=== PATIENT | male | born 1940 | race Caucasian/White ===

== ENCOUNTER 2023-03-06 08:10 | Outpatient (RCR) | payer MEDICARE, OTHER, SELFPAY | END 2023-03-28 14:00 | disposition home or self-care (01) | LOC: PT 08:10 | PROVIDERS: PCP Family Medicine; Visit Provider Family Medicine | DX: R26.89 Other abnormalities of gait and mobility (principal); R29.3 Abnormal posture; R26.9 Unspecified abnormalities of gait and mobility | CPT/HCPCS: 97110; 97530 ==

== ENCOUNTER 2023-03-11 07:36 | Outpatient (OUT) | payer MEDICARE, OTHER, SELFPAY ==
--- NOTE | 2023-03-11 07:43 | CA_ITS ---
Patient: ANMOL VELÁZQUEZ Exam Date: 03/11/2023 : 1940 Gender:M Ordering : DR Mikael Stephens . Admission #: [id number] Family : DR TESSY SIMMS M.D. Order #: [id number] CLICK HERE TO VIEW EXAM ECHOCARDIOGRAM REPORT PROCEDURE: CA ECHO DOPPLER COMPLETE INDICATIONS: AFIB, MURMUR COMPARISON: None. DESCRIPTION: COMPLETE ECHOCARDIOGRAM Real-time transthoracic echocardiography with 2D, M-mode, spectral and color flow Doppler performed. QUALITY: Technical quality was good. LEFT VENTRICLE: Normal chamber size. Mild concentric left ventricular hypertrophy. Global left ventricular systolic function is normal. LV EF: Estimated left ventricular ejection fraction is 60% DIASTOLIC: Normal diastolic function. ATRIAL SEPTUM: LEFT ATRIUM: Mild dilatation. RIGHT ATRIUM: Mild dilatation. RIGHT VENTRICLE: Normal chamber size. Normal right ventricular systolic function. TRICUSPID VALVE: Normal mobility and thickness. No stenosis with mild regurgitation. No evidence of pulmonary hypertension. RVSP 30 mmHg MITRAL VALVE: Normal mobility and thickness. No evidence of mitral valve stenosis. Mild mitral annular calcification. Mild mitral regurgitation. AORTIC VALVE: Moderately calcified aortic valve. Moderately diminished mobility. Doppler velocity suggests moderate aortic valve stenosis. DVI 0.35, OKSAAN 1.2 cm2, Velocity max 2.6 m/s, Mean gradient 16 mmHg. No aortic regurgitation. AORTIC ROOT: Normal diameter and appearance. Normal size ascending aorta measuring 3.5 cm. PULMONIC VALVE: Normal thickness and mobility. No stenosis. No regurgitation. PERICARDIUM: No evidence of pericardial effusion. IVC: Collapses with inspirations. Normal size. PLEURA: CONCLUSION: 1. Mild concentric left ventricular hypertrophy, normal ventricular systolic function. LVEF is 60%. 2. Mild biatrial dilatation. 3. Normal diastolic function. 4. Moderate aortic valve stenosis. 5. Normal right-sided pressures. Adult Echocardiography Procedure Report Left Ventricle LVEDD (3.7 - 5.6 cm): 3.93 cm LVESD (2.2 - 4.0 cm): 2.81 cm LVIVS thickness (0.6 - 1.2 cm): 1.09 cm LVPW thickness (0.5 - 1.0 cm): 1.07 cm e': 0.15 m/s E - e': 4.22 LVOT Max Gradient: 3.32 mm[Hg] LVOT Area (cm2): 0.91 m/s Peak Velocity (LVOT): 0.91 m/s Mean Velocity (LVOT): 0.63 m/s LVOT Diameter 2.11 cm Left Ventricular Ejection Fraction: 60% Left Atrium LA Volume Index (2D A2C): 30.26 ml/m2 Left Atrium Systolic Dimension: 4.08 cm Mitral Valve MV E to A Ratio: 0.86 Mitral Valve A-Wave Peak Velocity: 0.71 m/s Mitral Valve E-Wave Peak Velocity: 0.61 m/s Right Ventricle RV Internal Diastolic Dimension: 3.38 cm Aorta AO Root Diam: 3.33 cm Ascending Ao Diam: 3.52 cm Aortic Valve AoV Area (Peak Arnav): 1.29 cm2, 1.38 cm2 AoV Area (VTI): 1.28 cm2, 1.45 cm2 Peak Velocity(Antegrade Flow): 2.30 m/s, 2.48 m/s, 2.59 m/s Peak Gradient(Antegrade Flow): 21.09 mm[Hg], 24.58 mm[Hg], 26.90 mm[Hg] Mean Velocity(Antegrade Flow): 1.57 m/s, 1.68 m/s, 1.90 m/s Mean Gradient(Antegrade Flow): 11.48 mm[Hg], 13.13 mm[Hg], 15.53 mm[Hg] Velocity Time Integral: 47.29 cm, 56.14 cm, 57.48 cm Tricuspid Valve Peak Velocity (Regurgitant Flow): 2.31 m/s, 2.59 m/s, 2.37 m/s Pulmonic Valve Mean Gradient: 3.44 mm[Hg], 3.30 mm[Hg] Mean Velocity: 0.88 m/s, 0.85 m/s Peak Velocity: 1.29 m/s, 1.43 m/s Peak Gradient: 8.14 mm[Hg], 6.65 mm[Hg], 6.65 mm[Hg] Right Atrium Right Atrium Systolic Pressure: 39.78 ml, 39.78 ml Dictated by: Jimmie Freire M.D. on 03/12/2023 at 11:17 Approved by: Jimmie Freire M.D. on 03/12/2023 at 11:23
[2023-03-11 08:06] LABS: Basophils Percent Auto 0.3 % (0.2-2.0); Eosinophils Absolute Auto 0.1 10^3/uL (0.0-0.7); Eosinophils Percent Auto 1.8 % (0.9-7.0); Hematocrit 38.6 % (42.0-54.0); Hemoglobin 12.9 g/dL (14.0-18.0); Immature Granulocytes Abs Auto 0.03 10^3/uL (0.00-0.03); Immature Granulocytes Pct Auto 0.4 % (0.0-0.5); Lymphocytes Absolute Auto 1.4 10^3/uL (1.2-3.8); Lymphocytes Percent Auto 20.5 % (20.5-60.0); Mean Corpuscular HGB Conc 33.4 g/dL (29.9-35.2); Mean Corpuscular Hemoglobin 31.6 pg (25.9-34.0); Mean Corpuscular Volume 94.6 fL (80.0-94.0); Mean Platelet Volume 9.2 fL (9.5-13.5); Monocytes Percent Auto 14.5 % (1.7-12.0); Neutrophils Absolute Auto 4.2 10^3/uL (1.4-6.5); Neutrophils Percent Auto 62.5 % (43.0-75.0); Platelet Count 206 10^3/uL (150-450); Red Blood Count 4.08 10^6/uL (4.70-6.10); Red Cell Distribution Width 13.2 % (11.0-15.0); White Blood Count 6.7 10^3/uL (4.0-11.0)
[2023-03-11 08:21] LABS: Estimated Average Glucose 131 mg/dL; Glycohemoglobin A1C 6.2 % (4.5-6.2)
[2023-03-11 08:23] LABS: Alanine Aminotransferase 20 U/L (16-63); Albumin Globulin Ratio 0.9; Albumin Level 3.5 g/dL (3.4-5.0); Alkaline Phosphatase 93 U/L (46-116); Anion Gap 12.3; Aspartate Amino Transferase 12 U/L (15-37); BUN Creatinine Ratio 23.5; Bilirubin Total 0.5 mg/dL (0.2-1.0); Calcium 9.5 mg/dL (8.5-10.1); Carbon Dioxide 29.1 mmol/L (21.0-32.0); Chloride 101 mmol/L (98-107); Estimated GFR (African America >60 (>=60); Estimated GFR (Non-African Ame >60 (>=60); Globulin 3.8 g/dL; Glucose 110 mg/dL (74-106); Potassium 4.4 mmol/L (3.5-5.1); Sodium 138 mmol/L (136-145); Total Protein 7.3 g/dL (6.4-8.2)
[2023-03-11 08:36] LABS: Chol HDL Ratio 2.1; Cholesterol 177 mg/dL (<=200); Free T3 2.35 pg/mL (2.18-3.98); HDL Cholesterol 84 mg/dL (40-60); Thyroid Stimulating Hormone 2.607 uIU/mL (0.358-3.740); Triglycerides 63 mg/dL (<=150); VLDL CHOLESTEROL 12.6 mg/dL
== END 2023-03-11 07:37 ==
LOC: LAB 07:36
PROVIDERS: PCP Family Medicine; Visit Provider Family Medicine
DX: E78.5 Hyperlipidemia, unspecified (principal); Z12.5 Encounter for screening for malignant neoplasm of prostate; R41.3 Other amnesia; M48.062 Spinal stenosis, lumbar region with neurogenic claudication; I10 Essential (primary) hypertension; I48.91 Unspecified atrial fibrillation; R01.1 Cardiac murmur, unspecified; R73.09 Other abnormal glucose; D64.9 Anemia, unspecified; E55.9 Vitamin D deficiency, unspecified
CPT/HCPCS: 36415; 80053; 80061; 82306; 83036; 83540; 84436; 84443; 84481; 85025; 93306; G0103

== ENCOUNTER 2023-05-12 10:25 | Outpatient (OUT) | payer MEDICARE, OTHER, SELFPAY ==
[2023-05-12 11:17] LABS: Bilirubin Urine NEGATIVE (NEGATIVE); Blood Urine TRACE-I (NEGATIVE); Clarity Urine CLEAR (CLEAR); Color Urine YELLOW (YELLOW); Glucose Urine UA NEGATIVE (NEGATIVE); Ketones Urine NEGATIVE (NEGATIVE); Leukocyte Esterase Urine NEGATIVE (NEGATIVE); Nitrite Urine NEGATIVE (NEGATIVE); Protein Urine NEGATIVE (NEG/TRACE); Urobilinogen Urine 0.2 EU/dL (0.2-1.0); pH Urine 5.5 (5.0-9.0)
[2023-05-12 11:45] LABS: Bacteria Urine NONE SEEN #/HPF (NONE SEEN); RBC Urine 0-2 #/HPF (0-2); WBC Urine NONE SEEN #/HPF (NONE SEEN)
[2023-05-12 11:46] LABS: Mucus Urine NONE SEEN (NONE SEEN); Squamous Epithelial Cell Urine RARE #/LPF (NONE/RARE)
== END 2023-05-12 10:26 | disposition home or self-care (01) ==
LOC: LAB 10:28
PROVIDERS: PCP Family Medicine; Visit Provider Urology
DX: R31.9 Hematuria, unspecified (principal)
CPT/HCPCS: 81001

== ENCOUNTER 2023-07-28 08:58 | Outpatient (OUT) | payer MEDICARE, OTHER, SELFPAY ==
[2023-07-28 09:19] LABS: Basophils Percent Auto 0.5 % (0.2-2.0); Eosinophils Absolute Auto 0.3 10^3/uL (0.0-0.7); Eosinophils Percent Auto 4.7 % (0.9-7.0); Hematocrit 39.9 % (42.0-54.0); Hemoglobin 13.5 g/dL (14.0-18.0); Immature Granulocytes Abs Auto 0.01 10^3/uL (0.00-0.03); Immature Granulocytes Pct Auto 0.2 % (0.0-0.5); Lymphocytes Absolute Auto 1.4 10^3/uL (1.2-3.8); Lymphocytes Percent Auto 26.2 % (20.5-60.0); Mean Corpuscular HGB Conc 33.8 g/dL (29.9-35.2); Mean Corpuscular Hemoglobin 32.8 pg (25.9-34.0); Mean Corpuscular Volume 96.8 fL (80.0-94.0); Mean Platelet Volume 9.2 fL (9.5-13.5); Monocytes Absolute Auto 0.8 10^3/uL (0.3-0.8); Monocytes Percent Auto 13.8 % (1.7-12.0); Neutrophils Percent Auto 54.6 % (43.0-75.0); Platelet Count 215 10^3/uL (150-450); Red Blood Count 4.12 10^6/uL (4.70-6.10); White Blood Count 5.5 10^3/uL (4.0-11.0)
--- NOTE | 2023-07-28 09:26 | MR_ITS ---
[address] [address] Patient Name: ANMOL VELÁZQUEZ MRN: [id number] date: 1940 Sex: M Assigned Patient Location: MRI Current Patient Location: MRI Accession/Order Number: [id number] Exam Date: 07/28/2023 09:45 Report Date: 07/28/2023 15:59 At the request of: ROSALIA NAQVI Procedure: MR head/brain wo con MRI BRAIN WITHOUT CONTRAST, 07/28/2023. HISTORY: Memory loss. COMPARISON: MRI brain, 05/25/2021. TECHNIQUE: Multiplanar, multisequence MRI imaging of the brain without contrast. FINDINGS: There is moderate mucosal thickening left maxillary sinus. Prior cataract surgery. Nasopharynx is normal. Utility [employer] Work[employer] spaces are normal. Moderate brain atrophy. No hydrocephalus. No extra-axial fluid collections. Mild chronic microvascular ischemic changes in the cerebral white matter. No diffusion restriction. No evidence of acute ischemic infarction. T2 gradient images show no hemorrhagic lesions. No masses. MR/MR head/brain wo con IMPRESSION: 1. Stable MRI of the brain. 2. Moderate brain atrophy stable. No hydrocephalus. 3. No acute infarction. No masses. Electronically authenticated by: MARELY MONTERROSO Date: 07/28/2023 15:59
[2023-07-28 09:33] LABS: Estimated Average Glucose 134 mg/dL; Glycohemoglobin A1C 6.3 % (4.5-6.2)
[2023-07-28 10:01] LABS: Alanine Aminotransferase 21 U/L (16-63); Albumin Globulin Ratio 1.1; Albumin Level 3.7 g/dL (3.4-5.0); Alkaline Phosphatase 90 U/L (46-116); Aspartate Amino Transferase 10 U/L (15-37); BUN Creatinine Ratio 24.5; Bilirubin Total 0.6 mg/dL (0.2-1.0); Calcium 9.5 mg/dL (8.5-10.1); Carbon Dioxide 28.4 mmol/L (21.0-32.0); Chloride 101 mmol/L (98-107); Chol HDL Ratio 2.5; Cholesterol 194 mg/dL (<=200); Estimated GFR (African America >60 (>=60); Estimated GFR (Non-African Ame >60 (>=60); Free T3 2.41 pg/mL (2.18-3.98); Globulin 3.3 g/dL; Glucose 99 mg/dL (74-106); HDL Cholesterol 79 mg/dL (40-60); Potassium 4.4 mmol/L (3.5-5.1); Sodium 137 mmol/L (136-145); Thyroid Stimulating Hormone 2.433 uIU/mL (0.358-3.740); Triglycerides 72 mg/dL (<=150); VLDL CHOLESTEROL 14.4 mg/dL
[2023-07-29 10:13] LABS: Insulin 6.9 uIU/mL (2.6-24.9)
== END 2023-07-28 08:59 | disposition home or self-care (01) ==
PROVIDERS: PCP Family Medicine; Visit Provider Family Medicine
DX: I48.91 Unspecified atrial fibrillation (principal); R41.3 Other amnesia; I10 Essential (primary) hypertension; E78.5 Hyperlipidemia, unspecified; R73.09 Other abnormal glucose; Z12.5 Encounter for screening for malignant neoplasm of prostate; Z12.12 Encounter for screening for malignant neoplasm of rectum
CPT/HCPCS: 36415; 70551; 80053; 80061; 83036; 83525; 84436; 84443; 84481; 85025; G0103

== ENCOUNTER 2023-07-30 09:06 | Outpatient (REF) | payer MEDICARE, OTHER, SELFPAY ==
[2023-07-31 12:03] LABS: Occult Blood Negative
== END 2023-07-30 09:07 | disposition home or self-care (01) ==
LOC: LAB 09:06
PROVIDERS: PCP Family Medicine; Visit Provider Family Medicine
DX: I48.91 Unspecified atrial fibrillation (principal); I10 Essential (primary) hypertension; R41.3 Other amnesia
CPT/HCPCS: G0328

== ENCOUNTER 2024-05-10 07:30 | Outpatient (OUT) | payer MEDICARE, OTHER, SELFPAY ==
--- NOTE | 2024-05-10 07:30 | CA_ITS ---
Patient Name: ANMOL VELÁZQUEZ MR#: [id number] : 1940 Exam Date: 05/10/2024 Ordering Doctor: DR Dante Williamson M.D. ECHOCARDIOGRAM REPORT PROCEDURE: CA ECHO DOPPLER COMPLETE INDICATIONS: Aortic valve stenosis COMPARISON: None. DESCRIPTION: COMPLETE ECHOCARDIOGRAM Real-time transthoracic echocardiography with 2D, M-mode, spectral and color flow Doppler performed. QUALITY: Technical quality was good. LEFT VENTRICLE: Normal chamber size. Moderate concentric left ventricular hypertrophy. Global left ventricular systolic function is normal. LV EF: Estimated left ventricular ejection fraction is 65-70 %. DIASTOLIC: Diastolic function is indeterminate. ATRIAL SEPTUM: LEFT ATRIUM: Mild dilatation. RIGHT ATRIUM: Normal chamber size. RIGHT VENTRICLE: Mild chamber dilatation. Normal right ventricular systolic function. TRICUSPID VALVE: Normal mobility and thickness. No stenosis with mild regurgitation. No evidence of pulmonary hypertension. RVSP 33 mmHg MITRAL VALVE: Normal mobility and thickness. No evidence of mitral valve stenosis. Mitral annular calcification. Mild mitral regurgitation. AORTIC VALVE: Cannot rule out bicuspid valve. Moderately calcified aortic valve. Moderately diminished mobility. Doppler velocity suggest moderate aortic valve stenosis. DVI 0.32, OKSANA 1.2 cm2, Vmax 2.65 m/s, mean gradient 17 mmHg. No aortic regurgitation. AORTIC ROOT: Normal diameter and appearance. Mild dilatation of the ascending aorta measuring 3.7 cm. PULMONIC VALVE: Normal thickness and mobility. No stenosis. Trivial regurgitation. PERICARDIUM: No evidence of pericardial effusion. IVC: Collapses with inspirations. Dilated measuring 2.5 cm. PLEURA: CONCLUSION: 1. Moderate concentric left ventricular hypertrophy with normal systolic function. LVEF is 65 to 70%. 2. Mildly dilated right ventricle with normal systolic function. 3. Bicuspid aortic valve appearance with moderate stenosis and no regurgitation. 4. Mild mitral and tricuspid regurgitation. 5. Normal right-sided pressures. 6. Mildly dilated ascending aorta. Adult Echocardiography Procedure Report Left Ventricle LVEDD (3.7 - 5.6 cm): 3.42 cm LVESD (2.2 - 4.0 cm): 2.26 cm LVIVS thickness (0.6 - 1.2 cm): 1.38 cm LVPW thickness (0.5 - 1.0 cm): 1.26 cm e': 0.10 m/s E - e': 5.23 LVOT Max Gradient: 2.95 mm[Hg] LVOT Area (cm2): 0.86 m/s Peak Velocity (LVOT): 0.86 m/s Mean Velocity (LVOT): 0.59 m/s LVOT Diameter 2.22 cm Left Ventricular Ejection Fraction: 65-70 % Left Atrium LA Volume Index (2D A2C): 30.45 ml/m2 Left Atrium Systolic Dimension: 3.63 cm Mitral Valve MV E to A Ratio: 0.86 Mitral Valve A-Wave Peak Velocity: 0.60 m/s Mitral Valve E-Wave Peak Velocity: 0.52 m/s Right Ventricle RV Internal Diastolic Dimension: 3.16 cm Aorta AO Root Diam: 2.87 cm Ascending Ao Diam: 3.66 cm Aortic Valve AoV Area (Peak Arnav): 1.21 cm2, 1.40 cm2 AoV Area (VTI): 1.50 cm2, 1.94 cm2 Peak Velocity(Antegrade Flow): 2.37 m/s, 2.65 m/s, 3.09 m/s, 2.92 m/s Peak Gradient(Antegrade Flow): 22.56 mm[Hg], 28.06 mm[Hg], 38.13 mm[Hg], 34.00 mm[Hg] Mean Velocity(Antegrade Flow): 1.63 m/s, 1.98 m/s, 1.61 m/s, 1.43 m/s Mean Gradient(Antegrade Flow): 12.08 mm[Hg], 17.21 mm[Hg], 13.63 mm[Hg], 11.14 mm[Hg] Velocity Time Integral: 44.64 cm, 58.66 cm, 68.61 cm, 59.06 cm Tricuspid Valve Peak Velocity (Regurgitant Flow): 2.34 m/s, 2.49 m/s, 2.35 m/s Pulmonic Valve Mean Gradient: 3.33 mm[Hg], 3.52 mm[Hg] Mean Velocity: 0.83 m/s, 0.84 m/s Peak Velocity: 1.41 m/s Peak Gradient: 7.50 mm[Hg], 8.50 mm[Hg] Right Atrium Right Atrium Systolic Pressure: 28.32 ml, 28.32 ml Dictated by: Jimmie Freire M.D. on 05/10/2024 at 19:21 Approved by: Jimmie Freire M.D. on 05/10/2024 at 19:28
--- OUTSIDE RECORDS SUMMARY | 2024-05-10 07:33 | XMS_ITS | CCD ---
Author Organization [facility] Care Team Providers Care Vice President Global Advertising Sales Name Role Phone PHYSICIAN, DEFAULT Unavailable Unavailable PHYSICIAN, DEFAULT Unavailable Unavailable ELTAHAWY, EHAB A Unavailable Unavailable ELTAHAWY, EHAB A Unavailable Unavailable SELF, REFERRED Unavailable Unavailable SELF, REFERRED Unavailable Unavailable Rosalia Stephens Primary Care Physician ALEXISY ., DR LINDSEY Primary Care Unavailable HOY ., DR LINDSEY Attending Unavailable HOY ., DR LINDSEY Admitting Unavailable HOY ., DR LINDSEY Primary Care Unavailable HOY ., DR LINDSEY Consulting Unavailable HOY ., DR LINDSEY Attending Unavailable HOY ., DR LINDSEY Admitting Unavailable HOY ., DR LINDSEY Primary Care Unavailable HOY ., DR LINDSEY Attending Unavailable HOY ., DR LINDSEY Admitting Unavailable Alfa SAUCEDO Attending Unavailable Alfa SAUCEDO Attending Unavailable Unavailable Primary Care Provider Unavailabl e ELTAHAWY, EHAB Attending Unavailable ELTAHAWY, EHAB Attending Unavailable WALKER TO Attending Unavailable WALKER TO Attending Unavailable WALKER TO Attending Unavailable Allergies Allergy Classification Reported Allergen(s) Allergy Type Date of Onset Reaction(s) Facility (5 sources) Morphine; Translations: [morphine] Drug Allergy 7 Unknown [facility] (3 sources) Penicillin; Translations: [penicillin] Drug Allergy Unknown (qualifier value) [facility] (2 sources) Morphine Drug Allergy 7 [facility] (2 sources) Penicillins; Translations: [PENICILLINS] Drug allergy (disorder) 6 [facility] (1 source) Penicillins Drug Allergy 3 [facility] Medications Current Medications Medication Drug Class(es) Dates Sig (Normalized) Sig (Original) apixaban 5 mg oral tablet (2 sources) Factor Xa Inhibitor Start: 02-27-2023 Eliquis 5 mg oral tablet Refills(s) 0 Start Date: 05/12/23 Status: Ordered ascorbic acid 1000 mg oral tablet (1 source) Vitamin C Ascorbic Acid (vitamin C) 1000 MG tablet 1 (one) time each day at the same time. 0 Active aspirin 81 mg oral tablet (3 sources) Platelet Aggregation Inhibitor, Nonsteroidal Anti-inflammatory Drug Start: 11-01-2019 take 1 tablet by mouth once daily aspirin 81 mg oral tablet 81 mg = 1 tab(s), Oral, Daily, Prophylaxis Start Date: 11/01/19 Status: Ordered aspirin 81 MG ch ewable tablet 1 (one) time each day at the same time. 0 Active Calcium (2 sources) Phosphate Binder, Calcium Start: 11-01-2019 Calcium 500+D 1 tab(s), Chewed, Daily, Prophylaxis Start Date: 11/01/19 Status: Ordered cholecalciferol 0.05 mg oral tablet (1 source) Vitamin D cholecalciferol (Vitamin D-3) 50 MCG (2000 UT) tablet 1 (one) time each day at the same time. 0 Active cinnamon bark 500 mg oral capsule (1 source) cinnamon 500 MG capsule 1 (one) time each day at the same time. 0 Active Cinnamon Preparation (2 sources) Non-Standardized Food Allergenic Extract Start: 05-14-2019 take 1 mg by mouth twice daily Cinnamon mg, Oral, BID, Prophylaxis Start Date: 05/14/19 Status: Ordered docosahexaenoic acid 120 mg / eicosapentaenoic acid 180 mg oral capsule (1 source) omega-3 (Fish Oi l) 1000 MG capsule 1 capsule 1 (one) time each day at the same time. 0 Active donepezil hydrochloride 10 mg oral tablet (3 sources) Start: 08-13-2021 donepezil 10 mg Tab Refills(s) 0 Start Date: 08/13/21 Status: Ordered donepezil (Arice pt) 10 MG tablet every 12 (twelve) hours. 0 Active FeroSul 325 mg oral tablet (1 source) Start: 05-12-2023 FeroSul 325 mg oral tablet Refills(s) 0 Start Date: 05/12/23 Status: Ordered ferrous sulfate 325 mg oral tablet (1 source) Start: 10-07-2022 take 1 tablet by mouth once daily ferrous sulfate 325 (65 Fe) MG tablet TAKE ONE TABLET BY MOUTH DAILY for 30 0 10/07/2022 Active finasteride 5 mg oral tablet (3 sources) 5-alpha Reductase Inhibitor Start: 03-11-2023 End: 03-05-2024 take 1 tablet by mouth once daily finasteride 5 mg Tab 5 mg = 1 tab(s), Oral, Daily, X 90 day(s), # 90 tab(s), Refills(s) 3, Pharmacy: [facility] [id number], 178, cm, 08/13/21 10:37:00 EST, Height/Length Dosing, 77, kg, 08/13/21 10:37:00 EST, Weight Dosing Start Date: 03/11/23 Stop Date: 03/05/24 Status: Ordered Start: 09-03-2021 take 1 tablet by [facility] once daily finasteride 5 mg Tab 5 mg = 1 tab(s), Oral, Daily, # 90 tab(s), Refills(s) 3, Pharmacy: [facility] 641, 178, cm, 08/13/21 10:37:00 EST, Height/Length Dosing, 77, kg, 08/13/21 10:37:00 EST, Weight Dosing Start Date: 09/03/21 Status: Ordered Fish Oils (2 sources) Start: 11-04-2019 take 3 capsules by mouth once daily Fish Oil 3 cap(s), Oral, Daily, Refill(s) 0 Start Date: 11/04/19 Status: Ordered lisinopril 20 mg oral tablet (3 sources) Angiotensin Converting Enzyme Inhibitor Start: 05-14-2019 take 1 tablet by mouth once daily lisinopril 20 mg Tab 20 mg = 1 tab(s), Oral, Daily, High blood pressure Start Date: 05/14/19 Status: Ordered lovastatin 40 mg oral tablet (3 sources) HMG-CoA Reductase Inhibitor Start: 05-14-2019 take 1 tablet by mouth once daily lovastatin 40 mg Tab 40 mg = 1 tab(s), Oral, Daily, High cholesterol Start Date: 05/14/19 Status: Ordered memantine hydrochloride 5 mg oral tablet (1 source) N-mzvldf-B-aspart ate Receptor Antagonist Start: 08-27-2023 take 1 tablet by mouth in the morning memantine (Namenda) 5 MG tablet Indications: Mild cognitive impairment with memory loss Take 1 tablet (5 mg) by mouth in the morning and 1 tablet (5 mg) before bedtime. 60 tablet 11 08/27/2023 Active methylcellulose 500 mg oral tablet (1 source) Methylcellulose, Laxative, (Fiber Therapy) 500 MG tablet every 4 (four) hours. 0 Active 24 hr mirabegron 50 mg extended release oral tablet (1 source) beta3-Adrenergic Agonist Start: 09-24-2021 take 1 tablet by mouth once daily Myrbetriq 50 mg oral tablet, extended release 50 mg = 1 tab(s), Oral, Daily, # 30 tab(s), Refills(s) 6, [facility]acy: [facility], 178, cm, 08/13/21 10:37:00 EST, Height/Length Dosing, 77, kg, 08/13/21 10:37:00 EST, Weight Dosing Start Date: 09/24/21 Status: Ordered Multiple Vitamins-Minerals (Multivitamin Men) tablet (1 source) Multiple Vitamins-Minerals (Multivitamin Men) tablet Orally 0 Active pantoprazole 40 mg extended release oral tablet (3 sources) Proton Pump Inhibitor Start: 05-14-2019 take 1 tablet by mouth once daily pantoprazole 40 mg Oral EC Tab 40 mg = 1 tab(s), Oral, Daily, Control of stomach acid Start Date: 05/14/19 Status: Ordered Start: 05-14-2019 take 1 tablet by [facility] once daily pantoprazole 40 mg Oral EC Tab 40 mg = 1 tab(s), Oral, Daily, Control of stomach acid Start Date: 05/14/19 Status: Ordered tamsulosin hydrochloride 0.4 mg oral capsule (3 sources) alpha-Adrenergic Ana Laura Start: 01-22-2023 End: 01-17-2024 take 1 capsule by mouth once daily tamsulosin 0.4 mg Cap 0.4 mg = 1 cap(s), Oral, Daily, X 90 day(s), # 90 cap(s), Refills(s) 3, Pharmacy: [facility] [id number], 178, cm, 08/13/21 10:37:00 EST, Height/Length Dosing, 77, kg, 08/13/21 10:37:00 EST, Weight Dosing Start Date: 01/22/23 Stop Date: 01/17/24 Status: Ordered Start: 10-28-2021 take 1 capsule by [facility] once daily tamsulosin 0.4 mg Cap 0.4 mg = 1 cap(s), Oral, Daily, # 90 cap(s), Refills(s) 3, Pharmacy: [facility], 178, cm, 08/13/21 10:37:00 EST, Height/Length Dosing, 77, kg, 08/13/21 10:37:00 EST, Weight Dosing Start Date: 10/28/21 Status: Ordered 24 hr tolterodine tartrate 4 mg extended release oral capsule (2 sources) Cholinergic Muscarinic Antagonist Start: 03-06-2023 tolterodine LA (Detrol LA) 4 MG 24 hr capsule 1 capsule 1 (one) time each day at the same time. 0 03/06/2023 Active Start: 09-26-2021 take 1 capsule by [facility] once daily tolterodine 4 mg Cap-ER 4 mg = 1 cap(s), Oral, Daily, # 30 cap(s), Refills(s) 11, Pharmacy: [facility], 178, cm, 08/13/21 10:37:00 EST, Height/Length Dosing, 77, kg, 08/13/21 10:37:00 EST, Weight Dosing Start Date: 09/26/21 Status: Ordered vitamin b12 0.5 mg oral tablet (1 source) Vitamin B12 cyanocobalamin ( Vitamin B-12) 500 MCG tablet 1 (one) time each day at the same time. 0 Active Vitamin C 250 mg oral tablet (2 sources) Start: 11-01-2019 take 1 tablet by mouth once daily Vitamin C 250 mg oral tablet 250 mg = 1 tab(s), Oral, Daily, Prophylaxis Start Date: 11/01/19 Status: Ordered Completed/Discontinued Medications Medication Drug Class(es) Dates Sig (Normalized) Sig (Original) tadalafil 20 mg oral tablet (2 sources) Phosphodiesterase 5 Inhibitor Start: 12-04-2022 take 1 tablet by mouth every twenty-four hours tadalafil 20 mg Tab 20 mg = 1 tab(s), Oral, Daily, Take 1 tab by mouth 1 hour prior to sexual activity. Don't exceed 1 tab in a 24 hr period., # 30 tab(s), Refills(s) 2, [facility]: [facility] [id number], 178, cm, 08/13/21 10:37:00 EST, Height/Length Dosing, 77, kg, 11... Start Date: 12/04/22 Status: Ordered Start: 01-02-2021 take 1 tablet by ubaldo th every hour tadalafil 20 mg Tab 20 mg = 1 tab(s), Oral, Daily, take 1 tab 1 hour prior to sexual activity, # 30 tab(s), Refills(s) 6, Pharmacy: [facility] [facility] [id number] Start Date: 01/02/21 Status: Ordered Vitamin B12 500 mcg oral tablet (2 sources) Start: 11-04-2019 take 1 tablet by mouth once daily Vitamin B12 500 mcg oral tablet 500 microgram = 1 tab(s), Oral, Daily, Refills(s) 0, Prophylaxis Start Date: 11/04/19 Status: Ordered Problems Active Problems Problem Classification Problem Date Documented Date Episodic/Chronic Anxiety disorders (1 source) Anxiety; Translations: [Anxiety disorder, unspecified] Onset: 09-08-2023 09-08-2023 Chronic Blindness and vision defects (1 source) Visual alteration; Translations: [Unspecified visual loss] Onset: 09-08-2023 09-08-2023 Chronic Cardiac dysrhythmias (2 sources) Paroxysmal atrial fibrillation; Translations: [Paroxysmal atrial fibrillation] Onset: 03-31-2023 Chronic Delirium, dementia, and amnestic and other cognitive disorders (4 sources) 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; Translations: [AGE-RELATED COGNITIVE DECLINE] Onset: 07-01-2022 Chronic Disorders of lipid metabolism (5 sources) Hyperlipidemia; Translations: [Pure hypercholesterolemia , unspecified] Onset: 07-04-2022 04-12-2019 Chronic Essential hypertension (6 sources) Hypertensive disorder; Translations: [Essential (primary) hypertension] Onset: 07-04-2022 04-12-2019 Chronic Fracture of upper limb (2 sources) Fracture of metacarpal bone 11-04-2019 Episodic Comment on above: RIGHT Heart valve disorders (1 source) Nonrheumatic mitral (valve) insufficiency; Translations: [NONRHEUMATIC MITRAL (VALVE) INSUFFICIENCY] Onset: 06-24-2017 Chronic Hyperplasia of prostate (6 sources) Benign prostatic hypertrophy with outflow obstruction; Translations: [Nocturia due to benign prostatic hypertrophy] Onset: 03-31-2023 04-12-2019 Chronic Osteoarthritis (3 sources) Arthritis; Translations: [Osteoarthritis of right hip joint] Onset: 08-25-2023 04-12-2019 Chronic Other aftercare (1 source) Long-term current use of anticoagulant; Translations: [termite treater (current) use of anticoagulants] Onset: 05-12-2023 Episodic Other connective tissue disease (1 source) History of total replacement of left hip joint; Translations: [Presence of left artificial hip joint] Onset: 08-25-2023 08-25-2023 Chronic Other connective tissue disease (1 source) History of total replacement of right hip joint; Translations: [Presence of right artificial hip joint] Onset: 08-25-2023 08-25-2023 Chronic Other connective tissue disease (1 source) Pain in right hand; Translations: [Pain in right hand] Onset: 08-25-2023 08-25-2023 Episodic Other hereditary and degenerative nervous system conditions (1 source) Mild cognitive impairment, so stated; Translations: [Mild cognitive impairment, so stated] Onset: 08-25-2023 08-25-2023 Chronic Other male genital disorders (2 sources) 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 Other male genital disorders (1 source) Male erectile dysfunction, unspecified; Translations: [Erectile dysfunction] Onset: 05-12-2023 Chronic Other nervous system disorders (1 source) Chronic pain; Translations: [Other chronic pain] Onset: 08-25-2023 08-25-2023 Chronic Other nervous system disorders (4 sources) Other abnormalities of gait and mobility; Translations: [OTHER ABNORMALITIES GAIT AND MOBILITY] Onset: 03-05-2023 Episodic Other non-traumatic joint disorders (1 source) Pain in left shoulder; Translations: [Pain in joint, shoulder region] Onset: 08-25-2023 08-25-2023 Episodic Other non-traumatic joint disorders (1 source) Arthralgia of the pelvic region and thigh; Translations: [Pain in unspecified hip] Onset: 08-25-2023 08-25-2023 Episodic Other non-traumatic joint disorders (1 source) Pain in right hip joint; Translations: [Pain in right hip] Onset: 08-25-2023 08-25-2023 Episodic Skull and face fractures (2 sources) Closed fracture of nasal bones 11-04-2019 Episodic Spondylosis; intervertebral disc disorders; other back problems (5 sources) Disorder of lumbar disc; 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] Onset: 03-31-2023 04-12-2019 Chronic Superficial injury; contusion (1 source) Contusion of right hand; Translations: [Contusion of right hand, initial encounter] Onset: 08-25-2023 08-25-2023 Episodic Unclassified (2 sources) Unknown / UNK(Unknown) Onset: 06-24-2017 Unclassified (2 sources) Drug therapy finding 05-12-2020 Unclassified (1 source) Asymptomatic microscopic hematuria 05-12-2023 Past or Other Problems Problem Classification Problem Date Documented Date Episodic/Chronic Diabetes mellitus without complication (1 source) Other abnormal glucose; Translations: [OTHER ABNORMAL GLUCOSE] Onset: 07-04-2022 Episodic Genitourinary symptoms and ill-defined conditions (6 sources) Increased frequency of urination; Translations: [Nocturia] Onset: 03-31-2023 05-14-2019 Episodic Heart valve disorders (1 source) Cardiac murmur, unspecified; Translations: [CARDIAC MURMUR, UNSPECIFIED] Onset: 06-24-2017 Episodic Unclassified (6 sources) Abnormal electrocardiogram [ECG] [EKG]; Translations: [Encounter for screening for malignant neoplasm of prostate] Onset: 06-24-2017 08-25-2023 Episodic Results Test Name Value Interpretation Reference Range Facility Office Visiton 12-31-2023 Follow-up visit [id number] Matt Burroughs 1940 M Date Provider Department Center 12/31/2023 [facility] Family History Problem Relation Age of Onset No Known Problems Mother No Known Problems Father Heart failure Sister Family Status - Relation Status Age at Mother Father Sister Level of Service:38281 [place] OFFICE/OUTPATIENT ESTABLISHED LOW MDM 20 MIN Normal [facility] Orders Onlyon 12-31-2023 Orders Only [id number] Matt Burroughs 1940 M Date Provider Department Center 12/31/2023 KAVON CALDERÓN SAVI Guerra Family History Problem Relation Age of Onset No Known Problems Mother No Known Problems Father Heart failure Sister Family Status - Relation Status Age at Mother Father Sister Normal [facility] Lab Reportson 05-19-2023 Lab Reports [id number] Normal [facility] Ambulatory Visit Summaryon 0 05-12-2023 Ambulatory Visit Summary MATT BURROUGHS :1940 Visit Date:05/12/2023 Ambulatory Visit Instructions Your Diagnosis BPH associated with nocturia Organic impotence Asymptomatic microscopic hematuria Anticoagulated Tests Performed Urnls Dip Stick Auto w/o Microscopy POC 78283 Your Care Team Attending Physician - PHOEBE HARTMAN, Alfa Stroud Primary Care Physician - Rosalia Stephens MD This Is Your Medications List tolterodine (tolterodine 4 mg Cap-ER) Contact prescribing physician if questions or concerns apixaban (Eliquis 5 mg oral tablet) ascorbic acid (Vitamin C 250 mg oral tablet) aspirin (aspirin 81 mg oral tablet) calcium-vitamin D (Calcium 500+D) cinnamon (Cinnamon) cyanocobalamin (Vitamin B12 500 mcg oral tablet) donepezil (donepezil 10 mg Tab) ferrous sulfate (FeroSul 325 mg oral tablet) finasteride (finasteride 5 mg Tab) lisinopril (lisinopril 20 mg Tab) lovastatin (lovastatin 40 mg Tab) omega-3 polyunsaturated fatty acids (Fish Oil) pantoprazole (pantoprazole 40 mg Oral EC Tab) tadalafil (tadalafil 20 mg Tab) tamsulosin (tamsulosin 0.4 mg Cap) Procedures Performed Closed reduction of nasal fracture (11/04/2019), Cystoscopy (10/28/2005), Back, Hip replacement. Discharge Vitals Heart Rate (Peripheral) 79 Respiratory Rate 16 Blood Pressure 131/82 Height 178 cm Height 70 in Weight 76.1 kg Weight 167.42 lb BMI 24.02 What to do next You Need to Schedule the Following Appointments Follow Up with PHOEBE HARTMAN, TYRONE Quevedo When: Where: [facility] [address] , [place] [address] [phone] Medications What How Much When Instructions Unchanged tolterodine (tolterodine 4 mg Cap-ER) 1 Capsules By Mouth Every day Unchanged apixaban (Eliquis 5 mg oral tablet) Contact prescribing physician if questions or concerns Unchanged ascorbic acid (Vitamin C 250 mg oral tablet) 1 Tablets By Mouth Every day Contact prescribing physician if questions or concerns Unchanged aspirin (aspirin 81 mg oral tablet) 1 Tablets By Mouth Every day Contact prescribing physician if questions or concerns Unchanged calcium-vitamin D (Calcium 500+D) 1 Tablets Chewed Every day Contact prescribing physician if questions or concerns Unchanged cinnamon (Cinnamon) By Mouth 2 times a day Contact prescribing physician if questions or concerns Unchanged cyanocobalamin (Vitamin B12 500 mcg oral tablet) 1 Tablets By Mouth Every day Contact prescribing physician if questions or concerns Unchanged donepezil (donepezil 10 mg Tab) Contact prescribing physician if questions or concerns Unchanged ferrous sulfate (FeroSul 325 mg oral tablet) Contact prescribing physician if questions or concerns Unchanged finasteride (finasteride 5 mg Tab) 1 Tablets By Mouth Every day Duration: 90 Days Contact prescribing physician if questions or concerns Unchanged lisinopril (lisinopril 20 mg Tab) 1 Tablets By Mouth Every day Contact prescribing physician if questions or concerns Unchanged lovastatin (lovastatin 40 mg Tab) 1 Tablets By Mouth Every day Contact prescribing physician if questions or concerns Unchanged omega-3 polyunsaturated fatty acids (Fish Oil) 3 Capsules By Mouth Every day Contact prescribing physician if questions or concerns Unchanged pantoprazole (pantoprazole 40 mg Oral EC Tab) 1 Tablets By Mouth Every day Contact prescribing physician if questions or concerns Unchanged tadalafil (tadalafil 20 mg Tab) 1 Tablets By Mouth Every day Take 1 tab by mouth 1 hour prior to sexual activity. Don't exceed 1 tab in a 24 hr period. Contact prescribing physician if questions or concerns Unchanged tamsulosin (tamsulosin 0.4 mg Cap) 1 Capsules By Mouth Every day Duration: 90 Days Contact prescribing physician if questions or concerns Test Results Urnls Dip Stick Auto w/o Microscopy POC 40849 (05/12/2023) Bilirubin Urine Dipstick - Negative Blood Urine Dipstick - 1+ Small Glucose Urine Dipstick - Negative Ketones Urine Dipstick - Negative Leukocytes Urine Dipstick - Negative Nitrite Urine Dipstick - Negative Protein Urine Dipstick - Negative Specific [place] Urine Dipstick - 1.025 Urine Appearance Urine Dipstick - Clear Urine Color Urine Dipstick - Yellow Urobilinogen Urine Dipstick - Normal 0.2-1 EU/dl pH Urine Dipstick - 5.5 Allergies morphine (Unknown) penicillin (Unknown) Problems Ongoing - Any problem that you are currently receiving treatment for. Anticoagulated Arthritis Asymptomatic microscopic hematuria BPH associated with nocturia BPH with urinary obstruction Hyperlipidemia Hypertension Lumbar disc disease Nocturia Organic impotence Urinary frequency Education Materials Hematuria, Adult Hematuria is blood in the urine. Blood may be visible in the urine, or it may be identified with a test. This condition can be caused by infections of the bladder, urethra, kidney, or prostate. Other possible causes inclu (more content not included)... Normal [facility] Patient Educationon 05-12-20 23 Patient Education Urology Hematuria, Adult Hematuria is blood in the urine. Blood may be visible in the urine, or it may be identified with a test. This condition can be caused by infections of the bladder, urethra, kidney, or prostate. Other possible causes include: ? Kidney stones. ? Cancer of the urinary tract. ? Too much calcium in the urine. ? Conditions that are passed from parent to child (inherited conditions). ? Exercise that requires a lot of energy. Infections can usually be treated with medicine, and a kidney stone usually will pass through your urine. If neither of these is the cause of your hematuria, more tests may be needed to identify the cause of your symptoms. It is very important to tell your health care provider about any blood in your urine, even if it is painless or the blood stops without treatment. Blood in the urine, when it happens and then stops and then happens again, can be a symptom of a very serious condition, including cancer. There is no pain in the initial stages of many urinary cancers. Follow these instructions at home: Medicines ? Take riva-rnq-ohvdsvt and prescription medicines only as told by your health care provider. ? If you were prescribed an antibiotic medicine, take it as told by your health care provider. Do not stop taking the antibiotic even if you start to feel better. Eating and drinking ? Drink enough fluid to keep your urine pale yellow. It is recommended that you drink 3?4 quarts (2.8?3.8 L) a day. If you have been diagnosed with an infection, drinking cranberry juice in addition to large amounts of water is recommended. ? Avoid caffeine, tea, and carbonated beverages. These tend to irritate the bladder. ? Avoid alcohol because it may irritate the prostate (in males). General instructions ? If you have been diagnosed with a kidney stone, follow your health care provider's instructions about straining your urine to catch the stone. ? Empty your bladder often. Avoid holding urine for long periods of time. ? If you are female: ? After a bowel movement, wipe from front to back and use each piece of toilet paper only once. ? Empty your bladder before and after sex. ? Pay attention to any changes in your symptoms. Tell your health care provider about any changes or any new symptoms. ? It is up to you to get the results of any tests. Ask your health care provider, or the department that is doing the test, when your results will be ready. ? Keep all follow-up visits. This is important. Contact a health care provider if: ? You develop back pain. ? You have a fever or chills. ? You have nausea or vomiting. ? Your symptoms do not improve after 3 days. ? Your symptoms get worse. Get help right away if: ? You develop severe vomiting and are unable to take medicine without vomiting. ? You develop severe pain in your back or abdomen even though you are taking medicine. ? You pass a large amount of blood in your urine. ? You pass blood clots in your urine. ? You feel very weak or like you might faint. ? You faint. Summary ? Hematuria is blood in the urine. It has many possible causes. ? It is very important that you tell your health care provider about any blood in your urine, even if it is painless or the blood stops without treatment. ? Take bxgs-bdw-gddjooa and prescription medicines only as told by your health care provider. ? Drink enough fluid to keep your urine pale yellow. This information is not intended to replace advice given to you by your health care provider. Make sure you discuss any questions you have with your health care provider. Document Revised: 05/23/2021 Document Reviewed: 05/23/2021 [employer] Patient Education ? 2022 [employer] Normal [facility] Urology Office/Clinic Noteon 05-12-2023 Urology Office/Clinic Note Chief Complaint 1 year f/u HPI Staff Pt last seen in our office 08/13/21 due to BPH & Organic Impotence. Here today for follow up and for med refill. *Tamsulosin 0.4mg QD, Finasteride 5mg QD & Tadalafil 20mg therapy Per EMR message from 09/24/21, PRW wanted pt to start Myrbetriq 50mg QD therapy, however medication was too expensive, pt started on Tolterodine 4mg QD therapy Dysuria: no Incomplete bladder emptying: no Hematuria: no Frequency: once in a while Urgency: once in a while Nocturia: 2-3x Stream: good steady Leaking: no Post void dripping: no Wearing pads/ Depends: no Urge incontinence: no Stress incontinence: no Incontinence without Sensory Awareness: no Abdominal pain: no Flank pain: no History of Present Illness Tests reviewed: reviewed UA I have reviewed the previous health record information and history for this patient from Dr. Saucedo. I have reviewed and verified the staff HPI to be accurate for this encounter. There have been no associated fever, chills, flank pain, or blood in the urine. Denies any urinary infections since last encounter. Review of Systems PHQ Score Initial Depression Screen Score: 0 ROS - Provider Constitutional: denies weight loss, denies hot flashes. Eyes: denies eye problems. Gastrointestinal: denies nausea, denies vomiting. Cardiovascular: denies chest pain or angina. Integumentary: no dryness Musculoskeletal: denies musculoskeletal symptoms. ENMT: denies otolaryngeal symptoms. Respiratory: no shortness of breath. Heme/Lymph: denies easy bleeding tendency, denies easy bruising tendency. Psychiatric: no confusion, no anxiety. Genitourinary: See HPI. Physical Exam Vitals & Measurements HR: 79(Peripheral) RR: 16 BP: 131/82 HT: 70 in HT: 178 cm WT: 76.1 kg WT: 167.42 lb BMI: 24.02 General Appearance: alert, no distress, well nourished, well developed male. Genitourinary: normal scrotum, normal testes, normal urethra, normal epididymis, normal vas deferens/spermatic cord. Flank Pain: none. Bladder: nonpalpable. Assessment/Plan 1. BPH associated with nocturia (N40.1: Benign prostatic hyperplasia with lower urinary tract symptoms) Pt is currently taking Tamsulosin 0.4mg QD and Finasteride 5mg QD. Denies any SEs at this time. Pt was prescribed Myrbetriq in the past but never started due to expense. Pt is now taking Tolterodine 4mg ER QD. Reports this has not improved nocturia significantly. Discussed pt is likely getting up at night due to pain or other complications unrelated to urination. Pt to stop taking Tolterodine and to monitor sxs. 2. 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 3. Asymptomatic microscopic hematuria (R31.21: Asymptomatic microscopic hematuria) UA today shows small blood. Denies any visible blood in his urine. Pt does not have a hx of hematuria. Pt to get a micro UA done. Will evaluate further options pending results. All questions/concerns were discussed. Pt to call the office if he encounters any issues prior. Pt acknowledges understanding. 4. Anticoagulated (Z79.01: FPC (current) use of anticoagulants) On Eliquis. Follow-up With When Contact Information PHOEBE HARTMAN, Alfa Stroud, [facility] [address], [place] [phone] Additional Instructions: 1 yr Patient Education Hematuria, Adult I, Mei Vega, personally scribed for Dr. Saucedo on 05/12/2023 10:04:34. . Documentation recorded by the scribe, Mei Vega, accurately reflects the services(s) I performed and decisions made by me. Authenticated by Dr. Saucedo on 05/12/2023 10:06:58. Problem List/Past Medical History Ongoing Anticoagulated Arthritis Asymptomatic microscopic hematuria BPH associated with nocturia BPH with urinary obstruction Hyperlipidemia Hypertension Lumbar disc disease Nocturia Organic impotence Urinary frequency Historical No qualifying data Procedure/Surgical History Closed reduction of nasal fracture (11/04/2019), Cystoscopy (10/28/2005), Back, Hip replacement. Medications aspirin 81 mg oral tablet, 81 mg= 1 tab(s), Oral, Daily Calcium 500+D, 1 tab(s), Chewed, Daily Cinnamon, Oral, BID donepezil 10 mg Tab Eliquis 5 mg oral tablet FeroSul 325 mg oral tablet finasteride 5 mg Tab, 5 mg= 1 tab(s), Oral, Daily, 3 refills Fish Oil, 3 cap(s), Oral, Daily lisinopril 20 mg Tab, 20 mg= 1 tab(s), Oral, Daily lovastatin 40 mg Tab, 40 mg= 1 tab(s), Oral, Daily pantoprazole 40 mg Oral EC Tab, 40 mg= 1 tab(s), Oral, Daily tadalafil 20 mg Tab, 20 mg= 1 tab(s), Oral, Daily, 2 refills tamsulosin 0.4 mg Cap, 0.4 mg= 1 cap(s), Oral, Daily, 3 refills tolterodine 4 mg Cap-ER, 4 mg= 1 cap(s), Oral, Daily, 11 refills Vitamin B12 500 mcg oral tablet, 500 mcg= 1 tab(s), Oral, Daily Vitamin C 250 mg oral tablet, 250 mg= 1 tab(s), Oral, Daily Allergies (more content not included)... Normal [facility] Comment on above: Result Comment: Elec tronically Signed By: Alfa SAUCEDO MD\.br\Date and Time Signed: 05/12/23 10:07 EDT\.br\Electronically Co-Signed By: Mei Vega\.br\Date and Time Co-Signed: 05/12/23 10:05 EDT Office Visiton 03-31-2023 Follow-up visit [id number] Matt Burroughs 1940 M Date Provider Department Center 03/31/2023 Jesus-DANTE WILLIAMSON [facility] Family History Problem Relation Age of Onset No Known Problems Mother No Known Problems Father Heart failure Sister Family Status - Relation Status Age at Mother Father Sister Level of Service:12237 [place] OFFICE/OUTPATIENT NEW LOW MDM 30-44 MINUTES Normal [facility] INSULINon 07-02-2022 Insulin 6.3 uIU/mL Normal 2.6-24.9 [facility] Comment on above: Performed By: #### I NSULIN #### [facility] [address] [place] [address] Dr. Robyn Espinal T4, T3U, FTI LABCORPon 07-02 Free Thyroxine Index 1.6 Normal 1.2-4.9 [facility] Comment on above: Performed By: #### T HYLC #### [facility] [address] [place] [address] Dr. Robyn Espinal T3 Uptake 27 % Normal 24-39 [facility] Comment on above: Performed By: #### T HYLC #### [facility] [address] [place] [address] Dr. Robyn Espinal T4 [Mass/Vol] 5.8 ug/dL Normal 4.5-12.0 [facility] Comment on above: Performed By: #### T HYLC #### [facility] [address] [place] [address] Dr. Robyn Espinal CBC AUTO DIFFon 07-01-2022 BASO # 0.0 103/ul Normal 0.0-0.1 [facility] Comment on above: Performed By: #### C BC #### [facility] [address] [place] [address] Dr. Robyn Espinal Basophils/100 WBC (Bld) 0.6 % Normal 0.2-2.0 [facility] Comment on above: Performed By: #### C BC #### [facility] [address] [place] [address] Dr. Robyn Espinal EO # 0.1 103/ul Normal 0.0-0.7 [facility] Comment on above: Performed By: #### C BC #### [facility] [address] [place] [address] Dr. Robyn Espinal Eosinophils/100 WBC (Bld) 1.9 % Normal 0.9-7.0 [facility] Comment on above: Performed By: #### C BC #### [facility] [address] [place] [address] Dr. Robyn Espinal Erythrocyte distribution width (RBC) [Ratio] 13.1 % Normal 11.0-15.0 [facility] Comment on above: Performed By: #### C BC #### [facility] [address] [place] [address] Dr. Robyn Espinal Hematocrit (Bld) [Volume fraction] 39.5 % Critically low 42.0-54.0 [facility] Comment on above: Performed By: #### C BC #### [facility] [address] [place] [address] Dr. Robyn Espinal Hemoglobin (Bld) [Mass/Vol] 12.9 g/dL Critically low 14.0-18.0 [facility] Comment on above: Performed By: #### C BC #### [facility] [address] [place] [address] Dr. Robyn Espinal IG # 0.01 10e3/ul Normal 0.00-0.03 [facility] Comment on above: Performed By: #### C BC #### [facility] [address] [place] [address] Dr. Robyn Espinal IG % 0.2 % Normal 0.0-0.5 [facility] Comment on above: Performed By: #### C BC #### [facility] [address] [place] [address] Dr. Robyn Espinal LYMPH # 1.3 103/ul Normal 1.2-3.8 [facility] Comment on above: Performed By: #### C BC #### [facility] [address] [place] [address] Dr. Robyn Espinal Lymphocytes/100 WBC (Bld) 27.2 % Normal 20.5-60.0 [facility] Comment on above: Performed By: #### C BC #### [facility] [address] [place] [address] Dr. Robyn Espinal MANUAL DIFF REQ NO Normal [facility] Comment on above: Performed By: #### C BC #### [facility] [address] [place] [address] Dr. Robyn Espinal MCH (RBC) [Entitic mass] 31.8 pg Normal 25.9-34.0 [facility] Comment on above: Performed By: #### C BC #### [facility] [address] [place] [address] Dr. Robyn Espinal MCHC (RBC) [Mass/Vol] 32.7 g/dL Normal 29.9-35.2 [facility] Comment on above: Performed By: #### C BC #### [facility] [address] [address] [address] Robyn Espinal MCV (RBC) [Entitic vol] 97.3 fL Critically high 80.0-94.0 [facility] Comment on above: Performed By: #### C BC #### [facility] [address] [address] [address] Robyn Espinal MONO # 0.7 103/ul Normal 0.3-0.8 [facility] Comment on above: Performed By: #### C BC #### [facility] [address] [address] [address] Robyn Espinal Monocytes/100 WBC (Bld) 14.7 % Critically high 1.7-12.0 [facility] Comment on above: Performed By: #### C BC #### [facility] [address] [place] [address] Dr. Robyn Espinal NEUT # 2.6 103/ul Normal 1.4-6.5 [facility] Comment on above: Performed By: #### C BC #### [facility] [address] [place] [address] Dr. Robyn Espinal Neutrophils/100 WBC (Bld) 55.4 % Normal 43.0-75.0 [facility] Comment on above: Performed By: #### C BC #### [facility] [address] [address] [address] Robyn Espinal Platelet mean volume (Bld) [Entitic vol] 9.7 fL Normal 9.5-13.5 [facility] Comment on above: Performed By: #### C BC #### [facility] [address] [address] [address] Robyn Espinal PLT 205 103/ul Normal 150-450 [facility] Comment on above: Performed By: #### C BC #### [facility] [address] [place] [address] Dr. Robyn Espinal RBC 4.06 106/ul Critically low 4.70-6.10 [facility] Comment on above: Performed By: #### C BC #### [facility] [address] [address] [address] Robyn Espinal WBC 4.7 103/ul Normal 4.0-11.0 [facility] Comment on above: Performed By: #### C BC #### [facility] [address] [address] [address] Robyn Espinal GLYCOHEMOGLOBIN A1Con 2021 ADA RECOMMENDATION SEE BELOW Normal [facility] Comment on above: Result Comment: ADA RECOMMENDED LIMIT 4.0 - 6.0 ADA THERAPEUTIC TARGET < 7.0 ACTION SUGGESTED > 7.0 Performed By: #### A 1C #### [facility] [address] [place] [address] Dr. Robyn Espinal Glucose [Mass/Vol] 128 mg/dL Normal [facility] Comment on above: Performed By: #### A 1C #### [facility] [address] [place] [address] Dr. Robyn Espinal HbA1c (Bld) [Mass fraction] 6.1 % Normal 4.5-6.2 [facility] Comment on above: Performed By: #### A 1C #### [facility] [address] [place] [address] Dr. Robyn Espinal LIPID PROFILEon 07-01-2022 CHOL-HDL RATIO NORM SEE BELOW Normal [facility] Comment on above: Result Comment: 3.3 - 4.4 LOW RISK 4.4 - 7.1 AVERAGE RISK 7.1 - 11.0 MODERATE RISK >11.0 HIGH RISK Performed By: #### T SH, LIPID, CMP, URIC #### [facility] [address] [place] [address] Dr. Robyn Espinal Cholesterol [Mass/Vol] 201 mg/dL Critically high <=200 [facility] Comment on above: Performed By: #### T SH, LIPID, CMP, URIC #### [facility] [address] [place] [address] Dr. Robyn Espinal Cholesterol in HDL [Mass/Vol] 82 mg/dL Critically high 40-60 [facility] Comment on above: Performed By: #### T SH, LIPID, CMP, URIC #### [facility] [address] [address] [address] Robyn Espinal Cholesterol in LDL [Mass/Vol] 102.4 mg/dL Normal [facility] Comment on above: Performed By: #### T SH, LIPID, CMP, URIC #### [facility] [address] [address] [address] Robyn Espinal Cholesterol.total/Ch olesterol in HDL [Mass ratio] 2.5 {ratio} Normal [facility] Comment on above: Performed By: #### T SH, LIPID, CMP, URIC #### [facility] [address] [address] [address] Robyn Espinal HDL NORMAL > or = 60 mg/dl - LOW CARDIOVASCULAR RISK <40 mg/dl - HIGH CARDIOVASCULAR RISK Normal [facility] Comment on above: Performed By: #### T SH, LIPID, CMP, URIC #### [facility] [address] [address] [address] Robyn Espinal LDL CALC NORMAL SEE BELOW Normal [facility] Comment on above: Result Comment: <100 mg/dl OPTIMAL 100 - 129 mg/dl NEAR OR ABOVE OPTIMAL 130 - 159 mg/dl BORDERLINE HIGH 160 - 189 mg/dl HIGH >190 mg/dl VERY HIGH Performed By: #### T SH, LIPID, CMP, URIC #### [facility] [address] [address] [address] Robyn Espinal Triglyceride [Mass/Vol] 83 mg/dL Normal <=150 [facility] Comment on above: Performed By: #### T SH, LIPID, CMP, URIC #### [facility] [address] [address] [address] Robyn Espinal VLDL CALC 16.6 mg/dL Normal [facility] Comment on above: Performed By: #### T SH, LIPID, CMP, URIC #### [facility] [address] [place] [address] Dr. Robyn Espinal PROF 14(COMP METB)on 022 Albumin [Mass/Vol] 3.7 g/dL Normal 3.4-5.0 [facility] Comment on above: Performed By: #### T SH, LIPID, CMP, URIC #### [facility] [address] [address] [address] Robyn Espinal Albumin/Globulin [Mass ratio] 1.2 {ratio} Normal [facility] Comment on above: Performed By: #### T SH, LIPID, CMP, URIC #### [facility] [address] [address] [address] Robyn Espinal ALP [Catalytic activity/Vol] 68 U/L Normal 46-116 [facility] Comment on above: Performed By: #### T SH, LIPID, CMP, URIC #### [facility] [address] [place] [address] Dr. Robyn Espinal ALT [Catalytic activity/Vol] 21 U/L Normal 16-63 [facility] Comment on above: Performed By: #### T SH, LIPID, CMP, URIC #### [facility] [address] [place] [address] Dr. Robyn Espinal Anion gap [Moles/Vol] 7.7 mmol/L Normal [facility] Comment on above: Performed By: #### T SH, LIPID, CMP, URIC #### [facility] [address] [place] [address] Dr. Robyn Espinal AST [Catalytic activity/Vol] 14 U/L Critically low 15-37 [facility] Comment on above: Performed By: #### T SH, LIPID, CMP, URIC #### [facility] [address] [place] [address] Dr. Robyn Espinal Bilirubin [Mass/Vol] 0.8 mg/dL Normal 0.2-1.0 [facility] Comment on above: Performed By: #### T SH, LIPID, CMP, URIC #### [facility] [address] [place] [address] Dr. Robyn Espinal Calcium [Mass/Vol] 9.3 mg/dL Normal 8.5-10.1 [facility] Comment on above: Performed By: #### T SH, LIPID, CMP, URIC #### [facility] [address] [place] [address] Dr. Robyn Espinal Chloride [Moles/Vol] 105 mmol/L Normal 98-107 [facility] Comment on above: Performed By: #### T SH, LIPID, CMP, URIC #### [facility] [address] [address] [address] Robyn Espinal CO2 [Moles/Vol] 30.7 mmol/L Normal 21.0-32.0 [facility] Comment on above: Performed By: #### T SH, LIPID, CMP, URIC #### [facility] [address] [place] [address] Dr. Robyn Espinal Creatinine [Mass/Vol] 1.03 mg/dL Normal 0.70-1.30 [facility] Comment on above: Performed By: #### T SH, LIPID, CMP, URIC #### [facility] [address] [place] [address] Dr. Robyn Espinal EGFR-AF SURINAMESE >60 Normal >=60 [facility] Comment on above: Performed By: #### T SH, LIPID, CMP, URIC #### [facility] [address] [place] [address] Dr. Robyn Espinal EGFR-NON AF SURINAMESE >60 Normal >=60 [facility] Comment on above: Performed By: #### T SH, LIPID, CMP, URIC #### [facility] [address] [place] [address] Dr. Robyn Espinal Globulin (S) [Mass/Vol] 3.0 g/dL Normal [facility] Comment on above: Performed By: #### T SH, LIPID, CMP, URIC #### [facility] [address] [place] [address] Dr. Robyn Espinal Glucose [Mass/Vol] 110 mg/dL Critically high 74-106 [facility] Comment on above: Performed By: #### T SH, LIPID, CMP, URIC #### [facility] [address] [place] [address] Dr. Robyn Espinal Potassium [Moles/Vol] 4.4 mmol/L Normal 3.5-5.1 [facility] Comment on above: Performed By: #### T SH, LIPID, CMP, URIC #### [facility] [address] [address] [address] Robyn Espinal Protein [Mass/Vol] 6.7 g/dL Normal 6.4-8.2 [facility] Comment on above: Performed By: #### T SH, LIPID, CMP, URIC #### [facility] [address] [address] [address] Robyn Espinal Sodium [Moles/Vol] 139 mmol/L Normal 136-145 [facility] Comment on above: Performed By: #### T SH, LIPID, CMP, URIC #### [facility] [address] [address] [address] Robyn Espinal Urea nitrogen [Mass/Vol] 24.0 mg/dL Critically high 7.0-18.0 [facility] Comment on above: Performed By: #### T SH, LIPID, CMP, URIC #### [facility] [address] [address] [address] Robyn Espinal Urea nitrogen/Creatinine [Mass ratio] 23.3 mg/mg Normal [facility] Comment on above: Performed By: #### T SH, LIPID, CMP, URIC #### [facility] [address] [address] [address] Robyn Espinal TSHon 07-01-2022 TSH 2.293 uIU/mL Normal 0.358-3.740 [facility] Comment on above: Performed By: #### T SH, LIPID, CMP, URIC #### [facility] [address] [place] [address] Dr. Robyn Espinal URIC ACID SERUMon 07-01-2022 Urate [Mass/Vol] 5.5 mg/dL Normal 3.5-7.2 [facility] Comment on above: Performed By: #### T SH, LIPID, CMP, URIC #### [facility] [address] [place] [address] Dr. Robyn Espinal Vital Signs Date Time Vital Sign Value Performing Clinician Justin guy 05-12-2023 09:11-0400 Blood Pressure Location Alfa SAUCEDO [facility] 05-12-2023 09:11-0400 Diastolic blood pressure 82 mm[Hg] Alfa SAUCEDO [facility] 05-12-2023 09:11-0400 Heart rate 79 /min Alfa SAUCEDO [facility] 05-12-2023 09:11-0400 Respiratory rate 16 /min Alfa SAUCEDO [facility] 05-12-2023 09:11-0400 Systolic blood pressure 131 mm[Hg] Alfa SAUCEDO [facility] Encounters Encounter Date Encounter Type Care Provider Facility Start: 05-17-2024 ambulatory [facility]fa [facility] Start: 02-11-2024 End: 02-11-2024 ambulatory WALKER TO Not Available Start: 12-31-2023 End: 12-31-2023 ambulatory [facility] Start: 11-13-2023 End: 11-13-2023 ambulatory WALKER TO Not Available Start: 11-12-2023 Chart abstracting Walker castillo MD Work Phone: [facility] Start: 09-08-2023 End: 09-08-2023 ambulatory WALKER TO Not Available Start: 08-25-2023 End: 08-26-2023 ambulatory WALKER TO Not Available Start: 05-12-2023 End: 05-13-2023 ambulatory Alfa SAUCEDO Facility:[facility] Start: 05-12-2023 End: 05-12-2023 Patient encounter procedure Alfa SAUCEDO [facility] Start: 03-31-2023 End: 03-31-2023 ambulatory [facility] Start: 03-11-[address] ROSALIA STEPHENS . Facili ty:[facility] Start: 03-05-[address] ROSALIA STEPHENS . Facili ty:[facility] Start: 07-01-2022 End: 07-02-[address] ROSALIA STEPHENS . Facility: Start: 05-17-2022 End: 05-17-2022 Patient encounter procedure Alfa SAUCEDO [facility] Start: 06-24-2017 End: 06-25-2017 Ambulatory EHAB Vick ACUÑAYENGERRY Facility:[facility] Start: 06-24-2017 End: 06-25-2017 Ambulatory DEFAULT PHYSICIAN Facility:[facility] Procedures Date Procedure Procedure Detail Performing Clinician Start: 07-01-[address] MINDY STEPHENS . Comment on above: Performed By: #### P [facility] #### [facility] [address] [place] [address] Dr. Robyn Espinal Start: 11-04-2019 Closed reduction of nasal fracture Alfa SAUCEDO Start: 10-28-2005 Cystoscopy Alfa GALVIN Back structure, excl uding neck (body structure) Alfa SAUCEDO Prosthetic arthropla sty of the hip Alfa SAUCEDO Comment on above: bilateral Plan of Treatment Date Care Activity Detail Author Start: 11-13-2023 End: 11-13-2023 Patient encounter procedure 11/13/2023 11:20 AM EST Office Visit [facility] [address] [facility] [address] [place] [address] [place] [address] [facility] [address] [place] [address] [place] [id number] [facility] Immunizations Immunization Date Immunization Notes Care Provider Fa cility 07-23-2022 influenza virus vacc ine, unspecified formulation Alfa SAUCEDO [facility] 07-23-2022 SARS-CoV-2 (COVID-19 ) [id number] Alfa SAUCEDO [facility] 03-28-2022 SARS-CoV-2 mRNA (qzlbyqhwvuk-yqxy-cuywgb e) vaccine Alfa SAUCEDO [facility] 07-05-2021 SARS-CoV-2 (COVID-19 ) mRNA BNT-162b2 vax Alfa SAUCEDO [facility] 07-04-2021 influenza, unspecifi ed formulation Alfa SAUCEDO [facility] 11-23-2020 SARS-CoV-2 (COVID-19 ) mRNA BNT-162b2 vax Alfa SAUCEDO [facility] 11-06-2020 SARS-CoV-2 (COVID-19 ) mRNA BNT-162b2 vax Alfa SAUCEDO [facility] 11-02-2020 SARS-CoV-2 (COVID-19 ) mRNA BNT-162b2 vax Alfa SAUCEDO [facility] 10-06-2020 SARS-CoV-2 (COVID-19 ) mRNA BNT-162b2 vax Alfa SAUCEDO [facility] 07-07-2020 influenza virus vacc ine, unspecified formulation Alfa SAUCEDO [facility] 06-06-2020 pneumococcal polysaccharide vaccine, 23 valent Alfa SAUCEDO [facility] 07-28-2019 influenza, unspecifi ed formulation Alfa SAUCEDO [facility] 07-27-2019 zoster vaccine recombinant Alfa SAUCEDO [facility] 05-19-2019 pneumococcal conjuga te vaccine, 13 valent Alfakristin SAUCEDO [facility] 05-19-2019 zoster vaccine recombinant Alfa SAUCEDO [facility] 08-06-2015 pneumococcal polysaccharide vaccine, 23 valent Alfa SAUCEDO [facility] Payers Date Payer Category Payer Unknown 2020 Unknown [id number] 2019 Unknown [id number] 2008 Medicare MEDICARE MEDICAR E PART B [id number] 2008-[place] [address] Medicare [id number] 1959 Medicare [id number] 1959 Unknown [id number] 1942 Unknown [id number] 1942 Unknown [id number] 1942 Unknown [id number] 1942 Unknown [id number] 1942 Unknown [id number] 1942 Unknown [id number]..[id number] 1942 Unknown [id number] 1942 Unknown [id number] 1942 Unknown [id number] Medicare [id number] Social History Date Type Detail Facility Start: 05-11-2021 End: 08-25-2023 Tobacco smoking status Ex-smoker (finding) [facility] Comment on above: pt. quit when he was 24 Tobacco smoking status Never [facility] Comment on above: pt. quit when he was 24 Start: 09-08-2023 Sex Assigned At Male [facility] History of tobacco use [facility] History of tobacco use [facility]arette [facility] Start: 09-08-2023 Alcohol intake Current drinke r of alcohol (finding) [facility] Start: 09-08-2023 History of Social function [facility] Start: 08-25-2023 Alcohol Comment Points: 8, Interpretation: Positive; Caffeine Intake: 1-2 cups per day tea [facility] Start: 1940 Sex Assigned At Not on file N [facility] Functional Status Date Assessment Result Facility 05-12-2023 Functional Status N/A [facility] Progress note 12-31-2023 Note Date & Type Note Facility 12-31-2023 Note [facility] Cardiology Clinic Note Chief Complaint: Patient here c/o bradycardia as low as 37 during sleep. states it's happened several times, but always during sleep. Had routine labs in Jul 2023. Denies chest pain, SOB, palpitations, and lightheadedness/syncope. HPI: Matt Burroughs is a 83 y.o. male With a history of moderate aortic stenosis pulm hypertension here in routine follow-up. He wears a heart monitor and watch while asleep. His was concerned that his heart rate drops into the 30s to 50s. This has never happened while he is awake. He is entirely asymptomatic. Cardiology ROS: Review of Systems All other systems reviewed and are negative. Past Medical History He has a past medical history of Abnormal ECG, Arrhythmia, and Atrial fibrillation (CMS/HCC). Surgical History He has no past surgical history on file. Social History He reports that he quit smoking about 60 years ago. His smoking use included cigarettes. He has never used smokeless tobacco. No history on file for alcohol use and drug use. Family History Family History Problem Relation Name Age of Onset No Known Problems Mother No Known Problems Father Heart failure Sister Allergies Morphine and Penicillins Medications Current Outpatient Medications: aspirin 81 mg EC tablet, Take 1 tablet every day by oral route., Disp: , Rfl: donepezil (Aricept) 10 mg tablet, Refills(s) 0, Disp: , Rfl: Eliquis 5 mg tablet, Take 5 mg by mouth in the morning and at bedtime., Disp: , Rfl: FeroSuL 325 mg (65 mg iron) tablet, , Disp: , Rfl: finasteride (Proscar) 5 mg tablet, Take 1 tablet every day by oral route., Disp: , Rfl: lisinopril 20 mg tablet, Take 1 tablet every day by oral route., Disp: , Rfl: lovastatin (Mevacor) 40 mg tablet, Take 1 tablet every day by oral route., Disp: , Rfl: pantoprazole (ProtoNix) 40 mg EC tablet, Take 40 mg by mouth., Disp: , Rfl: tamsulosin (Flomax) 0.4 mg 24 hr capsule, Take 1 capsule every day by oral route., Disp: , Rfl: tolterodine LA (Detrol LA) 4 mg 24 hr capsule, , Disp: , Rfl: Last Recorded Vitals BP 136/86 (BP Location: Left arm, Patient Position: Sitting) Pulse 61 Ht 1.778 m (5' 10 ) Wt 75.3 kg (166 lb) SpO2 95% BMI 23.82 kg/m??? Physical Examination: GENERAL: alert and oriented x3, well developed, in no acute distress. HEAD: atraumatic, normocephalic. EYES: KEM, EOMI. NECK: trachea midline, no JVD present, no carotid bruits present. CARDIAC: S1, S2 present. RRR. No murmur, rubs, or gallops. RESPIRATORY: CTAB, no increased effort of breathing, no rales, rhonchi, or wheezing. ABDOMEN: soft, nontender, nondistended. EXTREMITIES: no lower extremity edema, peripheral pulses are 2+ bilaterally. No rash/skin discoloration present. NEURO: strength/sensation equal and symmetric in bilateral upper and lower extremities. PSYCH: appropriate mood, affect, and judgement. INVESTIGATIONS: Echocardiogram 03/11/2023: Global left ventricular systolic function is normal; EF 60 to. Mild concentric left ventricular hypertrophy. Mild biatrial dilatation. Normal diastolic function. Moderate aortic valve stenosis. Normal right-sided pressures. Assessment: Nocturnal bradycardia - Essential hypertension Moderate aortic stenosis Dyslipidemia Plan: Reassurance; I explained increased vagal tone while asleep can lead to significant bradycardia arrhythmias and even AV blocks. This is nothing to be concerned about. Is to let me know of any significant bradycardia, lightheadedness or dizziness during waking hours. We will repeat an echocardiogram in March of this year to serially monitor his aortic valve stenosis. I like to see him in follow-up in a year or sooner should problems arise Dante Williamson MD, MPH, FACC, [facility], [facility] Interventional Cardiology Pager Email: [email or web address] Hospital Discharge instructions 05-12-2023 Note Date & Type Note Facility 05-12-2023 Hospital Discharg e instructions Patient Education 05/12/2023 10:04:18 Hematuria, Adult Hematuria, Adult Hematuria is blood in the urine. Blood may be visible in the urine, or it may be identified with a test. This condition can be caused by infections of the bladder, urethra, kidney, or prostate. Other possible causes include: Kidney stones. Cancer of the urinary tract. Too much calcium in the urine. Conditions that are passed from parent to child (inherited conditions). Exercise that requires a lot of energy. Infections can usually be treated with medicine, and a kidney stone usually will pass through your urine. If neither of these is the cause of your hematuria, more tests may be needed to identify the cause of your symptoms. It is very important to tell your health care provider about any blood in your urine, even if it is painless or the blood stops without treatment. Blood in the urine, when it happens and then stops and then happens again, can be a symptom of a very serious condition, including cancer. There is no pain in the initial stages of many urinary cancers. Follow these instructions at home: Medicines Take wvkf-iot-xvulqwt and prescription medicines only as told by your health care provider. If you were prescribed an antibiotic medicine, take it as told by your health care provider. Do not stop taking the antibiotic even if you start to feel better. Eating and drinking Drink enough fluid to keep your urine pale yellow. It is recommended that you drink 3 4 quarts (2.8 3.8 L) a day. If you have been diagnosed with an infection, drinking cranberry juice in addition to large amounts of water is recommended. Avoid caffeine, tea, and carbonated beverages. These tend to irritate the bladder. Avoid alcohol because it may irritate the prostate (in males). General instructions If you have been diagnosed with a kidney stone, follow your health care provider's instructions about straining your urine to catch the stone. Empty your bladder often. Avoid holding urine for long periods of time. If you are female: ?After a bowel movement, wipe from front to back and use each piece of toilet paper only once. ?Empty your bladder before and after sex. Pay attention to any changes in your symptoms. Tell your health care provider about any changes or any new symptoms. It is up to you to get the results of any tests. Ask your health care provider, or the department that is doing the test, when your results will be ready. Keep all follow-up visits. This is important. Contact a health care provider if: You develop back pain. You have a fever or chills. You have nausea or vomiting. Your symptoms do not improve after 3 days. Your symptoms get worse. Get help right away if: You develop severe vomiting and are unable to take medicine without vomiting. You develop severe pain in your back or abdomen even though you are taking medicine. You pass a large amount of blood in your urine. You pass blood clots in your urine. You feel very weak or like you might faint. You faint. Summary Hematuria is blood in the urine. It has many possible causes. It is very important that you tell your health care provider about any blood in your urine, even if it is painless or the blood stops without treatment. Take qmun-eub-njhhnjv and prescription medicines only as told by your health care provider. Drink enough fluid to keep your urine pale yellow. This information is not intended to replace advice given to you by your health care provider. Make sure you discuss any questions you have with your health care provider. Document Revised: 05/23/2021 Document Reviewed: 05/23/2021 [employer] Patient Education 2022 [employer]. Follow Up Care 09/10/2022 11:05:03 With:PHOEBE HARTMAN, Alfa Stroud, URL Address: [facility] [address], [place] [address] [phone] When: Unknown [facility] Progress note 03-31-2023 Note Date & Type Note Facility 03-31-2023 Note [facility] Cardiology Clinic Note Chief Complaint: New patient here to establish care. Ref from Dr. Stephens for afib. Had echo and labs 03/11/2023. Denies chest pain, SOB, palpitations, and bleeding on Eliquis. HPI: Matt Burroughs is a 82 y.o. male With history of longstanding hypertension who presents to establish cardiovascular care. He was in his primary care physician's office, a routine 12-lead EKG revealed atrial fibrillation. He was started on Eliquis. Pertinently, he is asymptomatic; he has no palpitations, he denies lightheadedness, dizziness, or syncope. He walks 2 to 3 miles a day. He has no exertional symptoms. He denies orthopnea or paroxysmal external dyspnea. He has no lower extremity edema. 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 Past Medical History He has no past medical history on file. Surgical History He has no past surgical history on file. Social History He has no history on file for tobacco use, alcohol use, and drug use. Family History No family history on file. Allergies Patient has no allergy information on record. Medications No current outpatient medications on file. Last Recorded Vitals BP 148/84 (BP Location: Left arm, Patient Position: Sitting) Pulse 66 Ht 1.778 m (5' 10 ) Wt 75.8 kg (167 lb) SpO2 95% BMI 23.96 kg/m??? Physical Examination: GENERAL: alert and oriented x3, well developed, in no acute distress. HEAD: atraumatic, normocephalic. EYES: KEM, EOMI. NECK: trachea midline, no JVD present, no carotid bruits present. CARDIAC: S1, S2 present. RRR. No murmur, rubs, or gallops. RESPIRATORY: CTAB, no increased effort of breathing, no rales, rhonchi, or wheezing. ABDOMEN: soft, nontender, nondistended. EXTREMITIES: no lower extremity edema, peripheral pulses are 2+ bilaterally. No rash/skin discoloration present. NEURO: strength/sensation equal and symmetric in bilateral upper and lower extremities. PSYCH: appropriate mood, affect, and judgement. Investigations: Carotid ultrasonography 05/25/2021 Impression: 0 to 49% flow stenosis within the right and left carotid arteries Echocardiogram 03/12/2023: Mild concentric left ventricular hypertrophy, normal ventricular systolic function. LVEF is 60%. Mild biatrial dilatation. Normal diastolic function. Moderate aortic valve stenosis. DVI 0.35, mean gradient 16 mmHg Normal right-sided pressures. 12 lead EKG 03/31/2023 Normal sinus rhythm, normal EKG Assessment: Paroxysmal atrial fibrillation: CHADS2 vascular score is 3 Essential hypertension Moderate aortic stenosis Dyslipidemia Plan: We will obtain the 12-lead EKG performed in his PCPs office; he is currently in sinus rhythm Continue current medical therapy for now; if there is concern about the actual presence of atrial fibrillation, a 30-day event monitor may be warranted He does not need to be on both aspirin and Eliquis; will discontinue aspirin to reduce the risk of bleeding He will need serial monitoring for his aortic valve stenosis. We talked about potential aortic valve surgery versus LIZZIE for symptomatic severe aortic stenosis Return to clinic in 1 year or sooner should problems arise Dante Williamson MD, MPH, [facility], [facility], [facility] Interventional Cardiology Pager Email: [email or web address] Hospital Discharge instructions 05-11-2021 Note Date & Type Note Facility 05-11-2021 Hospital Discharg e instructions Follow Up Care 05/11/2021 08:41:41 With:PHOEBE HARTMAN, Alfa Stroud, URL Address: [address] [place] [id number] When: Unknown [facility] Evaluation + Plan note Note Date & Type Note Facility Evaluation + Plan note No data available for this section [facility] Evaluation + Plan note Note Date & Type Note Facility Evaluation + Plan note Future Appointments Appointment Date:05/17/2024 08:45:00 AM Scheduled Provider:Alfa SAUCEDO MD Location:[facility] Appointment Type:URO Office Visit [facility] Progress note Note Date & Type Note Facility Progress note No data available for this section [facility] Summary Purpose Family History No Family History Records FoundNo Family History Records FoundNo Family History Records FoundNo Family History Records FoundNo Family History Records Found Advance Directives No Advanced Directives Records FoundNo Advanced Directives Records FoundNo Advanced Directives Records FoundNo Advanced Directives Records FoundNo Advanced Directives Records Found Additional Source Comments (unrecognized sect ion and content) No Status Records FoundNo Status Records FoundNo Status Records FoundNo Status Records FoundNo Status Records Found INFORMATION SOURCE (unrecogn ized section and content) DATE CREATED AUTHOR 04/01/2018 [facility] DATE CREATED AUTHOR AUTHOR'S ORGANIZ ATION 03/14/2023 [facility] DATE CREATED AUTHOR AUTHOR'S ORGANIZ ATION 05/18/2023 [facility] DATE CREATED AUTHOR AUTHOR'S ORGANIZ ATION 01/05/2024 [facility] DATE CREATED AUTHOR AUTHOR'S ORGANIZ ATION 02/12/2024 [facility] Care Team (unrecognized sect ion and content) Personnel Name: Rosalia Stephens MD Address: [address] [place] [address] Personnel Name: Rosalia Stephens MD Address: Address: [address] [place] [address] FOR RECORDS PERTAINING TO PATIENTS WHO ARE OR HAVE BEEN ENROLLED IN A CHEMICAL DEPENDENCY/SUBSTANCEABUSE PROGRAM, SOME INFORMATION MAY BE OMITTED. This clinical summary was aggregated from multiple sources. Caution should be exercised in using it in the provision of clinical care. This summary normalizes information from multiple sources, and as a consequence, information in this document may materially change the coding, format and clinical context of patient data. In addition, data may be omitted in some cases. CLINICAL DECISIONS SHOULD BE BASED ON THE PRIMARY CLINICAL RECORDS. [facility] [employer] provides no warranty or guarantee of the accuracy or completeness of information in this document.
== END 2024-05-10 07:31 | disposition home or self-care (01) ==
LOC: CARD 07:30
PROVIDERS: PCP Family Medicine; Visit Provider Internal Medicine Interventional Cardiology
DX: I35.0 Nonrheumatic aortic (valve) stenosis (principal)
CPT/HCPCS: 93306

== ENCOUNTER 2024-08-25 06:29 | Outpatient (OUT) | payer MEDICARE, OTHER, SELFPAY ==
--- OUTSIDE RECORDS SUMMARY | 2024-08-25 06:33 | XMS_ITS | CCD ---
Author Organization [facility] Care Team Providers Care Realty Loan Specialist Name Role Phone PHYSICIAN, DEFAULT Unavailable Unavailable [...] DR LINDSEY Consulting Unavailable HOY ., DR LINDESY Attending Unavailable HOY ., DR LINDSEY Admitting Unavailable HOY ., DR LINDSEY Primary Care Unavailable HOY ., DR LINDSEY Attending Unavailable HOY ., DR LINDSEY Admitting Unavailable Unavailable Primary Care Provider Unavailabl e [place], [facility] Attending Unavailable WALKER TO Attending Unavailable WALKER TO Attending Unavailable WALKER TO Attending Unavailable WALKER TO Attending Unavailable Alfa SANDHU Attending Unavailable Allergies Allergy Classification Reported Allergen(s) Allergy Type Date of Onset Reaction(s) Facility (6 sources) Morphine; Translations: [morphine] Drug Allergy 7 Unknown [facility] (4 sources) Penicillin; Translations: [penicillin] Drug Allergy Unknown (qualifier value) [facility] (2 sources) Morphine Drug Allergy 7 [facility] (2 sources) Penicillins; Translations: [PENICILLINS] Drug allergy (disorder) 6 [facility] (1 source) Penicillins Drug Allergy 3 [facility] Medications Current Medications Medication Drug Class(es) Dates Sig (Normalized) Sig (Original) apixaban 5 mg oral tablet (3 sources) Factor Xa Inhibitor Start: 02-27-2023 Eliquis 5 mg oral tablet Refills(s) 0 Start Date: 05/12/23 Status: Ordered ascorbic acid 1000 mg oral tablet (1 source) Vitamin C Ascorbic Acid (vitamin C) 1000 MG tablet 1 (one) time each day at the same time. 0 Active aspirin 81 mg oral tablet (4 sources) Platelet Aggregation Inhibitor, Nonsteroidal Anti-inflammatory Drug Start: 11-01-2019 take 1 tablet by mouth once daily aspirin 81 mg oral tablet 81 mg = 1 tab(s), Oral, Daily, Prophylaxis Start Date: 11/01/19 Status: Ordered aspirin 81 MG ch ewable tablet 1 (one) time each day at the same time. 0 Active Calcium (3 sources) Phosphate Binder, Calcium Start: 11-01-2019 Calcium [...] the same time. 0 Active Cinnamon Preparation (3 sources) Non-Standardized Food Allergenic Extract Start: 05-14-2019 take 1 mg by mouth twice daily Cinnamon mg, Oral, BID, Prophylaxis Start Date: 05/14/19 Status: Ordered docosahexaenoic acid 120 mg / eicosapentaenoic acid 180 mg oral capsule (1 source) omega-3 (Fish Oi l) 1000 MG capsule 1 capsule 1 (one) time each day at the same time. 0 Active donepezil hydrochloride 10 mg oral tablet (4 sources) Start: 08-13-2021 donepezil 10 mg Tab Refills(s) 0 Start Date: 08/13/21 Status: Ordered donepezil (Arice pt) 10 MG tablet every 12 (twelve) hours. 0 Active FeroSul 325 mg oral tablet (2 sources) Start: 05-12-2023 FeroSul 325 mg oral tablet Refills(s) 0 Start Date: 05/12/23 Status: Ordered ferrous sulfate 325 mg oral tablet (1 source) Start: 10-07-2022 take 1 tablet by mouth once daily ferrous sulfate 325 (65 Fe) MG tablet TAKE ONE TABLET BY MOUTH DAILY for 30 0 10/07/2022 Active finasteride 5 mg oral tablet (4 sources) 5-alpha Reductase Inhibitor Start: 09-03-2021 End: 02-26-2025 take 1 tablet by mouth once daily finasteride 5 mg Tab 5 mg = 1 tab(s), Oral, Daily, X 90 day(s), # 90 tab(s), Refills(s) 3, Pharmacy: [facility] [id number], 178, cm, 05/12/23 9:20:00 EDT, Height/Length Dosing, 76.1, kg, 05/12/23 9:20:00 EDT, Weight Dosing Start Date: 03/03/24 Stop Date: 02/26/25 Status: Ordered Fish Oils (3 sources) Start: 11-04-2019 take 3 capsules by mouth once daily Fish Oil 3 cap(s), Oral, Daily, Refill(s) 0 Start Date: 11/04/19 Status: Ordered lisinopril 20 mg oral tablet (4 sources) Angiotensin Converting Enzyme Inhibitor Start: 05-14-2019 take 1 tablet by mouth once daily lisinopril 20 mg Tab 20 mg = 1 tab(s), Oral, Daily, High blood pressure Start Date: 05/14/19 Status: Ordered lovastatin 40 mg oral tablet (4 sources) HMG-CoA Reductase Inhibitor Start: 05-14-2019 take 1 tablet by mouth once daily lovastatin 40 mg Tab 40 mg = 1 tab(s), Oral, Daily, High cholesterol Start Date: 05/14/19 Status: Ordered memantine hydrochloride 5 mg oral tablet (1 source) W-owvite-V-aspart ate Receptor Antagonist Start: 08-27-2023 take 1 [...] Daily, # 30 tab(s), Refills(s) 6, [facility] [place] [id number], 178, cm, 08/13/21 10:37:00 EST, Height/Length Dosing, 77, kg, 08/13/21 10:37:00 EST, Weight Dosing Start Date: 09/24/21 Status: Ordered Multiple Vitamins-Minerals (Multivitamin Men) tablet (1 source) Multiple Vitamins-Minerals (Multivitamin Men) tablet Orally 0 Active pantoprazole 40 mg extended release oral tablet (4 sources) Proton Pump Inhibitor Start: 05-14-2019 take 1 tablet by mouth once daily pantoprazole 40 mg Oral EC Tab 40 mg = 1 tab(s), Oral, Daily, Control of stomach acid Start Date: 05/14/19 Status: Ordered Start: 05-14-2019 take 1 tablet by ubaldo once daily pantoprazole 40 mg Oral EC Tab 40 mg = 1 tab(s), Oral, Daily, Control of stomach acid Start Date: 05/14/19 Status: Ordered tamsulosin hydrochloride 0.4 mg oral capsule (4 sources) alpha-Adrenergic Ana Laura Start: 02-04-2024 End: 01-29-2025 take 1 capsule by mouth once daily tamsulosin 0.4 mg Cap 0.4 mg = 1 cap(s), Oral, Daily, X 30 day(s), # 30 cap(s), Refills(s) 11, Pharmacy: [facility] [id number], 178, cm, 05/12/23 9:20:00 EDT, Height/Length Dosing, 76.1, kg, 05/12/23 9:20:00 EDT, Weight Dosing Start Date: 02/04/24 Stop Date: 01/29/25 Status: Ordered Start: 10-28-2021 End: 01-17-2024 take 1 capsule by mouth once daily tamsulosin 0.4 mg Cap 0.4 mg = 1 cap(s), Oral, Daily, X 90 day(s), # 90 cap(s), Refills(s) 3, Pharmacy: [facility] [id number], 178, cm, 08/13/21 10:37:00 EST, Height/Length Dosing, 77, kg, 08/13/21 10:37:00 EST, Weight Dosing Start Date: 01/22/23 Stop Date: 01/17/24 Status: Ordered 24 hr tolterodine tartrate 4 mg extended release oral capsule (2 sources) Cholinergic Muscarinic Antagonist Start: 03-06-2023 tolterodine LA (Detrol LA) 4 MG 24 hr capsule 1 capsule 1 (one) time each day at the same time. 0 03/06/2023 Active Start: 09-26-2021 take 1 capsule by [facility] once daily tolterodine 4 mg Cap-ER 4 mg = 1 cap(s), Oral, Daily, # 30 cap(s), Refills(s) 11, Pharmacy: [place] [id number], 178, cm, 08/13/21 10:37:00 EST, Height/Length Dosing, 77, kg, 08/13/21 10:37:00 EST, Weight Dosing Start Date: 09/26/21 Status: Ordered vitamin b12 0.5 mg oral tablet (1 source) Vitamin B12 cyanocobalamin ( Vitamin B-12) 500 MCG tablet 1 (one) time each day at the same time. 0 Active Vitamin C 250 mg oral tablet (3 sources) Start: 11-01-2019 take 1 tablet by mouth once daily Vitamin C 250 mg oral tablet 250 mg = 1 tab(s), Oral, Daily, Prophylaxis Start Date: 11/01/19 Status: Ordered Completed/Discontinued Medications Medication Drug Class(es) Dates Sig (Normalized) Sig (Original) tadalafil 20 mg oral tablet (3 sources) Phosphodiesterase 5 Inhibitor Start: 12-04-2022 take 1 tablet by mouth every twenty-four hours tadalafil 20 mg Tab 20 mg = 1 tab(s), Oral, Daily, Take 1 tab by mouth 1 hour prior to sexual activity. Don't exceed 1 tab in a 24 hr period., # 30 tab(s), Refills(s) 2, Pharmacy: [facility] [id number], 178, cm, 08/13/21 10:37:00 EST, Height/Length Dosing, 77, kg, 08/13/21 10:37:00 EST, Weight Dosing Start Date: 12/04/22 Status: Ordered Start: 01-02-2021 take 1 tablet by ubaldo th every hour tadalafil 20 mg Tab 20 mg = 1 tab(s), Oral, Daily, take 1 tab 1 hour prior to sexual activity, # 30 tab(s), Refills(s) 6, Pharmacy: [place] [id number] Start Date: 01/02/21 Status: Ordered Vitamin B12 500 mcg oral tablet (3 sources) Start: 11-04-2019 take 1 tablet by [...] [Unspecified visual loss] Onset: 09-08-2023 09-08-2023 Chronic Delirium, dementia, and amnestic and other cognitive disorders (4 sources) 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; Translations: [AGE-RELATED COGNITIVE DECLINE] Onset: 07-01-2022 Chronic Disorders of lipid metabolism (6 sources) Hyperlipidemia; Translations: [Pure hypercholesterolemia , unspecified] Onset: 07-04-2022 04-12-2019 Chronic Essential hypertension (7 sources) Hypertensive disorder; Translations: [Essential (primary) hypertension] Onset: 07-04-2022 04-12-2019 Chronic Fracture of upper limb (3 sources) Fracture of metacarpal bone 11-04-2019 Episodic Comment on above: RIGHT Genitourinary symptoms and ill-defined conditions (8 sources) Increased frequency of urination; Translations: [Nocturia] Onset: 03-31-2023 05-14-2019 Episodic Heart valve disorders (1 source) Nonrheumatic mitral (valve) insufficiency; Translations: [NONRHEUMATIC MITRAL (VALVE) INSUFFICIENCY] Onset: 06-24-2017 Chronic Hyperplasia of prostate (8 sources) Benign prostatic hypertrophy with outflow obstruction; Translations: [Nocturia due to benign prostatic hypertrophy] Onset: 03-31-2023 04-12-2019 Chronic Osteoarthritis (4 sources) Arthritis; Translations: [Osteoarthritis of right hip joint] Onset: 08-25-2023 04-12-2019 Chronic Other aftercare (1 source) Long-term current use of anticoagulant; Translations: [longterm (current) use of anticoagulants] Onset: 05-12-2023 Episodic [...] 08-25-2023 08-25-2023 Chronic Other male genital disorders (3 sources) 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 [...] 08-25-2023 08-25-2023 Episodic Skull and face fractures (3 sources) Closed fracture of nasal bones 11-04-2019 Episodic Spondylosis; intervertebral disc disorders; other back problems (6 sources) Disorder of lumbar disc; 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] Onset: 03-31-2023 04-12-2019 Chronic Superficial injury; contusion (1 source) Contusion of right hand; Translations: [Contusion of right hand, initial encounter] Onset: 08-25-2023 08-25-2023 Episodic Unclassified (2 sources) Unknown / UNK(Unknown) Onset: 06-24-2017 Unclassified (3 sources) Drug therapy finding 05-12-2020 Unclassified (2 sources) Asymptomatic microscopic hematuria 05-12-2023 Past or Other Problems Problem Classification Problem Date Documented Date Episodic/Chronic Diabetes mellitus without complication (1 source) Other abnormal glucose; Translations: [OTHER ABNORMAL GLUCOSE] Onset: 07-04-2022 Episodic Heart valve disorders (1 source) Cardiac murmur, unspecified; Translations: [CARDIAC MURMUR, UNSPECIFIED] Onset: 06-24-2017 Episodic Unclassified (6 sources) Abnormal electrocardiogram [ECG] [EKG]; Translations: [Encounter for screening for malignant neoplasm of prostate] Onset: 06-24-2017 08-25-2023 Episodic Results Test Name Value Interpretation Reference Range Facility 36on 05-11-2024 36 Regarding echo result from 05/10/2024: MD Mehnaz Desir MA Please reassure Mr. Burroughs that his ejection fraction is normal, his aortic valve stenosis is mild to moderate. We can repeat this echocardiogram in a year or sooner should he have any new symptoms. Thank you. Patient informed. Normal [facility] Office Visiton 12-31-2023 Follow-up visit [id number] Darcie Burroughszach [place] 1940 M [facility] Provider Department Center 12/31/2023 [address] Family History Problem Relation Age of Onset No Known Problems Mother No Known Problems Father Heart failure Sister Family Status - Relation Status Age at Mother Father Sister Level of Service:74920 [place] OFFICE/OUTPATIENT ESTABLISHED LOW MDM 20 MIN [facility] Orders Onlyon 12-31-2023 Orders Only [id number] Darcie Burroughszach [place] 1940 M Date Provider Department Center 12/31/2023 [facility] Family History Problem Relation Age of Onset No Known Problems Mother No Known Problems Father Heart failure Sister Family Status - Relation Status Age at Mother Father Sister Normal [facility] INSULINon 07-02-2022 Insulin 6.3 uIU/mL Normal 2.6-24.9 [facility] Comment on above: Performed By: #### I NSULIN #### [facility] [address] [place] [address] Dr. Robyn Espinal T4, T3U, FTI LABCORPon 07-02 Free Thyroxine Index 1.6 Normal 1.2-4.9 [facility] Comment on above: Performed By: #### T HYLC #### [facility] [address] [place] [address] Dr. Robyn Espinal T3 Uptake 27 % Normal 24-39 [facility] Comment on above: Performed By: #### T HYLC #### [facility] [address] [place] [address] Dr. Robyn Espinal T4 [Mass/Vol] 5.8 ug/dL Normal 4.5-12.0 [facility] Comment on above: Performed By: #### T HYLC #### [facility] [address] [place] [address] Dr. Robyn Espinal CBC AUTO DIFFon 07-01-2022 BASO # 0.0 103/ul Normal 0.0-0.1 [facility] Comment on above: Performed By: #### C BC #### [facility] [address] [place] [address] Dr. Robyn Espinal Basophils/100 WBC (Bld) 0.6 % Normal 0.2-2.0 [facility] Comment on above: Performed By: #### C BC #### [facility] [address] [place] [address] Dr. Robyn Espinal EO # 0.1 103/ul Normal 0.0-0.7 [facility] Comment on above: Performed By: #### C BC #### [facility] [address] [place] [address] Dr. Robyn Espinal Eosinophils/100 WBC (Bld) 1.9 % Normal 0.9-7.0 [facility] Comment on above: Performed By: #### C BC #### [facility] [address] [place] [address] Dr. Robyn Espinal Erythrocyte distribution width (RBC) [Ratio] 13.1 % Normal 11.0-15.0 [facility] Comment on above: Performed By: #### C BC #### [facility] [address] [place] [address] Dr. Robyn Espinal Hematocrit (Bld) [Volume fraction] 39.5 % Critically low 42.0-54.0 [facility] Comment on above: Performed By: #### C BC #### [facility] [address] [place] [address] Dr. Robyn Espinal Hemoglobin (Bld) [Mass/Vol] 12.9 g/dL Critically low 14.0-18.0 [facility] Comment on above: Performed By: #### C BC #### [facility] [address] [place] [address] Dr. Robyn Espinal IG # 0.01 10e3/ul Normal 0.00-0.03 [facility] Comment on above: Performed By: #### C BC #### [facility] [address] [place] [address] Dr. Robyn Espinal IG % 0.2 % Normal 0.0-0.5 [facility] Comment on above: Performed By: #### C BC #### [facility] [address] [place] [address] Dr. Robyn Espinal LYMPH # 1.3 103/ul Normal 1.2-3.8 [facility] Comment on above: Performed By: #### C BC #### [facility] [address] [place] [address] Dr. Robyn Espinal Lymphocytes/100 WBC (Bld) 27.2 % Normal 20.5-60.0 [facility] Comment on above: Performed By: #### C BC #### [facility] [address] [place] [address] Dr. Robyn Epsinal MANUAL DIFF REQ NO Normal [facility] Comment on above: Performed By: #### C BC #### [facility] [address] [place] [address] Dr. Robyn Espinal MCH (RBC) [Entitic mass] 31.8 pg Normal 25.9-34.0 [facility] Comment on above: Performed By: #### C BC #### [facility] [address] [place] [address] Dr. Robyn Espinal MCHC (RBC) [Mass/Vol] 32.7 g/dL Normal 29.9-35.2 [facility] Comment on above: Performed By: #### C BC #### [facility] [address] [place] [address] Dr. Robyn Espinal MCV (RBC) [Entitic vol] 97.3 fL Critically high 80.0-94.0 [facility] Comment on above: Performed By: #### C BC #### [facility] [address] [place] [address] Dr. Robyn Espinal MONO # 0.7 103/ul Normal 0.3-0.8 [facility] Comment on above: Performed By: #### C BC #### [facility] [address] [place] [address] Dr. Robyn Espinal Monocytes/100 WBC (Bld) 14.7 % Critically high 1.7-12.0 [facility] Comment on above: Performed By: #### C BC #### [facility] [address] [place] [address] Dr. Robyn Espinal NEUT # 2.6 103/ul Normal 1.4-6.5 [facility] Comment on above: Performed By: #### C BC #### [facility] [address] [place] [address] Dr. Robyn Espinal Neutrophils/100 WBC (Bld) 55.4 % Normal 43.0-75.0 [facility] Comment on above: Performed By: #### C BC #### [facility] [address] [place] [address] Dr. Robyn Espinal Platelet mean volume (Bld) [Entitic vol] 9.7 fL Normal 9.5-13.5 [facility] Comment on above: Performed By: #### C BC #### [facility] [address] [place] [address] Dr. Robyn Espinal PLT 205 103/ul Normal 150-450 [facility] Comment on above: Performed By: #### C BC #### [facility] [address] [address] [address] Robyn Espinal RBC 4.06 106/ul Critically low 4.70-6.10 [facility] Comment on above: Performed By: #### C BC #### [facility] [address] [place] [address] Dr. Robyn Espinal WBC 4.7 103/ul Normal 4.0-11.0 [facility] Comment on above: Performed By: #### C BC #### [facility] [address] [place] [address] Dr. Robyn Espinal GLYCOHEMOGLOBIN A1Con 2021 ADA RECOMMENDATION SEE BELOW Normal [facility] Comment on above: Result Comment: ADA RECOMMENDED LIMIT 4.0 - 6.0 ADA THERAPEUTIC TARGET < 7.0 ACTION SUGGESTED > 7.0 Performed By: #### A 1C #### [facility] [address] [place] [address] Dr. Robyn Espinal Glucose [Mass/Vol] 128 mg/dL Normal [facility] Comment on above: Performed By: #### A 1C #### [facility] [address] [place] [address] Dr. Robyn Espinal HbA1c (Bld) [Mass fraction] 6.1 % Normal 4.5-6.2 [facility] Comment on above: Performed By: #### A 1C #### [facility] [address] [place] [address] Dr. Robyn Espinal LIPID PROFILEon 07-01-2022 CHOL-HDL RATIO NORM SEE BELOW Normal [facility] Comment on above: Result Comment: 3.3 - 4.4 LOW RISK 4.4 - 7.1 AVERAGE RISK 7.1 - 11.0 MODERATE RISK >11.0 HIGH RISK Performed By: #### T SH, LIPID, CMP, URIC #### [facility] [address] [address] [address] Robyn Espinal Cholesterol [Mass/Vol] 201 mg/dL Critically high <=200 [facility] Comment on above: Performed By: #### T SH, LIPID, CMP, URIC #### [facility] [address] [address] [address] Robyn Espinal Cholesterol in HDL [Mass/Vol] 82 mg/dL Critically high 40-60 [facility] Comment on above: Performed By: #### T SH, LIPID, CMP, URIC #### [facility] [address] [address] [address] Robyn Espinal Cholesterol in LDL [Mass/Vol] 102.4 mg/dL Normal [facility] Comment on above: Performed By: #### T SH, LIPID, CMP, URIC #### [facility] [address] [address] [address] Robyn Espinal Cholesterol.total/Cho lesterol in HDL [Mass ratio] 2.5 {ratio} Normal [facility] Comment on above: Performed By: #### T SH, LIPID, CMP, URIC #### [facility] [address] [address] [address] Robyn Espinal HDL NORMAL > or = 60 mg/dl - LOW CARDIOVASCULAR RISK <40 mg/dl - HIGH CARDIOVASCULAR RISK Normal [facility] Comment on above: Performed By: #### T SH, LIPID, CMP, URIC #### [facility] [address] [address] [address] Robyn Espinal LDL CALC NORMAL SEE BELOW Normal [facility] Comment on above: Result Comment: <100 mg/dl OPTIMAL 100 - 129 mg/dl NEAR OR ABOVE OPTIMAL 130 - 159 mg/dl BORDERLINE HIGH 160 - 189 mg/dl HIGH >190 mg/dl VERY HIGH Performed By: #### T SH, LIPID, CMP, URIC #### [facility] [address] [address] [address] Robyn Espinal Triglyceride [Mass/Vol] 83 mg/dL Normal <=150 [facility] Comment on above: Performed By: #### T SH, LIPID, CMP, URIC #### [facility] [address] [address] [address] Robyn Espinal VLDL CALC 16.6 mg/dL Normal [facility] Comment on above: Performed By: #### T SH, LIPID, CMP, URIC #### [facility] [address] [address] [address] Robyn Espinal PROF 14(COMP METB)on 022 Albumin [Mass/Vol] 3.7 g/dL Normal 3.4-5.0 [facility] Comment on above: Performed By: #### T SH, LIPID, CMP, URIC #### [facility] [address] [address] [address] Robyn Espinal Albumin/Globulin [Mass ratio] 1.2 {ratio} Normal [facility] Comment on above: Performed By: #### T SH, LIPID, CMP, URIC #### [facility] [address] [address] [address] Robyn Espinal ALP [Catalytic activity/Vol] 68 U/L Normal 46-116 [facility] Comment on above: Performed By: #### T SH, LIPID, CMP, URIC #### [facility] [address] [address] [address] Robyn Espinal ALT [Catalytic activity/Vol] 21 U/L Normal 16-63 [facility] Comment on above: Performed By: #### T SH, LIPID, CMP, URIC #### [facility] [address] [address] [address] Robyn Espinal Anion gap [Moles/Vol] 7.7 mmol/L Normal [facility] Comment on above: Performed By: #### T SH, LIPID, CMP, URIC #### [facility] [address] [address] [address] Robyn Espinal AST [Catalytic activity/Vol] 14 U/L Critically low 15-37 [facility] Comment on above: Performed By: #### T SH, LIPID, CMP, URIC #### [facility] [address] [address] [address] Robyn Espinal Bilirubin [Mass/Vol] 0.8 mg/dL Normal 0.2-1.0 [facility] Comment on above: Performed By: #### T SH, LIPID, CMP, URIC #### [facility] [address] [place] [address] Dr. Robyn Espinal Calcium [Mass/Vol] 9.3 mg/dL Normal 8.5-10.1 [facility] Comment on above: Performed By: #### T SH, LIPID, CMP, URIC #### [facility] [address] [place] [address] Dr. Robyn Espinal Chloride [Moles/Vol] 105 mmol/L Normal 98-107 [facility] Comment on above: Performed By: #### T SH, LIPID, CMP, URIC #### [facility] [address] [place] [address] Dr. Robyn Espinal CO2 [Moles/Vol] 30.7 mmol/L Normal 21.0-32.0 [facility] Comment on above: Performed By: #### T SH, LIPID, CMP, URIC #### [facility] [address] [place] [address] Dr. Robyn Espinal Creatinine [Mass/Vol] 1.03 mg/dL Normal 0.70-1.30 [facility] Comment on above: Performed By: #### T SH, LIPID, CMP, URIC #### [facility] [address] [place] [address] Dr. Robyn Espinal EGFR-AF GEORGIAN >60 Normal >=60 [facility] Comment on above: Performed By: #### T SH, LIPID, CMP, URIC #### [facility] [address] [place] [address] Dr. Robyn Espinal EGFR-NON AF GEORGIAN >60 Normal >=60 [facility] Comment on above: Performed By: #### T SH, LIPID, CMP, URIC #### [facility] [address] [place] [address] Dr. Robyn Espinal Globulin (S) [Mass/Vol] 3.0 g/dL Normal [facility] Comment on above: Performed By: #### T SH, LIPID, CMP, URIC #### [facility] [address] [address] [address] Robyn Espinal Glucose [Mass/Vol] 110 mg/dL Critically high 74-106 [facility] Comment on above: Performed By: #### T SH, LIPID, CMP, URIC #### [facility] [address] [place] [address] Dr. Robyn Espinal Potassium [Moles/Vol] 4.4 mmol/L Normal 3.5-5.1 [facility] Comment on above: Performed By: #### T SH, LIPID, CMP, URIC #### [facility] [address] [address] [address] Robyn Espinal Protein [Mass/Vol] 6.7 g/dL Normal 6.4-8.2 [facility] Comment on above: Performed By: #### T SH, LIPID, CMP, URIC #### [facility] [address] [place] [address] Dr. Robyn Espinal Sodium [Moles/Vol] 139 mmol/L Normal 136-145 [facility] Comment on above: Performed By: #### T SH, LIPID, CMP, URIC #### [facility] [address] [address] [address] Robyn Espinal Urea nitrogen [Mass/Vol] 24.0 mg/dL Critically high 7.0-18.0 [facility] Comment on above: Performed By: #### T SH, LIPID, CMP, URIC #### [facility] [address] [address] [address] Robyn Espinal Urea nitrogen/Creatinine [Mass ratio] 23.3 mg/mg Normal [facility] Comment on above: Performed By: #### T SH, LIPID, CMP, URIC #### [facility] [address] [address] [address] Robyn Espinal TSHon 07-01-2022 TSH 2.293 uIU/mL Normal 0.358-3.740 [facility] Comment on above: Performed By: #### T SH, LIPID, CMP, URIC #### [facility] [address] [place] [address] Dr. Robyn Espinal URIC ACID SERUMon 07-01-2022 Urate [Mass/Vol] 5.5 mg/dL Normal 3.5-7.2 [facility] Comment on above: Performed By: #### T SH, LIPID, CMP, URIC #### [facility] [address] [address] [address] Robyn Espinal Vital Signs Date Time Vital Sign Value Performing Clinician Justin guy 05-12-2023 09:11-0400 Blood Pressure Location Alfa SANDHU [facility] 05-12-2023 09:11-0400 Diastolic blood pressure 82 mm[Hg] Alfa SANDHU [facility] 05-12-2023 09:11-0400 Heart rate 79 /min Alfa SANDHU [facility] 05-12-2023 09:11-0400 Respiratory rate 16 /min Alfa SANDHU [facility] 05-12-2023 09:11-0400 Systolic blood pressure 131 mm[Hg] Alfa SANDHU [facility] Encounters Encounter Date Encounter Type Care Provider Facility Start: 05-17-2024 End: 05-17-2024 ambulatory Alfa SANDHU Facility:[facility] Start: 05-17-2024 End: 05-17-2024 Patient encounter procedure Alfa SANDHU [facility] Start: 05-14-2024 End: 05-14-2024 ambulatory WALKER TO Not Available Start: 02-11-2024 End: 02-11-2024 ambulatory WALKER TO Not Available Start: 12-31-2023 End: 12-31-2023 ambulatory E[facility] Start: 11-13-2023 End: 11-13-2023 ambulatory WALKER TO Not Available Start: 11-12-2023 Chart abstracting Walker castillo MD Work Phone: [facility] Start: 09-08-2023 End: 09-08-2023 ambulatory WALKER TO Not Available Start: 08-25-2023 End: 08-25-2023 ambulatory WALKER TO Not Available Start: 05-12-2023 End: 05-12-2023 Patient encounter procedure Alfa SANDHU [facility] Start: 03-11-[address] ROSALIA STEPHENS . Facili ty:[facility]1 Start: 03-05-[address] ROSALIA STEPHENS . Facili ty:[facility] Start: 07-01-2022 End: 07-02-[address] ROSALIA STEPHENS . Facility: Start: 05-17-2022 End: 05-17-2022 Patient encounter procedure Alfa SANDHU [facility] Start: 06-24-2017 End: 06-25-2017 Ambulatory DANTE WILLIAMSON Facility:[facility] Start: 06-24-2017 End: 06-25-2017 Ambulatory DEFAULT PHYSICIAN Facility:[facility] Procedures Date Procedure Procedure Detail Performing Clinician Start: 07-01-[address] MINDY STEPHENS . Comment on above: Performed By: #### P [facility] #### [facility] [address] [place] [address] Dr. 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 Plan of Treatment Date Care Activity Detail Author Start: 11-13-2023 End: 11-13-2023 Patient encounter procedure 11/13/2023 11:20 AM EST Office Visit [facility] [address] [place] [address] Walker To MD [address] [place] [address] [facility] Immunizations Immunization Date Immunization Notes Care Provider Fa cility 07-23-2022 influenza virus vacc ine, unspecified formulation Alfa SANDHU [facility] 07-23-2022 SARS-CoV-2 (COVID-19 ) [id number] Alfa SANDHU [facility] 03-28-2022 SARS-CoV-2 mRNA (ebdekgbsxpg-guof-wtvomj e) vaccine Alfa SANDHU [facility] 07-05-2021 SARS-CoV-2 (COVID-19 ) mRNA BNT-162b2 vax Alfa SANDHU [facility] 07-04-2021 influenza, unspecifi ed formulation Alfa SANDHU [facility] 11-23-2020 SARS-CoV-2 (COVID-19 ) mRNA BNT-162b2 vax Alfa SANDHU [facility] 11-06-2020 SARS-CoV-2 (COVID-19 ) mRNA BNT-162b2 vax Alfa SANDHU [facility] 11-02-2020 SARS-CoV-2 (COVID-19 ) mRNA BNT-162b2 vax Alfa SANDHU [facility] 10-06-2020 SARS-CoV-2 (COVID-19 ) mRNA BNT-162b2 vax Alfa SANDHU [facility] 07-07-2020 influenza virus vacc ine, unspecified formulation Alfa SANDHU [facility] 06-06-2020 pneumococcal polysaccharide vaccine, 23 valent Alfa SANDHU [facility] 07-28-2019 influenza, unspecifi ed formulation Alfa SANDHU [facility] 07-27-2019 zoster vaccine recombinant Alfa SANDHU [facility] 05-19-2019 pneumococcal conjuga te vaccine, 13 valent Alfakristin SANDHU [facility] 05-19-2019 zoster vaccine recombinant Alfa [employer]trite[employer] [facility] 08-06-2015 pneumococcal polysaccharide vaccine, 23 valent Alfa SANDHU [facility] Payers Date Payer Category Payer Unknown 2020 Unknown [id number] 2008 Medicare MEDICARE MEDICAR E PART B [id number] 2008-[place] [address] Medicare [id number] 1959 Medicare [id number] 1959 Unknown [id number] 1940 Unknown [id number] 1942 Unknown [id number] 1942 Unknown [id number] 1942 Unknown [id number] 9 1942 Unknown [id number] 9 1942 Unknown [id number] 9 1942 Unknown [id number] 9 1942 Unknown [id number] 9 1942 Unknown [id number] Medicare [id number] Social History Date Type Detail Facility Start: 05-11-2021 End: 08-25-2023 Tobacco smoking status Ex-smoker (finding) [facility] Comment on above: pt. quit when he was 24 Tobacco smoking status Never [facility] Comment on above: pt. quit when he was 24 Start: 09-08-2023 Sex Assigned At Male [facility] History of tobacco use [facility] History of tobacco use Cigarette Smoker [facility] Start: 09-08-2023 Alcohol intake Current drinke r of alcohol (finding) [facility] Start: 09-08-2023 History of Social function [facility] Start: 08-25-2023 Alcohol Comment Points: 8, Interpretation: Positive; Caffeine Intake: 1-2 cups per day tea [facility] Start: 1940 Sex Assigned At Not on file N [facility] Functional Status Date Assessment Result Facility 05-12-2023 Functional Status N/A [facility] Progress note 12-31-2023 Note Date & Type Note Facility 12-31-2023 Note [facility] Cardiology Clinic Note Chief Complaint: Patient here [...] of Abnormal ECG, Arrhythmia, and Atrial fibrillation (CMS/FORMERLY [facility]). Surgical History He has no past surgical [...] problems arise Dante Williamson MD, MPH, FACC, [facility], [facility] Interventional Cardiology Pager Email: [email or web address] Hospital Discharge instructions 05-12-2023 Note Date [...] Follow these instructions at home: Medicines Take oxcy-xsh-lvtxhpd and prescription medicines only as told by [...] or the blood stops without treatment. Take jxzn-oqg-klnhccr and prescription medicines only as told by your health care provider. Drink enough fluid to keep your urine pale yellow. This information is not intended to replace advice given to you by your health care provider. Make sure you discuss any questions you have with your health care provider. Document Revised: 05/23/2021 Document Reviewed: 05/23/2021 Boxed Patient Education 2022 [employer]. Follow Up Care 09/10/2022 11:05:03 With:Alfa SANDHU MD, URL Address: [facility] [address] [place] [address] [phone] When: Unknown [facility] Hospital Discharge instructions 05-11-2021 Note Date & Type Note Facility 05-11-2021 Hospital Discharg e instructions Follow Up Care 05/11/2021 08:41:41 With:Alfa SANDHU MD, URL Address: [facility] [place] [address]- When: Unknown [facility] Evaluation + Plan note Note Date & Type Note Facility Evaluation + Plan note No data available for this section [facility] Evaluation + Plan note Note Date & Type Note Facility Evaluation + Plan note Future Appointments Appointment Date:05/17/2024 08:45:00 AM Scheduled Provider:Alfa SANDHU MD Location:[facility] Appointment Type:URO Office Visit [facility] Hospital Discharge instructions Note Date & Type Note Facility Hospital Discharge instructions No data available for this section [facility] Progress note Note Date & Type Note Facility Progress note No data available for this section [facility] Summary Purpose Family History No Family History Records FoundNo Family History Records FoundNo Family History Records FoundNo Family History Records Found No data available for this section No Family History Records Found Advance Directives No Advanced Directives Records FoundNo Advanced Directives Records FoundNo Advanced Directives Records FoundNo Advanced Directives Records FoundNo Advanced Directives Records Found Additional Source Comments (unrecognized sect ion and content) No Status Records FoundNo Status Records FoundNo Status Records FoundNo Status Records FoundNo Status Records Found INFORMATION SOURCE (unrecogn ized section and content) DATE CREATED AUTHOR 04/01/2018 [facility] DATE CREATED AUTHOR AUTHOR'S ORGANIZ ATION 03/14/2023 [facility] DATE CREATED AUTHOR AUTHOR'S ORGANIZ ATION 05/13/2024 [facility] DATE CREATED AUTHOR AUTHOR'S ORGANIZ ATION 05/16/[address] [facility] EPIC DATE CREATED AUTHOR AUTHOR'S ORGANIZ ATION 05/18/2024 [facility] Care Team (unrecognized sect ion and content) Personnel Name: Rosalia Stephens MD Address: [address] [place] [address] Personnel Name: Rosalia Stephens MD Address: Address: [address] [place] [address] Personnel Name: Rosalia Stephens MD Address: Address: [address] [place] [address] FOR RECORDS PERTAINING TO PATIENTS WHO ARE [...] BE BASED ON THE PRIMARY CLINICAL RECORDS. [employer] [facility]. provides no warranty or guarantee of the accuracy or completeness of information in this document.
[2024-08-25 06:53] LABS: Basophils Percent Auto 0.6 % (0.2-2.0); Eosinophils Absolute Auto 0.1 10^3/uL (0.0-0.7); Eosinophils Percent Auto 2.1 % (0.9-7.0); Hematocrit 41.9 % (42.0-54.0); Immature Granulocytes Abs Auto 0.02 10^3/uL (0.00-0.03); Immature Granulocytes Pct Auto 0.4 % (0.0-0.5); Lymphocytes Absolute Auto 1.5 10^3/uL (1.2-3.8); Lymphocytes Percent Auto 28.6 % (20.5-60.0); Mean Corpuscular HGB Conc 33.4 g/dL (29.9-35.2); Mean Corpuscular Hemoglobin 32.6 pg (25.9-34.0); Mean Corpuscular Volume 97.7 fL (80.0-94.0); Mean Platelet Volume 9.5 fL (9.5-13.5); Monocytes Absolute Auto 0.7 10^3/uL (0.3-0.8); Monocytes Percent Auto 12.6 % (1.7-12.0); Neutrophils Absolute Auto 2.9 10^3/uL (1.4-6.5); Neutrophils Percent Auto 55.7 % (43.0-75.0); Platelet Count 189 10^3/uL (150-450); Red Blood Count 4.29 10^6/uL (4.70-6.10); White Blood Count 5.3 10^3/uL (4.0-11.0)
[2024-08-25 07:23] LABS: Estimated Average Glucose 126 mg/dL
[2024-08-25 07:43] LABS: Alanine Aminotransferase 21 U/L (16-63); Albumin Globulin Ratio 1.2; Albumin Level 3.8 g/dL (3.4-5.0); Alkaline Phosphatase 83 U/L (46-116); Anion Gap 14.6; Aspartate Amino Transferase 14 U/L (15-37); BUN Creatinine Ratio 23.3; Calcium 9.5 mg/dL (8.5-10.1); Carbon Dioxide 27.5 mmol/L (21.0-32.0); Chloride 104 mmol/L (98-107); Chol HDL Ratio 2.2; Cholesterol 191 mg/dL (<=200); Estimated GFR (African America >60 (>=60 mL/min/1.73m^2); Estimated GFR (Non-African Ame >60 (>=60 mL/min/1.73m^2); Free T3 2.46 pg/mL (2.18-3.98); Globulin 3.3 g/dL; Glucose 102 mg/dL (74-106); HDL Cholesterol 87 mg/dL (40-60); Potassium 4.1 mmol/L (3.5-5.1); Sodium 142 mmol/L (136-145); Thyroid Stimulating Hormone 3.381 uIU/mL (0.358-3.740); Total Protein 7.1 g/dL (6.4-8.2); Triglycerides 91 mg/dL (<=150); VLDL CHOLESTEROL 18.2 mg/dL
[2024-08-25 08:19] LABS: Prostate Specific Antigen Scrn 0.52 ng/mL (<=4.00)
== END 2024-08-25 06:30 | disposition home or self-care (01) ==
LOC: LAB 06:31
PROVIDERS: PCP Family Medicine; Visit Provider Family Medicine
DX: R41.81 Age-related cognitive decline (principal); M48.062 Spinal stenosis, lumbar region with neurogenic claudication; E78.00 Pure hypercholesterolemia, unspecified; I10 Essential (primary) hypertension; R53.83 Other fatigue; R73.09 Other abnormal glucose; E03.9 Hypothyroidism, unspecified; Z12.5 Encounter for screening for malignant neoplasm of prostate
CPT/HCPCS: 36415; 80053; 80061; 83036; 84436; 84443; 84481; 85025; G0103

== ENCOUNTER 2025-05-17 06:50 | Outpatient (OUT) | payer MEDICARE, OTHER, SELFPAY ==
--- OUTSIDE RECORDS SUMMARY | 2024-08-25 03:55 | XMS_ITS ---
Author Organization [facility] [place] Address [address] [place] [address] Care Team Providers Care Group Sales Manager Name Role Phone Pepe Stephens Primary Care Provider REASON FOR VISIT Lab Results Encounters Encounter Location Date Provider Diagnosis [facility] [address] [place] [address] 08/25/2024 Pepe Stephens Plan Of Treatment No Information Progress Notes * Matt BURROUGHS WDOB:[birth year] (84 yo M)Acc No.[id number]:08/25/2024 Patient: Luanne HAMMMatt ATKINSON :1940 A ge:84 Y S ex:Male Address:[address], [address], [place], [address] * true * Date: Generated for Hadleyi ng/Famisaelg/eTransmitting on: 0 05/17/2025 06:52 AM EDT
--- OUTSIDE RECORDS SUMMARY | 2024-11-03 04:29 | XMS_ITS ---
Author Organization [facility] in [place] Address [address] [place] [address] Care Team Providers Care Crop Or Grain Farmworker Name Role Phone Pepe Stephens Primary Care Provider REASON FOR VISIT Sick Medications Medication SIG (Take, Route, Fr equency, Duration) Notes Start Date End Date Status levoFLOXacin 500 MG 1 tablet Orally Once a day for 10 day(s) 11/03/2024 Active Encounters Encounter Location Date Provider Diagnosis [facility] [address] [place] [address] 11/03/2024 Pepe Jdfelicitas Plan Of Treatment Medication Medication Name Sig Start Date Stop Date Notes levoFLOXacin 500 MG 1 tablet Orally Once a day for 10 day(s) 11/03/2024 Progress Notes * Matt BURROUGHS WDOB:[birth year] (84 yo M)Acc No.[id number]:11/03/2024 Patient: Matt PENG :1940 A ge:84 Y S ex:Male Address:[address], [place], [address] * Refills Start levoFLOXacin Tablet, 500 MG, Orally, 10, 1 tablet, Once a day, 10 day(s) * true * Date: Generated for Hadleyi ng/Famisaelg/eTransmitting on: 0 05/17/2025 06:52 AM EDT
--- OUTSIDE RECORDS SUMMARY | 2024-11-29 11:56 | XMS_ITS ---
Author Organization [facility] in [place] Address [address] [place] [address] Care Team Providers Care Lithographic Photographer Apprentice Name Role Phone Kat Pepe Primary Care Provider REASON FOR VISIT rf Lisinopril Medications Medication SIG (Take, Route, Fr equency, Duration) Notes Start Date End Date Status Lisinopril 20 MG TAKE ONE TABLET BY M OUTH DAILY for 90 Active Encounters Encounter Location Date Provider Diagnosis [facility] [address] [place] [address] 11/29/2024 Pepe Jdfelicitas Plan Of Treatment Medication Medication Name Sig Start Date Stop Date Notes Lisinopril 20 MG TAKE ONE TABLET BY MOUTH DAILY for 90 Progress Notes * Matt BURROUGHS WDOB:[birth year] (84 yo M)Acc No.[id number]:11/29/2024 Patient: Luanne Matt GIBSON :1940 A ge:84 Y S ex:Male Address:[address], [place], [address] * Refills Refill Lisinopril Tablet, 20 MG, 90 Tablet, TAKE ONE TABLET BY MOUTH DAILY, 90, Refills=3 * true * Date: Generated for Monique valdez/Zakiag/eTransmitting on: 0 05/17/2025 06:53 AM EDT
--- NOTE | 2025-05-17 06:50 | CA_ITS ---
Patient Name: ANMOL VELÁZQUEZ MR#: [id number] : 1940 Exam Date: 05/17/2025 Ordering Doctor: DR TESSY SIMMS M.D. ECHOCARDIOGRAM REPORT PROCEDURE: CA ECHO DOPPLER COMPLETE INDICATIONS: Aortic valve stenosis COMPARISON: None. DESCRIPTION: COMPLETE ECHOCARDIOGRAM Real-time transthoracic echocardiography with 2D, M-mode, spectral and color flow Doppler performed. QUALITY: Technical quality was good. LEFT VENTRICLE: Normal chamber size. Thickened posterior wall. Systolic function is normal. Estimated ejection fraction is 60%. LV EF: Normal left ventricular ejection fraction, (>55%). DIASTOLIC: Diastolic function is indeterminate. ATRIAL SEPTUM: LEFT ATRIUM: Normal chamber size. RIGHT ATRIUM: Mild dilatation. RIGHT VENTRICLE: Normal chamber size. Normal right ventricular systolic function. TRICUSPID VALVE: Normal mobility and thickness. No stenosis with mild regurgitation. No evidence of pulmonary hypertension. RVSP 22 mmHg. MITRAL VALVE: Mildly thickened with normal mobility. No evidence of mitral valve stenosis. There is no mitral annular calcification. Mild mitral regurgitation. AORTIC VALVE: The aortic valve is likely bicuspid, Mathew type I with fusion of the left and right coronary cusps. Moderately calcified aortic valve. Moderately diminished mobility. Doppler velocity suggest moderate to severe aortic valve stenosis. DVI 0.26, OKSANA 1.1 cm?, Vmax 2.53 m/s, peak/mean gradients 26/15 mmHg. No aortic regurgitation. AORTIC ROOT: Normal diameter and appearance, measuring 3.6 cm. The ascending aorta is mildly dilated measuring 3.7 cm which is unchanged from previous study. PULMONIC VALVE: Normal thickness and mobility. No stenosis. No regurgitation. PERICARDIUM: No evidence of pericardial effusion. IVC: Collapses with inspiration. Normal size. PLEURA: CONCLUSION: 1. The left ventricle is normal in size and exhibits normal systolic function. Estimated LVEF is 60%. 2. Normal right ventricular size and systolic function. 3. Likely bicuspid aortic valve with moderate stenosis and no regurgitation. 4. Mild mitral and tricuspid regurgitation. 5. Normal right-sided pressures. 6. Mildly dilated ascending aorta measuring 3.7 cm. Normal size aortic root. Adult Echocardiography Procedure Report Left Ventricle LVEDD (3.7 - 5.6 cm): 3.23 cm LVESD (2.2 - 4.0 cm): 2.30 cm LVIVS thickness (0.6 - 1.2 cm): 1.17 cm LVPW thickness (0.5 - 1.0 cm): 1.67 cm e': 0.06 m/s E - e': 8.20 LVOT Max Gradient: 1.81 mm[Hg] LVOT Area (cm2): 0.67 m/s Peak Velocity (LVOT): 0.67 m/s Mean Velocity (LVOT): 0.42 m/s LVOT Diameter 2.3 cm Left Ventricular Ejection Fraction: 60 % Left Atrium LA Volume Index (2D A2C): 27.00 ml/m2 Left Atrium Systolic Dimension: 3.02 cm Mitral Valve MV E to A Ratio: 1.04 Mitral Valve A-Wave Peak Velocity: 0.46 m/s Mitral Valve E-Wave Peak Velocity: 0.48 m/s Right Ventricle RV Internal Diastolic Dimension: 3.85 cm Aorta AO Root Diam: 3.60 cm Ascending Ao Diam: 3.74 cm Aortic Valve AoV Area (Peak Arnav): 0.90 cm2, 0.90 cm2, 1.07 cm2, 1.08 cm2 AoV Area (VTI): 0.85 cm2, 0.85 cm2 Peak Velocity(Antegrade Flow): 2.53 m/s, 2.10 m/s, 2.15 m/s Peak Gradient(Antegrade Flow): 25.57 mm[Hg], 17.70 mm[Hg], 18.43 mm[Hg] Mean Velocity(Antegrade Flow): 1.82 m/s Mean Gradient(Antegrade Flow): 15.23 mm[Hg] Velocity Time Integral: 56.07 cm Tricuspid Valve Peak Velocity (Regurgitant Flow): 2.20 m/s, 2.01 m/s, 2.08 m/s, 2.08 m/s Pulmonic Valve Mean Gradient: 3.04 mm[Hg], 3.20 mm[Hg] Mean Velocity: 0.79 m/s, 0.80 m/s Peak Velocity: 1.32 m/s Peak Gradient: 6.41 mm[Hg], 7.51 mm[Hg] Right Atrium Right Atrium Systolic Pressure: 49.04 ml, 49.04 ml Dictated by: Jimmie Freire M.D. on 05/17/2025 at 12:25 Approved by: Jimmie Freire M.D. on 05/17/2025 at 12:33
--- OUTSIDE RECORDS SUMMARY | 2025-05-17 06:52 | XMS_ITS | CCD ---
Author Organization [facility] Care Team Providers Care Director Of Home Care [facility] Name Role Phone PHYSICIAN, DEFAULT Unavailable Unavailable PHYSICIAN, DEFAULT Unavailable Unavailable [place], EHAB A Unavailable Unavailable [place], EHAB A Unavailable Unavailable SELF, REFERRED Unavailable Unavailable SELF, REFERRED Unavailable Unavailable Rosalia Stephens Primary Care Physician [phone] LINDSEY Primary Care Unavailable HOY [...] LINDSEY Admitting Unavailable Unavailable Primary Care Provider UnavailAlfa Amin Attending Unavailable [place]WY, EHAB Attending Unavailable [place], EHAB Attending Unavailable Generic Provider MD, No Assigned Pcp Primary Car e Provider Unavailable WALKER TO Referring Unavailable WALKER TO Attending Unavailable WALKER TO Attending Unavailable WALKER TO Attending Unavailable WALKER TO Attending Unavailable Allergies Allergy Classification Reported Allergen(s) Allergy Type Date of Onset Reaction(s) Facility (16 sources) Morphine; Translations: [morphine] Drug Allergy 7 Unknown [facility] (4 sources) Penicillin; Translations: [penicillin] Drug Allergy Unknown (qualifier value) [facility] (2 sources) Morphine Drug Allergy 7 [facility] (2 sources) Penicillins; Translations: [PENICILLINS] Drug allergy (disorder) 6 [facility] (11 sources) Penicillins Drug Allergy 3 [facility] Medications Current Medications Medication Drug Class(es) Dates Sig (Normalized) Sig (Original) apixaban 5 mg oral tablet (13 sources) Factor Xa Inhibitor Start: 02-27-2023 take 1 tablet by mouth in the morning Eliquis 5 MG tablet Take 5 mg by mouth in the morning and 5 mg in the evening. 02/27/2023 Active ascorbic acid 1000 mg oral tablet (11 sources) Vitamin C Ascorbic Acid (vitamin C) 1000 MG tablet 1 (one) time each day at the same time. Active aspirin 81 mg oral tablet (14 sources) Platelet Aggregation Inhibitor, Nonsteroidal Anti-inflammatory Drug Start: 11-01-2019 take 1 tablet by mouth once daily aspirin 81 mg oral tablet 81 mg = 1 tab(s), Oral, Daily, Prophylaxis Start Date: 11/01/19 Status: Ordered aspirin 81 MG ch ewable tablet 1 (one) time each day at the same time. Active Calcium (3 sources) Phosphate Binder, Calcium Start: 11-01-2019 Calcium 500+D 1 tab(s), Chewed, Daily, Prophylaxis Start Date: 11/01/19 Status: Ordered cholecalciferol 0.05 mg oral tablet (11 sources) Vitamin D cholecalciferol (Vitamin D-3) 50 MCG (2000 UT) tablet 1 (one) time each day at the same time. Active cinnamon bark 500 mg oral capsule (11 sources) cinnamon 500 MG capsule 1 (one) time each day at the same time. Active Cinnamon Preparation (3 sources) Non-Standardized Food Allergenic Extract Start: 05-14-2019 take 1 mg by mouth twice daily Cinnamon mg, Oral, BID, Prophylaxis Start Date: 05/14/19 Status: Ordered docosahexaenoic acid 120 mg / eicosapentaenoic acid 180 mg oral capsule (11 sources) omega-3 (Fish Oi l) 1000 MG capsule 1 capsule 1 (one) time each day at the same time. Active donepezil hydrochloride 23 mg oral tablet (18 sources) Start: 04-04-2025 End: 05-04-2025 take 1 tablet by mouth in the morning donepezil (Aricept) 23 MG tablet Indications: Mild cognitive impairment with memory loss Take 1 tablet (23 mg) by mouth in the morning. 30 tablet 3 04/04/2025 05/04/2025 Active Start: 10-11-2024 End: 10-06-2025 take 1 tablet by mouth in the morning donepezil (Aricept) 10 MG tablet Indications: Mild cognitive impairment with memory loss Take 1 tablet (10 mg) by mouth in the morning and 1 tablet (10 mg) before bedtime. 180 tablet 3 10/11/2024 10/06/2025 Active Start: 08-13-2021 donepezil 10 m g Tab Refills(s) 0 Start Date: 08/13/21 Status: Ordered End: 10-11-2024 donepezil (Aricept) 10 MG ta blet every 12 (twelve) hours. 10/11/2024 Discontinued (Reorder) FeroSul 325 mg oral tablet (2 sources) Start: 05-12-2023 FeroSul 325 mg oral tablet Refills(s) 0 Start Date: 05/12/23 Status: Ordered ferrous sulfate 325 mg oral tablet (11 sources) Start: 10-07-2022 take 1 tablet by mouth once daily ferrous sulfate 325 (65 Fe) MG tablet TAKE ONE TABLET BY MOUTH DAILY for 30 10/07/2022 Active finasteride 5 mg oral tablet (14 sources) 5-alpha Reductase Inhibitor Start: 09-03-2021 End: 02-26-2025 take 1 tablet by mouth once daily finasteride 5 mg Tab 5 mg = 1 tab(s), Oral, Daily, X 90 day(s), # 90 tab(s), Refills(s) 3, Pharmacy: [facility] [id number], 178, cm, 05/12/23 9:20:00 EDT, Height/Length Dosing, 76.1, kg, 05/12/23 9:20:00 EDT, Weight Dosing Start Date: 03/03/24 Stop Date: 02/26/25 Status: Ordered Fish Oils (3 sources) Start: 11-04-2019 take 3 capsules by mouth once daily Fish Oil 3 cap(s), Oral, Daily, Refill(s) 0 Start Date: 11/04/19 Status: Ordered lisinopril 20 mg oral tablet (14 sources) Angiotensin Converting Enzyme Inhibitor Start: 05-14-2019 take 1 tablet by mouth once daily lisinopril 20 mg Tab 20 mg = 1 tab(s), Oral, Daily, High blood pressure Start Date: 05/14/19 Status: Ordered lovastatin 40 mg oral tablet (14 sources) HMG-CoA Reductase Inhibitor Start: 05-14-2019 take 1 tablet by mouth once daily lovastatin 40 mg Tab 40 mg = 1 tab(s), Oral, Daily, High cholesterol Start Date: 05/14/19 Status: Ordered 24 hr memantine hydrochloride 28 mg extended release oral capsule (11 sources) D-qrtoeh-F-asparta te Receptor Antagonist Start: 05-14-2024 End: 01-09-2025 take 1 capsule by mouth every twenty-four hours at bedtime Memantine HCl ER 28 MG capsule sustained-release 24 hr Indications: Mild cognitive impairment with memory loss Take 28 mg by mouth at bedtime 90 capsule 3 10/11/2024 Active Start: 08-27-2023 take 1 tablet by ubaldo th in the morning memantine (Namenda) 5 MG tablet Indications: Mild cognitive impairment with memory loss Take 1 tablet (5 mg) by mouth in the morning and 1 tablet (5 mg) before bedtime. 60 tablet 11 08/27/2023 Active methylcellulose 500 mg oral tablet (11 sources) Methylcellulose, Laxative, (Fiber Therapy) 500 MG tablet every 4 (four) hours. Active 24 hr mirabegron 50 mg extended release oral tablet (1 source) beta3-Adrenergi c Agonist Start: 09-24-20 21 take 1 tablet by mouth once daily Myrbetriq 50 mg oral tablet, extended release 50 mg = 1 tab(s), Oral, Daily, # 30 tab(s), Refills(s) 6, Pharmacy: [facility] [id number], 178, cm, 08/13/21 10:37:00 EST, Height/Length Dosing, 77, kg, 08/13/21 10:37:00 EST, Weight Dosing Start Date: 09/24/21 Status: Ordered Multiple Vitamins-Minerals (Multivitamin Men) tablet (11 sources) Multiple Vitamins-Minerals (Multivitamin Men) tablet Orally Active Multiple Vitamin s-Minerals (Multivitamin Men) tablet Orally 0 Active pantoprazole 40 mg extended release oral tablet (14 sources) Proton Pump Inhibitor Start: 05-14-2019 take 1 tablet by mouth once daily pantoprazole 40 mg Oral EC Tab 40 mg = 1 tab(s), Oral, Daily, Control of stomach acid Start Date: 05/14/19 Status: Ordered Start: 05-14-2019 [facility] 40 mg Oral EC Tab 40 mg = 1 tab(s), Oral, Daily, Control of stomach acid Start Date: 05/14/19 Status: Ordered tamsulosin hydrochloride 0.4 mg oral capsule (14 sources) alpha-Adrenergic Ana Laura Start: 02-04-2024 End: 01-29-2025 take 1 capsule by mouth once daily tamsulosin 0.4 mg Cap 0.4 mg = 1 cap(s), Oral, Daily, X 30 day(s), # 30 cap(s), Refills(s) 11, Pharmacy: [facility] [id number], 178, cm, 05/12/23 9:20:00 EDT, Height/Length Dosing, 76.1, kg, 05/12/23 9:20:00 EDT, Weight Dosing Start Date: 02/04/24 Stop Date: 01/29/25 Status: Ordered Start: 10-28-2021 End: 01-17-2024 take 1 capsule by mouth once daily tamsulosin 0.4 mg Cap 0.4 mg = 1 cap(s), Oral, Daily, X 90 day(s), # 90 cap(s), Refills(s) 3, Pharmacy: [facility] [id number], 178, cm, 08/13/21 10:37:00 EST, Height/Length Dosing, 77, kg, 08/13/21 10:37:00 EST, Weight Dosing Start Date: 01/22/23 Stop Date: 01/17/24 Status: Ordered 24 hr tolterodine tartrate 4 mg extended release oral capsule (12 sources) Cholinergic Muscarinic Antagonist Start: 03-06-2023 tolterodine LA (Detrol LA) 4 MG 24 hr capsule 1 capsule 1 (one) time each day at the same time. 03/06/2023 Active Start: 09-26-2021 take 1 capsule by [facility] once daily tolterodine 4 mg Cap-ER 4 mg = 1 cap(s), Oral, Daily, # 30 cap(s), Refills(s) 11, Pharmacy: [facility] [id number], 178, cm, 08/13/21 10:37:00 EST, Height/Length Dosing, 77, kg, 08/13/21 10:37:00 EST, Weight Dosing Start Date: 09/26/21 Status: Ordered vitamin b12 0.5 mg oral tablet (11 sources) Vitamin B12 cyanocobalamin ( Vitamin B-12) 500 MCG tablet 1 (one) time each day at the same time. Active Vitamin C 250 mg oral tablet (3 sources) Start: 11-01-2019 take 1 tablet by mouth once daily Vitamin C 250 mg oral tablet 250 mg = 1 tab(s), Oral, Daily, Prophylaxis Start Date: 11/01/19 Status: Ordered Completed/Discontinued Medications Medication Drug Class(es) Dates Sig (Normalized) Sig (Original) florbetapir F-18 (Amyvid) radio-isotope injection 11.1 millicurie (1 source) Start: 03-04-2025 End: 03-04-2025 11.1 millicurie, intravenous, Once in imaging, Starting on Fri03/04/25 at 1311, For 1 dose tadalafil 20 mg oral tablet (3 sources) Phosphodiesterase 5 Inhibitor Start: 12-04-2022 take 1 tablet by mouth every twenty-four hours tadalafil 20 mg Tab 20 mg = 1 tab(s), Oral, Daily, Take 1 tab by mouth 1 hour prior to sexual activity. Don't exceed 1 tab in a 24 hr period., # 30 tab(s), Refills(s) 2, Pharmacy: [facility] [id number], 178, cm, 08/13/21 10:37:00 EST, Height/Length Dosing, 77, kg, 08/13/21 10:37:00 EST, Weight Dosing Start Date: 12/04/22 Status: Ordered Start: 01-02-2021 take 1 tablet by ubaldo th every hour tadalafil 20 mg Tab 20 mg = 1 tab(s), Oral, Daily, take 1 tab 1 hour prior to sexual activity, # 30 tab(s), Refills(s) 6, Pharmacy: [place] [id number] Start Date: 01/02/21 Status: Ordered Vitamin B12 500 mcg oral tablet (3 sources) Start: 11-04-2019 take 1 tablet by mouth once daily Vitamin B12 500 mcg oral tablet 500 microgram = 1 tab(s), Oral, Daily, Refills(s) 0, Prophylaxis Start Date: 11/04/19 Status: Ordered Problems Active Problems Problem Classification Problem Date Documented Date Episodic/Chronic Anxiety disorders (11 sources) Anxiety; Translations: [Anxiety disorder, unspecified] Onset: 09-08-2023 09-08-2023 Chronic Blindness and vision defects (11 sources) Visual alteration; Translations: [Unspecified visual loss] Onset: 09-08-2023 09-08-2023 Chronic Delirium, dementia, and amnestic and other cognitive disorders (20 sources) 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; Translations: [Primary degenerative dementia of the Alzheimer type, presenile onset, uncomplicated] Onset: 07-01-2022 Chronic Disorders of lipid metabolism (16 sources) Hyperlipidemia; Translations: [Pure hypercholesterolemia , unspecified] Onset: 07-04-2022 04-12-2019 Chronic Essential hypertension (17 sources) Hypertensive disorder; Translations: [Essential (primary) hypertension] Onset: 07-04-2022 04-12-2019 Chronic Fracture of upper limb (3 sources) Fracture of metacarpal bone 11-04-2019 Episodic Comment on above: RIGHT Heart valve disorders (3 sources) Nonrheumatic mitral (valve) insufficiency; Translations: [Nonrheumatic aortic (valve) stenosis] Onset: 06-24-2017 Chronic Hyperplasia of prostate (20 sources) Benign prostatic hypertrophy with outflow obstruction; Translations: [Nocturia due to benign prostatic hypertrophy] Onset: 03-31-2023 04-12-2019 Chronic Osteoarthritis (16 sources) Arthritis; Translations: [Osteoarthritis of right hip joint] Onset: 08-25-2023 04-12-2019 Chronic Other aftercare (1 source) Long-term current use of anticoagulant; Translations: [penitentiary (current) use of anticoagulants] Onset: 05-12-2023 Episodic Other connective tissue disease (11 sources) History of total replacement of left hip joint; Translations: [Presence of left artificial hip joint] Onset: 08-25-2023 08-25-2023 Chronic Other connective tissue disease (11 sources) History of total replacement of right hip joint; Translations: [Presence of right artificial hip joint] Onset: 08-25-2023 08-25-2023 Chronic Other hereditary and degenerative nervous system conditions (17 sources) Mild cognitive impairment, so stated; Translations: [Mild cognitive impairment, so stated] Onset: 08-25-2023 08-25-2023 Chronic Other male genital disorders (3 sources) 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 Other male genital disorders (1 source) Male erectile dysfunction, unspecified; Translations: [Erectile dysfunction] Onset: 05-12-2023 Chronic Other nervous system disorders (11 sources) Chronic pain; Translations: [Other chronic pain] Onset: 08-25-2023 08-25-2023 Chronic Other nervous system disorders (4 sources) Other abnormalities of gait and mobility; Translations: [OTHER ABNORMALITIES GAIT AND MOBILITY] Onset: 03-05-2023 Episodic Other non-traumatic joint disorders (1 source) Pain in right hip joint; Translations: [Pain in right hip] Onset: 08-25-2023 08-25-2023 Episodic Spondylosis; intervertebral disc disorders; other back problems (20 sources) Disorder of lumbar disc; 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] Onset: 03-31-2023 04-12-2019 Chronic Unclassified (2 sources) Unknown / UNK(Unknown) Onset: 06-24-2017 Unclassified (3 sources) Drug therapy finding 05-12-2020 Unclassified (2 sources) Asymptomatic microscopic hematuria 05-12-2023 Past or Other Problems Problem Classification Problem Date Documented Date Episodic/Chronic Diabetes mellitus without complication (1 source) Other abnormal glucose; Translations: [OTHER ABNORMAL GLUCOSE] Onset: 07-04-2022 Episodic Genitourinary symptoms and ill-defined conditions (20 sources) Increased frequency of urination; Translations: [Nocturia] Onset: 03-31-2023 05-14-2019 Episodic Heart valve disorders (1 source) Cardiac murmur, unspecified; Translations: [CARDIAC MURMUR, UNSPECIFIED] Onset: 06-24-2017 Episodic Other aftercare (2 sources) Drug therapy finding; Translations: [penitentiary (current) use of anticoagulants] Onset: 12-23-2024 04-04-2025 Episodic Other connective tissue disease (11 sources) Pain in right hand; Translations: [Pain in right hand] Onset: 08-25-2023 08-25-2023 Episodic Other non-traumatic joint disorders (11 sources) Pain in left shoulder; Translations: [Pain in joint, shoulder region] Onset: 08-25-2023 08-25-2023 Episodic Other non-traumatic joint disorders (11 sources) Arthralgia of the pelvic region and thigh; Translations: [Pain in unspecified hip] Onset: 08-25-2023 08-25-2023 Episodic Other non-traumatic joint disorders (10 sources) Hip pain; Translations: [Pain in right hip] Onset: 08-25-2023 08-25-2023 Episodic Skull and face fractures (5 sources) Closed fracture of nasal bones; Translations: [Fracture of nasal bones, initial encounter for closed fracture] Onset: 12-23-2024 11-04-2019 Episodic Superficial injury; contusion (11 sources) Contusion of right hand; Translations: [Contusion of right hand, initial encounter] Onset: 08-25-2023 08-25-2023 Episodic Unclassified (16 sources) Abnormal electrocardiogram [ECG] [EKG]; Translations: [Encounter for screening for malignant neoplasm of prostate] Onset: 06-24-2017 08-25-2023 Episodic Results Test Name Value Interpretation Reference Range Facility NM PET CT AMYLOID BRAINon NM PET CT AMYLOID BRAIN Interpreted By: Ebony Ricardo and Kaur Arashdeep STUDY: NM PET CT AMYLOID BRAIN; 03/04/2025 2:26 pm INDICATION: Signs/Symptoms:DIANA IA. COMPARISON: None. ACCESSION NUMBER(S): [id number] ORDERING CLINICIAN: WALKER TO TECHNIQUE: DIVISION OF NUCLEAR MEDICINE POSITRON EMISSION TOMOGRAPHY (PET-CT) The patient received an intravenous dose of 11.1 mCi of F-18 florbetapir (Amyvid). Positron emission tomographic (PET) images as well as contemporaneous low dose non-contrast CT images of the brain were then acquired after approximately 60 minute delay. A combined PET-CT scanner unit was employed with attenuation-corrected PET and CT images digitally fused for display. CALIBRATION: Dose Lzziwwzlh-vz-Iqje Interval (mins): 53 min FINDINGS: There is no increased F-18 florbetapir uptake seen in the cortical cerebral batista matter. The cerebellum has no abnormal florbetapir uptake. The centiloid values -9.0 (normal value less than 24.4). IMPRESSION: 1. Negative brain amyloid imaging indicating sparse to no beta-amyloid neuritic plaques. 2. The centiloid values -9.0 (normal value less than 24.4). 3. Image saved to PACs for review. NOTE: F-18 florbetapir (Amyvid) is a diagnostic agent for PET imaging of the brain to estimate beta-amyloid neuritic plaque density in adult patients with cognitive impairment who are being evaluated for Alzheimer's Disease (AD) and other causes of cognitive decline. A negative Amyvid scan indicates sparse to no neuritic plaques and is inconsistent with a neuropathological diagnosis of AD at the time of image acquisition. A negative scan result reduces the likelihood that a patient's cognitive impairment is due to AD. A positive Amyvid scan indicates moderate to frequent amyloid neuritic plaques. Neuropathological examination has shown that this amount of amyloid neuritic plaque is present in patients with AD, but may also be present in patients with other types of neurologic conditions as well as in older people with normal cognition. Amyvid is an adjunct to other diagnostic evaluations. Limitations of use: A positive Amyvid scan does not establish a diagnosis of AD or other cognitive disorder. I personally reviewed the images/study and I agree with the findings as stated by Manuel Roberts MD. This study was interpreted at [facility], [place], [place]. MACRO: None Signed by: Ebony Ricardo 03/04/2025 3:20 PM Dictation workstation: [id number] Normal [facility] PET+CT Brain for amyloidosis on 03-04-2025 1. Negative brain amyloid imaging indicating sparse to no beta-amyloid neuritic plaques. 2. The centiloid values -9.0 (normal value less than 24.4). 3. Image saved to PACs for review. NOTE: F-18 florbetapir (Amyvid) is a diagnostic agent for PET imaging of the brain to estimate beta-amyloid neuritic plaque density in adult patients with cognitive impairment who are being evaluated for Alzheimer's Disease (AD) and other causes of cognitive decline. A negative Amyvid scan indicates sparse to no neuritic plaques and is inconsistent with a neuropathological diagnosis of AD at the time of image acquisition. A negative scan result reduces the likelihood that a patient's cognitive impairment is due to AD. A positive Amyvid scan indicates moderate to frequent amyloid neuritic plaques. Neuropathological examination has shown that this amount of amyloid neuritic plaque is present in patients with AD, but may also be present in patients with other types of neurologic conditions as well as in older people with normal cognition. Amyvid is an adjunct to other diagnostic evaluations. Limitations of use: A positive Amyvid scan does not establish a diagnosis of AD or other cognitive disorder. I personally reviewed the images/study and I agree with the findings as stated by Manuel Roberts MD. This study was interpreted at [facility], [place], [place]. MACRO: None Signed by: Ebony Ricardo 03/04/2025 3:20 PM Dictation workstation: [id number] [facility] Interpreted By: Ebony Ricardo and Kaur Arashdeep STUDY: NM PET CT AMYLOID BRAIN; 03/04/2025 2:26 pm INDICATION: Signs/Symptoms:DIANA IA. COMPARISON: None. ACCESSION NUMBER(S): [id number] ORDERING CLINICIAN: WALKER TO TECHNIQUE: DIVISION OF NUCLEAR MEDICINE POSITRON EMISSION TOMOGRAPHY (PET-CT) The patient received an intravenous dose of 11.1 mCi of F-18 florbetapir (Amyvid). Positron emission tomographic (PET) images as well as contemporaneous low dose non-contrast CT images of the brain were then acquired after approximately 60 minute delay. A combined PET-CT scanner unit was employed with attenuation-corrected PET and CT images digitally fused for display. CALIBRATION: Dose Wijkbxvir-qa-Jaab Interval (mins): 53 min FINDINGS: There is no increased F-18 florbetapir uptake seen in the cortical cerebral batista matter. The cerebellum has no abnormal florbetapir uptake. The centiloid values -9.0 (normal value less than 24.4). [facility] Ebony Ricardo MD - 03/04/2025 Interpreted By: Ebony Ricardo and Kaur Arashdeep STUDY: NM PET CT AMYLOID BRAIN; 03/04/2025 2:26 pm INDICATION: Signs/Symptoms:DIANA IA. COMPARISON: None. ACCESSION NUMBER(S): [id number] ORDERING CLINICIAN: WALKER TO TECHNIQUE: DIVISION OF NUCLEAR MEDICINE POSITRON EMISSION TOMOGRAPHY (PET-CT) The patient received an intravenous dose of 11.1 mCi of F-18 florbetapir (Amyvid). Positron emission tomographic (PET) images as well as contemporaneous low dose non-contrast CT images of the brain were then acquired after approximately 60 minute delay. A combined PET-CT scanner unit was employed with attenuation-corrected PET and CT images digitally fused for display. CALIBRATION: Dose Kpbonwxsh-nm-Zmao Interval (mins): 53 min FINDINGS: There is no increased F-18 florbetapir uptake seen in the cortical cerebral batista matter. The cerebellum has no abnormal florbetapir uptake. The centiloid values -9.0 (normal value less than 24.4). IMPRESSION: 1. Negative brain amyloid imaging indicating sparse to no beta-amyloid neuritic plaques. 2. The centiloid values -9.0 (normal value less than 24.4). 3. Image saved to PACs for review. NOTE: F-18 florbetapir (Amyvid) is a diagnostic agent for PET imaging of the brain to estimate beta-amyloid neuritic plaque density in adult patients with cognitive impairment who are being evaluated for Alzheimer's Disease (AD) and other causes of cognitive decline. A negative Amyvid scan indicates sparse to no neuritic plaques and is inconsistent with a neuropathological diagnosis of AD at the time of image acquisition. A negative scan result reduces the likelihood that a patient's cognitive impairment is due to AD. A positive Amyvid scan indicates moderate to frequent amyloid neuritic plaques. Neuropathological examination has shown that this amount of amyloid neuritic plaque is present in patients with AD, but may also be present in patients with other types of neurologic conditions as well as in older people with normal cognition. Amyvid is an adjunct to other diagnostic evaluations. Limitations of use: A positive Amyvid scan does not establish a diagnosis of AD or other cognitive disorder. I personally reviewed the images/study and I agree with the findings as stated by Manuel Roberts MD. This study was interpreted at [facility], [place], [place]. MACRO: None Signed by: Ebony Ricardo 03/04/2025 3:20 PM Dictation workstation: [id number] [facility] Work Phone: Radiology Study observation (narrative) [facility] Work Phone: PET+CT Brain for amyloidosis Ordered By: Ebony Ricardo on 03-04-2025 [facility] Work Phone: Office Visiton 12-23-2024 Follow-up visit [id number] Matt Burroughs 1940 M Date Provider Department Center 12/23/2024 [facility] Family History Problem Relation Age of Onset No Known Problems Mother No Known Problems Father Heart failure Sister Family Status - Relation Status Age at Mother Father Sister Level of Service:85097 SC OFFICE/OUTPATIENT ESTABLISHED LOW MDM 20 MIN Normal [facility] 36on 05-11-2024 36 Regarding echo resul t from 05/10/2024: MD Mehnaz Desir MA Please reassure Mr. Burroughs that his ejection fraction is normal, his aortic valve stenosis is mild to moderate. We can repeat this echocardiogram in a year or sooner should he have any new symptoms. Thank you. Patient informed. Normal [facility] Office Visiton 12-31-2023 Follow-up visit [id number] Matt Burroughs 1940 M [facility] Provider Department Center 12/31/2023 DANTE RICHARD Family History Problem Relation Age of Onset No Known Problems Mother No Known Problems Father Heart failure Sister Family Status - Relation Status Age at Mother Father Sister Level of Service:58752 [place] OFFICE/OUTPATIENT ESTABLISHED LOW MDM 20 MIN [facility] Orders Onlyon 12-31-2023 Orders Only [id number] Matt Burroughs 1940 M [facility] Provider Department Center 12/31/2023 KAVON CALDERÓN [facility] Family History Problem Relation Age of Onset No Known Problems Mother No Known Problems Father Heart failure Sister Family Status - Relation Status Age at Mother Father Sister [facility] INSULINon 07-02-2022 Insulin 6.3 uIU/mL Normal 2.6-24.9 [facility] Comment on above: Performed By: #### I NSULIN #### [facility] [address] [place] [address] Dr. Robyn Espinal T4, T3U, FTI LABCORPon 07-02 Free Thyroxine Index 1.6 Normal 1.2-4.9 [facility] Comment on above: Performed By: #### T HYLC #### [facility] [address] [place] [address] Dr. Robyn Espinal T3 Uptake 27 % Normal 24-39 [facility] Comment on above: Performed By: #### T HYLC #### [facility] [address] [place] [address] Dr. Robyn Espinal T4 [Mass/Vol] 5.8 ug/dL Normal 4.5-12.0 [facility] Comment on above: Performed By: #### T HYLC #### [facility] [address] [place] [address] Dr. Robyn Espinal CBC AUTO DIFFon 07-01-2022 BASO # 0.0 103/ul Normal 0.0-0.1 [facility] Comment on above: Performed By: #### C BC #### [facility] [address] [place] [address] Dr. Robyn Espinal Basophils/100 WBC (Bld) 0.6 % Normal 0.2-2.0 [facility] Comment on above: Performed By: #### C BC #### [facility] [address] [place] [address] Dr. Robyn Espinal EO # 0.1 103/ul Normal 0.0-0.7 [facility] Comment on above: Performed By: #### C BC #### [facility] [address] [place] [address] Dr. Robyn Espinal Eosinophils/100 WBC (Bld) 1.9 % Normal 0.9-7.0 [facility] Comment on above: Performed By: #### C BC #### [facility] [address] [place] [address] Dr. Robyn Espinal Erythrocyte distribution width (RBC) [Ratio] 13.1 % Normal 11.0-15.0 [facility] Comment on above: Performed By: #### C BC #### [facility] [address] [place] [address] Dr. Robyn Espinal Hematocrit (Bld) [Volume fraction] 39.5 % Critically low 42.0-54.0 [facility] Comment on above: Performed By: #### C BC #### [facility] [address] [place] [address] Dr. Robyn Espinal Hemoglobin (Bld) [Mass/Vol] 12.9 g/dL Critically low 14.0-18.0 [facility] Comment on above: Performed By: #### C BC #### [facility] [address] [place] [address] Dr. Robyn Espinal IG # 0.01 10e3/ul Normal 0.00-0.03 [facility] Comment on above: Performed By: #### C BC #### [facility] [address] [place] [address] Dr. Robyn Espinal IG % 0.2 % Normal 0.0-0.5 [facility] Comment on above: Performed By: #### C BC #### [facility] [address] [place] [address] Dr. Robyn Espinal LYMPH # 1.3 103/ul Normal 1.2-3.8 [facility] Comment on above: Performed By: #### C BC #### [facility] [address] [place] [address] Dr. Robyn Espinal Lymphocytes/100 WBC (Bld) 27.2 % Normal 20.5-60.0 [facility] Comment on above: Performed By: #### C BC #### [facility] [address] [place] [address] Dr. Robyn Espinal MANUAL DIFF REQ NO Normal [facility] Comment on above: Performed By: #### C BC #### [facility] [address] [place] [address] Dr. Robyn Espinal MCH (RBC) [Entitic mass] 31.8 pg Normal 25.9-34.0 [facility] Comment on above: Performed By: #### C BC #### [facility] [address] [place] [address] Dr. Robyn Espinal MCHC (RBC) [Mass/Vol] 32.7 g/dL Normal 29.9-35.2 [facility] Comment on above: Performed By: #### C BC #### [facility] [address] [place] [address] Dr. Robyn Espinal MCV (RBC) [Entitic vol] 97.3 fL Critically high 80.0-94.0 [facility] Comment on above: Performed By: #### C BC #### [facility] [address] [place] [address] Dr. Robyn Espinal MONO # 0.7 103/ul Normal 0.3-0.8 [facility] Comment on above: Performed By: #### C BC #### [facility] [address] [place] [address] Dr. Robyn Espinal Monocytes/100 WBC (Bld) 14.7 % Critically high 1.7-12.0 [facility] Comment on above: Performed By: #### C BC #### [facility] [address] [place] [address] Dr. Robyn Espinal NEUT # 2.6 103/ul Normal 1.4-6.5 [facility] Comment on above: Performed By: #### C BC #### [facility] [address] [place] [address] Dr. Robyn Espinal Neutrophils/100 WBC (Bld) 55.4 % Normal 43.0-75.0 [facility] Comment on above: Performed By: #### C BC #### [facility] [address] [place] [address] Dr. Robyn Espinal Platelet mean volume (Bld) [Entitic vol] 9.7 fL Normal 9.5-13.5 [facility] Comment on above: Performed By: #### C BC #### [facility] [address] [place] [address] Dr. Robyn Espinal PLT 205 103/ul Normal 150-450 [facility] Comment on above: Performed By: #### C BC #### [facility] [address] [place] [address] Dr. Robyn Espinal RBC 4.06 106/ul Critically low 4.70-6.10 [facility] Comment on above: Performed By: #### C BC #### [facility] [address] [address] [address] Robyn Espinal WBC 4.7 103/ul Normal 4.0-11.0 [facility] Comment on above: Performed By: #### C BC #### [facility] [address] [address] [address] Robyn Espinal GLYCOHEMOGLOBIN A1Con 2021 ADA RECOMMENDATION SEE BELOW Normal [facility] Comment on above: Result Comment: ADA RECOMMENDED LIMIT 4.0 - 6.0 ADA THERAPEUTIC TARGET < 7.0 ACTION SUGGESTED > 7.0 Performed By: #### A 1C #### [facility] [address] [place] [address] Dr. Robyn Espinal Glucose [Mass/Vol] 128 mg/dL Normal [facility] Comment on above: Performed By: #### A 1C #### [facility] [address] [place] [address] Dr. Robyn Espinal HbA1c (Bld) [Mass fraction] 6.1 % Normal 4.5-6.2 [facility] Comment on above: Performed By: #### A 1C #### [facility] [address] [place] [address] Dr. Robyn Espinal LIPID PROFILEon 07-01-2022 CHOL-HDL RATIO NORM SEE BELOW Normal [facility] Comment on above: Result Comment: 3.3 - 4.4 LOW RISK 4.4 - 7.1 AVERAGE RISK 7.1 - 11.0 MODERATE RISK >11.0 HIGH RISK Performed By: #### T SH, LIPID, CMP, URIC #### [facility] [address] [address] [address] Robyn Espinal Cholesterol [Mass/Vol] 201 mg/dL Critically high <=200 [facility] Comment on above: Performed By: #### T SH, LIPID, CMP, URIC #### [facility] [address] [address] [address] Robyn Espinal Cholesterol in HDL [Mass/Vol] 82 mg/dL Critically high 40-60 [facility] Comment on above: Performed By: #### T SH, LIPID, CMP, URIC #### [facility] [address] [address] [address] Robyn Espinal Cholesterol in LDL [Mass/Vol] 102.4 mg/dL Normal [facility] Comment on above: Performed By: #### T SH, LIPID, CMP, URIC #### [facility] [address] [address] [address] Robyn Espinal Cholesterol.total/Chol esterol in HDL [Mass ratio] 2.5 {ratio} Normal [facility] Comment on above: Performed By: #### T SH, LIPID, CMP, URIC #### [facility] [address] [address] [address] Robyn Espinal HDL NORMAL > or = 60 mg/dl - LO W CARDIOVASCULAR RISK <40 mg/dl - HIGH CARDIOVASCULAR RISK Normal [facility] Comment on above: Performed By: #### T SH, LIPID, CMP, URIC #### [facility] [address] [address] [address] Robyn Espinal LDL CALC NORMAL SEE BELOW Normal [facility] Comment on above: Result Comment: <100 mg/dl OPTIMAL 100 - 129 mg/dl NEAR OR ABOVE OPTIMAL 130 - 159 mg/dl BORDERLINE HIGH 160 - 189 mg/dl HIGH >190 mg/dl VERY HIGH Performed By: #### T SH, LIPID, CMP, URIC #### [facility] [address] [address] [address] Robyn Espinal Triglyceride [Mass/Vol] 83 mg/dL Normal <=150 [facility] Comment on above: Performed By: #### T SH, LIPID, CMP, URIC #### [facility] [address] [address] [address] Robyn Espinal VLDL CALC 16.6 mg/dL Normal [facility] Comment on above: Performed By: #### T SH, LIPID, CMP, URIC #### [facility] [address] [address] [address] Robyn Espinal PROF 14(COMP METB)on 022 Albumin [Mass/Vol] 3.7 g/dL Normal 3.4-5.0 [facility] Comment on above: Performed By: #### T SH, LIPID, CMP, URIC #### [facility] [address] [address] [address] Robyn Espinal Albumin/Globulin [Mass ratio] 1.2 {ratio} Normal [facility] Comment on above: Performed By: #### T SH, LIPID, CMP, URIC #### [facility] [address] [address] [address] Robyn Espinal ALP [Catalytic activity/Vol] 68 U/L Normal 46-116 [facility] Comment on above: Performed By: #### T SH, LIPID, CMP, URIC #### [facility] [address] [place] [address] Dr. Robyn Espinal ALT [Catalytic activity/Vol] 21 U/L Normal 16-63 [facility] Comment on above: Performed By: #### T SH, LIPID, CMP, URIC #### [facility] [address] [place] [address] Dr. Robyn Espinal Anion gap [Moles/Vol] 7.7 mmol/L Normal [facility] Comment on above: Performed By: #### T SH, LIPID, CMP, URIC #### [facility] [address] [place] [address] Dr. Robyn Espinal AST [Catalytic activity/Vol] 14 U/L Critically low 15-37 [facility] Comment on above: Performed By: #### T SH, LIPID, CMP, URIC #### [facility] [address] [place] [address] Dr. Robyn Espinal Bilirubin [Mass/Vol] 0.8 mg/dL Normal 0.2-1.0 [facility] Comment on above: Performed By: #### T SH, LIPID, CMP, URIC #### [facility] [address] [place] [address] Dr. Robyn Espinal Calcium [Mass/Vol] 9.3 mg/dL Normal 8.5-10.1 [facility] Comment on above: Performed By: #### T SH, LIPID, CMP, URIC #### [facility] [address] [place] [address] Dr. Robyn Espinal Chloride [Moles/Vol] 105 mmol/L Normal 98-107 [facility] Comment on above: Performed By: #### T SH, LIPID, CMP, URIC #### [facility] [address] [address] [address] Robyn Espinal CO2 [Moles/Vol] 30.7 mmol/L Normal 21.0-32.0 [facility] Comment on above: Performed By: #### T SH, LIPID, CMP, URIC #### [facility] [address] [address] [address] Robyn Espinal Creatinine [Mass/Vol] 1.03 mg/dL Normal 0.70-1.30 [facility] Comment on above: Performed By: #### T SH, LIPID, CMP, URIC #### [facility] [address] [place] [address] Dr. Robyn Espinal EGFR-AF ETHIOPIAN >60 Normal >=60 [facility] Comment on above: Performed By: #### T SH, LIPID, CMP, URIC #### [facility] [address] [place] [address] Dr. Robyn Espinal EGFR-NON AF ETHIOPIAN >60 Normal >=60 [facility] Comment on above: Performed By: #### T SH, LIPID, CMP, URIC #### [facility] [address] [place] [address] Dr. Robyn Espinal Globulin (S) [Mass/Vol] 3.0 g/dL Normal [facility] Comment on above: Performed By: #### T SH, LIPID, CMP, URIC #### [facility] [address] [place] [address] Dr. Robyn Espinal Glucose [Mass/Vol] 110 mg/dL Critically high 74-106 [facility] Comment on above: Performed By: #### T SH, LIPID, CMP, URIC #### [facility] [address] [place] [address] Dr. Robyn Espinal Potassium [Moles/Vol] 4.4 mmol/L Normal 3.5-5.1 [facility] Comment on above: Performed By: #### T SH, LIPID, CMP, URIC #### [facility] [address] [place] [address] Dr. Robyn Espinal Protein [Mass/Vol] 6.7 g/dL Normal 6.4-8.2 [facility] Comment on above: Performed By: #### T SH, LIPID, CMP, URIC #### [facility] [address] [place] [address] Dr. Robyn Espinal Sodium [Moles/Vol] 139 mmol/L Normal 136-145 [facility] Comment on above: Performed By: #### T SH, LIPID, CMP, URIC #### [facility] [address] [place] [address] Dr. Robyn Espinal Urea nitrogen [Mass/Vol] 24.0 mg/dL Critically high 7.0-18.0 [facility] Comment on above: Performed By: #### T SH, LIPID, CMP, URIC #### [facility] [address] [place] [address] Dr. Robyn Espinal Urea nitrogen/Creatinine [Mass ratio] 23.3 mg/mg Normal [facility] Comment on above: Performed By: #### T SH, LIPID, CMP, URIC #### [facility] [address] [place] [address] Dr. Robyn Espinal TSHon 07-01-2022 TSH 2.293 uIU/mL Normal 0.358-3.740 [facility] Comment on above: Performed By: #### T SH, LIPID, CMP, URIC #### [facility] [address] [place] [address] Dr. Robyn Espinal URIC ACID SERUMon 07-01-2022 Urate [Mass/Vol] 5.5 mg/dL Normal 3.5-7.2 [facility] Comment on above: Performed By: #### T SH, LIPID, CMP, URIC #### [facility] [address] [place] [address] Dr. Robyn Espinal Vital Signs Date Time Vital Sign Value Performing Clinician Facility 04-04-2025 08:53-0400 Body height 175.3 cm Walker To MD Work Phone: [facility] 04-04-2025 08:53-0400 Body mass index (BMI) [Ratio] 24.07 kg/m2 Walker To MD Work Phone: [facility] 04-04-2025 08:53-0400 Body weight 73.94 kg Walker To MD Work Phone: [facility] 04-04-2025 08:53-0400 Diastolic blood pressure 82 mm[Hg] Walker To MD Work Phone: [facility] 04-04-2025 08:53-0400 Systolic blood pressure 118 mm[Hg] Walker To MD Work Phone: [facility] 02-07-2025 08:19-0400 Body height 175.3 cm Walker To MD Work Phone: [facility] 02-07-2025 08:19-0400 Body mass index (BMI) [Ratio] 24.66 kg/m2 Walker To MD Work Phone: [facility] 02-07-2025 08:19-0400 Body weight 75.75 kg Walker To MD Work Phone: [facility] 02-07-2025 08:19-0400 Diastolic blood pressure 84 mm[Hg] Walker To MD Work Phone: [facility] 02-07-2025 08:19-0400 Systolic blood pressure 148 mm[Hg] Walker To MD Work Phone: [facility] 10-11-2024 08:18-0500 Body height 175.3 cm Walker To MD Work Phone: [facility] 10-11-2024 08:18-0500 Body mass index (BMI) [Ratio] 24.66 kg/m2 Walker To MD Work Phone: [facility] 10-11-2024 08:18-0500 Body weight 75.75 kg Walker To MD Work Phone: [facility] 10-11-2024 08:18-0500 Diastolic blood pressure 84 mm[Hg] Walker To MD Work Phone: [facility] 10-11-2024 08:18-0500 Systolic blood pressure 136 mm[Hg] Walker To MD Work Phone: [facility] 05-12-2023 09:11-0400 Blood Pressure Location Alfa SANDHU [facility] 05-12-2023 09:11-0400 Diastolic blood pressure 82 mm[Hg] Alfa SANDHU [facility] 05-12-2023 09:11-0400 Heart rate 79 /min Alfa SANDHU [facility] 05-12-2023 09:11-0400 Respiratory rate 16 /min Alfa SANDHU [facility] 05-12-2023 09:11-0400 Systolic blood pressure 131 mm[Hg] Alfa SANDHU [facility] Encounters Encounter Date Encounter Type Care Provider Facility Start: 04-04-2025 End: 04-04-2025 Bamboo flowsheet Walker To MD Work Phone: [facility] Start: 04-04-2025 End: 04-04-2025 Bamboo flowsheet Walker To MD Work Phone: [facility] Start: 04-04-2025 End: 04-04-2025 ambulatory WALKER TO Not Available Start: 04-04-2025 End: 04-04-2025 Office outpatient visit 25 minutes Walker To MD Work Phone: [facility] Comment on above: 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 Start: 03-04-2025 End: 03-04-2025 Subsequent hospital visit by physician Lindsey [id number] Admin Room [address] [facility] Comment on above: Alzheimer's disease with early onset (CODE); Dementia in other diseases classified elsewhere, unspecified severity, without behavioral disturbance, psychotic disturbance, mood disturbance, and anxiety (Multi) Arrived Start: 03-04-2025 End: 03-04-2025 ambulatory WALKER TO [facility] Start: 02-07-2025 End: 02-07-2025 Prem To MD Work Phone: [facility] Start: 02-07-2025 End: 02-07-2025 Prem To MD Work Phone: [facility] Start: 02-07-2025 End: 02-07-2025 Office outpatient visit 25 minutes Walker To MD Work Phone: [facility] Comment on above: Dementia of the Alzh eimer's type, with early onset, uncomplicated (CMS/HCC) (Primary Dx) Start: 02-07-2025 End: 02-07-2025 ambulatory WALKER TO Not Available Start: 01-31-2025 End: 01-31-2025 Office outpatient visit 15 minutes Walker To MD Work Phone: [facility] Comment on above: 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 (Primary Dx) Start: 12-23-2024 End: 12-23-2024 ambulatory [facility] Start: 10-11-2024 End: 10-11-2024 Office outpatient visit 25 minutes Walker To MD Work Phone: [facility] Comment on above: 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 (Primary Dx) Start: 10-11-2024 End: 10-11-2024 ambulatory WALKER TO Not Available Start: 05-17-2024 End: 05-17-2024 ambulatory Alfa SANDHU Facility:[facility] Start: 05-17-2024 End: 05-17-2024 Patient encounter procedure Alfa SANDHU [facility] Start: 05-14-2024 End: 05-14-2024 ambulatory WALKER TO Not Available Start: 12-31-2023 End: 12-31-2023 ambulatory AB [facility] Start: 11-12-2023 Chart abstracting Walkre castillo MD Work Phone: [facility] Start: 05-12-2023 End: 05-12-2023 Patient encounter procedure Alfa SANDHU [facility] Start: 03-11-[address] ROSALIA STEPHENS . Facili ty:[facility] Start: 03-05-[address] ROSALIA STEPHENS . Facili ty:[facility] Start: 07-01-2022 End: 07-02-[address] ROSALIA STEPHENS . Facility: Start: 05-17-2022 End: 05-17-2022 Patient encounter procedure Alfa SANDHU [facility] Start: 06-24-2017 End: 06-25-2017 Ambulatory AB [facility] Facility:[facility] Start: 06-24-2017 End: 06-25-2017 Ambulatory DEFAULT PHYSICIAN Facility:[facility] Procedures Date Procedure Procedure Detail Performing Clinician Start: 03-04-[address] for attenuation limited area Walker To MD Work Phone: Start: 07-01-[address] MINDY STEPHENS . Comment on above: Performed By: #### P [facility] #### [facility] [address] [place] [address] Dr. 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 Plan of Treatment Date Care Activity Detail Author Start: 07-06-2025 End: 07-06-2025 Patient encounter procedure 07/06/2025 8:20 AM EDT Office Visit [facility] [address] [facility] [address] [place] [address] Walker To MD [address] [facility] [address] [id number] [facility] Start: 06-06-2025 Influenza vaccination Influenz a Vaccine (Season Ended) [facility] Start: 04-04-2025 End: 04-04-2025 Patient encounter procedure 04/04/2025 8:40 AM EDT Office Visit [facility] [address] [facility] [address] [place] [address] Walker To MD [address] [facility] [address] [address] [facility] Start: 02-07-2025 End: 02-07-2026 PET+CT Brain for amyloidosis AMYLOID PET/CT BRAIN SCAN Imaging Routine Dementia of the Alzheimer's type, with early onset, uncomplicated ([facility]) Expected: 02/07/2025, Expires: 02/07/2026 [facility] Work Phone: Comment on above: Expected: 02/07/2025 , Expires: 02/07/2026 Start: 02-07-2025 End: 02-07-2025 Patient encounter procedure [facility] Comment on above: Arrived Start: 12-12-2024 COVID-19 Vaccine ( season) COVID-19 Vaccine () [facility] Start: 06-06-2024 Influenza vaccination Influenza Vacc ine (#1) [facility] Start: 11-13-2023 End: 11-13-2023 Patient encounter procedure 11/13/2023 11:20 AM EST Office Visit [facility] [address] [place] [address] [place] [address] Walker To MD [address] [facility] [address] [address] [facility] Start: 1962 DTaP/Tdap/Td Vaccine s (1 - Tdap) DTaP/Tdap/Td Vaccines (1 - Tdap) [facility] Start: 1940 Lipid panel Lipid Panel [facility] Start: 1940 Medicare Annual Wellness Visit Medicare Annual Wellness Visit (AWV) [facility] Immunizations Immunization Date Immunization Notes Care Provider Fa cility 07-09-2023 influenza virus vacc ine, unspecified formulation Walker To MD Work Phone: [facility] 07-23-2022 influenza virus vacc ine, unspecified formulation Alfa SANDHU [facility] 07-23-2022 SARS-CoV-2 (COVID-19 ) [id number] Alfa SANDHU [facility] 03-28-2022 SARS-CoV-2 mRNA (kndqmzexqkp-zzfa-rnrzuc e) vaccine Alfa SANDHU [facility] 07-05-2021 SARS-CoV-2 (COVID-19 ) mRNA BNT-162b2 vax Alfa SANDHU [facility] 07-04-2021 influenza, unspecifi ed formulation Alfa SANDHU [facility] 11-23-2020 SARS-CoV-2 (COVID-19 ) mRNA BNT-162b2 vax Alfa SANDHU [facility] 11-06-2020 SARS-CoV-2 (COVID-19 ) mRNA BNT-162b2 vax Alfa SANDHU [facility] 11-02-2020 SARS-CoV-2 (COVID-19 ) mRNA BNT-162b2 vax Alfa SANDHU [facility] 10-06-2020 SARS-CoV-2 (COVID-19 ) mRNA BNT-162b2 vax Alfa SANDHU [facility] 07-07-2020 influenza virus vacc ine, unspecified formulation Alfa SANDHU [facility] 06-06-2020 pneumococcal polysaccharide vaccine, 23 valent Alfa SANDHU [facility] 07-28-2019 influenza, unspecifi ed formulation Alfa SANDHU [facility] 07-27-2019 zoster vaccine recombinant Alfa SANDHU [facility] 05-19-2019 pneumococcal conjuga te vaccine, 13 valent Alfa SANDHU [facility] 05-19-2019 zoster vaccine recombinant iOmando [facility] 08-06-2015 pneumococcal polysaccharide vaccine, 23 valent Alfa SANDHU [facility] Payers Date Payer Category Payer Unknown 2020 Miscellaneous or Other [facility] [id number] 2020 Private Health Insurance [id number] 2020 Unknown [id number] 2008 Medicare [id number] 1959 Medicare [id number] 1959 Unknown [id number] 1942 Unknown [id number] [id number] 1942 Unknown [id number] [id number] 1942 Unknown [id number] [id number] 1942 Unknown [id number] [id number] 1942 Unknown [id number] [id number] 1942 Unknown [id number] [id number] 1942 Unknown [id number] 1940 Unknown [id number] 1940 Unknown [id number] 1940 Unknown [id number] Medicare [id number] Social History Date Type Detail Facility Start: 05-11-2021 End: 08-25-2023 Tobacco smoking status Ex-smoker (finding) [facility] Comment on above: pt. quit when he was 24 Tobacco smoking status Never [facility] Comment on above: pt. quit when he was 24 Start: 09-08-2023 End: 04-04-2025 Sex Assigned At Male [facility] History of tobacco use Current smoker [facility] History of tobacco use Cigarette Smoker [facility] Start: 09-08-2023 End: 04-04-2025 Alcohol intake Current drinker of alcohol (finding) [facility] Start: 09-08-2023 End: 04-04-2025 History of Social function [facility] Start: 08-25-2023 Alcohol Comment Points: 8, Interpretation: Positive; Caffeine Intake: 1-2 cups per day tea [facility] Start: 1940 Sex Assigned At Not on file [facility] Tobacco smoking status NHIS Tobacco smoking consumption unknown [facility] Work Phone: Start: 02-22-2025 End: 03-04-2025 Exposure to SARS-CoV-2 (event) Not sure [facility] Functional Status Date Assessment Result Facility 05-12-2023 Functional Status N/A [facility] Clinical Notes 05-11-2021 to 04-04-2025 Walker To MD - 04/04/2025 8:40 AM Zuleyka To MD - 02/07/2025 8:20 AM Zuleyka To MD - 01/31/2025 4:20 PM Zuleyka To MD - 10/11/2024 8:20 AM EST Note Date & Type Note Facility 04-04-2025 History of Present illness Narrative Images from the original note were not included. CHIEF COMPLAINT REASON FOR VISIT : Alex Burroughs is a 84 y.o. male who presents for No chief complaint on file. History of Present Illness The patient presents for evaluation of mild cognitive impairment. He has been experiencing difficulties with memory, particularly in relation to locations. An incident was reported where he was unable to locate a restaurant he had frequented within the past 6 months. However, he has no issues navigating to his appointments using GPS. During a recent 4-day family trip to [place], he managed well overall, although there were instances of uncertainty about directions. He continues to engage in daily walking and exercise, including swimming, without any observed slowing or shuffling of his feet. He reports no falls. He does not report any significant hip or back discomfort. He occasionally struggles with conversation when fatigued. He has been on Aricept, initially at half the dose due to nightmares, but a recent accidental increase to a full dose resulted in improved sociability. However, this was followed by a return of nightmares, prompting a reduction back to the original dose. He also experiences fatigue, often feeling the need to sleep. His sleep pattern is generally good, with no reported snoring. He took a 2-hour nap yesterday. He has been observed to have a tremor in his leg and hand, which he can control and is more pronounced when he is upset. The tremor is not fine but rather rough, with his leg moving back and forth. He experiences anxiety and spends a significant amount of time watching television. SOCIAL HISTORY: Sleep: He took a 2-hour nap yesterday. His sleep pattern is generally good, with no reported snoring. Screen Time: He spends a significant amount of time watching television. PAST SURGICAL HISTORY: He underwent hip replacement surgery approximately 17 to 18 years ago. MEDICATIONS CURRENT MEDS: Aricept Oral Memantine Oral Once daily PREVIOUS MEDS: Aricept Half tablet, Full tablet Oral At bedtime Reason for Discontinuation: Nightmares Review of Systems Objective Blood pressure 118/82, height 5' 9 , weight 163 lb. Physical Exam Motor Examination Strength: Hand strength is normal. Gait and Station Gait: Normal gait. Vital Signs: Blood pressure is 118/82 mmHg, weight is 163 pounds. Results Imaging - PET scan: Low plaque count Assessment & Plan 1. Mild cognitive impairment. His brain health is satisfactory with a low plaque count, as confirmed by the PET scan. There are no indications of Alzheimer's disease at this time. He has been experiencing memory issues, particularly with location and short-term memory. He has been taking Aricept at a higher dose, which initially helped but led to nightmares. A prescription for Aricept 23 mg, to be taken once daily in the morning, will be provided. This is a time-released version that may help manage his symptoms better without causing nightmares. He will continue taking memantine at night. PET scan of brain reviewed and he did have a low centaloid count and thus his memory complaints are not related to Alzheimer's disease. 2. Fatigue. He reports significant fatigue, often needing to take naps during the day. This may be related to his current medication regimen. The adjustment to Aricept 23 mg in the morning aims to improve his energy levels. 3. Tremor. He experiences a tremor in his leg and occasionally in his hand, which seems to worsen when he is anxious or upset. The tremor is not fine and can be controlled by him. No changes in his walking or exercise routine have been noted. No signs of Parkinson's disease but consider I will order a Shai scan, or Dopamine Transporter Scan, which is a specialized imaging test used to help diagnose Parkinson's disease and other conditions that affect dopamine function in the brain. It involves the use of a radioactive tracer that binds to dopamine transporters in the brain, allowing us to visualize and assess dopamine activity. The patient receives an injection of a small amount of a radioactive tracer, commonly [id number] (DaTscan), which binds to dopamine transporters in the brain. The images are analyzed to determine whether there is a reduction in dopamine transporter levels, which is a hallmark of Parkinson's disease and other parkinsonian syndromes. In a healthy brain, the images typically show a symmetrical, comma-shaped appearance of dopamine activity. In Parkinson's disease, the dopamine activity is reduced, often asymmetrically, leading to a characteristic change in the shape and intensity of the signal. The Shai scan is primarily used to differentiate Parkinson's disease from other conditions that cause similar symptoms, such as essential tremor or drug-induced parkinsonism. It can help confirm a diagnosis when clinical symptoms are unclear or atypical. 4. Anxiety. He experiences anxiety, which may be exacerbated by watching negative news on TV. Reducing exposure to negative news and engaging in relaxing activities are recommended. 5. Increase his Aricept to 23 mg instead of 10 mg po BID This clinical note was created utilizing Player X documentation system. All information has been thoroughly reviewed, corrected as necessary, and authenticated by the provider to ensure accuracy and completeness. On occasion, Player X documentation system erroneously drops words or replaces a spoken word with a similar sounding word. Please notify with any questions or concerns regarding this clinical note. documented in this encounter [facility] 02-07-2025 History of Present illness Narrative Images from the original note were not included. CHIEF COMPLAINT REASON FOR VISIT: Memory HPI: Matt Burroughs is a 84 y.o. male who presents for a follow up. Patient is present with spouse. He states he does have issues with short-term memory. Spouse states he will remember when he is giving cues. Such as when he is driving he will forget where a place is at and if she gives him a cue and he is fine. He does get more tired easily. States that memory does get worse when he is tired. States he does have some difficulty with smell. States he does take a lot of naps. But he states he is still active and does a lot. Denies any other concerns. CURRENT MEDICATIONS: ALLERGIES/DISCONTINUE MEDICATIONS Current Outpatient Medications Medication Instructions Ascorbic Acid (vitamin C) 1000 MG tablet Every 24 hours aspirin 81 MG chewable tablet Every 24 hours cholecalciferol (Vitamin D-3) 50 MCG (2000 UT) tablet Every 24 hours cinnamon 500 MG capsule Every 24 hours cyanocobalamin (Vitamin B-12) 500 MCG tablet Every 24 hours donepezil (ARICEPT) 10 mg, Oral, 2 times daily Eliquis 5 mg, Oral, 2 times daily ferrous sulfate 325 (65 Fe) MG tablet TAKE ONE TABLET BY MOUTH DAILY for 30 lisinopril 20 MG tablet Every 24 hours lovastatin (Mevacor) 40 MG tablet TAKE ONE TABLET BY MOUTH DAILY for 90 Memantine HCl ER 28 mg, Oral, Nightly Methylcellulose, Laxative, (Fiber Therapy) 500 MG tablet Every 4 hours Multiple Vitamins-Minerals (Multivitamin Men) tablet Orally omega-3 (Fish Oil) 1000 MG capsule 1 capsule, Every 24 hours pantoprazole (ProtoNix) 40 MG EC tablet Every 24 hours Proscar 5 MG tablet Every 24 hours tamsulosin (Flomax) 0.4 MG 24 hr capsule 1 capsule, Every 24 hours tolterodine LA (Detrol LA) 4 MG 24 hr capsule 1 capsule, Every 24 hours Allergies Allergen Reactions Morphine Other Reaction(s): Hallucination, Unknown Penicillins Other Reaction(s): Unknown There are no discontinued medications. PAST MEDICAL HISTORY: SURGICAL/SOCIAL/FAMILY HISTORY DEPRESSION SCREEN: Past Medical History: Diagnosis Date Arthritis Hyperlipidemia (CMS/HCC) Hypertension (CMS/HCC) Shoulder separation Laterality: Right Past Surgical History: Procedure Laterality Date BACK SURGERY 2010 OTHER SURGICAL HISTORY Left Arthrocentesis of the shoulder subacromial space OTHER SURGICAL HISTORY 03/10/2017 Posterior lumbar interbody fusion Dr. Dang SHOULDER SURGERY Right Shoulder pinning TONSILLECTOMY TOTAL HIP ARTHROPLASTY Left 2004 Dr. Coronel TOTAL HIP ARTHROPLASTY Right 07/04/2017 Dr. Ellison Social History Tobacco Use Smoking status: Former Types: Cigarettes Vaping Use Vaping status: Never Used Substance Use Topics Alcohol use: Yes Comment: Points: 8, Interpretation: Positive; Caffeine Intake: 1-2 cups per day tea Drug use: Never Family History Problem Relation Name Age of Onset Hypertension Mother Heart disease Mother Melanoma Neg Hx Depression: Not on file REVIEW OF SYMPTOMS: Review of Systems Constitutional: Negative for chills, diaphoresis, fatigue and fever. HENT: Negative for ear pain, tinnitus and trouble swallowing. Eyes: Negative for photophobia and visual disturbance. Respiratory: Negative for cough and shortness of breath. Cardiovascular: Negative for palpitations and leg swelling. Gastrointestinal: Negative for abdominal pain and nausea. Genitourinary: Negative for difficulty urinating and urgency. Musculoskeletal: Negative for arthralgias, back pain, myalgias, neck pain and neck stiffness. Neurological: Negative for tremors, weakness, light-headedness and numbness. Psychiatric/Behavioral: Negative for agitation, confusion and suicidal ideas. OBJECTIVE: 10/11/2024 8:18 AM 05/14/2024 8:25 AM 02/11/2024 8:18 AM Vitals BMI 24.66 kg/m2 24.66 kg/m2 24.81 kg/m2 BSA (m2) 1.92 m2 1.92 m2 1.93 m2 Systolic 136 122 138 Diastolic 84 78 84 Height (in) 5' 9 5' 9 5' 9 Weight (lb) 167 167 168 Visit Report Report Report Report EXAM: Neurological Exam Mental Status Awake, alert and oriented to person, place and time. Oriented to person, place and time. Recent and remote memory are intact. Speech is normal. Language is fluent with no aphasia. Attention and concentration are normal. Cranial Nerves CN II: Visual acuity is normal. Visual jimenez full to confrontation. CN III, IV, : Extraocular movements intact bilaterally. Normal lids and orbits bilaterally. Pupils equal round and reactive to light bilaterally. CN V: Facial sensation is normal. CN VII: Full and symmetric facial movement. CN VIII: Hearing is normal. CN XII: Tongue midline without atrophy or fasciculations. Motor Normal muscle bulk throughout. Normal muscle tone. Right Left Wrist flexion 5 5 Wrist extension 5 5 Right Left Deltoid 5 5 Biceps 5 5 Triceps 5 5 Wrist flexor 5 5 Wrist extensor 5 5 Glutei 5 5 Iliopsoas 5 5 Quadriceps 5 5 Gastrocnemius 5 5 Anterior tibialis 5 5 Posterior tibialis 5 5 Sensory Light touch is normal in upper and lower extremities. Pinprick is normal in upper and lower extremities. Vibration is normal in upper and lower extremities. Reflexes Right Left Brachioradialis 2+ 2+ Biceps 2+ 2+ Patellar 2+ 2+ Achilles 2+ 2+ Right Plantar: downgoing Left Plantar: downgoing Right pathological reflexes: Florentino's absent. Ankle clonus absent. Left pathological reflexes: Florentino's absent. Ankle clonus absent. Coordination Kvmsfb-[id number], rapid alternating movements and zmam-nz-wlvz normal bilaterally without dysmetria. Gait Normal casual, toe, heel and tandem gait. Romberg is absent. PROCEDURE: NONE ASSESSMENT AND PLAN: Matt Burroughs is a 84 year old male who presents with cognitive difficulty possibly due to a neurodegenerative process such as early mild cognitive impairment and without signs at this time of any Alzheimer's disease or vascular dementia. Other considerations would be pseudodementia secondary to depression or an underlying sleep disorder. MOCA (08/25/23)- & Recall 0/5. Diagnoses and all orders for this visit: Dementia of the Alzheimer's type, with early onset, uncomplicated (CMS/HCC) - AMYLOID PET/CT BRAIN SCAN; Future Continue Memantine 28 mg daily. Continue donepezil 10 mg BID I will order Amyloid PET Scan-[facility] [place]. Considering [place]. Gave patient handout to read up on. I counseled the patient on the possible side effects and interactions of medications. Follow up 8 weeks. This note was scribed by ROBSON Zarco acting under the direction of Walker To MD. The content has been reviewed and confirmed for accuracy by Walker To MD documented in this encounter [facility] 01-31-2025 History of Present illness Narrative Images from the original note were not included. CHIEF COMPLAINT REASON FOR VISIT: Follow up HPI: Matt Burroughs is a 84 y.o. male who present via audio visit. He is at home and consents to visit. CURRENT MEDICATIONS: ALLERGIES/DISCONTINUE MEDICATIONS Current Outpatient Medications Medication Instructions Ascorbic Acid (vitamin C) 1000 MG tablet Every 24 hours aspirin 81 MG chewable tablet Every 24 hours cholecalciferol (Vitamin D-3) 50 MCG (2000 UT) tablet Every 24 hours cinnamon 500 MG capsule Every 24 hours cyanocobalamin (Vitamin B-12) 500 MCG tablet Every 24 hours donepezil (ARICEPT) 10 mg, Oral, 2 times daily Eliquis 5 mg, Oral, 2 times daily ferrous sulfate 325 (65 Fe) MG tablet TAKE ONE TABLET BY MOUTH DAILY for 30 lisinopril 20 MG tablet Every 24 hours lovastatin (Mevacor) 40 MG tablet TAKE ONE TABLET BY MOUTH DAILY for 90 Memantine HCl ER 28 mg, Oral, Nightly Methylcellulose, Laxative, (Fiber Therapy) 500 MG tablet Every 4 hours Multiple Vitamins-Minerals (Multivitamin Men) tablet Orally omega-3 (Fish Oil) 1000 MG capsule 1 capsule, Every 24 hours pantoprazole (ProtoNix) 40 MG EC tablet Every 24 hours Proscar 5 MG tablet Every 24 hours tamsulosin (Flomax) 0.4 MG 24 hr capsule 1 capsule, Every 24 hours tolterodine LA (Detrol LA) 4 MG 24 hr capsule 1 capsule, Every 24 hours Allergies Allergen Reactions Morphine Other Reaction(s): Hallucination, Unknown Penicillins Other Reaction(s): Unknown There are no discontinued medications. PAST MEDICAL HISTORY: SURGICAL/SOCIAL/FAMILY HISTORY DEPRESSION SCREEN: Past Medical History: Diagnosis Date Arthritis Hyperlipidemia (CMS/HCC) Hypertension (CMS/HCC) Shoulder separation Laterality: Right Past Surgical History: Procedure Laterality Date BACK SURGERY 2010 OTHER SURGICAL HISTORY Left Arthrocentesis of the shoulder subacromial space OTHER SURGICAL HISTORY 03/10/2017 Posterior lumbar interbody fusion Dr. Dang SHOULDER SURGERY Right Shoulder pinning TONSILLECTOMY TOTAL HIP ARTHROPLASTY Left 2004 Dr. Coronel TOTAL HIP ARTHROPLASTY Right 07/04/2017 Dr. Ellison Social History Tobacco Use Smoking status: Former Types: Cigarettes Vaping Use Vaping status: Never Used Substance Use Topics Alcohol use: Yes Comment: Points: 8, Interpretation: Positive; Caffeine Intake: 1-2 cups per day tea Drug use: Never Family History Problem Relation Name Age of Onset Hypertension Mother Heart disease Mother Melanoma Neg Hx Depression: Not on file REVIEW OF SYMPTOMS: Review of Systems Constitutional: Negative for chills, diaphoresis, fatigue and fever. HENT: Negative for ear pain, tinnitus and trouble swallowing. Eyes: Negative for photophobia and visual disturbance. Respiratory: Negative for cough and shortness of breath. Cardiovascular: Negative for palpitations and leg swelling. Gastrointestinal: Negative for abdominal pain and nausea. Genitourinary: Negative for difficulty urinating and urgency. Musculoskeletal: Negative for arthralgias, back pain, myalgias, neck pain and neck stiffness. Neurological: Negative for tremors, weakness, light-headedness and numbness. Psychiatric/Behavioral: Negative for agitation, confusion and suicidal ideas. OBJECTIVE: 10/11/2024 8:18 AM 05/14/2024 8:25 AM 02/11/2024 8:18 AM Vitals BMI 24.66 kg/m2 24.66 kg/m2 24.81 kg/m2 BSA (m2) 1.92 m2 1.92 m2 1.93 m2 Systolic 136 122 138 Diastolic 84 78 84 Height (in) 5' 9 5' 9 5' 9 Weight (lb) 167 167 168 Visit Report Report Report Report EXAM: Neurological Exam Mental Status Awake, alert and oriented to person, place and time. Oriented to person, place and time. Recent and remote memory are intact. Speech is normal. Language is fluent with no aphasia. Attention and concentration are normal. Cranial Nerves CN II: Visual acuity is normal. Visual jimenez full to confrontation. CN III, IV, : Extraocular movements intact bilaterally. Normal lids and orbits bilaterally. Pupils equal round and reactive to light bilaterally. CN V: Facial sensation is normal. CN VII: Full and symmetric facial movement. CN VIII: Hearing is normal. CN XII: Tongue midline without atrophy or fasciculations. Motor Normal muscle bulk throughout. Normal muscle tone. Right Left Wrist flexion 5 5 Wrist extension 5 5 Right Left Deltoid 5 5 Biceps 5 5 Triceps 5 5 Wrist flexor 5 5 Wrist extensor 5 5 Glutei 5 5 Iliopsoas 5 5 Quadriceps 5 5 Gastrocnemius 5 5 Anterior tibialis 5 5 Posterior tibialis 5 5 Sensory Light touch is normal in upper and lower extremities. Pinprick is normal in upper and lower extremities. Vibration is normal in upper and lower extremities. Reflexes Right Left Brachioradialis 2+ 2+ Biceps 2+ 2+ Patellar 2+ 2+ Achilles 2+ 2+ Right Plantar: downgoing Left Plantar: downgoing Right pathological reflexes: Florentino's absent. Ankle clonus absent. Left pathological reflexes: Florentino's absent. Ankle clonus absent. Coordination [id number], rapid alternating movements and vkuq-vi-oqwz normal bilaterally without dysmetria. Gait Normal casual, toe, heel and tandem gait. Romberg is absent. PROCEDURE: NONE ASSESSMENT AND PLAN: Matt Burroughs is a 84 year old male who presents with cognitive difficulty possibly due to a neurodegenerative process such as early mild cognitive impairment and without signs at this time of any Alzheimer's disease or vascular dementia. Other considerations would be pseudodementia secondary to depression or an underlying sleep disorder. MOCA (08/25/23)- & Recall 0/5. There are no diagnoses linked to this encounter. Continue Memantine 28 mg daily. Continue donepezil 10 mg BID. I counseled the patient on the possible side effects and interactions of medications. Follow up 3 months I will order a Shai scan, or Dopamine Transporter Scan, which is a specialized imaging test used to help diagnose Parkinson's disease and other conditions that affect dopamine function in the brain. It involves the use of a radioactive tracer that binds to dopamine transporters in the brain, allowing us to visualize and assess dopamine activity. The patient receives an injection of a small amount of a radioactive tracer, commonly [id number] (DaTscan), which binds to dopamine transporters in the brain. The images are analyzed to determine whether there is a reduction in dopamine transporter levels, which is a hallmark of Parkinson's disease and other parkinsonian syndromes. In a healthy brain, the images typically show a symmetrical, comma-shaped appearance of dopamine activity. In Parkinson's disease, the dopamine activity is reduced, often asymmetrically, leading to a characteristic change in the shape and intensity of the signal. The Shai scan is primarily used to differentiate Parkinson's disease from other conditions that cause similar symptoms, such as essential tremor or drug-induced parkinsonism. It can help confirm a diagnosis when clinical symptoms are unclear or atypical. This note was scribed by ROBSON Zarco acting under the direction of Walker To MD. The content has been reviewed and confirmed for accuracy by Walker To MD documented in this encounter [facility] 12-23-2024 Note [facility] Note Chief Complaint: Patient here for 1 year follow up hypertension, hyperlipidemia, and aortic valve stenosis. Had echo in May 2024, and routine labs with lipid panel in Aug 2024. Denies chest pain, SOB, palpitations, and lightheadedness/syncope. HPI: Matt Burroughs is a 84 y.o. male With a history of moderate [...] He reports that he quit smoking about 61 years ago. His smoking use included cigarettes. [...] day by oral route., Disp: , Rfl: cholecalciferol (Vitamin D-3) 50 MCG (1999 UT) tablet, 1 (one) time each day at the same time., Disp: , Rfl: donepezil (Aricept) 10 mg [...] day by oral route., Disp: , Rfl: memantine (Namenda) 10 mg tablet, Take 10 mg by mouth twice a day., Disp: , Rfl: pantoprazole (ProtoNix) 40 mg EC tablet, Take 40 mg by mouth., Disp: , Rfl: tamsulosin (Flomax) 0.4 mg 24 hr capsule, Take 1 capsule every day by oral route., Disp: , Rfl: tolterodine LA (Detrol LA) 4 mg 24 hr capsule, , Disp: , Rfl: Last Recorded Vitals BP 132/86 (BP Location: Right arm, Patient Position: Sitting) Pulse 62 Ht 1.778 m (5' 10 ) Wt 75.8 kg (167 lb) SpO2 97% BMI 23.96 kg/m??? Physical Examination: GENERAL: alert [...] Moderate aortic valve stenosis. Normal right-sided pressures. Echocardiogram 05/11/2024: Global left ventricular systolic function is normal; EF is 65 to 70% Moderate left ventricular hypertrophy Mildly dilated right ventricle with normal systolic function Bicuspid aortic valve appearance with moderate stenosis and no regurgitation Mild mitral and tricuspid regurgitation Normal right-sided pressures Mildly dilated ascending aorta measuring 3.7 cm Labs 08/25/2024: Triglycerides 91, cholesterol 191, LDL 86, HDL 87 Assessment: Nocturnal bradycardia - Essential hypertension Moderate aortic stenosis Dyslipidemia Plan: He is to let me know of any significant bradycardia, lightheadedness or dizziness during waking hours. We will repeat an echocardiogram in May of this year to serially monitor his aortic valve stenosis. I like to see him in follow-up in a year or sooner should problems arise Dante Williamson MD, MPH, [facility], [facility], [facility] Interventional Cardiology Pager Email: [email or web address] 10-11-2024 History of Present illness Narrative Images from the original note were not included. CHIEF COMPLAINT REASON FOR VISIT: Memory HPI: Matt Burroughs is a 84 y.o. male who presents for a follow up. He is present with spouse. He states he has been doing well with the memantine. He feels like it is helping his memory. He does still drive. No issues. No issues with sleeping. No changes in taste or smell. Spouse states she notices that he has trouble with travel as far as where places are. States he will have to ask but once he is told he is fine. He takes care of the bills no issues. He states that no one really brings up any memory issues that they notice around him. He states he did his exercises this morning. He states he normally uses a pool right by his house. States it is closed now until January. But he works out every day for an hour. Will need refill of the Memantine in a 90 day supply. Denies any other concerns. CURRENT MEDICATIONS: ALLERGIES/DISCONTINUE MEDICATIONS Current Outpatient Medications Medication Instructions Ascorbic Acid (vitamin C) 1000 MG tablet Every 24 hours aspirin 81 MG chewable tablet Every 24 hours cholecalciferol (Vitamin D-3) 50 MCG (2000 UT) tablet Every 24 hours cinnamon 500 MG capsule Every 24 hours cyanocobalamin (Vitamin B-12) 500 MCG tablet Every 24 hours donepezil (Aricept) 10 MG tablet Every 12 hours Eliquis 5 mg, Oral, 2 times daily ferrous sulfate 325 (65 Fe) MG tablet TAKE ONE TABLET BY MOUTH DAILY for 30 lisinopril 20 MG tablet Every 24 hours lovastatin (Mevacor) 40 MG tablet TAKE ONE TABLET BY MOUTH DAILY for 90 Memantine HCl ER 28 mg, Oral, Nightly Methylcellulose, Laxative, (Fiber Therapy) 500 MG tablet Every 4 hours Multiple Vitamins-Minerals (Multivitamin Men) tablet Orally omega-3 (Fish Oil) 1000 MG capsule 1 capsule, Every 24 hours pantoprazole (ProtoNix) 40 MG EC tablet Every 24 hours Proscar 5 MG tablet Every 24 hours tamsulosin (Flomax) 0.4 MG 24 hr capsule 1 capsule, Every 24 hours tolterodine LA (Detrol LA) 4 MG 24 hr capsule 1 capsule, Every 24 hours Allergies Allergen Reactions Morphine Other Reaction(s): Hallucination, Unknown Penicillins Other Reaction(s): Unknown There are no discontinued medications. PAST MEDICAL HISTORY: SURGICAL/SOCIAL/FAMILY HISTORY DEPRESSION SCREEN: Past Medical History: Diagnosis Date Arthritis Hyperlipidemia (CMS/HCC) Hypertension (CMS/HCC) Shoulder separation Laterality: Right Past Surgical History: Procedure Laterality Date BACK SURGERY 2010 OTHER SURGICAL HISTORY Left Arthrocentesis of the shoulder subacromial space OTHER SURGICAL HISTORY 03/10/2017 Posterior lumbar interbody fusion Dr. Dang SHOULDER SURGERY Right Shoulder pinning TONSILLECTOMY TOTAL HIP ARTHROPLASTY Left 2004 Dr. Coronel TOTAL HIP ARTHROPLASTY Right 07/04/2017 Dr. Ellison Social History Tobacco Use Smoking status: Former Types: Cigarettes Vaping Use Vaping status: Never Used Substance Use Topics Alcohol use: Yes Comment: Points: 8, Interpretation: Positive; Caffeine Intake: 1-2 cups per day tea Drug use: Never Family History Problem Relation Name Age of Onset Hypertension Mother Heart disease Mother Melanoma Neg Hx Depression: Not on file REVIEW OF SYMPTOMS: Review of Systems Constitutional: Negative for chills, diaphoresis, fatigue and fever. HENT: Negative for ear pain, tinnitus and trouble swallowing. Eyes: Negative for photophobia and visual disturbance. Respiratory: Negative for cough and shortness of breath. Cardiovascular: Negative for palpitations and leg swelling. Gastrointestinal: Negative for abdominal pain and nausea. Genitourinary: Negative for difficulty urinating and urgency. Musculoskeletal: Negative for arthralgias, back pain, myalgias, neck pain and neck stiffness. Neurological: Negative for tremors, weakness, light-headedness and numbness. Psychiatric/Behavioral: Negative for agitation, confusion and suicidal ideas. OBJECTIVE: 10/11/2024 8:18 AM 05/14/2024 8:25 AM 02/11/2024 8:18 AM Vitals BMI 24.66 kg/m2 24.66 kg/m2 24.81 kg/m2 BSA (m2) 1.92 m2 1.92 m2 1.93 m2 Systolic 136 122 138 Diastolic 84 78 84 Height (in) 5' 9 5' 9 5' 9 Weight (lb) 167 167 168 Visit Report Report Report Report EXAM: Neurological Exam Mental Status Awake, alert and oriented to person, place and time. Oriented to person, place and time. Recent and remote memory are intact. Speech is normal. Language is fluent with no aphasia. Attention and concentration are normal. Cranial Nerves CN II: Visual acuity is normal. Visual jimenez full to confrontation. CN III, IV, : Extraocular movements intact bilaterally. Normal lids and orbits bilaterally. Pupils equal round and reactive to light bilaterally. CN V: Facial sensation is normal. CN VII: Full and symmetric facial movement. CN VIII: Hearing is normal. CN XII: Tongue midline without atrophy or fasciculations. Motor Normal muscle bulk throughout. Normal muscle tone. Right Left Wrist flexion 5 5 Wrist extension 5 5 Right Left Deltoid 5 5 Biceps 5 5 Triceps 5 5 Wrist flexor 5 5 Wrist extensor 5 5 Glutei 5 5 Iliopsoas 5 5 Quadriceps 5 5 Gastrocnemius 5 5 Anterior tibialis 5 5 Posterior tibialis 5 5 Sensory Light touch is normal in upper and lower extremities. Pinprick is normal in upper and lower extremities. Vibration is normal in upper and lower extremities. Reflexes Right Left Brachioradialis 2+ 2+ Biceps 2+ 2+ Patellar 2+ 2+ Achilles 2+ 2+ Right Plantar: downgoing Left Plantar: downgoing Right pathological reflexes: Florentino's absent. Ankle clonus absent. Left pathological reflexes: Florentino's absent. Ankle clonus absent. Coordination Csacek-yg-yyhs, rapid alternating movements and xekf-kn-bgit normal bilaterally without dysmetria. Gait Normal casual, toe, heel and tandem gait. Romberg is absent. PROCEDURE: NONE ASSESSMENT AND PLAN: Matt Burroughs is a 84 year old male who presents with cognitive difficulty possibly due to a neurodegenerative process such as early mild cognitive impairment and without signs at this time of any Alzheimer's disease or vascular dementia. Other considerations would be pseudodementia secondary to depression or an underlying sleep disorder. MOCA (08/25/23)- & Recall 0/5. Diagnoses and all orders for this visit: Mild cognitive impairment with memory loss Continue Memantine 28 mg daily. Continue donepezil 10 mg BID. I counseled the patient on the possible side effects and interactions of medications. Follow up 3 months documented in this encounter [facility] 12-31-2023 Note [facility] Note Chief Complaint: Patient here [...] should problems arise Dante Williamson MD, MPH, [facility], [facility], [facility] Interventional Cardiology Pager Email: [email or web address] 05-12-2023 Hospital Discharge instructions Patient Education 05/12/2023 10:04:18 Hematuria, Adult [...] Follow these instructions at home: Medicines Take eqrm-iir-nohnuht and prescription medicines only as told by [...] or the blood stops without treatment. Take jvnf-cqf-fotjuut and prescription medicines only as told by your health care provider. Drink enough fluid to keep your urine pale yellow. This information is not intended to replace advice given to you by your health care provider. Make sure you discuss any questions you have with your health care provider. Document Revised: 05/23/2021 Document Reviewed: 05/23/2021 [employer] Patient Education 2022 [employer]. Follow Up Care 09/10/2022 11:05:03 With:PHOEBE HARTMAN, Alfa Stroud, URL Address: [facility] [address] , [place] [address]- [phone] When: Unknown [facility] 05-11-2021 Hospital Discharge instructions Follow Up Care 05/11/2021 08:41:41 With:PHOEBE HARTMAN, Alfa Stroud, URL Address: [address] [place] [address] [place] [address]- When: Unknown [facility] Evaluation + Plan note No data available for this section [facility] Evaluation + Plan note Future Appointments Appointment Date:05/17/2024 08:45:00 AM Scheduled Provider:Alfa SANDHU MD Location:[facility] Appointment Type:URO Office Visit [facility] Evaluation note Diagnosis Mild cognitive impairment with memory loss- Primary Mild cognitive impairment, so stated [facility] Diagnosis Mild cognitive impairment with memory loss- Primary Mild cognitive impairment, so stated [facility] Diagnosis Dementia of the Alzheimer's type, with early onset, uncomplicated (CMS/HCC)- Primary Alzheimer's disease [facility] Diagnosis Alzheimer's disease with early onset (CODE) Dementia in other diseases classified elsewhere, unspecified severity, without behavioral disturbance, psychotic disturbance, mood disturbance, and anxiety (Multi) documented in this encounter [facility] Work Phone: Evaluation note* Diagnosis Mild cognitive impairment with memory loss Mild cognitive impairment, so stated [facility] No data available for this section [facility] progress note No data available for this section [facility] reason for visit Narrative* Imaging (Routine) - Authorized Specialty Diagnoses / Procedures Referred By Contac t Referred To Contact Radiology Diagnoses Alzheimer's disease with early onset (CODE) Dementia in other diseases classified elsewhere, unspecified severity, without behavioral disturbance, psychotic disturbance, mood disturbance, and anxiety (Multi) Procedures NM PET CT amyloid brain Walker To MD [address] [place] [address] Phone: tel: fax: Referral ID Status Reason Start Date Expiration Date Visits Requested Visits Authorized [id number] Authorized Perform Procedure 02/08/2025 02/08/2026 3 3 [facility] Work Phone: Reason for visit Narrative* Imaging (Routine) - Authorized Specialty Diagnoses / Procedures Referred By Contchaka t Referred To Contact Radiology Diagnoses Alzheimer's disease with early onset (CODE) Dementia in other diseases classified elsewhere, unspecified severity, without behavioral disturbance, psychotic disturbance, mood disturbance, and anxiety (Multi) Procedures NM PET CT amyloid brain Walker To MD [address] [place] [address] Phone: tel: fax: Referral ID Status Reason Start Date Expiration Date Visits Requested Visits Authorized [id number] Authorized Perform Procedure 02/08/2025 02/08/2026 3 3 [facility] Work Phone: Summary Purpose Family History No Family History Records FoundNo Family History Records Found No data available for this section No Family History Records FoundNo Family History [...] section and content) DATE CREATED AUTHOR 04/01/2018 [facility] DATE CREATED AUTHOR AUTHOR'S ORGANIZ ATION 03/14/2023 [facility] DATE CREATED AUTHOR AUTHOR'S ORGANIZ ATION 05/18/2024 [facility] DATE CREATED AUTHOR AUTHOR'S ORGANIZ ATION 12/25/2024 [facility] DATE CREATED AUTHOR AUTHOR'S ORGANIZ ATION 03/10/2025 [facility] DATE CREATED AUTHOR AUTHOR'S ORGANIZ ATION 04/04/2025 [facility] Care Team (unrecognized sect ion and content) Director Of Home Care Hospice Relationship Specialty Start Date End Date Generic Provider, No Assigned P[place], [place] [address] PCP - General Slope Runner 03/03/25 Director Of Home Care Hospice Relationship Specialty Start Date End Date Generic Provider, No Assigned Pcp, [place] [address] PCP - General Slope Runner 03/03/25 FOR RECORDS PERTAINING TO PATIENTS WHO ARE [...] BE BASED ON THE PRIMARY CLINICAL RECORDS. [employer] provides no warranty or guarantee of the accuracy or completeness of information in this document.
--- OUTSIDE RECORDS SUMMARY | 2025-05-17 06:53 | XMS_ITS | Patient Health Record ---
Author Organization [facility] in [place] Address [address] [place] [address] Care Team Providers Care Sound Engineering Technician Name Role Phone Pepe Stephens Primary Care Provider Allergies Allergen (clinical drug ingredient) Drug/Non Drug Allergy documented on EMR Reaction Allergy Type Onset Date Status morphine Morphine Unknown Drug Allergy Active Penicillin Unknown Drug Allergy Active Results Component Value Reference Range Notes PROF 14(COMP METB) Reviewed date:08/25/2024 07:55:35 AM Interpretation: Performing Lab: Notes/Report: [facility] , Sodium 142 136-145 mmol/L Potassium 4.1 3.5-5.1 mmol/L Chloride 104 98-107 mmol/L Carbon Dioxide 27.5 21.0-32.0 mmol/L Anion Gap 14.6 Glucose 102 74-106 mg/dL Blood Urea Nitrogen 27.0 7.0-18.0 mg/dL Creatinine 1.16 0.70-1.30 mg/dL Estimated GFR ( Lizbeth >60 >=60 mL/min/1.73m 2 Estimated GFR (Non- Kimberly >60 >=60 mL/min/1.73m 2 BUN Creatinine Ratio 23.3 Calcium 9.5 8.5-10.1 mg/dL Bilirubin Total 1.0 0.2-1.0 mg/dL Aspartate Amino Transferase 14 15-37 U/L Alanine Aminotransferase 21 16-63 U/L Alkaline Phosphatase 83 46-116 U/L Total Protein 7.1 6.4-8.2 g/dL Albumin Level 3.8 3.4-5.0 g/dL Globulin 3.3 Albumin Globulin Ratio 1.2 Performing Lab: see note ML - [facility] LB PSA SCREENING Reviewed date:08/25/2024 12:33:39 PM Interpretation: Performing Lab: Notes/Report: [facility] , Prostate Specific Antigen Scrn 0.52 <=4.00 ng/mL Performing Lab: see note ML - [facility] LB T4 Reviewed date:08/25/2024 07:55:35 AM Interpretation: Performing Lab: Notes/Report: [facility] , T4 Thyroxine 8.00 4.50-12.10 ug/dL Performing Lab: see note ML - [facility] LB TSH Reviewed date:08/25/2024 07:55:35 AM Interpretation: Performing Lab: Notes/Report: [facility] , Thyroid Stimulating Hormone 3.381 0.358-3.740 u IU/mL Performing Lab: see note ML - [facility] LB LIPID PROFILE Reviewed date:08/25/2024 07:55:35 AM Interpretation: Performing Lab: Notes/Report: [facility] , Triglycerides 91 <=150 mg/dL Cholesterol 191 <=200 mg/dL HDL Cholesterol 87 40-60 mg/dL > or =60 mg/dl - LOW CARDIOVASCULAR RISK <40 mg/dl - HIGH CARDIOVASCULAR RISK LDL Cholesterol Calculated 86.0 <100 mg/dl OPTIMAL 100-129 mg/dl NEAR OR ABOVE OPTIMAL 130-159 mg/dl BORDERLINE HIGH 160-189 mg/dl HIGH >190 mg/dl VERY HIGH VLDL CHOLESTEROL 18.2 Chol HDL Ratio 2.2 3.3 - 4.4 LOW RISK 4.4 - 7.1 AVERAGE RISK 7.1 - 11.0 MODERATE RISK >11.0 HIGH RISK Performing Lab: see note ML - [facility] LB GLYCOHEMOGLOBIN A1C Reviewed date:08/25/2024 07:55:35 AM Interpretation: Performing Lab: Notes/Report: [facility] , Glycohemoglobin A1C 6.0 4.5-6.2 % ADA RECOMMENDED LIMIT 4.0 - 6.0 ADA THERAPEUTIC TARGET < 7.0 ACTION SUGGESTED > 7.0 Estimated Average Glucose 126 Performing Lab: see note ML - [facility] LB FREE T3 Reviewed date:08/25/2024 07:55:35 AM Interpretation: Performing Lab: Notes/Report: [facility] , Free T3 2.46 2.18-3.98 pg/mL Performing Lab: see note ML - [facility] LB CBC AUTO DIFF Reviewed date:08/25/2024 07:55:35 AM Interpretation: Performing Lab: Notes/Report: [facility] , White Blood Count 5.3 4.0-11.0 10 3/uL Red Blood Count 4.29 4.70-6.10 10 6/uL Hemoglobin 14.0 14.0-18.0 g/dL Hematocrit 41.9 42.0-54.0 % Mean Corpuscular Volume 97.7 80.0-94.0 fL Mean Corpuscular Hemoglobin 32.6 25.9-34.0 pg Mean Corpuscular HGB Conc 33.4 29.9-35.2 g/dL Red Cell Distribution Width 13.0 11.0-15.0 % Platelet Count 189 150-450 10 3/uL Mean Platelet Volume 9.5 9.5-13.5 fL Neutrophils Percent Auto 55.7 43.0-75.0 % Lymphocytes Percent Auto 28.6 20.5-60.0 % Monocytes Percent Auto 12.6 1.7-12.0 % Eosinophils Percent Auto 2.1 0.9-7.0 % Basophils Percent Auto 0.6 0.2-2.0 % Immature Granulocytes Pct Auto 0.4 0.0-0.5 % Neutrophils Absolute Auto 2.9 1.4-6.5 10 3/uL Lymphocytes Absolute Auto 1.5 1.2-3.8 10 3/uL Monocytes Absolute Auto 0.7 0.3-0.8 10 3/uL Eosinophils Absolute Auto 0.1 0.0-0.7 10 3/uL Basophils Absolute Auto 0.0 0.0-0.1 10 3/uL Immature Granulocytes Abs Auto 0.02 0.00-0.03 10 3/uL Performing Lab: see note ML - [facility] LB Reason For Referral No Information Medications Medication SIG (Take, Route, Frequency, Duration) Notes Start Date End Date Status Donepezil HCl 10 MG 1 tablet Orally once a day and 1/2 tab at bedtime for 30 days Active levoFLOXacin 500 MG 1 tablet Orally Once a day for 10 day(s) 11/03/2024 Active FeroSul 325 (65 Fe) MG TAKE ONE TABLET B Y MOUTH DAILY for 30 Active Cerefolin 6-1-50-5 MG 1 tablet Orally On ce a day 06/03/2024 Active Cinnamon 500 MG 2 capsules Orally Daily Active Proscar 5 MG 1 tablet Orally Once a day for 30 day(s) Active Aspirin 81 MG 1 tablet Orally Once a day for 30 day(s) Active Fiber Therapy 500 MG 2 tablets with a fu ll glass of water as needed Orally Six times a day Active [place] 3 340 MG 1 capsule Orally Onc e a day for 30 day(s) Active Lovastatin 40 MG TAKE ONE TABLET BY M OUTH DAILY for 90 Active Acetaminophen 325 MG 1 tablet as needed Orally every 4 hrs Active Multivitamin - 1 tablet Orally Once a day for 30 day(s) Active Vitamin D 50 MCG (2000 UT) 1 tablet Oral ly Once a day for 30 day(s) Active Namenda XR 28 MG 1 capsule Orally Onc e a day 06/03/2024 Active Vitamin C 1000 MG 1 tablet Orally Once a day for 30 day(s) Active Vitamin B-12 500 MCG 1 tablet Orally Onc e a day for 30 day(s) Active Pantoprazole Sodium 40 MG TAKE ONE TABLE T BY MOUTH TWICE A DAY for 90 days Active Tamsulosin HCl 0.4 MG 1 capsule Orally O nce a day for 30 day(s) Active Lisinopril 20 MG TAKE ONE TABLET BY M OUTH DAILY for 90 Active Social History Tobacco Use: Social History Observation Description Date Details (start date - stop date) Never Smoker NA - NA Tobacco Use/Smoking Question Answer Notes Patient is a nonsmoker Alcohol Screen (Audit-C) Question Answer Notes Did you have a drink containing alcohol in the p ast year? No Points 0 Interpretation Negative AUDIT-C (Standard) Question Answer Notes Did you have a drink containing alcohol in the p ast year? 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) Active confirmed Problem 870621357 Paroxysmal atria l fibrillation (I48.0) Active confirmed Problem Lumbosacral spondylosis without myelopathy (58603508) Other spondylosis with radiculopathy, lumbar region (M47.26) Active confirmed Problem 06634513 Bradycardia, unspecified (R00.1) Active confirmed Problem 385605900 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 (R41.81) Active confirmed Problem Atrial fibrillation (53791933) Atrial fibrillation (I48.91) Active confirmed Problem Hypertension (64781306) HTN (hypertension) (I10) Active confirmed Problem Hip pain (63942740) Hip pain (M25.559) Active c onfirmed Problem Impacted cerumen (33981706) Cerumen impaction (H61.20) Active confirmed Problem Disorder of lumbar disc (902858876) Lumbar disc disease (M51.9) Active confirmed Problem Acute bronchitis (62345019) Acute bronchitis (J20.9) Active confirmed Problem Gastritis (1453712) Gastritis (K29.70) Active c onfirmed Problem Well adult (327041564) Well adult (Z00.00) Activ e confirmed Problem Acquired spondylolisthesis (527082599) Spondylolisthesis of lumbar region (M43.16) Active confirmed Problem Displacement of lumb ar intervertebral disc without myelopathy (43676911) Lumbar disc displacement without myelopathy (M51.26) Active confirmed Problem Acute bronchiolitis (2189026) Acute bronchiolitis (J21.9) Active confirmed Problem Heart murmur (39313775) Cardiac murmur (R01.1) Active confirmed Problem Poor balance (723739707) Poor balance (R26.89) Active confirmed Problem Poor long-term memor y (456127793) Poor long-term memory (R41.3) Active confirmed Problem Pure hypercholesterolemia (615428514) Pure hypercholesterolemi a, unspecified (E78.00) Active confirmed Problem Neurogenic claudication (821765155) Spinal stenosis of lumbar region with neurogenic claudication (M48.062) Active confirmed Vital Signs Blood pressure diastolic 82 mm Hg 06/03/2024 Height 70 in 06/03/2024 Blood pressure systolic 140 mm Hg 06/03/2024 Weight 163.2 lbs 06/03/2024 BMI 23.41 kg/m2 06/03/2024 Encounters Encounter Location Date Provider Diagnosis [facility] ([place], [place]) [address] [place] [address] 06/03/2024 Pepe Stephens Age-related cognitiv e decline R41.81 ; Spinal stenosis of lumbar region with neurogenic claudication M48.062 ; Pure hypercholesterolemia, unspecified E78.00 and HTN (hypertension) I10 [facility] ([place], [place]) [address] [facility] [place] [address] 08/02/[address] [facility] ([place], [place]) [address] [place] [address] 08/25/[address] [facility] ([place], [place]) [address] [place] [address] 11/03/[address] [facility] ([place], [place] [address] [place] [address] 11/29/2024 Pepe Stephens Assessments Encounter Date Diagnosis (ICD Code) Assessment Notes Treatment Notes Treatment Clinical Notes Section Notes 06/03/2024 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 (ICD-10 - R41.81) On namenda - that has hwelped 06/03/2024 Spinal stenosis of lumbar region with neurogenic claudication (ICD-10 - M48.062) stable twihexercises 06/03/2024 Pure hypercholesterol emia, unspecified (ICD-10 - E78.00) reveiwed last labs 06/03/2024 HTN (hypertension) (ICD-10 - I10) stable Plan Of Treatment Pending Test Test Name Order Date CMP (COMPLETE METABOLIC PANEL) 3 CMP (COMPLETE METABOLIC PANEL) 3 CMP (COMPLETE METABOLIC PANEL) 4 HEMOGLOBIN A1C (GLYCO) 06/03/2024 HEMOGLOBIN A1C (GLYCO) 07/21/2023 HEMOGLOBIN A1C (GLYCO) 02/27/2023 INSULIN, TOTAL 07/21/2023 IRON, TOTAL 02/27/2023 LIPID PANEL (CHOL/TRIG/HDL/LDL) 02/28/20 23 LIPID PANEL (CHOL/TRIG/HDL/LDL) 07/21/20 23 LIPID PANEL (CHOL/TRIG/HDL/LDL) 06/03/20 24 CBC WITH DIFF 06/03/2024 CBC WITH DIFF 07/21/2023 CBC WITH DIFF 02/27/2023 PSA, PROSTATE-SPECIFIC ANTIGEN 3 PSA, PROSTATE-SPECIFIC ANTIGEN 3 VITAMIN D, 25 LEVEL (TOTAL) 02/27/2023 MRI Brain w/o contrast 07/21/2023 PSA, TOTAL 06/03/2024 STOOL OCCULT BLOOD 07/21/2023 THYROID PANEL (T4/TSH/FREE T3) 3 THYROID PANEL (T4/TSH/FREE T3) 3 THYROID PANEL (T4/TSH/FREE T3) 4 ECHOCARDIO M/2D COMPLETE 02/27/2023 Insurance Providers Payer Name Payer Address Payer Phone Subscriber Number Group Number Insured Name Patient Relationship to Insured Coverage Start Date Coverage End Date [place] [address] [place] [address] [id number] Matt Burroughs Self - patient is the insured 8 [employer] [place] [id number] [place] [address] MEDICARE SUPP [place] DEPT [place] [phone] [id number] Matt Burroughs Self - patient is the insured 0 Medical (General) History Medical History History ICD Code 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 R41.81 Cerumen impaction H61.20 Gastritis K29.70 Poor long-term memory R41.3 Acute bronchitis J20.9 Spinal stenosis of lumbar region with ne urogenic claudication M48.062 Lumbar disc displacement without myelopa thy M51.26 Spondylolisthesis of lumbar region M43.1 6 Well adult Z00.00 Hip pain M25.559 Other spondylosis with radiculopathy, jay mbar region M47.26 Lumbar disc disease M51.9 Pure hypercholesterolemia, unspecified E 78.00 HTN (hypertension) I10 Surgical History Surgery Date(Month/Year) left total Hip 2004 right hip replacemnt lumbar fusion 2017 tonsillectomy hemilaminotomy lumbar disectomy
--- OUTSIDE RECORDS SUMMARY | 2025-05-17 06:53 | XMS_ITS | Clinical Summary ---
Author Organization [facility] Address [address] [place] [address] Phone Care Team Providers Care Head Waiter/Waitress Name Role Phone Generic Provider, No Assigned Pcp MD Primary Car e Provider Unavailable Allergies No known active allergies Encounters Date Type Department Care Team Description 03/04/2025 11:46 AM EDT - 03/04/2025 11:59 PM EDT Hospital Encounter [facility] [address] [address] Discharge Disposition: Home 03/04/2025 11:46 AM EDT - 03/04/2025 11:59 PM EDT Hospital Encounter [facility] [address] [address] Alzheimer's disease with early onset (CODE); Dementia in other diseases classified elsewhere, unspecified severity, without behavioral disturbance, psychotic disturbance, mood disturbance, and anxiety (Multi) Discharge Disposition: Home 03/04/2025 Travel from Last 3 Months Social History Tobacco Use Types Packs/Day Years Used Date Smoking Tobacco: Never Assessed Sex and Gender Information Value Date Recorded Sex Assigned at Not on file Legal Sex Male 11:38 AM EDT Gender Identity Not on file Sexual Orientation Not on file Plan of Treatment Health Maintenance Due Date Last Done Comments Lipid Panel 1940 Medicare Annual Wellness Visit (AWV) 1940 DTaP/Tdap/Td Vaccines (1 - Tdap) 1962 COVID-19 Vaccine ( season) 2024 06/14/2024, 07/09/2023, 07/23/2022, Additional history exists Influenza Vaccine (#1) 2025 4, 07/09/2023, 07/23/2022, Additional history exists Zoster Vaccines Completed 07/27/2019, 05/19/2019 Pneumococcal Vaccine Completed 06/06/2020, 05/19/2019, 08/06/2015 RSV High Risk: (Elderly (60+) or Population) Completed 08/05/2023 HIB Vaccines Aged Out No longer eligi ble based on patient's age to complete this topic HPV Vaccines Aged Out No longer eligi ble based on patient's age to complete this topic Hepatitis A Vaccines Aged Out No long er eligible based on patient's age to complete this topic Hepatitis B Vaccines Aged Out No long er eligible based on patient's age to complete this topic IPV Vaccines Aged Out No longer eligi ble based on patient's age to complete this topic Meningococcal Vaccine Aged Out No cira chinyere eligible based on patient's age to complete this topic Rotavirus Vaccines Aged Out No longer eligible based on patient's age to complete this topic Procedures Procedure Name Priority Date/Time Associated Diagnosis Comments NM PET CT AMYLOID BRAIN Routine 03/04/2025 2:26 PM EDT Alzheimer's disease with early onset (CODE) Dementia in other diseases classified elsewhere, unspecified severity, without behavioral disturbance, psychotic disturbance, mood disturbance, and anxiety (Multi) from Last 3 Months Results * NM PET CT amyloid brain (03/04/2025 2:26 PM EDT) Anatomical Region Laterality Modality Head neck Positron Emissio n Tomography (PET) 03/04/2025 3:22 PM EDT 03/04/2025 3:22 PM EDT Impressions 03/04/2025 3:20 PM EDT 1. 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 This study was interpreted at [facility], [place], [place]. MACRO: None Signed by: Ebony Ricardo 03/04/2025 3:20 PM Dictation workstation: [id number] Narrative 03/04/2025 3:20 PM EDT Interpreted By: Ebony Ricardo and Kaur Arashdeep STUDY: NM PET CT AMYLOID BRAIN; 03/04/2025 2:26 pm INDICATION: Signs/Symptoms:DEMENTIA. COMPARISON: None. ACCESSION NUMBER(S): [id number] ORDERING CLINICIAN: WALKER BEST TECHNIQUE: DIVISION OF NUCLEAR MEDICINE POSITRON EMISSION [...] images digitally fused for display. CALIBRATION: Dose Bvjgqpjht-gp-Uopj Interval (mins): 53 min FINDINGS: There is no increased F-18 florbetapir uptake seen in the cortical cerebral batista matter. The cerebellum has no abnormal florbetapir uptake. The centiloid values -9.0 (normal value less than 24.4). Procedure Note Ebony Ricardo MD - 03/04/2025 Interpreted By: Ebony Ricardo and Kaur Arashdeep STUDY: NM PET CT AMYLOID BRAIN; 03/04/2025 2:26 pm INDICATION: Signs/Symptoms:DEMENTIA. COMPARISON: None. ACCESSION NUMBER(S): [id number] ORDERING CLINICIAN: WALKER BEST TECHNIQUE: DIVISION OF NUCLEAR MEDICINE POSITRON EMISSION [...] images digitally fused for display. CALIBRATION: Dose Kadrbwqwz-fd-Tntx Interval (mins): 53 min FINDINGS: There is [...] Roberts MD. This study was interpreted at [facility], [place], [place]. MACRO: None Signed by: Ebony Ricardo 03/04/2025 3:20 PM Dictation workstation: [id number] Walker Best MD IMG NM PROCEDURES Final Resul t from Last 3 Months Insurance [employer] [place] MEDICARE PART A AND B [employer] [place] MED[employer] PART A AND B Care Teams Head Waiter/Waitress Relationship Specialty Start Date End Date Generic Provider, [place] [address] PCP - General Endoscopy Nurse 03/03/25
--- OUTSIDE RECORDS SUMMARY | 2025-05-17 06:53 | XMS_ITS | Clinical Summary ---
Author Organization [facility] Address [address] [place] [address] Care Team Providers Care Qa Software Test Engineer Name Role Phone Unavailable Primary Care Provider Unavailabl e Allergies Active Allergy Reactions Criticality Noted Date Comments Morphine 06/20/2017 Other Reaction(s): Hallucination, Unknown Penicillins 03/31/2023 Other Reaction(s): Unknown Medications tolterodine LA (Detrol LA) 4 MG 24 hr capsule 1 capsule 1 (one) time each day at the same time. 03/06/2023 Active tamsulosin (Flomax) 0.4 MG 24 hr capsule 1 capsule 1 (one) time each day at the same time. Active pantoprazole (ProtoNix) 40 MG EC tablet 1 (one) time each day at the same time. Active omega-3 (Fish Oil) 1000 MG capsule 1 capsule 1 (one) time each day at the same time. Active Multiple Vitamins-Minera ls (Multivitamin Men) tablet Orally Active Methylcellulose , Laxative, (Fiber Therapy) 500 MG tablet every 4 (four) hours. Active lovastatin (Mevacor) 40 MG tablet TAKE ONE TABLET BY MOUTH DAILY for 90 Active lisinopril 20 MG tablet 1 (one) time each day at the same time. Active Proscar 5 MG tablet 1 (one) time each day at the same time. Active ferrous sulfate 325 (65 Fe) MG tablet TAKE ONE TABLET BY MOUTH DAILY for 30 10/07/2022 Active cyanocobalamin (Vitamin B-12) 500 MCG tablet 1 (one) time each day at the same time. Active cinnamon 500 MG capsule 1 (one) time each day at the same time. Active cholecalciferol (Vitamin D-3) 50 MCG (2000 UT) tablet 1 (one) time each day at the same time. Active aspirin 81 MG chewable tablet 1 (one) time each day at the same time. Active Ascorbic Acid (vitamin C) 1000 MG tablet 1 (one) time each day at the same time. Active Eliquis 5 MG tablet Take 5 mg by mouth in the morning and 5 mg in the evening. 02/27/2023 Active Memantine HCl ER 28 MG capsule sustained-relea se 24 hrIndications:M ild cognitive impairment with memory loss Take 28 mg by mouth at bedtime 90 capsule 3 10/11/2024 Active donepezil (Aricept) 10 MG tabletIndicatio ns:Mild cognitive impairment with memory loss Take 1 tablet (10 mg) by mouth in the morning and 1 tablet (10 mg) before bedtime. 180 tablet 3 10/11/2024 Active donepezil (Aricept) 23 MG tabletIndicatio ns:Mild cognitive impairment with memory loss Take 1 tablet (23 mg) by mouth in the morning. 30 tablet 3 04/04/2025 Active Active Problems Problem Noted Date Diagnosed Date Dementia of the Alzheimer's type, with early onset, uncomplicated 02/07/2025 Anticoagulated 12/23/2024 Arthritis 12/23/2024 Asymptomatic microscopic hematuria 12/23/2024 BPH associated with nocturia 12/23/2024 Closed fracture nose 12/23/2024 Alteration in vision 09/08/2023 Anxiety 09/08/2023 Acute pain of left shoulder 08/25/2023 Contusion of right hand 08/25/2023 History of total left hip replacement 08/25/2023 History of total right hip arthroplasty 08/25/20 Lumbosacral spondylosis without myelopathy 08/25 Osteoarthritis of lumbar spine 08/25/2023 Other chronic pain 08/25/2023 Pain in joint involving pelvic region and thigh 08/25/2023 Pain in right hand 08/25/2023 Primary osteoarthritis of right hip 08/25/2023 Right hip pain 08/25/2023 Mild cognitive impairment with memory loss 08/25 Benign prostatic hyperplasia with urinary obstru ction 03/31/2023 Hyperlipidemia 03/31/2023 Hypertension 03/31/2023 Increased frequency of urination 03/31/2023 Disorder of intervertebral disc of lumbar spine 03/31/2023 Electrocardiogram abnormal 06/24/2017 Encounters Date Type Department Care Team Description 05/16/2025 Refill [facility] [address] [place] [phone] Leticia Chaidez MA 04/05/2025 Telephone [facility] [address] [place] [phone] Stephen To MD 04/04/2025 8:40 AM EDT Office Visit [facility] [address] [place] [phone] Stephen To MD Mild cognitive impairment with memory loss 04/04/2025 Bamboo flowsheet [facility] [address] [place] [address] Stephen To MD 04/04/2025 Travel from Last 3 Months Family History Medical History Relation Name Comments Heart disease Mother Hypertension Mother Melanoma Neg Hx Relation Name Status Comments Brother Father Mother Sister Social History Tobacco Use Types Packs/Day Years Used Date Smoking Tobacco: Former Cigarettes Tobacco Cessation:Counseling Given: Not Answered Alcohol Use Standard Drinks/Week Comments Yes 0 (1 standard drink = 0.6 oz pure alcohol) Points: 8, Interpretation: Positive; Caffeine Intake: 1-2 cups per day tea Sex and Gender Information Value Date Recorded Sex Assigned at Not on file Legal Sex Male 6:36 PM EDT Gender Identity Not on file Sexual Orientation Not on file Last Filed Vital Signs Vital Sign Reading Time Taken Comments Blood Pressure 118/82 04/04/2025 8:53 AM EDT Pulse - - Temperature - - Respiratory Rate - - Oxygen Saturation - - Inhaled Oxygen Concentration - - Weight 73.9 kg (163 lb) 04/04/2025 8:53 AM EDT Height 175.3 cm (5' 9 ) 04/04/2025 8:53 AM EDT Body Mass Index 24.07 04/04/2025 8:53 AM EDT Plan of Treatment Upcoming Encounters Date Type Department Care Team (Late st Contact Info) Description 07/06/2025 8:20 AM EDT Office Visit [facility] [address] [facility] [address] [place] [address] Stephen To MD [address] [facility] [address] [id number] Health Maintenance Due Date Last Done Comments Influenza Vaccine (#1) 2025 3, 07/23/2022, 07/04/2021, Additional history exists Pneumococcal Vaccine: 65+ Years Completed 06/06/2020, 05/19/2019, 08/06/2015 Insurance MEDICARE [facility] [place] [address]
--- OUTSIDE RECORDS SUMMARY | 2025-05-17 06:53 | XMS_ITS | Clinical Summary ---
Author Organization [facility] Address [address] [place] [address] Care Team Providers Care Mattress Filling Machine Tender Name Role Phone Mikael Stephens MD Primary Care Provider [phone] Allergies Active Allergy Reactions Criticality Noted Date Comments Morphine Unknown 06/20/2017 Penicillins Unknown 03/31/2023 Medications lovastatin (Mevacor) 40 mg tablet Take 1 tablet every day by oral route. 05/14/2019 Active lisinopril 20 mg tablet Take 1 tablet every day by oral route. 05/14/2019 Active finasteride (Proscar) 5 mg tablet Take 1 tablet every day by oral route. 09/03/2021 Active pantoprazole (ProtoNix) 40 mg EC tablet Take 40 mg by mouth. 05/14/2019 Active tamsulosin (Flomax) 0.4 mg 24 hr capsule Take 1 capsule every day by oral route. 10/28/2021 Active tolterodine LA (Detrol LA) 4 mg 24 hr capsule 03/06/2023 Active donepezil (Aricept) 10 mg tablet Take 5 mg by mouth at bedtime. 08/13/2021 Active FeroSuL 325 mg (65 mg iron) tablet 10/07/2022 Active aspirin 81 mg EC tablet Take 1 tablet every day by oral route. Active memantine (Namenda) 10 mg tablet Take 10 mg by mouth twice a day. 11/13/2023 Active cholecalciferol (Vitamin D-3) 50 MCG (1999 UT) tablet 1 (one) time each day at the same time. Active memantine (Namenda XR) 28 mg capsule,sprinkl e,ER 24hr Take by mouth in the morning. Active Active Problems Problem Noted Date Diagnosed Date Anticoagulated 12/23/2024 Arthritis 12/23/2024 Asymptomatic microscopic hematuria 12/23/2024 BPH associated with nocturia 12/23/2024 Closed fracture nose 12/23/2024 Alteration in vision 09/08/2023 12/31/2023 Anxiety 09/08/2023 12/31/2023 Acute pain of left shoulder 08/25/2023/04/2024 Contusion of right hand 08/25/2023 12/31/19 History of total left hip replacement 08/25/2023 12/31/2023 Lumbosacral spondylosis without myelopathy 08/2512/31/2023 Mild cognitive impairment with memory loss 08/2512/31/2023 Other chronic pain 08/25/2023 12/31/2023 Pain in joint involving pelvic region and thigh 08/25/2023 12/31/2023 Pain in right hand 08/25/2023 12/31/2023 Primary osteoarthritis of right hip 08/25/2023 12/31/2023 Right hip pain 08/25/2023 12/31/2023 Benign prostatic hyperplasia with urinary obstru ction 03/31/2023 Increased frequency of urination 03/31/2023 Hypertension 03/31/2023 Hyperlipidemia 03/31/2023 Disorder of intervertebral disc of lumbar spine 03/31/2023 Electrocardiogram abnormal 06/24/2017 Family History Medical History Relation Name Comments No Known Problems Father No Known Problems Mother Heart failure Sister Relation Name Status Comments Father Mother Sister Social History Tobacco Use Types Packs/Day Years Used Date Smoking Tobacco: Former Cigarettes Q uit: 1962 Smokeless Tobacco: Never Tobacco Cessation:Counseling Given: Not Answered [place] Safety & Environment Answer Date Rec orded Fear of Current or Ex-Partner Not on file Emotionally Abused Not on file 11/27/2023 Physically Abused Not on file 11/27/2023 Sexually Abused Not on file 11/27/2023 Physically or Sexually Abused Not on file Sex and Gender Information Value Date Recorded Sex Assigned at Not on file Legal Sex Male 11:59 PM EDT Gender Identity Not on file Sexual Orientation Not on file Last Filed Vital Signs Vital Sign Reading Time Taken Comments Blood Pressure 132/86 12/23/2024 11:28 AM EDT Pulse 62 12/23/2024 11:28 AM EDT Temperature - - Respiratory Rate - - Oxygen Saturation 97% 12/23/2024 11:28 AM EDT Inhaled Oxygen Concentration - - Weight 75.8 kg (167 lb) 12/23/2024 11:28 AM EDT Height 177.8 cm (5' 10 ) 12/23/2024 11:28 AM EDT Body Mass Index 23.96 12/23/2024 11:28 AM EDT Plan of Treatment Health Maintenance Due Date Last Done Comments Medicare Annual Wellness (AWV) 1940 Depression Screening 1954 Adult Tetanus 1962 Fall Risk Screening 2007 COVID-19 Vaccine ( season) 2024 06/14/2024, 07/09/2023, 07/23/2022, Additional history exists Influenza Vaccine (#1) 2025 , 07/09/2023, 07/23/2022, Additional history exists Zoster Vaccines Completed 07/27/2019, 05/19/2019 Pneumococcal Vaccine: 50+ Years Completed 06/06/2020, 05/19/2019, 08/06/2015 HIB Vaccines Aged Out No longer eligi ble based on patient's age to complete this topic HPV Vaccines Aged Out No longer eligi ble based on patient's age to complete this topic IPV Vaccines Aged Out No longer eligi ble based on patient's age to complete this topic Meningococcal B Vaccine Aged Out No l onger eligible based on patient's age to complete this topic Meningococcal Vaccine Aged Out No cira chinyere eligible based on patient's age to complete this topic Rotavirus Vaccines Aged Out No longer eligible based on patient's age to complete this topic Insurance MEDICARE [employer] [facility] Care Teams Mattress Filling Machine Tender Relationship Specialty Start Date End Date Mkiael Stephens MD [address] [place] [place] [address] PCP - General 03/27/23
--- OUTSIDE RECORDS SUMMARY | 2025-05-17 06:53 | XMS_ITS | Encounter Summary ---
Author Organization [facility] Address [address] [place] [phone] Phone Care Team Providers Care Manager Investment Name Role Phone Generic Provider, No Assigned Pcp MD Primary Car e Provider Unavailable Reason for Referral * Imaging (Routine) - Authorized Specialty Diagnoses / Procedures Referred By Contac t Referred To Contact Radiology Diagnoses Alzheimer's disease with early onset (CODE) Dementia in other diseases classified elsewhere, unspecified severity, without behavioral disturbance, psychotic disturbance, mood disturbance, and anxiety (Multi) Procedures NM PET CT amyloid brain Walker Best MD [address] [place] [phone] Phone: tel: fax: Referral ID Status Reason Start Date Expiration Date Visits Requested Visits Authorized [id number] Authorized Perform Procedure 02/08/2025 02/08/2026 3 3 Encounter Details Date Type Department Care Team (Latest Contact Info) Description 02/08/2025 Transcribe Orders [facility] [address] [place] [address] Walker Best MD [address] [place] [phone] Alzheimer's disease with early onset (CODE) (Primary Dx); Dementia in other diseases classified elsewhere, unspecified severity, without behavioral disturbance, psychotic disturbance, mood disturbance, and anxiety (Multi) Social History Tobacco Use Types Packs/Day Years Used Date Smoking Tobacco: Never Assessed Sex and Gender Information Value Date Recorded Sex Assigned at Not on file Legal Sex Male 11:38 AM EDT Gender Identity Not on file Sexual Orientation Not on file documented as of this encounter Plan of Treatment Not on file documented as of this encounter Results * NM PET CT amyloid brain [...] Roberts MD. This study was interpreted at [facility], [place], [place]. MACRO: None Signed by: Ebony Ricardo 03/04/2025 3:20 PM Dictation workstation: [id number] Narrative 03/04/2025 3:20 PM EDT Interpreted By: Ebony Ricardo, and Roberts Arashdeep STUDY: NM PET CT AMYLOID BRAIN; 03/04/2025 2:26 pm INDICATION: Signs/Symptoms:DEMENTIA. COMPARISON: None. ACCESSION NUMBER(S): [id number] ORDERING CLINICIAN: WALKER BEST TECHNIQUE: DIVISION OF [...] images digitally fused for display. CALIBRATION: Dose Segcqbxcq-jj-Gfqs Interval (mins): 53 min FINDINGS: There is [...] pm INDICATION: Signs/Symptoms:DEMENTIA. COMPARISON: None. ACCESSION NUMBER(S): [id number] ORDERING CLINICIAN: WALKER BEST TECHNIQUE: DIVISION OF [...] images digitally fused for display. CALIBRATION: Dose Bedgtgkqs-rz-Jsow Interval (mins): 53 min FINDINGS: There is [...] Roberts MD. This study was interpreted at [facility], [place], [place]. MACRO: None Signed by: Ebony Ricardo 03/04/2025 3:20 PM Dictation workstation: [id number] Walker Best MD IM NM PROCEDURES Final Resul t documented in this encounter Visit Diagnoses Diagnosis Alzheimer's disease with early onset (CODE)- Primary Dementia in other diseases classified elsewhere, unspecified severity, without behavioral disturbance, psychotic disturbance, mood disturbance, and anxiety (Multi) Alzheimer's disease with early onset (CODE) Dementia in other diseases classified elsewhere, unspecified severity, without behavioral disturbance, psychotic disturbance, mood disturbance, and anxiety (Multi) documented in this encounter Care Teams Manager Investment Relationship Specialty Start Date End Date Generic Provider, No Assigned Pcp, [place] [address] PCP - General Skiver Hand 03/03/25 documented as of this encounter
--- OUTSIDE RECORDS SUMMARY | 2025-05-17 06:53 | XMS_ITS | Encounter Summary ---
Author Organization [facility] Address [address] [place] [address] Care Team Providers Care Relief Man Name Role Phone Unavailable Primary Care Provider Unavailabl e Reason for Visit * Reason Onset Date Comments Med Refill 05/16/2025 Encounter Details Date Type Department Care Team (Late st Contact Info) Description 05/16/2025 Refill [facility] [address] [facility] [address] [place] [address] Leticia Chaidez MA Social History Tobacco Use Types Packs/Day Years Used Date Smoking Tobacco: Former Cigarettes Alcohol Use Standard Drinks/Week Comments Yes 0 (1 standard drink = 0.6 oz pure alcohol) Points: 8, Interpretation: Positive; Caffeine Intake: 1-2 cups per day tea Sex and Gender Information Value Date Recorded Sex Assigned at Not on file Legal Sex Male 6:36 PM EDT Gender Identity Not on file Sexual Orientation Not on file documented as of this encounter Plan of Treatment Upcoming Encounters Date Type Department Care Team (Late st Contact Info) Description 07/06/2025 8:20 AM EDT Office Visit [facility] [address] [facility] [address] [place] [address] Stephen To MD [address] [facility] [address] [place] [phone] documented as of this encounter Visit Diagnoses Not on filedocumented in this encounter
== END 2025-05-17 06:51 | disposition home or self-care (01) ==
LOC: CARD 06:50
PROVIDERS: PCP Family Medicine; Visit Provider Internal Medicine Interventional Cardiology
DX: I35.9 Nonrheumatic aortic valve disorder, unspecified (principal); I35.0 Nonrheumatic aortic (valve) stenosis
CPT/HCPCS: 93306; 93356

== ENCOUNTER 2025-06-16 06:32 | Outpatient (OUT) | payer MEDICARE, OTHER, SELFPAY ==
--- OUTSIDE RECORDS SUMMARY | 2024-11-03 04:29 | XMS_ITS ---
Author Organization [facility] in [place] Address [address] [place] [address] Care Team Providers Care Project Structural Engineer Name Role Phone Pepe Stephens Primary Care Provider REASON FOR VISIT Sick Medications Medication SIG (Take, Route, Fr equency, Duration) Notes Start Date End Date Status levoFLOXacin 500 MG 1 tablet Orally Once a day for 10 day(s) 11/03/2024 Active Encounters Encounter Location Date Provider Diagnosis [facility] [address] [place] [address] 11/03/2024 Pepe Jdfelicitas Plan Of Treatment Medication Medication Name Sig Start Date Stop Date Notes levoFLOXacin 500 MG 1 tablet Orally Once a day for 10 day(s) 11/03/2024 Progress Notes * Matt BURROUGHS WDOB:[birth year] (84 yo M)Acc No.[id number]:11/03/2024 Patient: Matt PENG :1940 A ge:84 Y S ex:Male Address:[address], [place], [address] * Refills Start levoFLOXacin Tablet, 500 MG, Orally, 10, 1 tablet, Once a day, 10 day(s) * true * Date: Generated for Hadleyi ng/Famisaelg/eTransmitting on: 0 06/16/2025 06:37 AM EDT
--- OUTSIDE RECORDS SUMMARY | 2024-11-29 11:56 | XMS_ITS ---
Author Organization [facility] in [place] Address [address] [place] [address] Care Team Providers Care Analytics Intern Name Role Phone Kat Pepe Primary Care Provider REASON FOR VISIT rf Lisinopril Medications Medication SIG (Take, Route, Fr equency, Duration) Notes Start Date End Date Status Lisinopril 20 MG TAKE ONE TABLET BY M OUTH DAILY for 90 Active Encounters Encounter Location Date Provider Diagnosis [facility] [address] [place] [address] 11/29/2024 Pepe Jdfelicitas Plan Of Treatment Medication Medication Name Sig Start Date Stop Date Notes Lisinopril 20 MG TAKE ONE TABLET BY MOUTH DAILY for 90 Progress Notes * Matt BURROUGHS WDOB:[birth year] (84 yo M)Acc No.[id number]:11/29/2024 Patient: Luanne Matt GIBSON :1940 A ge:84 Y S ex:Male Address:[address], [place], [address] * Refills Refill Lisinopril Tablet, 20 MG, 90 Tablet, TAKE ONE TABLET BY MOUTH DAILY, 90, Refills=3 * true * Date: Generated for Monique valdez/Zakiag/eTransmitting on: 0 06/16/2025 06:37 AM EDT
--- OUTSIDE RECORDS SUMMARY | 2025-06-02 03:38 | XMS_ITS ---
Author Organization [facility] [place] Address [address] [place] [address] Care Team Providers Care Food Safety Scientist Name Role Phone Pepe Stephens Primary Care Provider [phone] REASON FOR VISIT needs yearly Encounters Encounter Location Date Provider Diagnosis [facility] [address] [place] [address] 06/02/2025 Pepe Stephens Plan Of Treatment No Information Progress Notes * Matt BURROUGHS WDOB:[birth year] (84 yo M)Acc No.[id number]:06/02/2025 Patient: Luanne HAMMMatt ATKINSON :1940 A ge:84 Y S ex:Male Address:[address], [place], [address] * true * Date: Generated for Hadleyi ng/Famisaelg/eTransmitting on: 0 06/16/2025 06:36 AM EDT
--- OUTSIDE RECORDS SUMMARY | 2025-06-15 05:15 | XMS_ITS ---
Author Organization [facility] in [place] Address [address] [place] [address] Care Team Providers Care Clinic Physician Name Role Phone Kat Pepe Primary Care Provider Allergies Allergen (clinical drug ingredient) Drug/Non Drug Allergy documented on EMR Reaction Allergy Type Onset Date Status morphine Morphine Unknown Drug Allergy Active Penicillin Unknown Drug Allergy Active Reason For Referral Reason balance therapy Diagnosis 1 Weakness (R53.1) Referral Organization [facility] Referring Provider First Name Pepe Referring Provider Last Name Kat Referring Provider Speciality Family Med icine Referred Provider TB, Physical Therap y Referred Provider Specialty Physical The rapist Referral Priority Routine REASON FOR VISIT yearly- needs yearly labs in August Medications Medication SIG (Take, Route, Frequency, Duration) Notes Start Date End Date Status Namenda XR 28 MG 1 capsule Orally Onc e a day 06/03/2024 Active Lovastatin 40 MG TAKE ONE TABLET BY M OUTH DAILY for 30 days Active Lisinopril 20 MG TAKE ONE TABLET BY M OUTH DAILY for 90 Active Fiber Therapy 500 MG 2 tablets with a fu ll glass of water as needed Orally Six times a day Active FeroSul 325 (65 Fe) MG TAKE ONE TABLET B Y MOUTH DAILY for 30 Active Acetaminophen 325 MG 1 tablet as needed Orally every 4 hrs Active Cinnamon 500 MG 2 capsules Orally Daily Active Cerefolin 6-1-50-5 MG 1 tablet Orally On ce a day 06/03/2024 Active Aspirin 81 MG 1 tablet Orally Once a day for 30 day(s) Active Donepezil HCl 23 MG 1 tablet Orally Once a day for 30 days Active Vitamin D 50 MCG (1999 UT) 1 tablet Oral ly Once a day for 30 day(s) Active Vitamin C 1000 MG 1 tablet Orally Once a day for 30 day(s) Active Pantoprazole Sodium 40 MG TAKE ONE TABLE T BY MOUTH TWICE A DAY for 90 days Active [place] 3 340 MG 1 capsule Orally Onc e a day for 30 day(s) Active Proscar 5 MG 1 tablet Orally Once a day for 30 day(s) Active Tamsulosin HCl 0.4 MG 1 capsule Orally O nce a day for 30 day(s) Active Social History Tobacco Use: Social History Observation Description Date Details (start date - stop date) Never Smoker NA - NA Tobacco Use/Smoking Question Answer Notes Patient is a nonsmoker Vital Signs Blood pressure systolic 142 mm Hg 06/15/20 25 Blood pressure diastolic 84 mm Hg 025 Height 70 in 06/15/2025 Weight 169.6 lbs 06/15/2025 BMI 24.33 kg/m2 06/15/2025 Encounters Encounter Location Date Provider Diagnosis [facility] [address] [place] [address] 06/15/2025 Pepe Hoy Cardiac murmur R01.1 ; Paroxysmal atrial fibrillation I48.0 ; HTN (hypertension) I10 ; Poor long-term memory R41.3 ; 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 R41.81 and Weakness R53.1 Assessments Encounter Date Diagnosis (ICD Code) Assessment Notes Treatment Notes Treatment Clinical Notes Section Notes 06/15/2025 Cardiac murmur (ICD-10 - R01.1) 06/15/2025 Paroxysmal atrial fibrillation (ICD-10 - I48.0) 06/15/2025 HTN (hypertension) (ICD-10 - I10) 06/15/2025 Poor long-term memory (ICD-10 - R41.3) 06/15/2025 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 (ICD-10 - R41.81) 06/15/2025 Weakness (ICD-10 - R53.1) Plan Of Treatment Pending Test Test Name Order Date HEMOGLOBIN A1C (GLYCO) 06/15/2025 BNP 06/15/2025 THYROID PANEL (T4/TSH/FREE T3) CMP (COMP MET NEGRETE) w/eGFR CKD-EPI 2024 CBC WITH DIFF 06/15/2025 Referrals Referral Date Details 06/15/2025 06/15/2025, balance therapy, Physical Therapy [facility] Progress Notes * Matt BURROUGHS WDOB:[birth year] (85 yo M)Acc No.[id number]:06/15/2025 UNLOCKED PROGRESS NOTE Progress Note Patient: Matt PENG Provider: Fredi Stephens ([facility])MD :1940 A ge:85 Y S ex:Male Date:06/15/2025 Address:[address] [place] [address], [facility] [address], [place], [id number] Check In:09:06 AM ESTCheck O ut:09:52 AM EST Subjective: * Chief Complaints: * 1 . yearly- needs yearly labs in August. * HPI: G eneral: Dssed dementia- meds helpgi slow it down BP good control GERD - stable on meds Chol - on meds -need labs BPH- getting up Twice. * ROS: E ENT: hearing changes d enies. v isual changes d enies.?non-healing mouth sores d enies. s wollen glands or neck lumps d enies. h oarseness d enies. s ore throat d enies. d ifficulty swallowing d enies. n ose bleeds d enies. n zenaida congestion d enies. e ar ache d enies. e ar discharge?denies. r inging in ears d enies. l ight sensitivity d enies. e ye pain d enies. b lurring d enies. e ye irritation d enies. d ouble vision d enies.?vision loss d enies. G eneral/Constitutional: Sweats: D enies. F atigue d enies. S leep problems d enies. A norexia d enies. M alaise d enies. W eight loss d enies.?Fatigue or Weakness d enies. F ever or Chills d enies. C ardiovascular: Shortness of Breath w/lying flat d enies. L ightheadedness/dizziness d enies. C hest tightness/ heavy pressure d enies. S welling of legs, ankles, or feet d enies. W aking up with shortness of breath d enies. C hest pain denies. P alpitations d enies. W eight gain d enies. R espiratory: Chronic or frequent cough d enies. C oughing up blood?denies. D ifficulty breathing d enies. P roductive cough d enies. S noring?denies. S hortness of breath that awakens from sleep (PND) d enies. C hest pain d enies. S putum production d enies. W heezing d enies. M usculoskeletal: Joint pain d enies. J oint Fluid d enies. B ack pain d enies. K nee pain d enies. N re pain d enies. J oint Stiffness d enies. M uscle cramps d enies. W eakness of muscles d enies. A rthritis d enies. M uscle aches d enies. P ain in shoulder(s) d enies. S wollen joints d enies. * Medical History: A ge-related cognitive decline, Cerumen impaction, Gastritis, Poor long-term memory, Acute bronchitis, Spinal stenosis of lumbar region with neurogenic claudication, Lumbar disc displacement without myelopathy, Spondylolisthesis of lumbar region, Well adult, Hip pain, Other spondylosis with radiculopathy, lumbar region, Lumbar disc disease, Pure hypercholesterolemia, unspecified, HTN (hypertension). * Surgical History: l eft total Hip 2004, right hip replacemnt , lumbar fusion 2016, tonsillectomy , hemilaminotomy lumbar disectomy . * Hospitalization/Major Diagno stic Procedure: D enies Past Hospitalization. * Family History: F ather: . M other: , diagnosed with Unspecified heart disease. * Social History: T obacco Use: T obacco Use/Smoking P atient is a n onsmoker * Medications: T aking Acetaminophen 325 MG Tablet 1 tablet as needed Orally every 4 hrs , Taking Aspirin 81 MG Tablet Chewable 1 tablet Orally Once a day , Taking Cerefolin(Y-Snjjahpbkxut-V39-B6-B2) 6-1-50-5 MG Tablet 1 tablet Orally Once a day , Taking Cinnamon 500 MG Capsule 2 capsules Orally Daily , Taking Donepezil HCl 23 MG Tablet 1 tablet Orally Once a day , Taking FeroSul(Ferrous Sulfate) 325 (65 Fe) MG Tablet TAKE ONE TABLET BY MOUTH DAILY , Taking Fiber Therapy(Methylcellulose (Laxative)) 500 MG Tablet 2 tablets with a full glass of water as needed Orally Six times a day , Taking Lisinopril 20 MG Tablet TAKE ONE TABLET BY MOUTH DAILY , Taking Lovastatin 40 MG Tablet TAKE ONE TABLET BY MOUTH DAILY , Taking Namenda XR 28 MG Capsule Extended Release 24 Hour 1 capsule Orally Once a day , Taking [place] 3 340 MG Capsule Delayed Release 1 capsule Orally Once a day , Taking Pantoprazole Sodium 40 MG Tablet Delayed Release TAKE ONE TABLET BY MOUTH TWICE A DAY , Taking Proscar(Finasteride) 5 MG Tablet 1 tablet Orally Once a day , Taking Tamsulosin HCl 0.4 MG Capsule 1 capsule Orally Once a day , Taking Vitamin C 1000 MG Tablet 1 tablet Orally Once a day , Taking Vitamin D 50 MCG (2000 UT) Tablet 1 tablet Orally Once a day , Discontinued levoFLOXacin 500 MG Tablet 1 tablet Orally Once a day , Discontinued Multivitamin(Multiple Vitamin) - Tablet 1 tablet Orally Once a day , Discontinued Vitamin B-12 500 MCG Tablet 1 tablet Orally Once a day , Medication List reviewed and reconciled with the patient * Allergies: P enicillin, Morphine. Objective: * Vitals: W t:169.6lbs, Ht: 70 in, BP:142/84mm Hg, BMI:24.33Index, Ht-cm: 177.8 cm, Wt-k.93 kg. * Examination: P hysical Exam: GENERAL: w ell developed, well nourished, in no acute distress. HEAD: n ormocephalic/atraumatic. EYES: p upils equal, round and reactive to light, conjunctivae and sclerae normal. EARS: n o deformity or lesion of external ear, canals and TM appear normal bilaterally, TM's intact, not inflamed with normal light reflex, hearing grossly normal to conversational speech. NOSE: n o deformity, discharge, inflammation, or lesions.? MOUTH: m ucous membranes moist, normal oropharynx and posterior pharynx without lesions or exudates, tongue normal, dentition normal. NECK: n re supple, no masses or palpable cervical nodes, trachea midline, thyroid without nodules, masses, tenderness, or enlargement. CHEST: n o chest wall deformity, no chest wall tenderness.? LUNGS: n ormal respiratory effort and clear to auscultation, no wheezes, rales, or rhonchi, good air exchange. CARDIO: 3 /5 CRISTY TOMASZ border. PULSES: n ormal capillary refill. ABDOMEN: s oft, non-distended, non-tender, no masses. MUSCULOSKELETAL: n o deformity or scoliosis noted, normal range of motion, joints normal, no erythema, edema, effusion, or ecchymosis. EXTREMITY: n o clubbing, cyanosis, edema, or deformity with normal ROM in both upper and lower bilateral extremities. NEUROLOGIC: g rossly normal. SKIN: n o rashes, ulcerations, or suspicious lesions. LYMPH NODES: n o cervical adenopathy, nodes normal. MENTAL STATUS: a lert and oriented x3, normal mood and affect. Assessment: * Assessment: 1. C ardiac murmur - R01.1 (Primary) 2 . P aroxysmal atrial fibrillation - I48.0 3 . H TN (hypertension) - I10 4 . P oor long-term memory - R41.3 5 . A ge-related cognitive decline - R41.81 6 . W eakness - R53.1 Plan: * Treatment: 2. P aroxysmal atrial fibrillation L AB: HEMOGLOBIN A1C (GLYCO) L AB: BNP L AB: THYROID PANEL (T4/TSH/FREE T3) L AB: CMP (COMP MET NEGRETE) w/eGFR CKD-EPI L AB: CBC WITH DIFF 3. H TN (hypertension) L AB: HEMOGLOBIN A1C (GLYCO) L AB: BNP L AB: THYROID PANEL (T4/TSH/FREE T3) L AB: CMP (COMP MET NEGRETE) w/eGFR CKD-EPI L AB: CBC WITH DIFF 4. P oor long-term memory L AB: HEMOGLOBIN A1C (GLYCO) L AB: BNP L AB: THYROID PANEL (T4/TSH/FREE T3) L AB: CMP (COMP MET NEGRETE) w/eGFR CKD-EPI L AB: CBC WITH DIFF 5. A ge-related cognitive decline L AB: HEMOGLOBIN A1C (GLYCO) L AB: BNP L AB: THYROID PANEL (T4/TSH/FREE T3) L AB: CMP (COMP MET NEGRETE) w/eGFR CKD-EPI L AB: CBC WITH DIFF 6. W eakness Referral To:Physical Therapy [facility] Physical Therapist Reason:balance therapy * Procedure Codes: 3 079F DIAST BP 80-89 MM HG, 3077F SYST BP > OR = 140 MM HG * * Electronic signature of Pepe Stephens MD, [id number] on 06/16/2025 at 06:37 AM EDT Sign off status: Pending Visit Status: C HK (Check Out) * Provider: Fredi Stephens ([facility])MD Date: 0 06/15/2025 Generated for Printi ng/Faxing/eTransmitting on: 0 06/16/2025 06:37 AM EDT History and Physical Notes * HPI (History of Present Illness) Category Sub-Category Detail Notes Category Not es General Dssed dementia- meds helpgi slow it down BP good control GERD - stable on meds Chol - on meds -need labs BPH- getting up Twice Examination Category Sub-Category Detail Notes Category Not es Physical Exam GENERAL: well developed, well nourished, in no acute distress HEAD: normocephalic/atraum atic EYES: pupils equal, round and reactive to light, conjunctivae and sclerae normal EARS: no deformity or lesi on of external ear, canals and TM appear normal bilaterally, TM's intact, not inflamed with normal light reflex, hearing grossly normal to conversational speech NOSE: no deformity, discha rge, inflammation, or lesions MOUTH: mucous membranes bonnie st, normal oropharynx and posterior pharynx without lesions or exudates, tongue normal, dentition normal NECK: neck supple, no mass es or palpable cervical nodes, trachea midline, thyroid without nodules, masses, tenderness, or enlargement CHEST: no chest wall deform ity, no chest wall tenderness LUNGS: normal respiratory e ffort and clear to auscultation, no wheezes, rales, or rhonchi, good air exchange CARDIO: 3/5 CRISTY TOMASZ border PULSES: normal capillary ref ill ABDOMEN: soft, non-distended, non-tender, no masses RECTAL: MUSCULOSKELETAL: no deformity or scol iosis noted, normal range of motion, joints normal, no erythema, edema, effusion, or ecchymosis EXTREMITY: no clubbing, cyanosi s, edema, or deformity with normal ROM in both upper and lower bilateral extremities NEUROLOGIC: grossly normal SKIN: no rashes, ulceratio ns, or suspicious lesions LYMPH NODES: no cervical adenopat hy, nodes normal MENTAL STATUS: alert and oriented x 3, normal mood and affect Consultation Request Notes Referral Date Referring Provider Referred Provider Not es 06/15/2025 Pepe Stephens, Physical Therapy [facility]
--- OUTSIDE RECORDS SUMMARY | 2025-06-15 05:37 | XMS_ITS ---
Author Organization [facility] in [place] Address [address] [place] [address] Care Team Providers Care Bonding Supervisor Name Role Phone Pepe Stephens Primary Care Provider REASON FOR VISIT Murmur Encounters Encounter Location Date Provider Diagnosis [facility] [address] [place] [address] 06/15/2025 Pepe Stephens Plan Of Treatment No Information Progress Notes * Matt BURROUGHS WDOB:[birth year] (85 yo M)Acc No.[id number]:06/15/2025 Patient: Luanne HAMMMatt WAN :1940 A ge:85 Y S ex:Male Address:[address], [address], [place], [address] * true * Date: Generated for Hadleyi ng/Famisaelg/eTransmitting on: 0 06/16/2025 06:36 AM EDT
--- OUTSIDE RECORDS SUMMARY | 2025-06-16 06:37 | XMS_ITS | Clinical Summary ---
Author Organization [facility] Address [address] [place] [address] Phone Care Team Providers Care Bill Of Lading Clerk Name Role Phone Generic Provider, No Assigned Pcp MD Primary Car e Provider Unavailable Allergies No known active allergies Social History Tobacco Use Types Packs/Day Years [...] - Tdap) 1962 COVID-19 Vaccine ( season) 2025 06/14/2024, 07/09/2023, 07/23/2022, Additional history exists Influenza [...] patient's age to complete this topic Insurance [employer] [place] [employer] PART A AND B [employer] [place] [employer] PART A AND B Care Teams Bill Of Lading Clerk Relationship Specialty Start Date End Date Generic Provider, No Assigned PcpMD [facility] [place] [address] PCP - General Sr. Social Media & Mobile Manager 03/03/25
--- OUTSIDE RECORDS SUMMARY | 2025-06-16 06:37 | XMS_ITS | Patient Health Record ---
Author Organization [facility] [place] Address [address] [place] [address] Care Team Providers Care Composing Room Machinist Name Role Phone Pepe Stephens Primary Care Provider Allergies Allergen (clinical drug ingredient) Drug/Non Drug Allergy documented on EMR Reaction Allergy Type Onset Date Status morphine Morphine Unknown Drug Allergy Active Penicillin Unknown Drug Allergy Active Results Component Value Reference Range Notes FREE T3 Reviewed date:08/25/2024 07:55:35 AM Interpretation: Performing Lab: Notes/Report: [facility] , Free T3 2.46 2.18-3.98 pg/mL Performing Lab: see note ML - [facility] LB GLYCOHEMOGLOBIN A1C Reviewed date:08/25/2024 07:55:35 AM Interpretation: Performing Lab: Notes/Report: [facility] , Glycohemoglobin A1C 6.0 4.5-6.2 % ADA THERAPEUTIC TARGET < 7.0 ACTION SUGGESTED ADA RECOMMENDED LIMIT 4.0 - 6.0 > 7.0 Estimated Average Glucose 126 Performing Lab: see note ML - [facility] LB LIPID PROFILE Reviewed date:08/25/2024 07:55:35 AM Interpretation: Performing Lab: Notes/Report: [facility] , Triglycerides 91 <=150 mg/dL Cholesterol 191 <=200 mg/dL HDL Cholesterol 87 40-60 mg/dL > or =60 mg/dl - LOW CARDIOVASCULAR RISK <40 mg/dl - HIGH CARDIOVASCULAR RISK LDL Cholesterol Calculated 86.0 130-159 mg/dl BORDERLINE HIGH <100 mg/dl OPTIMAL 100-129 mg/dl NEAR OR ABOVE OPTIMAL 160-189 mg/dl HIGH >190 mg/dl VERY HIGH VLDL CHOLESTEROL 18.2 Chol HDL Ratio 2.2 3.3 - 4.4 LOW RISK >11.0 HIGH RISK 4.4 - 7.1 AVERAGE RISK 7.1 - 11.0 MODERATE RISK Performing Lab: see note - [facility] LB PROF 14(COMP METB) Reviewed date:08/25/2024 07:55:35 AM Interpretation: Performing Lab: Notes/Report: [facility] , Sodium 142 136-145 mmol/L Potassium [...] 1.2 Performing Lab: see note ML - [facility] LB T4 Reviewed date:08/25/2024 07:55:35 AM Interpretation: Performing Lab: Notes/Report: [facility] , T4 Thyroxine 8.00 4.50-12.10 ug/dL Performing Lab: see note ML - [facility] LB TSH Reviewed date:08/25/2024 07:55:35 AM Interpretation: Performing Lab: Notes/Report: [facility] , Thyroid Stimulating Hormone 3.381 0.358-3.740 uIU/mL Performing Lab: see note - [facility] LB PSA SCREENING Reviewed date:08/25/2024 12:33:39 PM Interpretation: Performing Lab: Notes/Report: [facility] , Prostate Specific Antigen Scrn 0.52 <=4.00 ng/mL Performing Lab: see note ML - [facility] LB CBC AUTO DIFF Reviewed date:08/25/2024 07:55:35 AM Interpretation: Performing Lab: Notes/Report: [facility] , White Blood Count 5.3 4.0-11.0 [...] Performing Lab: see note ML - [facility] LB CA echo doppler complete Reviewed date:05/17/2025 08:15:55 PM Interpretation: Performing Lab: Notes/Report: Source Facility: [facility] [place] [address] [place] [address] Cardiology Report Signed Patient: MATT BURROUGHS MR#: [id number] : 1940 Acct:[id number] Age/Sex: 84 / M ADM Date: 05/17/25 Loc: CARD Attending Dr: Dante Simms M.D. Ordering Physician: Dante Simms M.D. Date of Service: 05/17/25 Procedure(s): CA echo doppler complete Accession Number(s): [id number] cc: Dante Simms M.D.; Mikael Stephens M.D. Patient Name: MATT BURROUGHS MR#: [id number] : 1940 Exam Date: 05/17/2025 Ordering Doctor: DR DANTE SIMMS M.D. ECHOCARDIOGRAM REPORT PROCEDURE: CA ECHO DOPPLER COMPLETE INDICATIONS: Aortic valve stenosis COMPARISON: None. DESCRIPTION: COMPLETE ECHOCARDIOGRAM Real-time transthoracic echocardiography with 2D, M-mode, spectral and color flow Doppler performed. QUALITY: Technical quality was good. LEFT VENTRICLE: Normal chamber size. Thickened posterior wall. Systolic function is normal. Estimated ejection fraction is 60%. LV EF: Normal left ventricular ejection fraction, (>55%). DIASTOLIC: Diastolic function is indeterminate. ATRIAL SEPTUM: LEFT ATRIUM: Normal chamber size. RIGHT ATRIUM: Mild dilatation. RIGHT VENTRICLE: Normal chamber size. Normal right ventricular systolic function. TRICUSPID VALVE: Normal mobility and thickness. No stenosis with mild regurgitation. No evidence of pulmonary hypertension. RVSP 22 mmHg. MITRAL VALVE: Mildly thickened with normal mobility. No evidence of mitral valve stenosis. There is no mitral annular calcification. Mild mitral regurgitation. AORTIC VALVE: The aortic valve is likely bicuspid, Mathew type I with fusion of the left and right coronary cusps. Moderately calcified aortic valve. Moderately diminished mobility. Doppler velocity suggest moderate to severe aortic valve stenosis. DVI 0.26, OKSANA 1.1 cm???, Vmax 2.53 m/s, peak/mean gradients 26/15 mmHg. No aortic regurgitation. AORTIC ROOT: Normal diameter and appearance, measuring 3.6 cm. The ascending aorta is mildly dilated measuring 3.7 cm which is unchanged from previous study. PULMONIC VALVE: Normal thickness and mobility. No stenosis. No regurgitation. PERICARDIUM: No evidence of pericardial effusion. IVC: Collapses with inspiration. Normal size. PLEURA: CONCLUSION: 1. The left ventricle is normal in size and exhibits normal systolic function. Estimated LVEF is 60%. 2. Normal right ventricular size and systolic function. 3. Likely bicuspid aortic valve with moderate stenosis and no regurgitation. 4. Mild mitral and tricuspid regurgitation. 5. Normal right-sided pressures. 6. Mildly dilated ascending aorta measuring 3.7 cm. Normal size aortic root. Adult Echocardiography Procedure Report Left Ventricle LVEDD (3.7 - 5.6 cm): 3.23 cm LVESD (2.2 - 4.0 cm): 2.30 cm LVIVS thickness (0.6 - 1.2 cm): 1.17 cm LVPW thickness (0.5 - 1.0 cm): 1.67 cm e': 0.06 m/s E - e': 8.20 LVOT Max Gradient: 1.81 mm[Hg] LVOT Area (cm2): 0.67 m/s Peak Velocity (LVOT): 0.67 m/s Mean Velocity (LVOT): 0.42 m/s LVOT Diameter 2.3 cm Left Ventricular Ejection Fraction: 60 % Left Atrium LA Volume Index (2D A2C): 27.00 ml/m2 Left Atrium Systolic Dimension: 3.02 cm Mitral Valve MV E to A Ratio: 1.04 Mitral Valve A-Wave Peak Velocity: 0.46 m/s Mitral Valve E-Wave Peak Velocity: 0.48 m/s Right Ventricle RV Internal Diastolic Dimension: 3.85 cm Aorta AO Root Diam: 3.60 cm Ascending Ao Diam: 3.74 cm Aortic Valve AoV Area (Peak Arnav): 0.90 cm2, 0.90 cm2, 1.07 cm2, 1.08 cm2 AoV Area (VTI): 0.85 cm2, 0.85 cm2 Peak Velocity(Antegrade Flow): 2.53 m/s, 2.10 m/s, 2.15 m/s Peak Gradient(Antegrade Flow): 25.57 mm[Hg], 17.70 mm[Hg], 18.43 mm[Hg] Mean Velocity(Antegrade Flow): 1.82 m/s Mean Gradient(Antegrade Flow): 15.23 mm[Hg] Velocity Time Integral: 56.07 cm Tricuspid Valve Peak Velocity (Regurgitant Flow): 2.20 m/s, 2.01 m/s, 2.08 m/s, 2.08 m/s Pulmonic Valve Mean Gradient: 3.04 mm[Hg], 3.20 mm[Hg] Mean Velocity: 0.79 m/s, 0.80 m/s Peak Velocity: 1.32 m/s Peak Gradient: 6.41 mm[Hg], 7.51 mm[Hg] Right Atrium Right Atrium Systolic Pressure: 49.04 ml, 49.04 ml Dictated by: Jorje Freire M.D. on 05/17/2025 at 12:25 Approved by: Jorje Freire M.D. on 05/17/2025 at 12:33 Dictated By: JORJE FREIRE Signed By: 05/17/25 1234 DD/ 1233 TD/TT: Sock Ironer: [place] [address] Cardiology Report Signed Patient: CLARENCE BURROUGHS IN W MR#: [id number] : 1940 Acct:[id number] Age/Sex: 84 / M ADM Date: 05/17/25 Loc: CARD Attending Dr: Dante Simms M.D. Ordering Physician: Dante Simms M.D. Date of Service: 05/17/25 Procedure(s): CA ech o doppler complete Accession Number(s): [id number] cc: Dante Simms; Mikael Stephens M.D. Patient Name: MATT BURROUGHS MR#: [id number] : 1940 Exam Date: 05/17/2025 Ordering Doctor: DR DANTE SIMMS M.D. ECHOCARDIOGRAM REPORT PROCEDURE: CA ECHO DOPPLER COMPLETE INDICATIONS: Aortic valve stenosis COMPARISON: None. DESCRIPTION: COMPLET E ECHOCARDIOGRAM Real-time transthoracic echocardiography wit h 2D, M-mode, spectral and color flow Doppler performed. QUALITY: Technical quality was good. LEFT VENTRICLE: Norm al chamber size. Thickened posterior wall. Systolic function is normal. Estimated ejection fraction is 60%. LV EF: Normal left ventricular ejection fraction, (>55%). DIASTOLIC: Diastolic function is indeterminate. ATRIAL SEPTUM: LEFT ATRIUM: Normal chamber size. RIGHT ATRIUM: Mild dilatation. RIGHT VENTRICLE: Nor mal chamber size. Normal right ventricular systolic function. TRICUSPID VALVE: Nor mal mobility and thickness. No stenosis with mild regurgitation. No evidence of pulmonary hypertension. RVSP 22 mmHg. MITRAL VALVE: Mildly thickened with normal mobility. No evidence of mitral valve stenosi s. There is no mitral annular calcification. Mild mitral regurgitation. AORTIC VALVE: The ao rtic valve is likely bicuspid, Mathew type I with fusion of the left a nd right coronary cusps. Moderately calcified aortic valve. Moderately diminished mobility. Doppler velocity suggest moderate to severe aortic valve stenosis. DVI 0.26, OKSANA 1.1 cm???, Vmax 2.53 m/s, peak/mean gradients 26/15 mmHg . No aortic regurgitation. AORTIC ROOT: Normal diameter and appearance, measuring 3.6 cm. The ascending aorta is mildly dilated measuring 3.7 cm which is unchanged from previous study. PULMONIC VALVE: Norm al thickness and mobility. No stenosis. No regurgitation. PERICARDIUM: No evid ence of pericardial effusion. IVC: Collapses with inspiration. Normal size. PLEURA: CONCLUSION: 1. The left ventricl e is normal in size and exhibits normal systolic function. Estimated LVEF is 60%. 2. Normal right ventricular size and systolic function. 3. Likely bicuspid aortic valve with moderate stenosis and no regurgitation. 4. Mild mitral and tricuspid regurgitation. 5. Normal right-side d pressures. 6. Mildly dilated ascending aorta measuring 3.7 cm. Normal size aortic root. Adult Echocardiograp hy Procedure Report Left Ventricle LVEDD (3.7 - 5.6 cm) : 3.23 cm LVESD (2.2 - 4.0 cm) : 2.30 cm LVIVS thickness (0.6 - 1.2 cm): 1.17 cm LVPW thickness (0.5 - 1.0 cm): 1.67 cm e': 0.06 m/s E - e': 8.20 LVOT Max Gradient: 1 .81 mm[Hg] LVOT Area (cm2): 0.6 7 m/s Peak Velocity (LVOT) : 0.67 m/s Mean Velocity (LVOT) : 0.42 m/s LVOT Diameter 2.3 cm Left Ventricular Ejection Fraction: 60 % Left Atrium LA Volume Index (2D A2C): 27.00 ml/m2 Left Atrium Systolic Dimension: 3.02 cm Mitral Valve MV E to A Ratio: 1.04 Mitral Valve A-Wave Peak Velocity: 0.46 m/s Mitral Valve E-Wave Peak Velocity: 0.48 m/s Right Ventricle RV Internal Diastoli c Dimension: 3.85 cm Aorta AO Root Diam: 3.60 cm Ascending Ao Diam: 3 .74 cm Aortic Valve AoV Area (Peak Arnav): 0.90 cm2, 0.90 cm2, 1.07 cm2, 1.08 cm2 AoV Area (VTI): 0.85 cm2, 0.85 cm2 Peak Velocity(Antegr sandy Flow): 2.53 m/s, 2.10 m/s, 2.15 m/s Peak Gradient(Antegr sandy Flow): 25.57 mm[Hg], 17.70 mm[Hg], 18.43 mm[Hg] Mean Velocity(Antegr sandy Flow): 1.82 m/s Mean Gradient(Antegr sandy Flow): 15.23 mm[Hg] Velocity Time Integr al: 56.07 cm Tricuspid Valve Peak Velocity (Regurgitant Flow): 2.20 m/s, 2.01 m/s, 2.08 m/s, 2.08 m/s Pulmonic Valve Mean Gradient: 3.04 mm[Hg], 3.20 mm[Hg] Mean Velocity: 0.79 m/s, 0.80 m/s Peak Velocity: 1.32 m/s Peak Gradient: 6.41 mm[Hg], 7.51 mm[Hg] Right Atrium Right Atrium Systoli c Pressure: 49.04 ml, 49.04 ml Dictated by: Jorje Freire M.D. on 05/17/2025 at 12:25 Approved by: Jorje Freire M.D. on 05/17/2025 at 12:33 Dictated By: JORJE FREIRE Signed By: 05/17/25 1234 DD/ 1233 TD/TT: Sock Ironer: Reason For Referral Reason balance therapy Diagnosis 1 Weakness (R53.1) Referral Organization [facility] [place] Referring Provider First Name Pepe Referring Provider Last Name Kat Referring Provider Speciality Family Med icine Referred Provider [facility], Physical Therap y Referred Provider Specialty Physical The rapist Referral Priority Routine Medications Medication SIG (Take, Route, Frequency, Duration) Notes Start Date End Date Status Acetaminophen 325 MG 1 tablet as needed Orally every 4 hrs Active Pantoprazole Sodium 40 MG TAKE ONE TABLE T BY MOUTH TWICE A DAY for 90 days Active Cohutta 3 340 MG 1 capsule Orally Onc e a day for 30 day(s) Active Namenda XR 28 MG 1 capsule Orally Onc e a day 06/03/2024 Active Lovastatin 40 MG TAKE ONE TABLET BY M OUTH DAILY for 30 days Active Vitamin D 50 MCG (2000 UT) 1 tablet Oral ly Once a day for 30 day(s) Active Cinnamon 500 MG 2 capsules Orally Daily Active Cerefolin 6-1-50-5 MG 1 tablet Orally On ce a day 06/03/2024 Active Aspirin 81 MG 1 tablet Orally Once a day for 30 day(s) Active Proscar [...] needed Orally Six times a day Active Vitamin C 1000 MG 1 tablet Orally Once a day for 30 day(s) Active FeroSul 325 (65 Fe) MG TAKE ONE TABLET B Y MOUTH DAILY for 30 Active Donepezil HCl 23 MG 1 tablet Orally Once a day for 30 days Active Social History Tobacco Use: Social History [...] Problem Status W/U Status Risk Notes Problem 57907902 Essential (prima ry) hypertension (I10) Active confirmed Problem 000738197 Hyperlipidemia, unspecified (E78.5) Active confirmed Problem 796231165 Nonrheumatic aor tic (valve) stenosis (I35.0) Active confirmed Problem 416530016 Paroxysmal atria l fibrillation (I48.0) Active confirmed Problem Lumbosacral spondylosis without myelopathy (92664504) Other spondylosis with radiculopathy, lumbar region (M47.26) Active confirmed Problem 38379095 Bradycardia, unspecified (R00.1) Active confirmed Problem 196059965 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 (R41.81) Active confirmed Problem Atrial fibrillation (74508760) Atrial fibrillation (I48.91) Active confirmed Problem Hypertension (38308704) HTN (hypertension) (I10) Active confirmed Problem Hip pain (91456249) Hip pain (M25.559) Active c onfirmed Problem Impacted cerumen (07329251) Cerumen impaction (H61.20) Active confirmed Problem Disorder of lumbar disc (378744420) Lumbar disc disease (M51.9) Active confirmed Problem Acute bronchitis (26804353) Acute bronchitis (J20.9) Active confirmed Problem Gastritis (7643735) Gastritis (K29.70) Active c onfirmed Problem Well adult (883241732) Well adult (Z00.00) Activ e confirmed Problem Acquired spondylolisthesis (546804472) Spondylolisthesis of lumbar region (M43.16) Active confirmed Problem Displacement of lumb ar intervertebral disc without myelopathy (79410901) Lumbar disc displacement without myelopathy (M51.26) Active confirmed Problem Acute bronchiolitis (8593335) Acute bronchiolitis (J21.9) Active confirmed Problem Heart murmur (49091908) Cardiac murmur (R01.1) Active confirmed Problem Poor balance (854088521) Poor balance (R26.89) Active confirmed Problem Poor long-term memor y (019481054) Poor long-term memory (R41.3) Active confirmed Problem Pure hypercholesterolemia (734308664) Pure hypercholesterolemi a, unspecified (E78.00) Active confirmed Problem Neurogenic claudication (436883891) 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 [address] [place] [address] 11/03/[address] [facility] [address] [place] [address] 11/29/2024 [facility] [address] [place] [place] [address] 06/02/2025 [facility] [address] [place] [place] [address] 06/15/[address] [facility] [address] [place] [place] [address] 08/02/2024 [facility] [address] [place] [place] [address] 08/25/2024 [facility] [address] [place] [place] [address] 06/15/2025 Pepe Stephens Cardiac murmur R01.1 ; Paroxysmal atrial fibrillation [...] PANEL) 3 CMP (COMPLETE METABOLIC PANEL) 4 CMP (COMPLETE METABOLIC PANEL) 3 HEMOGLOBIN A1C (GLYCO) 02/27/2023 HEMOGLOBIN A1C (GLYCO) 06/03/2024 HEMOGLOBIN A1C (GLYCO) 06/15/2025 HEMOGLOBIN A1C (GLYCO) 07/21/2023 INSULIN, TOTAL 07/21/2023 IRON, TOTAL 02/27/2023 LIPID PANEL (CHOL/TRIG/HDL/LDL) 02/28/20 23 LIPID PANEL (CHOL/TRIG/HDL/LDL) 06/03/20 24 LIPID PANEL (CHOL/TRIG/HDL/LDL) 07/21/20 23 CBC WITH DIFF 07/21/2023 CBC WITH DIFF 06/03/2024 CBC WITH DIFF 02/27/2023 PSA, PROSTATE-SPECIFIC ANTIGEN 3 PSA, PROSTATE-SPECIFIC ANTIGEN 3 VITAMIN D, 25 LEVEL (TOTAL) 02/27/2023 MRI Brain w/o contrast 07/21/2023 PSA, TOTAL 06/03/2024 STOOL OCCULT BLOOD 07/21/2023 BNP 06/15/2025 THYROID PANEL (T4/TSH/FREE T3) 5 THYROID PANEL (T4/TSH/FREE T3) 3 THYROID PANEL (T4/TSH/FREE T3) 4 THYROID PANEL (T4/TSH/FREE T3) 3 ECHOCARDIO M/2D COMPLETE 02/27/2023 CMP (COMP MET NEGRETE) w/eGFR CKD-EPI 2024 CBC WITH DIFF 06/15/2025 Insurance Providers Payer Name Payer Address Payer Phone Subscriber Number Group Number Insured Name Patient Relationship to Insured Coverage Start Date Coverage End Date MEDIC[place] [address] [place] [address] [id number] Matt Burroughs Self - patient is the insured 8 [employer] [place] [address] [employer] [address] [facility] 8 [place] [address] [phone] [id number] Matt Burroughs Self - patient is the [...] HTN (hypertension) I10 Surgical History Surgery Date(Month/Year) lumbar fusion 2017 tonsillectomy hemilaminotomy lumbar disectomy left total Hip 2004 right hip replacemnt
--- OUTSIDE RECORDS SUMMARY | 2025-06-16 06:37 | XMS_ITS | Encounter Summary ---
Author Organization [facility] Address [address] [place] [address] Care Team Providers Care Hook Up Driver Name Role Phone Mikael Stephens MD Primary Care Provider [phone] Encounter Details Date Type Department Care Team (Late st Contact Info) Description 06/15/2025 Telephone [facility] [address] [place] [address] Mehnaz Mesa MA Social History Tobacco Use Types Packs/Day Years Used Date Smoking Tobacco: Former Cigarettes Q uit: 1964 Smokeless Tobacco: Never [place] Safety & Environment Answer Date Rec [...] on file documented as of this encounter Miscellaneous Notes * Telephone Encounter - Mehnaz Mesa MA - 06/15/2025 11:01 AM EDT BP was 142/84. They do not check HR at Dr. Stehpens's office. No weight gain. Nurse Marielena was going to check with Dr. Stephens to see if patient reported any new symptoms and let us know if he did. * Telephone Encounter - Mehnaz Mesa MA - 06/15/2025 9:[address] Stephens's office called today to make you aware of new murmur he heard on today in the office. He just had echo in May 2025. He isn't due back to see you until December 2025. Would you like to see him soon? Or does he need further testing? Please advise. Thanks. documented in this encounter Plan of Treatment Not on file documented as of this encounter Visit Diagnoses Not on filedocumented in this encounter Care Teams Hook Up Driver Relationship Specialty Start Date End Date Mikael Stephens MD [address] [facility] [place] [address] PCP - General 03/27/23 documented as of this encounter
--- OUTSIDE RECORDS SUMMARY | 2025-06-16 06:37 | XMS_ITS | Clinical Summary ---
Author Organization [facility] Address [address] [place] [address] Care Team Providers Care Food Specialist Name Role Phone Mikael Stephens MD Primary Care Provider [phone] Allergies Active Allergy Reactions Criticality Noted Date [...] 09/08/2023 12/31/2023 Acute pain of left shoulder 08/25/2023 03/04/2024 Contusion of right hand 08/25/2023 12/31/19 History [...] Encounters Date Type Department Care Team Description 06/15/2025 Telephone [facility] [address] [place] [address] Mehnaz Mesa MA 05/18/2025 Telephone [facility] [address] [place] [address] Mehnaz Mesa MA 05/17/2025 Orders Only [facility] [address] [place] [address] Provider, MD Suyapa from Last 3 Months Family History Medical [...] Risk Screening 2007 COVID-19 Vaccine ( season) 2025 06/14/2024, 07/09/2023, [...] Procedure Name Priority Date/Time Associated Diagnosis Comments COMPLETE TRANSTHORACIC ECHO (TTE) W/WO IMAGING AGENT, STRAIN, 3D, BUBBLE STUDY Routine 05/17/2025 1:02 PM EDT from Last 3 Months Results * Complete Echo (TTE) w/wo Imaging Agent, Strain, 3D, Bubble Study (05/17/2025 1:02 PM EDT) Anatomical Region Laterality Modality Ultrasound us Historical Provider MD [place] ECHO PROCEDURES Final Result from Last 3 Months Insurance [place] [address] Care Teams Food Specialist Relationship Specialty Start Date End Date Mikael Stephens MD [address] [facility] [address] [address] PCP - General 03/27/23
--- OUTSIDE RECORDS SUMMARY | 2025-06-16 06:37 | XMS_ITS | CCD ---
Author Organization [facility] Care Team Providers Care Railroad Worker Name Role Phone PHYSICIAN, DEFAULT Unavailable Unavailable PHYSICIAN, DEFAULT Unavailable Unavailable [place], EHAB A Unavailable Unavailable [place], EHAB A Unavailable Unavailable SELF, REFERRED Unavailable Unavailable SELF, REFERRED Unavailable Unavailable Rosalia Stephens Primary Care Physician DRISS ., DR LINDSEY Primary Care Unavailable [...] Primary Care Provider UnavailAlfa Amin Attending Unavailable Generic Provider , No Assigned Pcp Primary Car e Provider Unavailable WALKER TO Referring Unavailable WALKER TO Attending Unavailable WALKER TO Attending Unavailable WALKER TO Attending Unavailable WALKER TO Attending Unavailable [place], EHAB Attending Unavailable Allergies Allergy Classification Reported Allergen(s) Allergy Type Date of Onset Reaction(s) Facility (16 sources) Morphine; Translations: [morphine] Drug Allergy 7 Unknown [facility] (4 sources) Penicillin; Translations: [penicillin] Drug Allergy Unknown (qualifier value) [facility] (2 sources) Morphine Drug Allergy 7 [facility] (2 sources) Penicillins; Translations: [PENICILLINS] Drug allergy (disorder) 6 [facility] (11 sources) Penicillins Drug Allergy 3 [...] day(s), # 90 tab(s), Refills(s) 3, Pharmacy: [facility] [id number], 178, cm, 05/12/23 9:20:00 EDT, Height/Length Dosing, [...] mg extended release oral capsule (11 sources) V-ymqdns-Q-asparta te Receptor Antagonist Start: 05-14-2024 End: 01-09-2025 [...] Ordered Start: 05-14-2019 take 1 tablet by [facility] once daily pantoprazole 40 mg Oral [...] day(s), # 30 cap(s), Refills(s) 11, Pharmacy: [facility] [id number], 178, cm, 05/12/23 9:20:00 EDT, Height/Length Dosing, 76.1, kg, 05/12/23 9:20:00 EDT, Weight Dosing Start Date: 02/04/24 Stop Date: 01/29/25 Status: Ordered Start: 10-28-2021 End: 01-17-2024 take 1 capsule by mouth once daily tamsulosin 0.4 mg Cap 0.4 mg = 1 cap(s), Oral, Daily, X 90 day(s), # 90 cap(s), Refills(s) 3, Pharmacy: [facility] [id number], 178, cm, 08/13/21 10:37:00 EST, Height/Length Dosing, [...] Active Start: 09-26-2021 take 1 capsule by [facility] once daily tolterodine 4 mg Cap-ER 4 mg = 1 cap(s), Oral, Daily, # 30 cap(s), Refills(s) 11, Pharmacy: [id number], 178, cm, 08/13/21 10:37:00 EST, Height/Length [...] period., # 30 tab(s), Refills(s) 2, Pharmacy: [facility] [id number], 178, cm, 08/13/21 10:37:00 EST, Height/Length Dosing, 77, kg, 08/13/21 10:37:00 EST, Weight Dosing Start Date: 12/04/22 Status: Ordered Start: 01-02-2021 take 1 tablet by [facility] every hour tadalafil 20 mg Tab 20 mg = 1 tab(s), Oral, Daily, take 1 tab 1 hour prior to sexual activity, # 30 tab(s), Refills(s) 6, Pharmacy: [id number] Start Date: 01/02/21 Status: Ordered Vitamin B12 [...] source) Long-term current use of anticoagulant; Translations: [MCFP (current) use of anticoagulants] Onset: 05-12-2023 Episodic [...] aftercare (2 sources) Drug therapy finding; Translations: [MCFP (current) use of anticoagulants] Onset: 12-23-2024 04-04-2025 Episodic Other connective tissue disease (11 sources) Pain in right hand; Translations: [Pain in right hand] Onset: 08-25-2023 08-25-2023 Episodic Other non-traumatic joint disorders (11 sources) Pain in left shoulder; Translations: [Pain in joint, shoulder region] Onset: 08-25-2023 3 Episodic Other non-traumatic joint disorders (11 sources) [...] Name Value Interpretation Reference Range Facility 36on 05-18-2025 36 Regarding echo resul t from 05/17/2025: Dante Simms MD to Nd (Selected Message) 05/18/25 7:29 AM Please reassure him that his echo is stable and aortic stenosis is still 'moderate' Thanks. Patient informed. Normal [facility] Orders Onlyon 05-17-2025 Orders Only [id number] Matt Burroughs 1940 M Date Provider Department [place] 05/17/2025 [id number], HISTORICAL [facility] Family History Problem Relation Age of Onset No Known Problems Mother No Known Problems Father Heart failure Sister Family Status - Relation Status Age at Mother Father Sister Normal [facility] NM PET CT AMYLOID BRAINon NM PET CT AMYLOID BRAIN Interpreted By: Ebony Ricardo and Kaur Arashdeep STUDY: NM PET CT AMYLOID BRAIN; 03/04/2025 2:26 pm INDICATION: Signs/Symptoms:DIANA IA. COMPARISON: None. ACCESSION NUMBER(S): [id number] ORDERING CLINICIAN: WALKER TO TECHNIQUE: DIVISION OF [...] images digitally fused for display. CALIBRATION: Dose Dpfmgooed-jr-Mqvm Interval (mins): 53 min FINDINGS: There is [...] Roberts MD. This study was interpreted at [facility], [place], [place]. MACRO: None Signed by: Ebony Ricardo 03/04/2025 3:20 PM Dictation workstation: [id number] Normal [facility] PET+CT Brain for amyloidosis on 03-04-2025 1. [...] Roberts MD. This study was interpreted at [facility], [place], [place]. MACRO: None Signed by: Ebony Ricardo 03/04/2025 3:20 PM Dictation workstation: [id number] [facility] Interpreted By: Ebony Ricardo and Kaur Arashdeep STUDY: NM PET CT AMYLOID BRAIN; 03/04/2025 2:26 pm INDICATION: Signs/Symptoms:DIANA IA. COMPARISON: None. ACCESSION NUMBER(S): [id number] ORDERING CLINICIAN: WALKER TO TECHNIQUE: DIVISION OF [...] images digitally fused for display. CALIBRATION: Dose Pgvrsiccl-dc-Nlkn Interval (mins): 53 min FINDINGS: There is no increased F-18 florbetapir uptake seen in the cortical cerebral batista matter. The cerebellum has no abnormal florbetapir uptake. The centiloid values -9.0 (normal value less than 24.4). [facility] Ebony Ricardo MD - 03/04/2025 Interpreted By: Ebony Ricardo and Kaur Arashdeep STUDY: NM PET CT AMYLOID BRAIN; 03/04/2025 2:26 pm INDICATION: Signs/Symptoms:DIANA IA. COMPARISON: None. ACCESSION NUMBER(S): [id number] ORDERING CLINICIAN: WALKER TO TECHNIQUE: DIVISION OF [...] images digitally fused for display. CALIBRATION: Dose Vthrxctzu-yr-Qxnb Interval (mins): 53 min FINDINGS: There is [...] Roberts MD. This study was interpreted at [facility], [place], [place]. MACRO: None Signed by: Ebony Ricardo 03/04/2025 3:20 PM Dictation workstation: [id number] [facility] Work Phone: Radiology Study observation (narrative) [facility] Work Phone: PET+CT Brain for amyloidosis Ordered By: Ebony Ricardo on 03-04-2025 [facility] Work Phone: Office Visiton 12-23-2024 Follow-up visit [id number] Matt Burroughs 1940 M Date Provider Department Center 12/23/2024 Jesus-DANTE SIMMS [facility] Family History Problem Relation Age of Onset No Known Problems Mother No Known Problems Father Heart failure Sister Family Status - Relation Status Age at Mother Father Sister Level of Service:54403 DE OFFICE/OUTPATIENT ESTABLISHED LOW MDM 20 MIN Normal [facility] INSULINon 07-02-2022 Insulin 6.3 uIU/mL Normal 2.6-24.9 [facility] Comment on above: Performed By: #### I NSULIN #### [facility] [address] [address] [address] Robyn Espinal T4, T3U, FTI LABCORPon 07-02 Free Thyroxine Index 1.6 Normal 1.2-4.9 [facility] Comment on above: Performed By: #### T HYLC #### [facility] [address] [address] [address] Robyn Espinal T3 Uptake 27 % Normal 24-39 [facility] Comment on above: Performed By: #### T HYLC #### [facility] [address] [address] [address] Robyn Espinal T4 [Mass/Vol] 5.8 ug/dL Normal 4.5-12.0 [facility] Comment on above: Performed By: #### T HYLC #### [facility] [address] [place] [address] Dr. Robyn Espinal CBC AUTO DIFFon 07-01-2022 BASO # 0.0 103/ul Normal 0.0-0.1 [facility] Comment on above: Performed By: #### C BC #### [facility] [address] [place] [address] Dr. Robyn Espinal Basophils/100 WBC (Bld) 0.6 % Normal 0.2-2.0 [facility] Comment on above: Performed By: #### C BC #### [facility] [address] [place] [address] Dr. Robyn Espinal EO # 0.1 103/ul Normal 0.0-0.7 [facility] Comment on above: Performed By: #### C BC #### [facility] [address] [place] [address] Dr. Robyn Espinal Eosinophils/100 WBC (Bld) 1.9 % Normal 0.9-7.0 [facility] Comment on above: Performed By: #### C BC #### [facility] [address] [place] [address] Dr. Robyn Espinal Erythrocyte distribution width (RBC) [Ratio] 13.1 % Normal 11.0-15.0 [facility] Comment on above: Performed By: #### C BC #### [facility] [address] [place] [address] Dr. Robyn Espinal Hematocrit (Bld) [Volume fraction] 39.5 % Critically low 42.0-54.0 [facility] Comment on above: Performed By: #### C BC #### [facility] [address] [place] [address] Dr. Robyn Espinal Hemoglobin (Bld) [Mass/Vol] 12.9 g/dL Critically low 14.0-18.0 [facility] Comment on above: Performed By: #### C BC #### [facility] [address] [place] [address] Dr. Robyn Espinal IG # 0.01 10e3/ul Normal 0.00-0.03 [facility] Comment on above: Performed By: #### C BC #### [facility] [address] [place] [address] Dr. Robyn Espinal IG % 0.2 % Normal 0.0-0.5 [facility] Comment on above: Performed By: #### C BC #### [facility] [address] [place] [address] Dr. Robyn Espinal LYMPH # 1.3 103/ul Normal 1.2-3.8 [facility] Comment on above: Performed By: #### C BC #### [facility] [address] [place] [address] Dr. Robyn Espinal Lymphocytes/100 WBC (Bld) 27.2 % Normal 20.5-60.0 [facility] Comment on above: Performed By: #### C BC #### [facility] [address] [place] [address] Dr. Robyn Espinal MANUAL DIFF REQ NO Normal [facility] Comment on above: Performed By: #### C BC #### [facility] [address] [place] [address] Dr. Robyn Espinal MCH (RBC) [Entitic mass] 31.8 pg Normal 25.9-34.0 [facility] Comment on above: Performed By: #### C BC #### [facility] [address] [place] [address] Dr. Robyn Espinal MCHC (RBC) [Mass/Vol] 32.7 g/dL Normal 29.9-35.2 [facility] Comment on above: Performed By: #### C BC #### [facility] [address] [place] [address] Dr. Robyn Espinal MCV (RBC) [Entitic vol] 97.3 fL Critically high 80.0-94.0 [facility] Comment on above: Performed By: #### C BC #### [facility] [address] [place] [address] Dr. Robyn Espinal MONO # 0.7 103/ul Normal 0.3-0.8 [facility] Comment on above: Performed By: #### C BC #### [facility] [address] [address] [address] Robyn Espinal Monocytes/100 WBC (Bld) 14.7 % Critically high 1.7-12.0 [facility] Comment on above: Performed By: #### C BC #### [facility] [address] [address] [address] Robyn Espinal NEUT # 2.6 103/ul Normal 1.4-6.5 [facility] Comment on above: Performed By: #### C BC #### [facility] [address] [address] [address] Robyn Espinal Neutrophils/100 WBC (Bld) 55.4 % Normal 43.0-75.0 [facility] Comment on above: Performed By: #### C BC #### [facility] [address] [address] [address] Robyn Espinal Platelet mean volume (Bld) [Entitic vol] 9.7 fL Normal 9.5-13.5 [facility] Comment on above: Performed By: #### C BC #### [facility] [address] [address] [address] Robyn Espinal PLT 205 103/ul Normal 150-450 [facility] Comment on above: Performed By: #### C BC #### [facility] [address] [address] [address] Robyn Espinal RBC 4.06 106/ul Critically low 4.70-6.10 [facility] Comment on above: Performed By: #### C BC #### [facility] [address] [address] [address] Robyn Espinal WBC 4.7 103/ul Normal 4.0-11.0 [facility] Comment on above: Performed By: #### C BC #### [facility] [address] [address] [address] Robyn Espinal GLYCOHEMOGLOBIN A1Con 2021 ADA RECOMMENDATION SEE BELOW Normal [facility] Comment on above: Result Comment: ADA RECOMMENDED LIMIT 4.0 - 6.0 ADA THERAPEUTIC TARGET < 7.0 ACTION SUGGESTED > 7.0 Performed By: #### A 1C #### [facility] [address] [address] [address] Robyn Espinal Glucose [Mass/Vol] 128 mg/dL Normal [facility] Comment on above: Performed By: #### A 1C #### [facility] [address] [address] [address] Robyn Espinal HbA1c (Bld) [Mass fraction] 6.1 % Normal 4.5-6.2 [facility] Comment on above: Performed By: #### A 1C #### [facility] [address] [address] [address] Robyn Espinal LIPID PROFILEon 07-01-2022 CHOL-HDL RATIO NORM SEE BELOW Normal [facility] Comment on above: Result Comment: 3.3 - 4.4 LOW RISK 4.4 - 7.1 AVERAGE RISK 7.1 - 11.0 MODERATE RISK >11.0 HIGH RISK Performed By: #### T SH, LIPID, CMP, URIC #### [facility] [address] [address] [address] Robyn Espinal Cholesterol [Mass/Vol] 201 mg/dL Critically high <=200 [facility] Comment on above: Performed By: #### T SH, LIPID, CMP, URIC #### [facility] [address] [address] [address] Robyn Espinal Cholesterol in HDL [Mass/Vol] 82 mg/dL Critically high 40-60 [facility] Comment on above: Performed By: #### T SH, LIPID, CMP, URIC #### [facility] [address] [address] [address] Robyn Espinal Cholesterol in LDL [Mass/Vol] 102.4 mg/dL Normal [facility] Comment on above: Performed By: #### T SH, LIPID, CMP, URIC #### [facility] [address] [address] [address] Robyn Espinal Cholesterol.total/Chol esterol in HDL [Mass ratio] 2.5 {ratio} Normal [facility] Comment on above: Performed By: #### T SH, LIPID, CMP, URIC #### [facility] [address] [address] [address] Robyn Espinal HDL NORMAL > or = 60 mg/dl - LO W CARDIOVASCULAR RISK <40 mg/dl - HIGH CARDIOVASCULAR RISK Normal [facility] Comment on above: Performed By: #### T SH, LIPID, CMP, URIC #### [facility] [address] [address] [address] Robyn Espinal LDL CALC NORMAL SEE BELOW Normal [facility] Comment on above: Result Comment: <100 mg/dl OPTIMAL 100 - 129 mg/dl NEAR OR ABOVE OPTIMAL 130 - 159 mg/dl BORDERLINE HIGH 160 - 189 mg/dl HIGH >190 mg/dl VERY HIGH Performed By: #### T SH, LIPID, CMP, URIC #### [facility] [address] [address] [address] Robyn Espinal Triglyceride [Mass/Vol] 83 mg/dL Normal <=150 [facility] Comment on above: Performed By: #### T SH, LIPID, CMP, URIC #### [facility] [address] [address] [address] Robyn Espinal VLDL CALC 16.6 mg/dL Normal [facility] Comment on above: Performed By: #### T SH, LIPID, CMP, URIC #### [facility] [address] [address] [address] Robyn Espinal PROF 14(COMP METB)on 022 Albumin [Mass/Vol] 3.7 g/dL Normal 3.4-5.0 [facility] Comment on above: Performed By: #### T SH, LIPID, CMP, URIC #### [facility] [address] [address] [address] Robyn Espinal Albumin/Globulin [Mass ratio] 1.2 {ratio} Normal [facility] Comment on above: Performed By: #### T SH, LIPID, CMP, URIC #### [facility] [address] [address] [address] Robyn Espinal ALP [Catalytic activity/Vol] 68 U/L Normal 46-116 [facility] Comment on above: Performed By: #### T SH, LIPID, CMP, URIC #### [facility] [address] [address] [address] Robyn Espinal ALT [Catalytic activity/Vol] 21 U/L Normal 16-63 [facility] Comment on above: Performed By: #### T SH, LIPID, CMP, URIC #### [facility] [address] [address] [address] Robyn Espinal Anion gap [Moles/Vol] 7.7 mmol/L Normal [facility] Comment on above: Performed By: #### T SH, LIPID, CMP, URIC #### [facility] [address] [address] [address] Robyn Espinal AST [Catalytic activity/Vol] 14 U/L Critically low 15-37 [facility] Comment on above: Performed By: #### T SH, LIPID, CMP, URIC #### [facility] [address] [place] [address] Dr. Robyn Espinal Bilirubin [Mass/Vol] 0.8 mg/dL Normal 0.2-1.0 [facility] Comment on above: Performed By: #### T SH, LIPID, CMP, URIC #### [facility] [address] [place] [address] Dr. Robyn Espinal Calcium [Mass/Vol] 9.3 mg/dL Normal 8.5-10.1 [facility] Comment on above: Performed By: #### T SH, LIPID, CMP, URIC #### [facility] [address] [address] [address] Robyn Espinal Chloride [Moles/Vol] 105 mmol/L Normal 98-107 [facility] Comment on above: Performed By: #### T SH, LIPID, CMP, URIC #### [facility] [address] [place] [address] Dr. Robyn Espinal CO2 [Moles/Vol] 30.7 mmol/L Normal 21.0-32.0 [facility] Comment on above: Performed By: #### T SH, LIPID, CMP, URIC #### [facility] [address] [place] [address] Dr. Robyn Espinal Creatinine [Mass/Vol] 1.03 mg/dL Normal 0.70-1.30 [facility] Comment on above: Performed By: #### T SH, LIPID, CMP, URIC #### [facility] [address] [place] [address] Dr. Robyn Espinal EGFR-AF NIUEAN >60 Normal >=60 [facility] Comment on above: Performed By: #### T SH, LIPID, CMP, URIC #### [facility] [address] [address] [address] Robyn Espinal EGFR-NON AF NIUEAN >60 Normal >=60 [facility] Comment on above: Performed By: #### T SH, LIPID, CMP, URIC #### [facility] [address] [place] [address] Dr. Robyn Espinal Globulin (S) [Mass/Vol] 3.0 g/dL Normal [facility] Comment on above: Performed By: #### T SH, LIPID, CMP, URIC #### [facility] [address] [place] [address] Dr. Robyn Espinal Glucose [Mass/Vol] 110 mg/dL Critically high 74-106 [facility] Comment on above: Performed By: #### T SH, LIPID, CMP, URIC #### [facility] [address] [place] [address] Dr. Robyn Espinal Potassium [Moles/Vol] 4.4 mmol/L Normal 3.5-5.1 [facility] Comment on above: Performed By: #### T SH, LIPID, CMP, URIC #### [facility] [address] [place] [address] Dr. Robyn Espinal Protein [Mass/Vol] 6.7 g/dL Normal 6.4-8.2 [facility] Comment on above: Performed By: #### T SH, LIPID, CMP, URIC #### [facility] [address] [place] [address] Dr. Robyn Espinal Sodium [Moles/Vol] 139 mmol/L Normal 136-145 [facility] Comment on above: Performed By: #### T SH, LIPID, CMP, URIC #### [facility] [address] [place], [place] [address] Dr. Robyn Espinal Urea nitrogen [Mass/Vol] 24.0 mg/dL Critically high 7.0-18.0 [facility] Comment on above: Performed By: #### T SH, LIPID, CMP, URIC #### [facility] [address] [address] [address] Robyn Espinal Urea nitrogen/Creatinine [Mass ratio] 23.3 mg/mg Normal [facility] Comment on above: Performed By: #### T SH, LIPID, CMP, URIC #### [facility] [address] [place] [address] Dr. Robyn Espinal TSHon 07-01-2022 TSH 2.293 uIU/mL Normal 0.358-3.740 [facility] Comment on above: Performed By: #### T SH, LIPID, CMP, URIC #### [facility] [address] [place] [address] Dr. Robyn Espinal URIC ACID SERUMon 07-01-2022 Urate [Mass/Vol] 5.5 mg/dL Normal 3.5-7.2 [facility] Comment on above: Performed By: #### T SH, LIPID, CMP, URIC #### [facility] [address] [place] [address] Dr. Robyn Espinal Vital Signs Date Time Vital Sign Value Performing Clinician Facility 04-04-2025 08:53-0400 Body height 175.3 cm Walker To MD Work Phone: [facility] 04-04-2025 08:53-0400 Body mass index (BMI) [Ratio] 24.07 kg/m2 Walker To MD Work Phone: [facility] 04-04-2025 08:53-0400 Body weight 73.94 kg Walker To MD Work Phone: [facility] 04-04-2025 08:53-0400 Diastolic blood pressure 82 mm[Hg] Walker To MD Work Phone: [facility] 04-04-2025 08:53-0400 Systolic blood pressure 118 mm[Hg] Walker To MD Work Phone: [facility] 02-07-2025 08:19-0400 Body height 175.3 cm Walker To MD Work Phone: [facility] 02-07-2025 08:19-0400 Body mass index (BMI) [Ratio] 24.66 kg/m2 Walker To MD Work Phone: [facility] 02-07-2025 08:19-0400 Body weight 75.75 kg Walker To MD Work Phone: [facility] 02-07-2025 08:19-0400 Diastolic blood pressure 84 mm[Hg] Walker To MD Work Phone: [facility] 02-07-2025 08:19-0400 Systolic blood pressure 148 mm[Hg] Walker To MD Work Phone: [facility] 10-11-2024 08:18-0500 Body height 175.3 cm Walker To MD Work Phone: [facility] 10-11-2024 08:18-0500 Body mass index (BMI) [Ratio] 24.66 kg/m2 Walker To MD Work Phone: [facility] 10-11-2024 08:18-0500 Body weight 75.75 kg Walker To MD Work Phone: [facility] 10-11-2024 08:18-0500 Diastolic blood pressure 84 mm[Hg] Walker To MD Work Phone: [facility] 10-11-2024 08:18-0500 Systolic blood pressure 136 mm[Hg] Walker To MD Work Phone: [facility] 05-12-2023 09:11-0400 Blood Pressure Location Alfa PHOEBE [facility] 05-12-2023 09:11-0400 Diastolic blood pressure 82 mm[Hg] Alfa SANDHU [facility] 05-12-2023 09:11-0400 Heart rate 79 /min Alfa SANDHU [facility] 05-12-2023 09:11-0400 Respiratory rate 16 /min Alfa SANDHU [facility] 05-12-2023 09:11-0400 Systolic blood pressure 131 mm[Hg] Alfa SANDHU [facility] Encounters Encounter Date Encounter Type Care Provider Facility Start: 04-04-2025 End: 04-04-2025 Prem To MD Work Phone: [facility] Start: 04-04-2025 End: 04-04-2025 Prem To MD Work Phone: [facility] Start: 04-04-2025 End: 04-04-2025 ambulatory WALKER TO Not Available Start: 04-04-2025 End: 04-04-2025 Office outpatient visit 25 minutes Walker To MD Work Phone: [facility] Comment on above: 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 Start: 03-04-2025 End: 03-04-2025 Subsequent hospital visit by physician [facility] [place] [id number] Admin Room Pet [facility] Comment on above: Alzheimer's disease with early onset (CODE); Dementia in other diseases classified elsewhere, unspecified severity, without behavioral disturbance, psychotic disturbance, mood disturbance, and anxiety (Multi) Arrived Start: 03-04-2025 End: 03-04-2025 ambulatory WALKER TO [facility] Start: 02-07-2025 End: 02-07-2025 Prem To MD Work Phone: [facility] Start: 02-07-2025 End: 02-07-2025 Bamboo flowsheet Walker To MD Work Phone: [facility] Start: 02-07-2025 End: 02-07-2025 Office outpatient visit 25 minutes Walker To MD Work Phone: [facility] Comment on above: Dementia of the Alzh eimer's type, with early onset, uncomplicated (CMS/HCC) (Primary Dx) Start: 02-07-2025 End: 02-07-2025 ambulatory WALKER TO Not Available Start: 01-31-2025 End: 01-31-2025 Office outpatient visit 15 minutes Walker To MD Work Phone: [facility] Comment on above: 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 (Primary Dx) Start: 12-23-2024 End: 12-23-2024 ambulatory AB [facility] Start: 10-11-2024 End: 10-11-2024 Office outpatient visit 25 minutes Walker To MD Work Phone: [facility] Comment on above: 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 (Primary Dx) Start: 10-11-2024 End: 10-11-2024 ambulatory WALKER TO Not Available Start: 05-17-2024 End: 05-17-2024 ambulatory Alfa SANDHU Facility:[facility] Start: 05-17-2024 End: 05-17-2024 Patient encounter procedure Alfa SANDHU [facility] Start: 05-14-2024 End: 05-14-2024 ambulatory WALKER TO Not Available Start: 11-12-2023 Chart abstracting Walker castillo MD Work Phone: [facility] 210 Start: 05-12-2023 End: 05-12-2023 Patient encounter procedure Alfa SANDHU [facility] Start: 03-11-[address] ROSALIA STEPHENS . Facili ty:H1 Start: 03-05-[address] ROSALIA STEPHENS . Facili ty:[facility]1 Start: 07-01-2022 End: 07-02-[address] ROSALIA STEPHENS . Facility: Start: 05-17-2022 End: 05-17-2022 Patient encounter procedure Alfa Luanne SANDHU [facility] Start: 06-24-2017 End: 06-25-2017 Ambulatory DANTE SIMMS Facility:[facility] Start: 06-24-2017 End: 06-25-2017 Ambulatory DEFAULT PHYSICIAN Facility:[facility] Procedures Date Procedure Procedure Detail Performing Clinician Start: 03-04-[address] for attenuation limited area Walker To MD Work Phone: Start: 07-01-[address] MINDY STEPHENS . Comment on above: Performed By: #### [facility] [place] #### [facility] [address] [place] [address] Dr. 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 Plan of Treatment Date Care Activity Detail Author Start: 07-06-2025 End: 07-06-2025 Patient encounter procedure 07/06/2025 8:20 AM EDT Office Visit [facility] [address] [address] Walker To MD [address] [facility] [address] Tai [address] [place] [address] [facility] Start: 06-06-2025 Influenza vaccination Influenz a Vaccine (Season Ended) [facility] Start: 04-04-2025 End: 04-04-2025 Patient encounter procedure 04/04/2025 8:40 AM EDT Office Visit [facility] [address] [place] [address] Walker To MD [address] [facility] [address] [address] [facility] Start: 02-07-2025 End: 02-07-2026 PET+CT Brain for amyloidosis AMYLOID PET/CT BRAIN SCAN Imaging Routine Dementia of the Alzheimer's type, with early onset, uncomplicated ([facility]) Expected: 02/07/2025, Expires: 02/07/2026 [facility] Work Phone: Comment on above: Expected: 02/07/2025 , Expires: 02/07/2026 Start: 02-07-2025 End: 02-07-2025 Patient encounter procedure [facility] Comment on above: Arrived Start: 12-12-2024 COVID-19 Vaccine ( season) COVID-19 Vaccine ( season) [facility] Start: 06-06-2024 Influenza vaccination Influenza Vacc ine (#1) [facility] Start: 11-13-2023 End: 11-13-2023 Patient encounter procedure 11/13/2023 11:20 AM EST Office Visit [facility] [address] [facility] [address] [place] [address] Walker To MD [address] [place] [id number] [facility] Start: 1964 DTaP/Tdap/Td Vaccine s (1 - Tdap) DTaP/Tdap/Td Vaccines (1 - Tdap) [facility] Start: 1940 Lipid panel Lipid Panel [facility] Start: 1940 Medicare Annual Wellness Visit Medicare Annual Wellness Visit (AWV) [facility] Immunizations Immunization Date Immunization Notes Care Provider Fa giorgioty 07-09-2023 influenza virus vacc ine, unspecified formulation Walker To MD Work Phone: [facility] 07-23-2022 influenza virus vacc ine, unspecified formulation Alfa SANDHU [facility] 07-23-2022 SARS-CoV-2 (COVID-19 ) [id number] Alfa SANDHU [facility] 03-28-2022 SARS-CoV-2 mRNA (ncawjsqhcpw-hpry-edrnsc e) vaccine Alfa SANDHU [facility] 07-05-2021 SARS-CoV-2 (COVID-19 ) mRNA BNT-162b2 vax Alfa SANDHU [facility] 07-04-2021 influenza, unspecifi ed formulation Alfa SANDHU [facility] 11-23-2020 SARS-CoV-2 (COVID-19 ) mRNA BNT-162b2 vax Alfa SANDHU [facility] 11-06-2020 SARS-CoV-2 (COVID-19 ) mRNA BNT-162b2 vax Alfa SANDHU [facility] 11-02-2020 SARS-CoV-2 (COVID-19 ) mRNA BNT-162b2 vax Alaf SANDHU [facility] 10-06-2020 SARS-CoV-2 (COVID-19 ) mRNA BNT-162b2 vax Alfa SANDHU [facility] 07-07-2020 influenza virus vacc ine, unspecified formulation Alfa [employer] [facility] 06-06-2020 pneumococcal polysaccharide vaccine, 23 valent Alfa [employer] [facility] 07-28-2019 influenza, unspecifi ed formulation Alfa [employer] [facility] 07-27-2019 zoster vaccine recombinant Alfa [employer] [facility] 05-19-2019 pneumococcal conjuga te vaccine, 13 valent Alfa [employer] [facility] 05-19-2019 zoster vaccine recombinant Alfa [employer] [facility] 08-06-2015 pneumococcal polysaccharide vaccine, 23 valent Alfa [employer] [facility] Payers Date Payer Category Payer Unknown 2020 Miscellaneous or Other [facility] [id number] 2020 Private Health Insurance [id number] 2020 Unknown [id number] 2008 Medicare [id number] 1959 Medicare [id number] 1959 Unknown [id number] 1942 Unknown [id number]. 2.593 1942 Unknown [id number] [id number]. 2.593 1942 Unknown [id number] [id number]. 2.593 1942 Unknown [id number] [id number]. 2.727 1942 Unknown [id number] [id number]. 2.1245 1942 Unknown [id number] [id number]. 2.1245 1942 Unknown [id number] 2.16.840.1.305074.3.579. 2.1259 1942 Unknown [id number] 2.16.840.1.251971.3.579. 2.1259 1942 Unknown [id number] [id number]. 2.1259 1942 Unknown [id number]. 2.1259 Medicare [id number] Social History Date Type Detail Facility Start: 05-11-2021 End: 08-25-2023 Tobacco smoking status Ex-smoker (finding) [facility] Comment on above: pt. quit when he was 24 Tobacco smoking status Never [facility] Comment on above: pt. quit when he was 24 Start: 09-08-2023 End: 04-04-2025 Sex Assigned At Male [facility] History of tobacco use Current smoker [facility] History of tobacco use Cigarette Smoker [facility] Start: 09-08-2023 End: 04-04-2025 Alcohol intake Current drinker of alcohol (finding) [facility] Start: 09-08-2023 End: 04-04-2025 History of Social function [facility] Start: 08-25-2023 Alcohol Comment Points: 8, Interpretation: Positive; Caffeine Intake: 1-2 cups per day tea [facility] Start: 1940 Sex Assigned At Not on file [facility] Tobacco smoking status NHIS Tobacco smoking consumption unknown [facility] Work Phone: Start: 02-22-2025 End: 03-04-2025 Exposure to SARS-CoV-2 (event) Not sure [facility] Functional Status Date Assessment Result Facility 05-12-2023 Functional Status N/A [facility] Clinical Notes 05-11-2021 to 04-04-2025 Walker To [...] During a recent 4-day family trip to [place], he managed well overall, although there were [...] small amount of a radioactive tracer, commonly gciqcw-333-vxjnctrsh (DaTscan), which binds to dopamine transporters in [...] BID This clinical note was created utilizing One[employer]All documentation system. All information has been thoroughly reviewed, corrected as necessary, and authenticated by the provider to ensure accuracy and completeness. On occasion, One[employer]All documentation system erroneously drops words or replaces a spoken word with a similar sounding word. Please notify with any questions or concerns regarding this clinical note. documented in this encounter [facility] 02-07-2025 History of Present illness Narrative [...] reflexes: Florentino's absent. Ankle clonus absent. Coordination Mpusvv-hi-cdnz, rapid alternating movements and ttos-bp-xcwo normal bilaterally without dysmetria. Gait Normal casual, [...] mg BID I will order Amyloid PET Scan-[facility]. Considering Kisunla. Gave patient handout to read up on. I counseled the patient on the possible side effects and interactions of medications. Follow up 8 weeks. This note was scribed by ROBSON Zarco acting under the direction of Walker To MD. The content has been reviewed and confirmed for accuracy by Walker To MD documented in this encounter [facility] 01-31-2025 History of Present illness Narrative [...] reflexes: Florentino's absent. Ankle clonus absent. Coordination Dfjuql-vl-kfwh, rapid alternating movements and xajk-on-puth normal bilaterally without dysmetria. Gait Normal casual, [...] small amount of a radioactive tracer, commonly nvnnaw-213-fjnbhxebf (DaTscan), which binds to dopamine transporters in [...] Walker To MD documented in this encounter [facility] 12-23-2024 Note [facility] Cardiology Clinic Note Chief Complaint: [...] year or sooner should problems arise Dante Simms MD, MPH, [facility], [facility], [facility], [facility] Interventional Cardiology Pager Email: [email or web address] 10-11-2024 History of Present illness Narrative Images [...] 24 hours cholecalciferol (Vitamin D-3) 50 MCG (1999 [place]) tablet Every 24 hours cinnamon 500 [...] reflexes: Florentino's absent. Ankle clonus absent. Coordination Bdbvxz-je-thmc, rapid alternating movements and bbaw-to-aggp normal bilaterally without dysmetria. Gait Normal casual, [...] depression or an underlying sleep disorder. MOCA (11/20/23)- & Recall 0/5. Diagnoses and all orders for this visit: Mild cognitive impairment with memory loss Continue Memantine 28 mg daily. Continue donepezil 10 mg BID. I counseled the patient on the possible side effects and interactions of medications. Follow up 3 months documented in this encounter [facility] 05-12-2023 Hospital Discharge instructions Patient [...] Follow these instructions at home: Medicines Take aqfp-ydx-hnxjyrw and prescription medicines only as told by [...] or the blood stops without treatment. Take fuoa-ewv-oskuzeb and prescription medicines only as told by your health care provider. Drink enough fluid to keep your urine pale yellow. This information is not intended to replace advice given to you by your health care provider. Make sure you discuss any questions you have with your health care provider. Document Revised: 05/23/2021 Document Reviewed: 05/23/2021 [employer] Patient Education 2022 [employer]. Follow Up Care 09/10/2022 11:05:03 With:Alfa SANDHU MD, URL Address: [facility] [address] [place] [address]- [phone] When: Unknown [facility] 05-11-2021 Hospital Discharge instructions Follow Up Care 05/11/2021 08:41:41 With:Alfa SANDHU MD, URL Address: [address] [place] [address]- When: Unknown [facility] Evaluation + Plan note No data available for this section [facility] Evaluation + Plan note Future Appointments Appointment Date:05/17/2024 08:45:00 AM Scheduled Provider:Alfa SANDHU MD Location:[facility] Appointment Type:URO Office Visit [facility] Evaluation note Diagnosis Mild cognitive impairment with memory loss- Primary Mild cognitive impairment, so stated [facility] Diagnosis Mild cognitive impairment with memory loss- Primary Mild cognitive impairment, so stated documented in this encounter [facility] Healthcare[facility]* Diagnosis Dementia of the Alzheimer's type, with early onset, uncomplicated (CMS/HCC)- Primary Alzheimer's disease documented [facility]* Diagnosis Alzheimer's disease with early onset (CODE) Dementia in other diseases classified elsewhere, unspecified severity, without behavioral disturbance, psychotic disturbance, mood disturbance, and anxiety (Multi) documented in this encounter [facility] Work Phone: Evaluation note* Diagnosis Mild cognitive impairment with memory loss Mild cognitive impairment, so stated documented in this encounter [facility] Discharge instructions No data available for this section [facility] progress note No data available for this section [facility] reason for visit Narrative* Imaging (Routine) - Authorized Specialty Diagnoses / Procedures Referred By Contac t Referred To Contact Radiology Diagnoses Alzheimer's disease with early onset (CODE) Dementia in other diseases classified elsewhere, unspecified severity, without behavioral disturbance, psychotic disturbance, mood disturbance, and anxiety (Multi) Procedures NM PET CT amyloid brain Walker To MD [address] [facility] [address] [place] [address] Phone: tel: fax: Referral ID Status Reason Start Date Expiration Date Visits Requested Visits Authorized [id number] Authorized Perform Procedure 02/08/2025 02/08/2026 3 3 [facility] Work Phone: Reason for visit Narrative* Imaging (Routine) - Authorized Specialty Diagnoses / Procedures Referred By Cruz ferreira Referred To Contact Radiology Diagnoses Alzheimer's disease with early onset (CODE) Dementia in other diseases classified elsewhere, unspecified severity, without behavioral disturbance, psychotic disturbance, mood disturbance, and anxiety (Multi) Procedures NM PET CT amyloid brain Walker To MD [address] [facility] [address] [address] Phone: tel: fax: Referral ID Status Reason Start Date Expiration Date Visits Requested Visits Authorized [id number] Authorized Perform Procedure 02/08/2025 02/08/2026 3 3 [facility] Work Phone: Summary Purpose Family History [...] section and content) DATE CREATED AUTHOR 04/01/2018 [facility] DATE CREATED AUTHOR AUTHOR'S ORGANIZ ATION 03/14/2023 [facility] DATE CREATED AUTHOR AUTHOR'S ORGANIZ ATION 05/18/2024 [facility] DATE CREATED AUTHOR AUTHOR'S ORGANIZ ATION 03/10/2025 [facility] DATE CREATED AUTHOR AUTHOR'S ORGANIZ ATION 04/04/2025 [facility] dical Specialists [facility] DATE CREATED AUTHOR AUTHOR'S ORGANIZ ATION 05/21/2025 [facility] Care Team (unrecognized sect ion and content) Railroad Worker Relationship Specialty Start Date End Date Generic Provider, [place] [address] PCP - General Paper Bag Press Operator 03/03/25 Railroad Worker Relationship Specialty Start Date End Date Generic Provider, No [place], [place] [address] PCP - General Paper Bag Press Operator 03/03/25 FOR RECORDS PERTAINING TO PATIENTS WHO [...] BE BASED ON THE PRIMARY CLINICAL RECORDS. [facility]. provides no warranty or guarantee of the accuracy or completeness of information in this document.
--- OUTSIDE RECORDS SUMMARY | 2025-06-16 06:37 | XMS_ITS | Clinical Summary ---
Author Organization [facility] Healthcare Address [address] [place] [address] Care Team Providers Care Barber Tool Sharpener Name Role Phone Unavailable Primary Care Provider [...] [address] [place] [phone] Leticia Chaidez MA 04/05/2025 Telephone [facility] [address] [place] [phone] Stephen To MD 04/04/2025 8:40 AM EDT Office Visit [facility] [address] [place] [phone] Stephen To MD Mild cognitive impairment with memory loss 04/04/2025 Bamboo flowsheet [facility] [address] [place] [address] Stephen To MD 04/04/2025 Travel [...] [facility] [address] [facility] [address] [place] [address] Stephen To MD [address] [facility] [address] [id number] Health Maintenance Due Date Last Done Comments Influenza Vaccine (#1) 2025 3, 07/23/2022, 07/04/2021, Additional history exists Pneumococcal Vaccine: 65+ Years Completed 06/06/2020, 05/19/2019, 08/06/2015 Insurance MEDICARE [facility] [place] [address]
[2025-06-16 06:56] LABS: Hematocrit 39.2 % (42.0-54.0); Hemoglobin 13.5 g/dL (14.0-18.0); Immature Granulocytes Abs Auto 0.01 10^3/uL (0.00-0.03); Immature Granulocytes Pct Auto 0.2 % (0.0-0.5); Lymphocytes Absolute Auto 1.6 10^3/uL (1.2-3.8); Mean Corpuscular HGB Conc 34.4 g/dL (29.9-35.2); Mean Corpuscular Hemoglobin 33.6 pg (25.9-34.0); Mean Corpuscular Volume 97.5 fL (80.0-94.0); Platelet Count 166 10^3/uL (150-450); Red Blood Count 4.02 10^6/uL (4.70-6.10); White Blood Count 5.2 10^3/uL (4.0-11.0)
[2025-06-16 07:25] LABS: Alanine Aminotransferase 19 U/L (16-63); Albumin Globulin Ratio 1.1; Albumin Level 3.6 g/dL (3.4-5.0); Alkaline Phosphatase 77 U/L (46-116); Anion Gap 12.1; Aspartate Amino Transferase 14 U/L (15-37); Blood Urea Nitrogen 23.0 mg/dL (7.0-18.0); Calcium 9.3 mg/dL (8.5-10.1); Carbon Dioxide 28.3 mmol/L (21.0-32.0); Chloride 105 mmol/L (98-107); Estimated GFR (African America >60 (>=60 mL/min/1.73m^2); Estimated GFR (Non-African Ame >60 (>=60 mL/min/1.73m^2); Free T3 1.87 pg/mL (2.18-3.98); Globulin 3.3 g/dL; Glucose 106 mg/dL (74-106); NT Pro B Type Natriuretic Pept 820.0 pg/mL (<=1800.0); Potassium 4.4 mmol/L (3.5-5.1); Sodium 141 mmol/L (136-145); Thyroid Stimulating Hormone 2.894 uIU/mL (0.358-3.740); Total Protein 6.9 g/dL (6.4-8.2)
== END 2025-06-16 06:33 | disposition home or self-care (01) ==
LOC: LAB 06:34
PROVIDERS: PCP Family Medicine; Visit Provider Family Medicine
DX: R01.1 Cardiac murmur, unspecified (principal); I48.0 Paroxysmal atrial fibrillation; R41.3 Other amnesia; R41.81 Age-related cognitive decline; R73.09 Other abnormal glucose; E03.9 Hypothyroidism, unspecified; R53.83 Other fatigue; I50.30 Unspecified diastolic (congestive) heart failure; I11.0 Hypertensive heart disease with heart failure
CPT/HCPCS: 36415; 80053; 83036; 83880; 84436; 84443; 84481; 85025

== ENCOUNTER 2025-07-20 06:51 | Outpatient (OUT) | payer MEDICARE, OTHER, SELFPAY ==
--- OUTSIDE RECORDS SUMMARY | 2025-07-06 08:20 | XMS_ITS | Encounter Summary ---
Author Organization [facility] Address [address] [facility] [place] [address] Care Team Providers Care Pure Pak Machine Operator Name Role Phone Unavailable Primary Care Provider Unavailabl e Reason for Visit * Reason Comments Alzheimer's Disease Early onset, MCI Encounter Details Date Type Department Care Team (Late st Contact Info) Description 07/06/2025 8:20 AM EDT Office Visit MARKKaya Castellanos Neurology [address] [facility] [address] [place] [phone] Stephen To MD [address] [facility] [address] [id number] Mild cognitive impairment with memory loss Social History Tobacco Use Types Packs/Day Years [...] on file documented as of this encounter Last Filed Vital Signs Vital Sign Reading Time Taken Comments Blood Pressure 128/80 07/06/2025 8:22 AM EDT Pulse - - Temperature - - Respiratory Rate 18 07/06/2025 8:22 AM EDT Oxygen Saturation 98% 07/06/2025 8:22 AM EDT Inhaled Oxygen Concentration - - Weight 73.8 kg (162 lb 12.8 oz) 07/06/2025 8:22 AM EDT Height - - Body Mass Index 24.04 04/04/2025 8:53 AM EDT documented in this encounter Progress Notes * Stephen To MD - 07/06/2025 8:20 AM EDT Images from the original note were not included. Subjective Matt Burroughs is a 85 y.o. male who presents for Alzheimer's Disease (Early onset, MCI). Meds: aricept, memantine History of Present Illness The patient states that it was recently discovered he is hypothyorid- began 5mg replacement- PCP managing. The patient states he is tired all of the time/ sleeps a lot. He also c/o nightmares nightly. The patient presents for memory issues, fatigue, nightmares, and incontinence. He is accompanied byhis . He reports a general sense of well-being, with no significant memory lapses. 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 His appetite remains robust, and he has not experienced any alterations in his senses of taste or smell. His balance and mobility are stable, aided by daily swimming sessions from January to August. His , however, has observed persistent memory issues, particularly related to navigation and direction. He often forgets the location of their car in parking lots and frequently repeats questions. He is currently on memantine and donepezil, which he takes in the morning. His has not noticed any improvement since the switch to long-acting donepezil and is considering a return to the short-acting version. He also takes Cerefolin, which his believes has had a positive impact on his condition. He recently consulted Dr. Henning due to fatigue and constant coldness, which led to blood tests and thyroid function tests. He was prescribed levothyroxine about 1.5 weeks ago, and his has noticeda slight improvement in his condition. He experiences nightmares almost every night. He has had two episodes of incontinence, both times at home, which were associated with urgency. These incidents occurred before the initiation of his current medication regimen. MEDICATIONS CURRENT MEDS: Memantine Donepezil 23 mg Oral Once daily Levothyroxine Oral Start Date: 06/2025 Serofolin PREVIOUS MEDS: Donepezil 10 mg, 5 mg Oral Twice daily End Date: 05/2025 Reason for Discontinuation: Switched to long-acting form Review of Systems Const: Denies appetite change, fever, chills. Allergy: Denies medication reaction. Ocular: Denies visual acuity change. ENT: Denies hearing change. Endoc: Denies weight loss. Resp: Denies dyspnoea, wheezing. Cardiac: Denies angina, palpitations. GI: Denies nausea, vomiting. Haem: Denies bleeding. : Denies incontinence. MSK: Denies arthralgias, joint oedema. Derm: Denies rash, hair loss. Neuro: Denies ataxia, tremor. Also see HPI for elements of ROS documented therein and for details of positive findings, which shall supersede the foregoing. Neurological Exam GENERAL EXAMINATION Appearance: in no acute distress, well developed, well nourished. Head: normocephalic, atraumatic. Eyes: pupils equal, round, reactive to light and accommodation. Ears: normal. Mouth: mucosa moist. Throat: clear. Neck: neck supple, full range of motion, no cervical lymphadenopathy. Skin: no suspicious lesions, warm and dry. Heart: no murmurs, regular rate and rhythm, S1, S2 normal. Lungs: clear to auscultation bilaterally. Abdomen: normal, bowel sounds present, soft, nontender, nondistended. Extremities: no clubbing, cyanosis, or edema. NEUROLOGICAL EXAMINATION Mental Status: The patient is alert and oriented to person, place, and time. Except as noted, thought content, form, and comprehension was normal. Phonation, articulation, resonance, and prosody are normal. Cranial Nerves: Pupils were 4.0 millimeters, equal, round, and reactive to light and accommodation,both directly and consensually. Visual jimenez were full by confrontation. There was no ptosis; extra-ocular movements were full; and there was no nystagmus. Funduscopic exam is normal. Masseters are of normal strength. Facial movement is normal. Hearing is grossly intact. There is no dysarthria. The gag reflex is equal bilaterally. Sternocleidomastoids and trapezii are of normal strength. The tongue protrudes in the midline. Motor: Muscle testing was performed in all four extremities, including at least senior clinical sas programmer, finger abductors, biceps, triceps, deltoid, toe flexors and extensors, tibialis anterior, triceps surae, quadriceps femoris, biceps femoris, and iliopsoases. Tone is normal. Muscle bulk is normal. Fasciculations are not seen . Pronator drift was not evident. Sensory: Sensation to touch, temperature, and vibration was normal in the arms, legs and face. Romberg is negative. Reflexes: Biceps, triceps, brachioradialis are 2/4 bilaterally. Patellar and Achilles reflexes are 2/4 bilaterally. Plantar responses were flexor bilaterally. Coordination: Dysmetria and dysdiadochokinesia are absent. Tremor is absent; dystonia is absent; chorea is absent. Gait And Station: Station and gait are normal. Apraxia and spasticity are not evident. Arm swing isnormal. Toe, heel, and tandem walking are performed without difficulty. Musculoskeletal: Trigger-point tenderness was absent. There is no spasm of the trapezii or paraspinals. Procedures Objective There were no vitals taken for this visit. Physical Exam Results Imaging - PET scan: Shows mild cognitive impairment, not dementia.and very low amyloid count of 9 with <25 as being normal. Assessment & Plan 1. Mild cognitive impairment. His condition is indicative of mild cognitive impairment, specifically amnestic type, as per the PET scan results. There is no evidence of dementia or Alzheimer's disease. The plaque count from the PET scan is within the normal range for his age. The current dosage of donepezil will be reduced to 10 mg in the morning and 5 mg at supper time. A prescription for a 90-day supply will be sent to [facility] in [place]. If there is no improvement, Cerefolin will be considered as an alternative treatment. 2. Fatigue. He has been experiencing fatigue, which may be related to his thyroid condition. He has been on levothyroxine for a week and a half, and a slight improvement has been noted. It is expected that more significant improvements will be observed in the next 4 to 6 weeks. If symptoms persist, further evaluation will be necessary. 3. Nightmares. He has been experiencing nightmares, which may be a side effect of the long- acting donepezil. The dosage will be adjusted to 10 mg in the morning and 5 mg at supper time to see if this alleviates thenightmares. 4. Incontinence. He has experienced incontinence twice, which may be related to his thyroid condition or a side effect of the long-acting donepezil. The dosage of donepezil will be adjusted to 10 mg in the morning and 5 mg at supper time to see if this resolves the issue. If incontinence persists, further evaluation will be necessary. 5. I will change donepezil (Aricept) 10 mg in am and 5 mg in evening to help treat memory loss and confusion It works by improving attention, memory, and the ability to engage in daily activities. documented in this encounter Plan of Treatment Upcoming Encounters Date Type Department Care Team (Late st Contact Info) Description 10/12/2025 8:00 AM EST Office Visit ALLA Castellanos Neurology [address] [place] [address] [place] [address] Stephen To MD [address] [facility] [address] [place] [id number] documented as of this encounter Visit Diagnoses Diagnosis Mild cognitive impairment with memory loss Mild cognitive impairment, so stated documented in this encounter
--- OUTSIDE RECORDS SUMMARY | 2025-07-19 09:37 | XMS_ITS ---
Author Organization [facility] in [place] Address [address] [place] [address] Care Team Providers Care Half Section Ironer Name Role Phone Pepe Stephens Primary Care Provider [phone] REASON FOR VISIT thyroid Encounters Encounter Location Date Provider Diagnosis [facility] [address] [place] [address] 07/19/2025 Pepe Stephens Hypothyroidism E03.9 Assessments Encounter Date Diagnosis (ICD Code) Assessment Notes Treatment Notes Treatment Clinical Notes Section Notes 07/19/2025 Hypothyroidism (ICD-10 - E03.9) Plan Of Treatment Pending Test Test Name Order Date THYROID PANEL (T4/TSH/FREE T3) Progress Notes * MELANIA Matt WDOB:[birth year] (85 yo M)Acc No.[id number]:07/19/2025 Patient: Luanne PAIGE Matt Landon :1940 A ge:85 Y S ex:Male Address:[address], [place], [address] Subjective: * Chief Complaints: * T hyroid * Medical History: * Surgical History: * Hospitalization/Major Diagno stic Procedure: * Medications: Objective: * Vitals: * Physical Examination: Assessment: * Assessment: 1. H ypothyroidism - E03.9 (Primary) Plan: * Treatment: * Procedure Codes: * true * Date: Generated for Printi ng/Faxing/eTransmitting on: 1 06:55 AM EDT
--- OUTSIDE RECORDS SUMMARY | 2025-07-20 06:55 | XMS_ITS | Patient Health Record ---
Author Organization [facility] [place] Address [address] [place] [address] Care Team Providers Care Janitor Helper Name Role Phone Pepe Stephens Primary Care Provider Allergies Allergen (clinical drug ingredient) Drug/Non Drug Allergy documented on EMR Reaction Allergy Type Onset Date Status morphine Morphine Unknown Drug Allergy Active Penicillin Unknown Drug Allergy Active Results Component Value Reference Range Notes CBC AUTO DIFF Reviewed date:06/16/2025 07:45:05 PM Interpretation: Performing Lab: Notes/Report: [facility] , White Blood Count 5.2 4.0-11.0 10 3/uL Red Blood Count 4.02 4.70-6.10 10 6/uL Hemoglobin 13.5 14.0-18.0 g/dL Hematocrit 39.2 42.0-54.0 % Mean Corpuscular Volume 97.5 80.0-94.0 fL Mean Corpuscular Hemoglobin 33.6 25.9-34.0 pg Mean Corpuscular HGB Conc 34.4 29.9-35.2 g/dL Red Cell Distribution Width 12.6 11.0-15.0 % Platelet Count 166 150-450 10 3/uL Mean Platelet Volume 9.4 9.5-13.5 fL Neutrophils Percent Auto 53.7 43.0-75.0 % Lymphocytes Percent Auto 30.8 20.5-60.0 % Monocytes Percent Auto 12.8 1.7-12.0 % Eosinophils Percent Auto 2.1 0.9-7.0 % Basophils Percent Auto 0.4 0.2-2.0 % Immature Granulocytes Pct Auto 0.2 0.0-0.5 % Neutrophils Absolute Auto 2.8 1.4-6.5 10 3/uL Lymphocytes Absolute Auto 1.6 1.2-3.8 10 3/uL Monocytes Absolute Auto 0.7 0.3-0.8 10 3/uL Eosinophils Absolute Auto 0.1 0.0-0.7 10 3/uL Basophils Absolute Auto 0.0 0.0-0.1 10 3/uL Immature Granulocytes Abs Auto 0.01 0.00-0.03 10 3/uL Performing Lab: see note ML - [facility] CA echo doppler complete Reviewed date:05/17/2025 08:15:55 PM Interpretation: Performing Lab: Notes/Report: Source Facility: [place] [address] Cardiology Report Signed Patient: MATT BURROUGHS MR#: [id number] : 1940 Acct:[id number] Age/Sex: 84 / M ADM Date: 05/17/25 Loc: CARD Attending Dr: Dante Simms M.D. Ordering Physician: Dante Simms M.D. Date of Service: 05/17/25 Procedure(s): CA echo doppler complete Accession Number(s): [id number] cc: Dante Simms M.D.; Mikael Stephens M.D. Patient Name: MATT BURROUGHS MR#: [id number] : 1940 Exam Date: 05/17/2025 Ordering Doctor: [...] Signed By: 05/17/25 1234 DD/ 1233 TD/TT: Computer Systems Software Engineer: TSH Reviewed date:08/25/2024 07:55:35 AM Interpretation: Performing Lab: Notes/Report: [facility] , Thyroid Stimulating Hormone 3.381 0.358-3.740 u IU/mL Performing Lab: see note ML - [facility] LB T4 Reviewed date:08/25/2024 07:55:35 AM Interpretation: Performing Lab: Notes/Report: [facility] , T4 Thyroxine 8.00 4.50-12.10 ug/dL Performing Lab: see note - [facility] LB PSA SCREENING Reviewed date:08/25/2024 12:33:39 PM Interpretation: Performing Lab: Notes/Report: [facility] , Prostate Specific Antigen Scrn 0.52 <=4.00 ng/mL Performing Lab: see note ML - [facility] LB PROF 14(COMP METB) Reviewed date:08/25/2024 07:55:35 AM Interpretation: Performing Lab: Notes/Report: [facility] , Sodium 142 136-145 mmol/L Potassium 4.1 [...] 1.2 Performing Lab: see note ML - [facility] LB LIPID PROFILE Reviewed date:08/25/2024 07:55:35 AM Interpretation: Performing Lab: Notes/Report: [facility] , Triglycerides 91 <=150 mg/dL Cholesterol 191 [...] Performing Lab: see note ML - [facility] FREE T3 Reviewed date:08/25/2024 07:55:35 AM Interpretation: Performing Lab: Notes/Report: [facility] , Free T3 2.46 2.18-3.98 pg/mL Performing Lab: see note ML - [facility] LB CBC AUTO DIFF Reviewed date:08/25/2024 07:55:35 AM Interpretation: Performing Lab: Notes/Report: [facility] , White Blood Count 5.3 4.0-11.0 10 [...] Performing Lab: see note ML - [facility] LB BNP Reviewed date:06/16/2025 07:45:05 PM Interpretation: Performing Lab: Notes/Report: [facility] , NT Pro B Type Natriuretic Pept 820.0 <=1800.0 pg/mL Performing Lab: see note ML - [facility] LB TSH Reviewed date:06/16/2025 07:45:05 PM Interpretation: Performing Lab: Notes/Report: [facility] , Thyroid Stimulating Hormone 2.894 0.358-3.740 u IU/mL Performing Lab: see note ML - [facility] LB T4 Reviewed date:06/16/2025 07:45:05 PM Interpretation: Performing Lab: Notes/Report: [facility] , T4 Thyroxine 7.00 4.50-12.10 ug/dL Performing Lab: see note ML - [facility] PROF 14(COMP METB) Reviewed date:06/16/2025 07:45:05 PM Interpretation: Performing Lab: Notes/Report: [facility] , Sodium 141 136-145 mmol/L Potassium 4.4 3.5-5.1 mmol/L Chloride 105 98-107 mmol/L Carbon Dioxide 28.3 21.0-32.0 mmol/L Anion Gap 12.1 Glucose 106 74-106 mg/dL Blood Urea Nitrogen 23.0 7.0-18.0 mg/dL Creatinine 1.00 0.70-1.30 mg/dL Estimated GFR ( Lizbteh >60 >=60 mL/min/1.73m 2 Estimated GFR (Non- Kimberly >60 >=60 mL/min/1.73m 2 BUN Creatinine Ratio 23.0 Calcium 9.3 8.5-10.1 mg/dL Bilirubin Total 0.7 0.2-1.0 mg/dL Aspartate Amino Transferase 14 15-37 U/L Alanine Aminotransferase 19 16-63 U/L Alkaline Phosphatase 77 46-116 U/L Total Protein 6.9 6.4-8.2 g/dL Albumin Level 3.6 3.4-5.0 g/dL Globulin 3.3 Albumin Globulin Ratio 1.1 Performing Lab: see note ML - [facility] LB GLYCOHEMOGLOBIN A1C Reviewed date:06/16/2025 07:45:05 PM Interpretation: Performing Lab: Notes/Report: [facility] , Glycohemoglobin A1C 6.1 4.5-6.2 % ADA RECOMMENDED LIMIT 4.0 - 6.0 ADA THERAPEUTIC TARGET < 7.0 ACTION SUGGESTED > 7.0 Estimated Average Glucose 128 Performing Lab: see note ML - [facility] FREE T3 Reviewed date:06/16/2025 07:45:05 PM Interpretation: Performing Lab: Notes/Report: [facility] , Free T3 1.87 2.18-3.98 pg/mL Performing Lab: see note - [facility] GLYCOHEMOGLOBIN A1C Reviewed date:08/25/2024 07:55:35 AM Interpretation: Performing Lab: Notes/Report: [facility] , Glycohemoglobin A1C 6.0 4.5-6.2 % ADA RECOMMENDED LIMIT 4.0 - 6.0 ADA THERAPEUTIC TARGET < 7.0 ACTION SUGGESTED > 7.0 Estimated Average Glucose 126 Performing Lab: see note - [facility] Reason For Referral Reason balance therapy Diagnosis 1 Weakness (R53.1) Referral Organization [facility] Referring Provider First Name Pepe Referring Provider [...] ONE TABLE T BY MOUTH TWICE A DAY; Duration: 90 days Active Liothyronine Sodium 5 MCG 1 tablet on an empty stomach Orally Once a day; Duration: 30 days 06/17/2025 Active Meridian 3 340 MG 1 capsule Orally Onc e a day; Duration: 30 day(s) Active Lovastatin 40 MG TAKE 1 TABLET BY CARMELO DAILY; Duration: 30 Active Namenda XR 28 MG 1 capsule Orally Onc e a day 06/03/2024 Active FeroSul 325 (65 Fe) MG TAKE ONE TABLET B Y MOUTH DAILY; Duration: 30 Active Vitamin D 50 MCG (1999) 1 tablet Oral ly Once a day; Duration: 30 day(s) Active Cinnamon 500 MG 2 capsules Orally Daily Active Cerefolin 6-1-50-5 MG 1 tablet Orally On ce a day 06/03/2024 Active Aspirin 81 MG 1 tablet Orally Once a day; Duration: 30 day(s) Active Proscar 5 MG 1 tablet Orally Once a day; Duration: 30 day(s) Active Tamsulosin HCl 0.4 MG 1 capsule Orally O nce a day; Duration: 30 day(s) Active Lisinopril 20 MG TAKE ONE TABLET BY M OUTH DAILY; Duration: 90 Active Fiber Therapy 500 MG 2 tablets with a fu ll glass of water as needed Orally Six times a day Active Vitamin C 1000 MG 1 tablet Orally Once a day; Duration: 30 day(s) Active Donepezil HCl 23 MG 1 tablet Orally Once a day; Duration: 30 days Active Social History Tobacco Use: [...] Problem Status W/U Status Risk Notes Problem Essential hypertensi on (15200383) Essential (primary) hypertension (I10) Active confirmed Problem Hyperlipidemia (91386708) Hyperlipidemia, unspecified (E78.5) Active confirmed Problem Aortic valve disorde r (1823042) Nonrheumatic aortic (valve) stenosis (I35.0) Active confirmed Problem Paroxysmal atrial fibrillation (337877125) Paroxysmal atrial fibrillation (I48.0) Active confirmed Problem Lumbosacral spondylosis without myelopathy (58401207) Other spondylosis with radiculopathy, lumbar region (M47.26) Active confirmed Problem Bradycardia (34015240) Bradycard ia, unspecified (R00.1) Active confirmed Problem Age-related cognitiv e decline (403834958) 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 (R41.81) Active confirmed Problem Atrial fibrillation (80125553) Atrial fibrillation (I48.91) Active confirmed Problem Hypothyroidism (58423209) Hypothyroidism (E03.9) Active confirmed Problem Hypertension (85887378) HTN (hypertension) (I10) Active confirmed Problem Hip pain (01897710) Hip pain (M25.559) Active c onfirmed Problem Impacted cerumen (38628046) Cerumen impaction (H61.20) Active confirmed Problem Disorder of lumbar disc (746952517) Lumbar disc disease (M51.9) Active confirmed Problem Acute bronchitis (34371124) Acute bronchitis (J20.9) Active confirmed Problem Gastritis (7525228) Gastritis (K29.70) Active c onfirmed Problem Well adult (908573044) Well adult (Z00.00) Activ e confirmed Problem Acquired spondylolisthesis (990064833) Spondylolisthesis of lumbar region (M43.16) Active confirmed Problem Displacement of lumb ar intervertebral disc without myelopathy (42922831) Lumbar disc displacement without myelopathy (M51.26) Active confirmed Problem Acute bronchiolitis (6538505) Acute bronchiolitis (J21.9) Active confirmed Problem Heart murmur (40478284) Cardiac murmur (R01.1) Active confirmed Problem Poor balance (671645852) Poor balance (R26.89) Active confirmed Problem Poor long-term memor y (256075859) Poor long-term memory (R41.3) Active confirmed Problem Pure hypercholesterolemia (800786882) Pure hypercholesterolemi a, unspecified (E78.00) Active confirmed Problem Neurogenic claudication (952805796) Spinal stenosis of lumbar region with neurogenic claudication (M48.062) Active confirmed Vital Signs Blood pressure diastolic 84 mm Hg 06/15/2025 Height 70 in 06/15/2025 Blood pressure systolic 142 mm Hg 06/15/2025 Weight 169.6 lbs 06/15/2025 BMI 24.33 kg/m2 06/15/2025 Encounters Encounter Location Date Provider Diagnosis [facility] [address] [place] [address] 08/02/2024 [facility] [address] [place] [address] 08/25/2024 [facility] [address] [place] [address] 11/03/2024 [facility] [address] [place] [address] 11/29/2024 [facility] [address] [place] [address] 06/02/2025 [facility] [address] [place] [address] 06/15/2025 Pepe Hoy [facility] [address] [place] [address] 06/16/2025 Pepe Hoy Hypothyroidism E03.9 [facility] [address] [place] [address] 07/19/2025 Pepe Hoy Hypothyroidism E03.9 [facility] [address] [place] [address] 06/15/2025 Pepe Hoy Cardiac murmur R01.1 ; Paroxysmal atrial fibrillation I48.0 ; HTN (hypertension) I10 ; Poor long-term memory R41.3 ; 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 R41.81 and Weakness R53.1 Assessments Encounter Date Diagnosis (ICD Code) Assessment Notes Treatment Notes Treatment Clinical Notes Section Notes 06/15/2025 Cardiac murmur (ICD-10 - R01.1) 06/15/2025 Paroxysmal atrial fibrillation (ICD-10 - I48.0) 06/16/2025 Hypothyroidism (ICD-10 - E03.9) 07/19/2025 Hypothyroidism (ICD-10 - E03.9) 06/15/2025 HTN (hypertension) (ICD-10 - I10) 06/15/2025 Poor long-term memory (ICD-10 - R41.3) 06/15/2025 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 (ICD-10 - R41.81) 06/15/2025 Weakness (ICD-10 - R53.1) Plan Of Treatment Pending Test Test Name Order Date CMP (COMPLETE METABOLIC PANEL) 3 CMP (COMPLETE METABOLIC PANEL) 3 CMP (COMPLETE METABOLIC PANEL) 4 HEMOGLOBIN A1C (GLYCO) 06/15/2025 HEMOGLOBIN A1C (GLYCO) 06/03/2024 HEMOGLOBIN A1C (GLYCO) [...] (T4/TSH/FREE T3) 3 THYROID PANEL (T4/TSH/FREE T3) 5 THYROID PANEL (T4/TSH/FREE T3) 5 THYROID PANEL (T4/TSH/FREE T3) 4 THYROID PANEL (T4/TSH/FREE T3) 5 ECHOCARDIO M/2D COMPLETE 02/27/2023 CMP (COMP MET NEGRETE) w/eGFR CKD-EPI 2024 CBC WITH DIFF 06/15/2025 Insurance Providers Payer Name Payer Address Payer Phone Subscriber Number Group Number Insured Name Patient Relationship to Insured Coverage Start Date Coverage End Date [place] [address] [place] [address] [id number] Matt Burroughs Self - patient is the insured 8 [employer] [place] [address] [employer] [facility] 8 [place] [address] [phone] [id number] Matt Burroughs Self - patient is the [...] HTN (hypertension) I10 Surgical History Surgery Date(Month/Year) right hip replacemnt left total Hip 2005 lumbar fusion 2017 tonsillectomy hemilaminotomy lumbar disectomy
--- OUTSIDE RECORDS SUMMARY | 2025-07-20 06:55 | XMS_ITS | Clinical Summary ---
Author Organization [facility] Healthcare Address [address] [place] [address] Care Team Providers Care Nozzle And Sleeve Worker Name Role Phone Unavailable Primary Care Provider Unavailabl e Allergies Active Allergy Reactions Criticality Noted Date Comments Morphine 06/20/2017 Other Reaction(s): Hallucination, Unknown Penicillins Unknown 03/31/2023 Other Reaction(s): Unknown Medications tolterodine LA (Detrol LA) 4 MG 24 hr capsule 1 capsule 1 (one) time each day at the same time 3 Active tamsulosin (Flomax) 0.4 MG 24 hr capsule 1 capsule 1 (one) time each day at the same time Active pantoprazole (ProtoNix) 40 MG EC tablet 1 (one) time each day at the same time Active omega-3 (Fish Oil) 1000 MG capsule 1 capsule 1 (one) time each day at the same time Active Multiple Vitamins-Minera ls (Multivitamin Men) tablet Active Methylcellulose , Laxative, (Fiber Therapy) 500 MG tablet every 4 (four) hours Active lovastatin (Mevacor) 40 MG tablet Active lisinopril 20 MG tablet 1 (one) time each day at the same time Active Proscar 5 MG tablet 1 (one) time each day at the same time Active ferrous sulfate 325 (65 Fe) MG tablet 3 Active cyanocobalamin (Vitamin B-12) 500 MCG tablet 1 (one) time each day at the same time Active cinnamon 500 MG capsule 1 (one) time each day at the same time Active cholecalciferol (Vitamin D-3) 50 MCG (2000 UT) tablet 1 (one) time each day at the same time Active aspirin 81 MG chewable tablet 1 (one) time each day at the same time Active Ascorbic Acid (vitamin C) 1000 MG tablet 1 (one) time each day at the same time Active Eliquis 5 MG tablet Take 5 mg by mouth in the morning and 5 mg in the evening. Active Memantine HCl ER 28 MG capsule sustained-relea se 24 hrIndications:M ild cognitive impairment with memory loss Take 28 mg by mouth at bedtime 90 capsule 3 5 Active donepezil (Aricept) 10 MG tabletIndicatio ns:Mild cognitive impairment with memory loss Take 1 tablet (10 mg) by mouth in the morning and 1 tablet (10 mg) before bedtime. 180 tablet 3 5 10/04/20 25 Active donepezil (Aricept) 10 MG tabletIndicatio ns:Mild cognitive impairment with memory loss Take 1 tablet (10 mg) by mouth in the morning and 1 tablet (10 mg) before bedtime. 180 tablet 3 5 07/06/20 25 Discontinu ed(Therapy completed) donepezil (Aricept) 23 MG tabletIndicatio ns:Mild cognitive impairment with memory loss Take 1 tablet (23 mg) by mouth in the morning. 30 tablet 3 5 07/06/20 25 Discontinu ed(Therapy completed) Active Problems Problem Noted Date Diagnosed Date [...] Encounters Date Type Department Care Team Description 07/06/2025 8:20 AM EDT Office Visit [facility] [address] [place] [phone] Stephen To MD Mild cognitive impairment with memory loss 07/06/2025 Travel 05/16/2025 Refill [facility] [address] [place] [phone] Leticia Chaidez MA from Last 3 Months Family History Medical [...] 12.8 oz) 07/06/2025 8:22 AM EDT Height 175.3 cm (5' 9 ) 04/04/2025 8:53 AM EDT Body Mass Index 24.04 04/04/2025 8:53 AM EDT Plan of Treatment Upcoming Encounters Date Type Department Care Team (Late st Contact Info) Description 10/12/2025 8:00 AM EST Office Visit [facility] [address] [place] [phone] Stephen To MD [address] [facility] [address] [address] Insurance MEDICARE [facility] [place] [address]
--- OUTSIDE RECORDS SUMMARY | 2025-07-20 06:55 | XMS_ITS | Clinical Summary ---
Author Organization [facility] Address [address] [place] [address] Care Team Providers Care Fingerprint Clerk Name Role Phone Mikael Stephens MD Primary Care Provider [phone] Allergies Active Allergy Reactions Criticality Noted Date [...] Type Department Care Team Description 06/15/2025 Telephone [facility] [address] [place] [address] Mehnaz Mesa MA 05/18/2025 Telephone [facility] [address] [place] [address] Mehnaz Mesa MA 05/17/2025 Orders Only [facility] [address] [place] [address] Provider, MD Suyapa from Last [...] from Last 3 Months Insurance [place] [address] Care Teams Fingerprint Clerk Relationship Specialty Start Date End Date Mikael Stephens MD [address] [facility] [address] [address] PCP - General 03/27/23
--- OUTSIDE RECORDS SUMMARY | 2025-07-20 06:55 | XMS_ITS | Encounter Summary ---
Author Organization [facility] Address [address] [place] [address] Care Team Providers Care City Sanitarian Name Role Phone Unavailable Primary Care Provider Unavailabl e Encounter Details Date Type Department Care Team (Latest Contact Info) Description 07/06/2025 Travel Social History Tobacco Use Types Packs/Day Years [...] Office Visit [facility] [address] [facility] [address] [place] [phone] Stephen To MD [address] [facility] [address] [place] [address] [phone] documented as of this encounter Visit Diagnoses Not on filedocumented in this encounter
--- OUTSIDE RECORDS SUMMARY | 2025-07-20 06:55 | XMS_ITS | Clinical Summary ---
Author Organization [facility] Address [address] [place] [address] Phone Care Team Providers Care Advertising Sales Manager Name Role Phone Generic Provider, No Assigned [...] patient's age to complete this topic Insurance [employer] MEDICARE PART A AND B [employer] MED[employer] PART A AND B Care Teams Advertising Sales Manager Relationship Specialty Start Date End Date Generic Provider, No Assigned P[place], [place] [address] PCP - General Account Strategist 03/03/25
--- OUTSIDE RECORDS SUMMARY | 2025-07-20 06:55 | XMS_ITS | CCD ---
Author Organization [facility] Care Team Providers Care Photo Tube Assembler Name Role Phone PHYSICIAN, DEFAULT Unavailable Unavailable [...] Provider UnavailAlfa Amin Attending Unavailable Generic Provider MD, No Assigned Pcp Primary Car e Provider Unavailable WALKER TO Referring Unavailable [place] Attending Unavailable WALKER TO Attending Unavailable WALKER TO Attending Unavailable WALKER TO Attending Unavailable WALKER TO Attending Unavailable Allergies Allergy Classification Reported Allergen(s) Allergy Type Date of Onset Reaction(s) Facility (18 sources) Morphine; Translations: [morphine] Drug Allergy 7 Unknown [facility] (4 sources) Penicillin; Translations: [penicillin] Drug Allergy Unknown (qualifier value) [facility] (2 sources) Morphine Drug Allergy 7 [facility] (2 sources) Penicillins; Translations: [PENICILLINS] Drug allergy (disorder) 6 [facility] (13 sources) Penicillins Drug Allergy 3 Unknown [facility] Medications Current Medications Medication Drug Class(es) Dates Sig (Normalized) Sig (Original) apixaban 5 mg oral tablet (15 sources) Factor Xa Inhibitor Start: 02-27-2023 take 1 tablet by mouth in the morning Eliquis 5 MG tablet Take 5 mg by mouth in the morning and 5 mg in the evening. 02/27/2023 Active ascorbic acid 1000 mg oral tablet (13 sources) Vitamin C Ascorbic Acid (vitamin C) 1000 MG tablet 1 (one) time each day at the same time Active aspirin 81 mg oral tablet (16 sources) Platelet Aggregation Inhibitor, Nonsteroidal Anti-inflammatory Drug Start: 11-01-2019 take 1 tablet by mouth once daily aspirin 81 mg oral tablet 81 mg = 1 tab(s), Oral, Daily, Prophylaxis Start Date: 11/01/19 Status: Ordered aspirin 81 MG ch ewable tablet 1 (one) time each day at the same time Active Calcium (3 sources) Phosphate Binder, Calcium Start: 11-01-2019 Calcium 500+D 1 tab(s), Chewed, Daily, Prophylaxis Start Date: 11/01/19 Status: Ordered cholecalciferol 0.05 mg oral tablet (13 sources) Vitamin D cholecalciferol (Vitamin D-3) 50 MCG (1999 UT) tablet 1 (one) time each day at the same time Active cinnamon bark 500 mg oral capsule (13 sources) cinnamon 500 MG capsule 1 (one) time each day at the same time Active Cinnamon Preparation (3 sources) Non-Standardized Food Allergenic Extract Start: 05-14-2019 take 1 mg by mouth twice daily Cinnamon mg, Oral, BID, Prophylaxis Start Date: 05/14/19 Status: Ordered docosahexaenoic acid 120 mg / eicosapentaenoic acid 180 mg oral capsule (13 sources) omega-3 (Fish Oi l) 1000 MG capsule 1 capsule 1 (one) time each day at the same time Active donepezil hydrochloride 10 mg oral tablet (20 sources) Start: 04-04-2025 End: 07-06-2025 take 1 tablet by mouth in the morning donepezil (Aricept) 23 MG tablet Indications: Mild cognitive impairment with memory loss Take 1 tablet (23 mg) by mouth in the morning. 30 tablet 3 04/04/2025 07/06/2025 Discontinued (Therapy completed) Start: 10-11-2024 End: 10-06-2025 take 1 tablet by mouth in the morning donepezil (Aricept) 10 MG tablet Indications: Mild cognitive impairment with memory loss Take 1 tablet (10 mg) by mouth in the morning and 1 tablet (10 mg) before bedtime. 180 tablet 3 07/06/2025 10/04/2025 Active Start: 08-13-2021 donepezil 10 m g Tab Refills(s) 0 Start Date: 08/13/21 Status: Ordered End: 10-11-2024 donepezil (Aricept) 10 MG ta blet every 12 (twelve) hours. 10/11/2024 Discontinued (Reorder) FeroSul 325 mg oral tablet (2 sources) Start: 05-12-2023 FeroSul 325 mg oral tablet Refills(s) 0 Start Date: 05/12/23 Status: Ordered ferrous sulfate 325 mg oral tablet (13 sources) Start: 10-07-2022 ferrous sulfat e 325 (65 Fe) MG tablet 10/07/2022 Active Start: 10-07-2022 take 1 tablet by ubaldo once daily ferrous sulfate 325 (65 Fe) MG tablet TAKE ONE TABLET BY MOUTH DAILY for 30 10/07/2022 Active finasteride 5 mg oral tablet (16 sources) 5-alpha Reductase Inhibitor Start: 09-03-2021 End: 02-26-2025 take 1 tablet by mouth once daily finasteride 5 mg Tab 5 mg = 1 tab(s), Oral, Daily, X 90 day(s), # 90 tab(s), Refills(s) 3, Pharmacy: [facility] [id number], 178, cm, 05/12/23 9:20:00 EDT, Height/Length Dosing, 76.1, kg, 05/12/23 9:20:00 EDT, Weight Dosing Start Date: 03/03/24 Stop Date: 02/26/25 Status: Ordered Fish Oils (3 sources) Start: 11-04-2019 take 3 capsules by mouth once daily Fish Oil 3 cap(s), Oral, Daily, Refill(s) 0 Start Date: 11/04/19 Status: Ordered lisinopril 20 mg oral tablet (16 sources) Angiotensin Converting Enzyme Inhibitor Start: 05-14-2019 take 1 tablet by mouth once daily lisinopril 20 mg Tab 20 mg = 1 tab(s), Oral, Daily, High blood pressure Start Date: 05/14/19 Status: Ordered lovastatin 40 mg oral tablet (16 sources) HMG-CoA Reductase Inhibitor Start: 05-14-2019 take 1 tablet by mouth once daily lovastatin 40 mg Tab 40 mg = 1 tab(s), Oral, Daily, High cholesterol Start Date: 05/14/19 Status: Ordered 24 hr memantine hydrochloride 28 mg extended release oral capsule (13 sources) O-cpfdsf-R-aspart ate Receptor Antagonist Start: 05-14-2024 End: 01-09-2025 take [...] 08/27/2023 Active methylcellulose 500 mg oral tablet (13 sources) Methylcellulose, Laxative, (Fiber Therapy) 500 MG tablet every 4 (four) hours Active 24 hr mirabegron 50 mg extended release oral tablet (1 source) beta3-Adrenergi c Agonist Start: 09-24-20 take 1 tablet by mouth once daily Myrbetriq 50 mg oral tablet, extended release 50 mg = 1 tab(s), Oral, Daily, # 30 tab(s), Refills(s) 6, Pharmacy: [id number], 178, cm, 08/13/21 10:37:00 EST, Height/Length Dosing, 77, kg, 08/13/21 10:37:00 EST, Weight Dosing Start Date: 09/24/21 Status: Ordered Multiple Vitamins-Minerals (Multivitamin Men) tablet (13 sources) Multiple Vitamins-Minerals (Multivitamin Men) tablet Active Multiple Vitamin s-Minerals (Multivitamin Men) tablet Orally Active Multiple Vitamin s-Minerals (Multivitamin Men) tablet Orally 0 Active pantoprazole 40 mg extended release oral tablet (16 sources) Proton Pump Inhibitor Start: 05-14-2019 take 1 tablet by mouth once daily pantoprazole 40 mg Oral EC Tab 40 mg = 1 tab(s), Oral, Daily, Control of stomach acid Start Date: 05/14/19 Status: Ordered Start: 05-14-2019 [facility] 40 mg Oral EC Tab 40 mg = 1 tab(s), Oral, Daily, Control of stomach acid Start Date: 05/14/19 Status: Ordered tamsulosin hydrochloride 0.4 mg oral capsule (16 sources) alpha-Adrenergic Ana Laura Start: 02-04-2024 End: 01-29-2025 take 1 capsule by mouth once daily tamsulosin 0.4 mg Cap 0.4 mg = 1 cap(s), Oral, Daily, X 30 day(s), # 30 cap(s), Refills(s) 11, Pharmacy: [facility] [id number], 178, cm, 05/12/23 9:20:00 EDT, Height/Length Dosing, 76.1, kg, 05/12/23 9:20:00 EDT, Weight Dosing Start Date: 02/04/24 Stop Date: 01/29/25 Status: Ordered Start: 10-28-2021 End: 01-17-2024 take 1 capsule by mouth once daily tamsulosin 0.4 mg Cap 0.4 mg = 1 cap(s), Oral, Daily, X 90 day(s), # 90 cap(s), Refills(s) 3, Pharmacy: [facility] [id number], 178, cm, 08/13/21 10:37:00 EST, Height/Length Dosing, 77, kg, 08/13/21 10:37:00 EST, Weight Dosing Start Date: 01/22/23 Stop Date: 01/17/24 Status: Ordered 24 hr tolterodine tartrate 4 mg extended release oral capsule (14 sources) Cholinergic Muscarinic Antagonist Start: 03-06-2023 tolterodine LA (Detrol LA) 4 MG 24 hr capsule 1 capsule 1 (one) time each day at the same time 03/06/2023 Active Start: 09-26-2021 take 1 capsule by mo [facility] once daily tolterodine 4 mg Cap-ER 4 mg = 1 cap(s), Oral, Daily, # 30 cap(s), Refills(s) 11, Pharmacy: [id number], 178, cm, 08/13/21 10:37:00 EST, Height/Length Dosing, 77, kg, 08/13/21 10:37:00 EST, Weight Dosing Start Date: 09/26/21 Status: Ordered vitamin b12 0.5 mg oral tablet (13 sources) Vitamin B12 cyanocobalamin ( Vitamin B-12) 500 MCG tablet 1 (one) time each day at the same time Active Vitamin C 250 mg oral tablet [...] period., # 30 tab(s), Refills(s) 2, Pharmacy: [facility] [id number], 178, cm, 08/13/21 10:37:00 EST, Height/Length Dosing, 77, kg, 08/13/21 10:37:00 EST, Weight Dosing Start Date: 12/04/22 Status: Ordered Start: 01-02-2021 take 1 tablet by ubaldo th every hour tadalafil 20 mg Tab 20 mg = 1 tab(s), Oral, Daily, take 1 tab 1 hour prior to sexual activity, # 30 tab(s), Refills(s) 6, Pharmacy: [facility] Start Date: 01/02/21 Status: Ordered Vitamin B12 500 mcg oral tablet (3 sources) Start: 11-04-2019 take 1 tablet by mouth once daily Vitamin B12 500 mcg oral tablet 500 microgram = 1 tab(s), Oral, Daily, Refills(s) 0, Prophylaxis Start Date: 11/04/19 Status: Ordered Problems Active Problems Problem Classification Problem Date Documented Date Episodic/Chronic Anxiety disorders (13 sources) Anxiety; Translations: [Anxiety disorder, unspecified] Onset: 09-08-2023 09-08-2023 Chronic Blindness and vision defects (13 sources) Visual alteration; Translations: [Unspecified visual loss] Onset: 09-08-2023 09-08-2023 Chronic Delirium, dementia, and amnestic and other cognitive disorders (20 sources) 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; Translations: [Primary degenerative dementia of the Alzheimer type, presenile onset, uncomplicated] Onset: 07-01-2022 Chronic Disorders of lipid metabolism (18 sources) Hyperlipidemia; Translations: [Pure hypercholesterolemia , unspecified] Onset: 07-04-2022 04-12-2019 Chronic Essential hypertension (19 sources) Hypertensive disorder; Translations: [Essential (primary) hypertension] [...] prostatic hypertrophy] Onset: 03-31-2023 04-12-2019 Chronic Osteoarthritis (20 sources) Arthritis; Translations: [Osteoarthritis of right hip joint] Onset: 08-25-2023 04-12-2019 Chronic Other aftercare (1 source) Long-term current use of anticoagulant; Translations: [intermediate accountant (current) use of anticoagulants] Onset: 05-12-2023 Episodic Other connective tissue disease (13 sources) History of total replacement of left hip joint; Translations: [Presence of left artificial hip joint] Onset: 08-25-2023 08-25-2023 Chronic Other connective tissue disease (13 sources) History of total replacement of right hip joint; Translations: [Presence of right artificial hip joint] Onset: 08-25-2023 08-25-2023 Chronic Other hereditary and degenerative nervous system conditions (20 sources) Mild cognitive impairment, so stated; Translations: [Mild cognitive impairment, so stated] Onset: 08-25-2023 08-25-2023 Chronic Other male genital disorders (3 sources) 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 Other male genital disorders (1 source) Male erectile dysfunction, unspecified; Translations: [Erectile dysfunction] Onset: 05-12-2023 Chronic Other nervous system disorders (13 sources) Chronic pain; Translations: [Other chronic pain] [...] MURMUR, UNSPECIFIED] Onset: 06-24-2017 Episodic Other aftercare (4 sources) Drug therapy finding; Translations: [[facility] (current) use of anticoagulants] Onset: 12-23-2024 04-04-2025 Episodic Other connective tissue disease (13 sources) Pain in right hand; Translations: [Pain in right hand] Onset: 08-25-2023 08-25-2023 Episodic Other non-traumatic joint disorders (13 sources) Pain in left shoulder; Translations: [Pain in joint, shoulder region] Onset: 08-25-2023 08-25-2023 Episodic Other non-traumatic joint disorders (13 sources) Arthralgia of the pelvic region and thigh; Translations: [Pain in unspecified hip] Onset: 08-25-2023 08-25-2023 Episodic Other non-traumatic joint disorders (12 sources) Hip pain; Translations: [Pain in right hip] Onset: 08-25-2023 08-25-2023 Episodic Skull and face fractures (7 sources) Closed fracture of nasal bones; Translations: [Fracture of nasal bones, initial encounter for closed fracture] Onset: 12-23-2024 11-04-2019 Episodic Superficial injury; contusion (13 sources) Contusion of right hand; Translations: [Contusion of right hand, initial encounter] Onset: 08-25-2023 08-25-2023 Episodic Unclassified (18 sources) Abnormal electrocardiogram [ECG] [EKG]; Translations: [Encounter for screening for malignant neoplasm of prostate] Onset: 06-24-2017 08-25-2023 Episodic Results Test Name Value Interpretation Reference Range Facility 36on 06-15-2025 36 BP was 142/84. They do not check HR at Dr. Stephens's office. No weight gain. Nurse Marielena was going to check with Dr. Stephens to see if patient reported any new symptoms and let us know if he did. [facility] 36 Dr. Stephens's office called today to make you aware of new murmur he heard on today in the office. He just had echo in May 2025. He isn't due back to see you until December 2025. Would you like to see him soon? Or does he need further testing? Please advise. Thanks. [facility] 36on 05-18-2025 36 Regarding echo resul t from 05/17/2025: Dante Simms MD to Me (Selected Message) EE 05/18/25 7:29 AM Please reassure him that his echo is stable and aortic stenosis is still 'moderate' Thanks. Patient informed. [facility] Orders Onlyon 05-17-2025 Orders Only [id number] Matt Burroughs 1940 M Date Provider Department [place] 05/17/2025 [id number], [facility] Shelley Guerra Family History Problem Relation Age of Onset No Known Problems Mother No Known Problems Father Heart failure Sister Family Status - Relation Status Age at Mother Father Sister Normal [facility] NM PET CT AMYLOID BRAINon NM PET CT AMYLOID BRAIN Interpreted By: Ebony Ricardo and Kaur Arashdeep STUDY: NM PET CT AMYLOID BRAIN; 03/04/2025 2:26 pm INDICATION: Signs/Symptoms:DIANA [place]. COMPARISON: None. ACCESSION NUMBER(S): [id number] ORDERING CLINICIAN: WALKER TO TECHNIQUE: DIVISION OF [...] images digitally fused for display. CALIBRATION: Dose Jaxeayiyl-li-Heku Interval (mins): 53 min FINDINGS: There is [...] Roberts MD. This study was interpreted at [place], [place]. MACRO: None Signed by: Ebony Ricardo 03/04/2025 3:20 PM Dictation workstation: [id number] Normal [facility] PET+CT Brain for amyloidosis on 03-04-2025 1. [...] Roberts MD. This study was interpreted at [place], [place]. MACRO: None Signed by: Ebony Ricardo 03/04/2025 3:20 PM Dictation workstation: [id number] [facility] MMODAL Interpreted By: Fathala, Rigo Beck STUDY: NM PET CT AMYLOID BRAIN; 03/04/2025 2:26 pm INDICATION: Signs/Symptoms:DIANA IA. COMPARISON: None. ACCESSION NUMBER(S): [id number] ORDERING CLINICIAN: WALKER TO TECHNIQUE: DIVISION OF [...] images digitally fused for display. CALIBRATION: Dose Bwjdljxys-ks-Mzwz Interval (mins): 53 min FINDINGS: There is no increased F-18 florbetapir uptake seen in the cortical cerebral batista matter. The cerebellum has no abnormal florbetapir uptake. The centiloid values -9.0 (normal value less than 24.4). [facility] Ebony Ricardo MD - 03/04/2025 Interpreted By: Ebony Ricardo and Kaur Arashdeep STUDY: NM PET CT AMYLOID BRAIN; 03/04/2025 2:26 pm INDICATION: Signs/Symptoms:DIANA IA. COMPARISON: None. ACCESSION NUMBER(S): [id number] ORDERING CLINICIAN: WALKER TO TECHNIQUE: DIVISION OF [...] images digitally fused for display. CALIBRATION: Dose Dglloblol-rp-Knhb Interval (mins): 53 min FINDINGS: There is [...] interpreted at [facility], [place], [place]. MACRO: None Signed by: Ebony Ricardo 03/04/2025 3:20 PM Dictation workstation: [id number] [facility] Work Phone: Radiology Study observation (narrative) [facility] Work Phone: PET+CT Brain for amyloidosis Ordered By: Ebony Ricardo on 03-04-2025 [facility] Work Phone: Office Visiton 12-23-2024 Follow-up visit [id number] Mtat Burroughs 1940 M Date Provider Department Center 12/23/2024 Jesus-DANTE SIMMS Family History Problem Relation Age of Onset No Known Problems Mother No Known Problems Father Heart failure Sister Family Status - Relation Status Age at Mother Father Sister Level of Service:59993 [place] OFFICE/OUTPATIENT ESTABLISHED LOW MDM 20 MIN Normal [facility] INSULINon 07-02-2022 Insulin 6.3 uIU/mL Normal 2.6-24.9 [facility] Comment on above: Performed By: #### I NSULIN #### [facility] [address] [place] [address] Dr. Robyn Espinal T4, T3U, FTI LABCORPon 07-02 Free Thyroxine Index 1.6 Normal 1.2-4.9 [facility] Comment on above: Performed By: #### T HYLC #### [facility] [address] [place] [address] Dr. Robyn Espinal T3 Uptake 27 % Normal 24-39 [facility] Comment on above: Performed By: #### T HYLC #### [facility] [address] [place] [address] Dr. Robyn Espinal T4 [Mass/Vol] 5.8 ug/dL Normal 4.5-12.0 [facility] Comment on above: Performed By: #### T HYLC #### [facility] [address] [place] [address] Dr. Robyn Espinal CBC AUTO DIFFon 07-01-2022 BASO # 0.0 103/ul Normal 0.0-0.1 [facility] Comment on above: Performed By: #### C BC #### [facility] [address] [place] [address] Dr. Robyn Espinal Basophils/100 WBC (Bld) 0.6 % Normal 0.2-2.0 [facility] Comment on above: Performed By: #### C BC #### [facility] [address] [place] [address] Dr. Robyn Espinal EO # 0.1 103/ul Normal 0.0-0.7 [facility] Comment on above: Performed By: #### C BC #### [facility] [address] [place] [address] Dr. Robyn Espinal Eosinophils/100 WBC (Bld) 1.9 % Normal 0.9-7.0 [facility] Comment on above: Performed By: #### C BC #### [facility] [address] [place] [address] Dr. Robyn Espinal Erythrocyte distribution width (RBC) [Ratio] 13.1 % Normal 11.0-15.0 [facility] Comment on above: Performed By: #### C BC #### [facility] [address] [place] [address] Dr. Robyn Espinal Hematocrit (Bld) [Volume fraction] 39.5 % Critically low 42.0-54.0 [facility] Comment on above: Performed By: #### C BC #### [facility] [address] [place] [address] Dr. Robyn Espinal Hemoglobin (Bld) [Mass/Vol] 12.9 g/dL Critically low 14.0-18.0 [facility] Comment on above: Performed By: #### C BC #### [facility] [address] [place] [address] Dr. Robyn Espinal IG # 0.01 10e3/ul Normal 0.00-0.03 [facility] Comment on above: Performed By: #### C BC #### [facility] [address] [place] [address] Dr. Robyn Espinal IG % 0.2 % Normal 0.0-0.5 [facility] Comment on above: Performed By: #### C BC #### [facility] [address] [place] [address] Dr. Robyn Espinal LYMPH # 1.3 103/ul Normal 1.2-3.8 [facility] Comment on above: Performed By: #### C BC #### [facility] [address] [place] [address] Dr. Robyn Espinal Lymphocytes/100 WBC (Bld) 27.2 % Normal 20.5-60.0 [facility] Comment on above: Performed By: #### C BC #### [facility] [address] [place] [address] Dr. Robyn Espinal MANUAL DIFF REQ NO Normal [facility] Comment on above: Performed By: #### C BC #### [facility] [address] [place] [address] Dr. Robyn Espinal MCH (RBC) [Entitic mass] 31.8 pg Normal 25.9-34.0 [facility] Comment on above: Performed By: #### C BC #### [facility] [address] [address] [address] Roybn Espinal MCHC (RBC) [Mass/Vol] 32.7 g/dL Normal 29.9-35.2 [facility] Comment on above: Performed By: #### C BC #### [facility] [address] [address] [address] Robyn Espinal MCV (RBC) [Entitic vol] 97.3 fL Critically high 80.0-94.0 [facility] Comment on above: Performed By: #### C BC #### [facility] [address] [place] [address] Dr. Robyn Espinal MONO # 0.7 103/ul Normal 0.3-0.8 [facility] Comment on above: Performed By: #### C BC #### [facility] [address] [place] [address] Dr. Robyn Espinal Monocytes/100 WBC (Bld) 14.7 % Critically high 1.7-12.0 [facility] Comment on above: Performed By: #### C BC #### [facility] [address] [place] [address] Dr. Robyn Espinal NEUT # 2.6 103/ul Normal 1.4-6.5 [facility] Comment on above: Performed By: #### C BC #### [facility] [address] [place] [address] Dr. Robyn Espinal Neutrophils/100 WBC (Bld) 55.4 % Normal 43.0-75.0 [facility] Comment on above: Performed By: #### C BC #### [facility] [address] [place] [address] Dr. Robyn Espinal Platelet mean volume (Bld) [Entitic vol] 9.7 fL Normal 9.5-13.5 [facility] Comment on above: Performed By: #### C BC #### [facility] [address] [place] [address] Dr. Robyn Espinal PLT 205 103/ul Normal 150-450 [facility] Comment on above: Performed By: #### C BC #### [facility] [address] [address] [address] Robyn Espinal RBC 4.06 106/ul Critically low 4.70-6.10 [facility] Comment on above: Performed By: #### C BC #### [facility] [address] [address] [address] Robyn Espinal WBC 4.7 103/ul Normal 4.0-11.0 [facility] Comment on above: Performed By: #### C BC #### [facility] [address] [address] [address] Robyn Espinal GLYCOHEMOGLOBIN A1Con 2021 ADA RECOMMENDATION SEE BELOW Normal [facility] Comment on above: Result Comment: ADA RECOMMENDED LIMIT 4.0 - 6.0 ADA THERAPEUTIC TARGET < 7.0 ACTION SUGGESTED > 7.0 Performed By: #### A 1C #### [facility] [address] [place] [address] Dr. Robyn Espinal Glucose [Mass/Vol] 128 mg/dL Normal [facility] Comment on above: Performed By: #### A 1C #### [facility] [address] [place] [address] Dr. Robyn Espinal HbA1c (Bld) [Mass fraction] 6.1 % Normal 4.5-6.2 [facility] Comment on above: Performed By: #### A 1C #### [facility] [address] [place] [address] Dr. Robyn Espinal LIPID PROFILEon 07-01-2022 CHOL-HDL RATIO NORM SEE BELOW Normal [facility] Comment on above: Result Comment: 3.3 - 4.4 LOW RISK 4.4 - 7.1 AVERAGE RISK 7.1 - 11.0 MODERATE RISK >11.0 HIGH RISK Performed By: #### T SH, LIPID, CMP, URIC #### [facility] [address] [place] [address] Dr. Robyn Espinal Cholesterol [Mass/Vol] 201 mg/dL Critically high <=200 [facility] Comment on above: Performed By: #### T SH, LIPID, CMP, URIC #### [facility] [address] [address] [address] Robyn Espinal Cholesterol in HDL [Mass/Vol] 82 mg/dL Critically high 40-60 [facility] Comment on above: Performed By: #### T SH, LIPID, CMP, URIC #### [facility] [address] [address] [address] Robyn Espinal Cholesterol in LDL [Mass/Vol] 102.4 mg/dL Normal [facility] Comment on above: Performed By: #### T SH, LIPID, CMP, URIC #### [facility] [address] [address] [address] Robyn Espinal Cholesterol.total/Chol esterol in HDL [Mass ratio] 2.5 {ratio} Normal [facility] Comment on above: Performed By: #### T SH, LIPID, CMP, URIC #### [facility] [address] [address] [address] Robyn Espinal HDL NORMAL > or = 60 mg/dl - LO W CARDIOVASCULAR RISK <40 mg/dl - HIGH CARDIOVASCULAR RISK Normal [facility] Comment on above: Performed By: #### T SH, LIPID, CMP, URIC #### [facility] [address] [address] [address] Robyn Espinal LDL CALC NORMAL SEE BELOW Normal [facility] Comment on above: Result Comment: <100 mg/dl OPTIMAL 100 - 129 mg/dl NEAR OR ABOVE OPTIMAL 130 - 159 mg/dl BORDERLINE HIGH 160 - 189 mg/dl HIGH >190 mg/dl VERY HIGH Performed By: #### T SH, LIPID, CMP, URIC #### [facility] [address] [address] [address] Robyn Espinal Triglyceride [Mass/Vol] 83 mg/dL Normal <=150 [facility] Comment on above: Performed By: #### T SH, LIPID, CMP, URIC #### [facility] [address] [address] [address] Robyn Espinal VLDL CALC 16.6 mg/dL Normal [facility] Comment on above: Performed By: #### T SH, LIPID, CMP, URIC #### [facility] [address] [address] [address] Robyn Espinal PROF 14(COMP METB)on 022 Albumin [Mass/Vol] 3.7 g/dL Normal 3.4-5.0 [facility] Comment on above: Performed By: #### T SH, LIPID, CMP, URIC #### [facility] [address] [address] [address] Robyn Espinal Albumin/Globulin [Mass ratio] 1.2 {ratio} Normal [facility] Comment on above: Performed By: #### T SH, LIPID, CMP, URIC #### [facility] [address] [address] [address] Robyn Espinal ALP [Catalytic activity/Vol] 68 U/L Normal 46-116 [facility] Comment on above: Performed By: #### T SH, LIPID, CMP, URIC #### [facility] [address] [place] [address] Dr. Robyn Espinal ALT [Catalytic activity/Vol] 21 U/L Normal 16-63 [facility] Comment on above: Performed By: #### T SH, LIPID, CMP, URIC #### [facility] [address] [address] [address] Robyn Espinal Anion gap [Moles/Vol] 7.7 mmol/L Normal [facility] Comment on above: Performed By: #### T SH, LIPID, CMP, URIC #### [facility] [address] [address] [address] Robyn Espinal AST [Catalytic activity/Vol] 14 U/L Critically low 15-37 [facility] Comment on above: Performed By: #### T SH, LIPID, CMP, URIC #### [facility] [address] [address] [address] Robyn Espinal Bilirubin [Mass/Vol] 0.8 mg/dL Normal 0.2-1.0 [facility] Comment on above: Performed By: #### T SH, LIPID, CMP, URIC #### [facility] [address] [address] [address] Robyn Espinal Calcium [Mass/Vol] 9.3 mg/dL Normal 8.5-10.1 [facility] Comment on above: Performed By: #### T SH, LIPID, CMP, URIC #### [facility] [address] [address] [address] Robyn Espinal Chloride [Moles/Vol] 105 mmol/L Normal 98-107 [facility] Comment on above: Performed By: #### T SH, LIPID, CMP, URIC #### [facility] [address] [address] [address] Robyn Espinal CO2 [Moles/Vol] 30.7 mmol/L Normal 21.0-32.0 [facility] Comment on above: Performed By: #### T SH, LIPID, CMP, URIC #### [facility] [address] [place] [address] Dr. Robyn Espinal Creatinine [Mass/Vol] 1.03 mg/dL Normal 0.70-1.30 [facility] Comment on above: Performed By: #### T SH, LIPID, CMP, URIC #### [facility] [address] [place] [address] Dr. Robyn Espinal EGFR-AF CITIZEN OF [place] >60 Normal >=60 [facility] Comment on above: Performed By: #### T SH, LIPID, CMP, URIC #### [facility] [address] [place] [address] Dr. Robyn Espinal EGFR-NON AF CITIZEN OF [place] >60 Normal >=60 [facility] Comment on above: Performed By: #### T SH, LIPID, CMP, URIC #### [facility] [address] [place] [address] Dr. Robyn Espinal Globulin (S) [Mass/Vol] 3.0 g/dL Normal [facility] Comment on above: Performed By: #### T SH, LIPID, CMP, URIC #### [facility] [address] [place] [address] Dr. Robyn Espinal Glucose [Mass/Vol] 110 mg/dL Critically high 74-106 [facility] Comment on above: Performed By: #### T SH, LIPID, CMP, URIC #### [facility] [address] [place] [address] Dr. Robyn Espinal Potassium [Moles/Vol] 4.4 mmol/L Normal 3.5-5.1 [facility] Comment on above: Performed By: #### T SH, LIPID, CMP, URIC #### [facility] [address] [place] [address] Dr. Robyn Espinal Protein [Mass/Vol] 6.7 g/dL Normal 6.4-8.2 [facility] Comment on above: Performed By: #### T SH, LIPID, CMP, URIC #### [facility] [address] [place] [address] Dr. Robyn Espinal Sodium [Moles/Vol] 139 mmol/L Normal 136-145 [facility] Comment on above: Performed By: #### T SH, LIPID, CMP, URIC #### [facility] [address] [place] [address] Dr. Robyn Espinal Urea nitrogen [Mass/Vol] 24.0 mg/dL Critically high 7.0-18.0 [facility] Comment on above: Performed By: #### T SH, LIPID, CMP, URIC #### [facility] [address] [place] [address] Dr. Robyn Espinal Urea nitrogen/Creatinine [Mass ratio] 23.3 mg/mg Normal [facility] Comment on above: Performed By: #### T SH, LIPID, CMP, URIC #### [facility] [address] [place] [address] Dr. Robyn Espinal TSHon 07-01-2022 TSH 2.293 uIU/mL Normal 0.358-3.740 [facility] Comment on above: Performed By: #### T SH, LIPID, CMP, URIC #### [facility] [address] [place] [address] Dr. Robyn Espinal URIC ACID SERUMon 07-01-2022 Urate [Mass/Vol] 5.5 mg/dL Normal 3.5-7.2 The [facility] Comment on above: Performed By: #### T SH, LIPID, CMP, URIC #### [facility] [address] [place], [place] [id number] Dr. Robyn Espinal Vital Signs Date Time Vital Sign Value Performing Clinician Facility 07-06-2025 08:22-0400 Body mass index (BMI) [Ratio] 24.04 kg/m2 Walker To MD Work Phone: [facility] 07-06-2025 08:22-0400 Body weight 73.85 kg Walker To MD Work Phone: [facility] 07-06-2025 08:22-0400 Diastolic blood pressure 80 mm[Hg] Walker To MD Work Phone: [facility] 07-06-2025 08:22-0400 Respiratory rate 18 /min Walker To MD Work Phone: [facility] 07-06-2025 08:22-0400 SaO2% (BldA) [Mass fraction] 98 % Walker To MD Work Phone: [facility] 07-06-2025 08:22-0400 Systolic blood pressure 128 mm[Hg] Walker To MD Work Phone: [facility] 04-04-2025 08:53-0400 Body height 175.3 cm Walker To MD Work Phone: [facility] 04-04-2025 08:53-0400 Body mass index (BMI) [Ratio] 24.07 kg/m2 Walker To MD Work Phone: [facility] 04-04-2025 08:53-0400 Body weight 73.94 kg Walker To MD Work Phone: [facility] 04-04-2025 08:53-0400 Diastolic blood pressure 82 mm[Hg] Walker To MD Work Phone: [facility] 04-04-2025 08:53-0400 Systolic blood pressure 118 mm[Hg] Walker To MD Work Phone: [facility] 02-07-2025 08:19-0400 Body height 175.3 cm Walker To MD Work Phone: [facility] 02-07-2025 08:19-0400 Body mass index (BMI) [Ratio] 24.66 kg/m2 Walker To MD Work Phone: [facility] 02-07-2025 08:19-0400 Body weight 75.75 kg Walker To MD Work Phone: [facility] 02-07-2025 08:19-0400 Diastolic blood pressure 84 mm[Hg] Walker To MD Work Phone: [facility] 02-07-2025 08:19-0400 Systolic blood pressure 148 mm[Hg] Walker To MD Work Phone: [facility] 10-11-2024 08:18-0500 Body height 175.3 cm Walker To MD Work Phone: [facility] 10-11-2024 08:18-0500 Body mass index (BMI) [Ratio] 24.66 kg/m2 Walker To MD Work Phone: [facility] 10-11-2024 08:18-0500 Body weight 75.75 kg Walker To MD Work Phone: [facility] 10-11-2024 08:18-0500 Diastolic blood pressure 84 mm[Hg] Walker To MD Work Phone: [facility] 10-11-2024 08:18-0500 Systolic blood pressure 136 mm[Hg] Walker To MD Work Phone: [facility] 05-12-2023 09:11-0400 Blood Pressure Location Alfa SANDHU [facility] 05-12-2023 09:11-0400 Diastolic blood pressure 82 mm[Hg] Alfa SANDHU [facility] 05-12-2023 09:11-0400 Heart rate 79 /min Alfa PHOEBE [facility] 05-12-2023 09:11-0400 Respiratory rate 16 /min Alfa PHOEBE [facility] 05-12-2023 09:11-0400 Systolic blood pressure 131 mm[Hg] Alfa PHOEBE [facility] Encounters Encounter Date Encounter Type Care Provider Facility Start: 07-06-2025 End: 07-06-2025 Office outpatient visit 25 minutes Walker To MD Work Phone: [facility] Comment on above: 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 Start: 07-06-2025 End: 07-06-2025 ambulatory WALKER TO Not Available Start: 04-04-2025 End: 04-04-2025 Prem To MD Work Phone: [facility] Start: 04-04-2025 End: 04-04-2025 Prem To MD Work Phone: [facility] Start: 04-04-2025 End: 04-04-2025 ambulatory WALKER TO Not Available Start: 04-04-2025 End: 04-04-2025 Office outpatient visit 25 minutes Walker To MD Work Phone: [facility] Comment on above: 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 Start: 03-04-2025 End: 03-04-2025 Subsequent hospital visit by physician Lindsey [id number] Admin Room [address] [facility] [place][note 2] Comment on above: Alzheimer's disease with early onset (CODE); Dementia in other diseases classified elsewhere, unspecified severity, without behavioral disturbance, psychotic disturbance, mood disturbance, and anxiety (Multi) Arrived Start: 03-04-2025 End: 03-04-2025 ambulatory WALKER TO [facility] Start: 02-07-2025 End: 02-07-2025 Bamboo flowsheet Walker To MD Work Phone: [facility] Start: 02-07-2025 End: 02-07-2025 Bamboo flowsheet Walker To MD Work Phone: [facility] Start: 02-07-2025 End: 02-07-2025 Office outpatient visit 25 minutes Walker To MD Work Phone: [facility] Comment on above: Dementia of the Alzh eimer's type, with early onset, uncomplicated (CMS/HCC) (Primary Dx) Start: 02-07-2025 End: 02-07-2025 ambulatory WALKER TO Not Available Start: 01-31-2025 End: 01-31-2025 Office outpatient visit 15 minutes Walker To MD Work Phone: [facility] Comment on above: 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 (Primary Dx) Start: 12-23-2024 End: 12-23-2024 ambulatory [facility] Start: 10-11-2024 End: 10-11-2024 Office outpatient visit 25 minutes Walker To MD Work Phone: [facility] Comment on above: 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 (Primary Dx) Start: 10-11-2024 End: 10-11-2024 ambulatory WALKER TO Not Available Start: 05-17-2024 End: 05-17-2024 ambulatory Alfa SANDHU Facility:[facility] Start: 05-17-2024 End: 05-17-2024 Patient encounter procedure Alfa SANDHU [facility] Start: 11-12-2023 Chart abstracting Walker castillo MD Work Phone: [facility] Start: 05-12-2023 End: 05-12-2023 Patient encounter procedure Alfa SANDHU [facility] Start: 03-11-[address] ROSALIA STEPHENS . Facili ty:[facility] Start: 03-05-[address] ROSALIA STEPHENS . Facili ty:[facility] Start: 07-01-2022 End: 07-02-[address] ROSALIA STEPHENS . Facility: Start: 05-17-2022 End: 05-17-2022 Patient encounter procedure Alfa SANDHU [facility] Start: 06-24-2017 End: 06-25-2017 Ambulatory DANTE SIMMS Facility:[facility] Start: 06-24-2017 End: 06-25-2017 Ambulatory DEFAULT PHYSICIAN Facility:[facility] Procedures Date Procedure Procedure Detail Performing Clinician Start: 03-04-[address] for attenuation limited area Walker To MD Work Phone: Start: 07-01-[address] MINDY STEPHENS . Comment on above: Performed By: #### P [facility] #### [facility] [address] [place] [address] Dr. 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 SANDHU Comment on above: bilateral Plan of Treatment Date Care Activity Detail Author Start: 10-12-2025 End: 10-12-2025 Patient encounter procedure 10/12/2025 8:00 AM EST Office Visit [facility] [address] [place] [address] Walker To MD [address] [facility] [place] [address] [facility] Start: 07-06-2025 End: 07-06-2025 Patient encounter procedure 07/06/2025 8:20 AM EDT Office Visit [facility] [address] [facility] [address] [place] [address] Walker To MD [address] [facility] [address] [address] [facility] Start: 06-06-2025 Influenza vaccination [facility] Start: 04-04-2025 End: 04-04-2025 Patient encounter procedure 04/04/2025 8:40 AM EDT Office Visit [facility] [address] [facility] [address] [place] [address] Walker To MD [address] [facility] [address] [address] [facility] Start: 02-07-2025 End: 02-07-2026 PET+CT Brain for amyloidosis AMYLOID PET/CT BRAIN SCAN Imaging Routine Dementia of the Alzheimer's type, with early onset, uncomplicated ([facility]) Expected: 02/07/2025, Expires: 02/07/2026 [facility] Work Phone: Comment on above: Expected: 02/07/2025 , Expires: 02/07/2026 Start: 02-07-2025 End: 02-07-2025 Patient encounter procedure [facility] Comment on above: Arrived Start: 12-12-2024 COVID-19 Vaccine ( season) COVID-19 Vaccine ( season) [facility] Start: 06-06-2024 Influenza vaccination Influenza Vacc ine (#1) [facility] Start: 11-13-2023 End: 11-13-2023 Patient encounter procedure 11/13/2023 11:20 AM EST Office Visit [facility] [address] [place] [address] Walker To MD [address] [facility] [address] [address] [facility] Start: 1964 DTaP/Tdap/Td Vaccine s (1 - Tdap) DTaP/Tdap/Td Vaccines (1 - Tdap) [facility] Start: 1940 Lipid panel Lipid Panel [facility] Start: 1940 Medicare Annual Wellness Visit Medicare Annual Wellness Visit (AWV) [facility] Immunizations Immunization Date Immunization Notes Care Provider Fa cili 07-09-2023 influenza virus vacc ine, unspecified formulation Walker To MD Work Phone: [facility] 07-23-2022 influenza virus vacc ine, unspecified formulation Alfa SANDHU [facility] 07-23-2022 SARS-CoV-2 (COVID-19 ) [id number] Alfa SANDHU [facility] 03-28-2022 SARS-CoV-2 mRNA (yerdgamkvkr-fuvq-gkzwir e) vaccine Alfa SANDHU [facility] 07-05-2021 SARS-CoV-2 (COVID-19 ) mRNA BNT-162b2 vax Alfa SANDHU [facility] 07-04-2021 influenza, unspecifi ed formulation Alfa SANDHU [facility] 11-23-2020 SARS-CoV-2 (COVID-19 ) mRNA BNT-162b2 vax Alfa SANDHU [facility] 11-06-2020 SARS-CoV-2 (COVID-19 ) mRNA BNT-162b2 vax Alfa SANDHU [facility] 11-02-2020 SARS-CoV-2 (COVID-19 ) mRNA BNT-162b2 vax Alfa [employer] [facility] 10-06-2020 SARS-CoV-2 (COVID-19 ) mRNA BNT-162b2 vax Alfa [employer] [facility] 07-07-2020 influenza virus vacc ine, unspecified formulation Alfa [employer] [facility] 06-06-2020 pneumococcal polysaccharide vaccine, 23 valent Alfa [employer] [facility] 07-28-2019 influenza, unspecifi ed formulation Alfa [employer] [facility] 07-27-2019 zoster vaccine recombinant Alfa [employer] [facility] 05-19-2019 pneumococcal conjuga te vaccine, 13 valent Alfa [employer] [facility] 05-19-2019 zoster vaccine recombinant Alfa [employer] [facility] 08-06-2015 pneumococcal polysaccharide vaccine, 23 valent Alfa [employer] [facility] Payers Date Payer Category Payer Unknown 2020 Miscellaneous or Other [employer] [id number] 2020 Private Health Insurance [id number] 2020 Unknown [id number] 2008 Medicare [id number] 1959 Medicare [id number] 1959 Unknown [id number] 1942 Unknown [id number]. [id number] 1942 Unknown [id number] [id number]. 2.593 1942 Unknown [id number] [id number]. 2.593 1942 Unknown [id number] [id number]. [id number] 1942 Unknown [id number]. 2.1245 1942 Unknown [id number]. 2.1245 1942 Unknown [id number] [id number]. 2.1259 1942 Unknown [id number] [id number]. 2.1259 1942 Unknown [id number] [id number]. 2.1259 1942 Unknown [id number] 2.1259 Medicare [id number] Social History Date Type Detail Facility Start: 05-11-2021 End: 08-25-2023 Tobacco smoking status Ex-smoker (finding) [facility] Comment on above: pt. quit when he was 24 Tobacco smoking status Never [facility] Comment on above: pt. quit when he was 24 Start: 09-08-2023 End: 07-06-2025 Sex Assigned At Male [facility] History of tobacco use Current smoker [facility] History of tobacco use Cigarette Smoker [facility] Start: 09-08-2023 End: 07-06-2025 Alcohol intake Current drinker of alcohol (finding) [facility] Start: 09-08-2023 End: 07-06-2025 History of Social function [facility] Start: 08-25-2023 Alcohol Comment Points: 8, Interpretation: Positive; Caffeine Intake: 1-2 cups per day tea [facility] Start: 1940 Sex Assigned At Not on file [facility] Tobacco smoking status NHIS Tobacco smoking consumption unknown [facility] Work Phone: Start: 02-22-2025 End: 03-04-2025 Exposure to SARS-CoV-2 (event) Not sure [facility] Functional Status Date Assessment Result Facility 05-12-2023 Functional Status N/A [facility] Clinical Notes 05-11-2021 to 07-06-2025 Walker To MD - 07/06/2025 8:20 AM Zuleyka To MD - 04/04/2025 8:40 AM Zuleyka To MD - 02/07/2025 8:20 AM Zuleyka To MD - 01/31/2025 4:20 PM EDT Note Date & Type Note Facility 07-06-2025 History of Present illness Narrative Images from [...] fatigue, nightmares, and incontinence. He is accompanied by his . He reports a general sense of [...] about 1.5 weeks ago, and his has noticed a slight improvement in his condition. He experiences [...] equal, round, and reactive to light and accommodation, both directly and consensually. Visual jimenez were full [...] in all four extremities, including at least balance and hairspring assembler, finger abductors, biceps, triceps, deltoid, toe flexors [...] and spasticity are not evident. Arm swing is normal. Toe, heel, and tandem walking are performed [...] a 90-day supply will be sent to [facility] in [place]. If there is no improvement, Cerefolin will [...] may be a side effect of the long-acting donepezil. The dosage will be adjusted to 10 mg in the morning and 5 mg at supper time to see if this alleviates the nightmares. 4. Incontinence. He has experienced incontinence twice, [...] in daily activities. documented in this encounter [facility] 04-04-2025 History of Present illness Narrative Images [...] During a recent 4-day family trip to [place], he managed well overall, although there were [...] small amount of a radioactive tracer, commonly [id number]-svbraidyp (DaTscan), which binds to dopamine transporters in [...] BID This clinical note was created utilizing [employer] documentation system. All information has been thoroughly reviewed, corrected as necessary, and authenticated by the provider to ensure accuracy and completeness. On occasion, [employer] documentation system erroneously drops words or replaces a spoken word with a similar sounding word. Please notify with any questions or concerns regarding this clinical note. documented in this encounter [facility] 02-07-2025 History of Present illness Narrative Images [...] reflexes: Florentino's absent. Ankle clonus absent. Coordination Habdrc-jz-cvhb, rapid alternating movements and cbzb-fv-vozn normal bilaterally without dysmetria. Gait Normal casual, [...] mg BID I will order Amyloid PET Scan-[facility]. Considering Kisunla. Gave patient handout to read up on. I counseled the patient on the possible side effects and interactions of medications. Follow up 8 weeks. This note was scribed by ROBSON Zarco acting under the direction of Walker To MD. The content has been reviewed and confirmed for accuracy by Walker To MD documented in this encounter [facility] 01-31-2025 History of Present illness Narrative Images [...] reflexes: Florentino's absent. Ankle clonus absent. Coordination Wrotkn-od-vztj, rapid alternating movements and dxif-kq-szwi normal bilaterally without dysmetria. Gait Normal casual, [...] small amount of a radioactive tracer, commonly [id number] (DaTscan), which binds to dopamine transporters in [...] Walker To MD documented in this encounter [facility] 12-23-2024 Note [facility] Cardiology Clinic Note Chief Complaint: Patient [...] should problems arise Dante Simms MD, MPH, FACC, [facility], [facility] Interventional Cardiology Pager Email: [email or web address] 10-11-2024 History of Present illness Narrative Images [...] reflexes: Florentino's absent. Ankle clonus absent. Coordination Gkytrf-of-rehu, rapid alternating movements and vyhb-es-zvma normal bilaterally without dysmetria. Gait Normal casual, [...] up 3 months documented in this encounter [facility] 05-12-2023 Hospital Discharge instructions Patient Education 05/12/2023 [...] Follow these instructions at home: Medicines Take vshm-ogl-zbcdnus and prescription medicines only as told by [...] or the blood stops without treatment. Take xfqj-qvc-zyhyomi and prescription medicines only as told by your health care provider. Drink enough fluid to keep your urine pale yellow. This information is not intended to replace advice given to you by your health care provider. Make sure you discuss any questions you have with your health care provider. Document Revised: 05/23/2021 Document Reviewed: 05/23/2021 [place] Patient Education 2022 [employer]. Follow Up Care 09/10/2022 11:05:03 With:Alfa SANDHU MD, URL Address: [facility] [address] [place] [place] [address]- [phone] When: Unknown [facility] 05-11-2021 Hospital Discharge instructions Follow Up Care 05/11/2021 08:41:41 With:Alfa SANDHU MD, URL Address: [address] [place] [address] [place] [address]- When: Unknown [facility] Evaluation + Plan note No data available for this section [facility] Evaluation + Plan note Future Appointments Appointment Date:05/17/2024 08:45:00 AM Scheduled Provider:Alfa SANDHU MD Location:[facility] Appointment Type:URO Office Visit [facility] Evaluation note Diagnosis Mild cognitive impairment [...] and anxiety (Multi) documented in this encounter [facility] Work Phone: Evaluation note* Diagnosis Mild cognitive impairment with memory loss Mild cognitive impairment, so stated [facility] Diagnosis Mild cognitive impairment with memory loss Mild cognitive impairment, so stated [facility] No data available for this section [facility] progress note No data available for this section [facility] reason for visit Narrative* Imaging (Routine) - Authorized Specialty Diagnoses / Procedures Referred By Cruz t Referred To Contact Radiology Diagnoses Alzheimer's disease with early onset (CODE) Dementia in other diseases classified elsewhere, unspecified severity, without behavioral disturbance, psychotic disturbance, mood disturbance, and anxiety (Multi) Procedures NM PET CT amyloid brain Walker To MD [address] [place] [address] Phone: tel: fax: Referral ID Status Reason Start Date Expiration Date Visits Requested Visits Authorized [id number] Authorized Perform Procedure 02/08/2025 02/08/2026 3 3 [facility] Work Phone: Reason for visit Narrative* Imaging (Routine) - Authorized Specialty Diagnoses / Procedures Referred By Cruz ferreira Referred To Contact Radiology Diagnoses Alzheimer's disease with early onset (CODE) Dementia in other diseases classified elsewhere, unspecified severity, without behavioral disturbance, psychotic disturbance, mood disturbance, and anxiety (Multi) Procedures NM PET CT amyloid brain Walker To MD [address] [place] [address] Phone: tel: fax: Referral ID Status Reason Start Date Expiration Date Visits Requested Visits Authorized [id number] Authorized Perform Procedure 02/08/2025 02/08/[address] [place] [address] Work Phone: Summary Purpose Family History No [...] section and content) DATE CREATED AUTHOR 04/01/2018 [facility] DATE CREATED AUTHOR AUTHOR'S ORGANIZ ATION 03/14/2023 [facility] DATE CREATED AUTHOR AUTHOR'S ORGANIZ ATION [facility]/2024 [facility] DATE CREATED AUTHOR AUTHOR'S ORGANIZ ATION 03/10/2025 [facility] DATE CREATED AUTHOR AUTHOR'S ORGANIZ ATION 06/17/2025 [facility] DATE CREATED AUTHOR AUTHOR'S ORGANIZ ATION 07/11/2025 [facility] Specialists EPIC Care Team (unrecognized sect ion and content) Photo Tube Assembler Relationship Specialty Start Date End Date Generic Provider, No Assigned P[place], [place] [address] PCP - General Business Information Consultant 03/03/25 Photo Tube Assembler Relationship Specialty Start Date End Date Generic Provider, No Assigned P[place], [place] [address] PCP - General Business Information Consultant 03/03/25 Reason for Visit (unrecogniz ed section and content) Reason Comments Alzheimer's Disease Early onset, [facility] FOR RECORDS PERTAINING TO PATIENTS WHO ARE [...] BE BASED ON THE PRIMARY CLINICAL RECORDS. [facility]. provides no warranty or guarantee of the accuracy or completeness of information in this document.
[2025-07-20 08:15] LABS: Free T3 2.70 pg/mL (2.18-3.98); Thyroid Stimulating Hormone 2.136 uIU/mL (0.358-3.740)
== END 2025-07-20 06:52 | disposition home or self-care (01) ==
LOC: LAB 06:52
PROVIDERS: PCP Family Medicine; Visit Provider Family Medicine
DX: E03.9 Hypothyroidism, unspecified (principal)
CPT/HCPCS: 36415; 84436; 84443; 84481